=== PATIENT | male | born 1940 | race Caucasian/White ===

== ENCOUNTER 2019-10-29 06:34 | Day surgery (SDC) | payer MEDICARE, BC ==
[2019-10-29] VITALS (9 sets, daily range): BP systolic 113–126; BP diastolic 74–90
[~2019-10-29] VITALS: Ht 172.7 cm; Wt 103.1 kg
[2019-10-29] MEDS ORDERED: LORazepam 0.5 MG tablet PO PRN (07:00)
[2019-10-29] MEDS ORDERED: normal saline 1,000 ML IV SCH (07:00)
[2019-10-29] MEDS ORDERED: diphenhydrAMINE 25mg capsule PO PRN (07:00)
[2019-10-29 07:48] LABS: BASOPHILS % (AUTO) 0.4 % (0-1); EOSINOPHILS # (AUTO) 0.2 X10'3 (0-0.9); EOSINOPHILS % (AUTO) 2.4 % (0-6); HEMATOCRIT 42.3 % (42.0-52.0); LYMPHOCYTES # (AUTO) 1.3 X10'3 (1.1-4.8); LYMPHOCYTES % (AUTO) 18.3 % (21-51); MEAN CORPUSCULAR HEMOGLOBIN 29.5 PG (27.0-31.0); MEAN CORPUSCULAR HGB CONC 33.1 g/dL (33.0-36.5); MEAN CORPUSCULAR VOLUME 89.2 FL (78-98); MEAN PLATELET VOLUME 7.6 FL (7.4-10.4); MONOCYTES # (AUTO) 0.6 X10'3 (0-0.9); MONOCYTES % (AUTO) 7.7 % (2-12); NEUTROPHILS # (AUTO) 5.1 X10'3 (1.8-7.7); NEUTROPHILS % (AUTO) 71.2 % (42-75); PLATELET COUNT 298 X10'3 (140-440); RED BLOOD COUNT 4.74 X10'6 (4.70-6.10); RED CELL DISTRIBUTION WIDTH 14.3 % (11.5-14.5); WHITE BLOOD COUNT 7.2 X10'3 (4.5-11.0)
[2019-10-29] MEDS ORDERED: FURO-149 PO (07:55)
[2019-10-29] MEDS ORDERED: CHOL20002 PO (07:55)
[2019-10-29] MEDS ORDERED: SPIR25TA5 PO (07:55)
[2019-10-29] MEDS ORDERED: ASPI-1265 PO (07:55)
[2019-10-29] MEDS ORDERED: GLIM4TAB PO (07:55)
[2019-10-29] MEDS ORDERED: FAMO20TA8 PO (07:55)
[2019-10-29] MEDS ORDERED: DAPA10TA PO (07:55)
[2019-10-29] MEDS ORDERED: METF-438 PO (07:55)
[2019-10-29] MEDS ORDERED: ATOR40TA71 PO (07:55)
[2019-10-29] MEDS ORDERED: METO50TA7 PO (07:55)
[2019-10-29 07:58] LABS: ALBUMIN 3.8 G/DL (3.4-5.0); ANION GAP 8 (8-16); BLOOD UREA NITROGEN 19 MG/DL (7-18); BUN/CREATININE RATIO 13.7 (5.4-32.0); CALCIUM 9.2 MG/DL (8.5-10.1); CHLORIDE 102 MMOL/L (99-107); CREATININE 1.39 MG/DL (0.60-1.10); GLUCOSE 220 MG/DL (70-104); SODIUM 137 MMOL/L (135-145); TOTAL CARBON DIOXIDE 27.3 MMOL/L (24-32); eGFR 49 ML/MIN
[2019-10-29] MEDS ORDERED: midazolam 2 mg/2 ml injection ONE (09:19)
[2019-10-29] MEDS ORDERED: fentaNYL/PF 50MCG/1 ML 2ML syringe ONE (09:19)
[2019-10-29] MEDS ORDERED: LIDOcaine 1% (10mg/ml)w/preservative injection 20ml MDV ONE (09:20)
[2019-10-29] MEDS ORDERED: iohexol 350MG/ML 100ml bottle IV ONE (09:20)
[2019-10-29] MEDS ORDERED: iohexol 350 MG/ML 50ML vial IV ONE (10:07)
[2019-10-29] MEDS ORDERED: nitroGLYCERIN 0.4mg SUBLingual tab SL PRN (10:55)
[2019-10-29] MEDS ORDERED: ondansetron/PF 4mg/2ml inj IV PRN (10:55)
[2019-10-29] MEDS ORDERED: HYDROcodone/acetaminophen 10/325mg tab PO PRN (10:55)
[2019-10-29] MEDS ORDERED: HYDROcodone/acetaminophen 5mg/325mg tablet PO PRN (10:55)
[2019-10-29] MEDS ORDERED: OXAZEpam 15mg capsule PO PRN (10:55)
[2019-10-29] MEDS ORDERED: proCHLORperazine 10 MG/2 ml inj IV PRN (10:55)
[2019-10-29] MEDS ORDERED: normal saline 1000ml 1,000 ML IV SCH (10:55)
[2019-11-03] MEDS ORDERED: AMOX250C PO (02:26)
[2019-11-03] MEDS ORDERED: BUDE10.2 INH (02:26)
[2019-11-03] MEDS ORDERED: TRAM50TA2 PO (02:26)
[2019-11-03] MEDS ORDERED: GLIM4TAB7 PO (02:28)
== END 2019-10-29 14:15 | disposition home or self-care (01) ==
LOC: SSTAY O 06:34 → MED 3N 06:40 → SSTAY O 14:15
PROVIDERS: ATTEND Internal Medicine Interventional Cardiology
DX: R94.39 Abnormal result of other cardiovascular function study (principal); I25.10 Atherosclerotic heart disease of native coronary artery without angina pectoris; I25.84 Coronary atherosclerosis due to calcified coronary lesion; I08.0 Rheumatic disorders of both mitral and aortic valves; E78.5 Hyperlipidemia, unspecified; G47.33 Obstructive sleep apnea (adult) (pediatric); E11.9 Type 2 diabetes mellitus without complications; I10 Essential (primary) hypertension; Z79.899 Other long term (current) drug therapy; Z79.82 Long term (current) use of aspirin; Z87.891 Personal history of nicotine dependence
CPT/HCPCS: 36415; 80048; 82948; 85025; 85610; 87340; 93005; 93306; 93458; 93567; 99152; 99153; C1769; J1644; J2001; J2250; J3010; J7030; Q0163; Q9967; 86703; 86706; 86803; A4620; A6258; C1760; C1894

== ENCOUNTER 2020-07-22 07:01 | Inpatient (IN) | payer MEDICARE, BC ==
[~2020-07-22] VITALS: Ht 172.7 cm; Wt 104.5 kg
[~2020-07-22 07:01] MED LIST: APIX5TAB3 PO; ASPI-1265 PO; ATOR10TA87 PO; ATRIN IH; BUDE10.2 INH; CHOL200016 PO; DAPA10TA PO; DULO30CA52 PO; FURO-149 PO; GLIM4TAB7 PO; LISI2.5T89 PO; METF-438 PO; METO-384 PO; PANT-47 PO; POLY17PO10 PO; SPIR25TA5 PO; ZOLP5TAB8 PO
[2020-07-22] MEDS ORDERED: nitroGLYCERIN 0.4mg SUBLingual tab SL PRN (07:20)
[2020-07-22] MEDS ORDERED: famotidine/PF 10 mg/ml inj IV ONE (07:20)
--- NOTE | 2020-07-22 07:38 | NUR ---
No relief with nitro. Dr Phillips aware and will place orders. Pt is burping quite a bit.
[2020-07-22] MEDS ORDERED: mag hydrox/Alum hydrox/simeth 30ml oral suspension PO ONE (07:40)
[2020-07-22] MEDS ORDERED: ondansetron/PF 4mg/2ml inj IV ONE (07:40)
[2020-07-22 07:59] LABS: BASOPHILS % (AUTO) 0.2 % (0-1); EOSINOPHILS # (AUTO) 0.1 X10'3 (0-0.9); EOSINOPHILS % (AUTO) 0.9 % (0-6); HEMATOCRIT 29.8 % (42.0-52.0); HEMOGLOBIN 10.3 g/dl (14.0-17.9); LYMPHOCYTES % (AUTO) 10.1 % (21-51); MEAN CORPUSCULAR HEMOGLOBIN 31.2 PG (27.0-31.0); MEAN CORPUSCULAR HGB CONC 34.7 g/dL (33.0-36.5); MEAN CORPUSCULAR VOLUME 89.8 FL (78-98); MONOCYTES # (AUTO) 0.7 X10'3 (0-0.9); MONOCYTES % (AUTO) 7.5 % (2-12); NEUTROPHILS # (AUTO) 8.1 X10'3 (1.8-7.7); NEUTROPHILS % (AUTO) 81.3 % (42-75); PLATELET COUNT 237 X10'3 (140-440); RED BLOOD COUNT 3.32 X10'6 (4.70-6.10); RED CELL DISTRIBUTION WIDTH 13.9 % (11.5-14.5); WHITE BLOOD COUNT 9.9 X10'3 (4.5-11.0)
[2020-07-22 08:10] LABS: ALANINE AMINOTRANSFERASE 18 U/L (12-78); ALBUMIN 3.8 G/DL (3.4-5.0); ALBUMIN/GLOBULIN RATIO 0.9 (1.1-1.5); ALKALINE PHOSPHATASE 73 IU/L (46-116); ANION GAP 13 (8-16); ASPARTATE AMINO TRANSFERASE 15 U/L (10-37); BILIRUBIN,TOTAL 0.4 MG/DL (0.1-1.0); BLOOD UREA NITROGEN 78 MG/DL (7-18); BUN/CREATININE RATIO 28.9 (5.4-32.0); CALCIUM 9.8 MG/DL (8.5-10.1); CHLORIDE 100 MMOL/L (99-107); GLUCOSE 178 MG/DL (70-104); POTASSIUM 5.4 MMOL/L (3.5-5.1); SODIUM 135 MMOL/L (135-145); TOTAL CARBON DIOXIDE 22.5 MMOL/L (24-32); eGFR 23 ML/MIN
[2020-07-22] MEDS ORDERED: normal saline 1000ml 1,000 ML IV ONE (08:15)
[2020-07-22] MEDS ORDERED: potassium Cl 20 mEq SR tablet PO PRN ×2 (10:35)
[2020-07-22] MEDS ORDERED: potassium Cl 40MEQ/1/2NS 520ml 520 ML IV PRN ×2 (10:35)
[2020-07-22] MEDS ORDERED: magnesium 2GM in 50ml NS 50 ML IV PRN (10:35)
[2020-07-22] MEDS ORDERED: magnesium Cl slow-release 64mg tablet PO PRN (10:35)
[2020-07-22] MEDS ORDERED: acetaminophen 325mg tablet PO PRN (10:35)
[2020-07-22] MEDS ORDERED: magnesium 4gm in 100ml NS 100 ML IV PRN (10:35)
[2020-07-22] MEDS: morphine 2 MG/ML inj. syringe IV PRN ×3 (12:22→21:32)
--- NOTE | 2020-07-22 13:38 | NUR ---
Pt sleeping. Respirations unlabored. NAD
--- NOTE | 2020-07-22 14:19 | NUR ---
Pt has given permission for his ex-, Tameka Salmon, to have any information regarding his status or care. She can be reached at [phone]. She was given an update at this time.
--- NOTE | 2020-07-22 14:57 | NUR ---
Tried to call report to PCU. They are not able to find the RN or charge nurse at this time. They will have him call me back.
--- NOTE | 2020-07-22 15:04 | NUR ---
Patient in room ED 12. I have received report from DELMA Alcantar and had the opportunity to ask questions and assume patient care.
--- NOTE | 2020-07-22 17:45 | NUR ---
3026A, Dheeraj Salmon. Pt has mid abdomen pain that 8/10, sharp, worsens with touch or movement. Did you want to increase the morphine or add anything for breakthrough? Pain does not appear cardiac in its presentation. Primitivo, U
[2020-07-22 17:52] VITALS: BP 130/80
[2020-07-22] MEDS ORDERED: dextrose 50%-water 50ml dispensing syringe IV PRN ×2 (17:55)
[2020-07-22] MEDS ORDERED: dextrose ORAL solution 15 GM/59 ML bottle PO PRN ×2 (17:55)
[2020-07-22] MEDS ORDERED: glucagon, human recombinant 1mg kit SUBCUT PRN (17:55)
[2020-07-22] MEDS ORDERED: MESSAGE TO PHARMACY PO ONE (17:55)
[2020-07-22 18:00] VITALS: BP 114/71
[2020-07-22] MEDS ORDERED: morphine 2 MG/ML inj. syringe IV STA (18:11)
[2020-07-22] MEDS: pantoprazole 40 MG vial IV SCH ×2 (18:27→18:29)
--- NOTE | 2020-07-22 18:46 | NUR ---
Problems reprioritized. Patient report given, questions answered & plan of care reviewed with DELMA Aguirre.
[2020-07-22 19:25] LABS: HEMOGLOBIN A1C 7.1 % (4.5-6.2)
[2020-07-22] MEDS: K and/or MAG REPLACEMENT MC SCH (20:00)
[2020-07-22] MEDS ORDERED: pantoprazole 40 MG vial IV SCH (20:00)
[2020-07-22] MEDS: atorvastatin 10mg tablet PO SCH (20:27)
[2020-07-22] MEDS: ondansetron/PF 4mg/2ml inj IV PRN (20:27)
[2020-07-22] MEDS: apixaban 5mg tablet PO SCH (20:27)
[2020-07-22] MEDS: insulin glargine (Lantus) pen - multi-dose SQ SCH (23:39)
[2020-07-23] MEDS: insulin Lispro (HumaLOG) vial - multi-dose SQ SCH ×3 (00:40→14:21)
[2020-07-23] MEDS: morphine 2 MG/ML inj. syringe IV PRN ×3 (01:02→11:56)
[2020-07-23 06:00] VITALS: BP 110/63
--- NOTE | 2020-07-23 06:00 | NUR ---
REPORT RECEIVED BY YAMILE NGUYỄN. PT AWAKE COMPLAINING OF PAIN TO RIGHT UPPER QUADRANT. PT SITTING ON BED. WILL EVALUATE TO GIVE PAIN MEDS. ASSUME CARE.
[2020-07-23 06:51] VITALS: BP 118/75
[2020-07-23 07:01] LABS: BASOPHILS % (AUTO) 0.2 % (0-1); EOSINOPHILS % (AUTO) 0 % (0-6); HEMATOCRIT 31.9 % (42.0-52.0); HEMOGLOBIN 10.7 g/dl (14.0-17.9); LYMPHOCYTES # (AUTO) 0.5 X10'3 (1.1-4.8); MEAN CORPUSCULAR HEMOGLOBIN 29.9 PG (27.0-31.0); MEAN CORPUSCULAR HGB CONC 33.6 g/dL (33.0-36.5); MEAN CORPUSCULAR VOLUME 89.1 FL (78-98); MEAN PLATELET VOLUME 8.4 FL (7.4-10.4); MONOCYTES # (AUTO) 1.5 X10'3 (0-0.9); MONOCYTES % (AUTO) 9.7 % (2-12); NEUTROPHILS # (AUTO) 13.4 X10'3 (1.8-7.7); NEUTROPHILS % (AUTO) 87.1 % (42-75); PLATELET COUNT 236 X10'3 (140-440); RED BLOOD COUNT 3.58 X10'6 (4.70-6.10); RED CELL DISTRIBUTION WIDTH 14.3 % (11.5-14.5); WHITE BLOOD COUNT 15.4 X10'3 (4.5-11.0)
[2020-07-23 07:43] LABS: ALBUMIN 3.6 G/DL (3.4-5.0); ANION GAP 12 (8-16); BLOOD UREA NITROGEN 56 MG/DL (7-18); BUN/CREATININE RATIO 27.6 (5.4-32.0); CALCIUM 9.2 MG/DL (8.5-10.1); CHLORIDE 101 MMOL/L (99-107); CHOL/HDL RATIO 2.5 (0.00-4.99); CHOLESTEROL 106 MG/DL (0-200); CREATININE 2.03 MG/DL (0.60-1.10); GLUCOSE 198 MG/DL (70-104); HDL CHOLESTEROL 42 MG/DL (35-60); LDL CHOLESTEROL 55 MG/DL (50-100); MAGNESIUM 2.3 MG/DL (1.5-2.4); SODIUM 137 MMOL/L (135-145); TOTAL CARBON DIOXIDE 23.8 MMOL/L (24-32); TRIGLYCERIDES 55 MG/DL (20-135); eGFR 32 ML/MIN
[2020-07-23] MEDS: K and/or MAG REPLACEMENT MC SCH ×2 (08:00→20:00)
[2020-07-23] MEDS: duloxetine 30mg CAPSULE.DR PO SCH (09:34)
[2020-07-23] MEDS: metoprolol succinate 25mg (24-HOUR) SR. Tablet PO SCH (09:34)
[2020-07-23] MEDS: apixaban 5mg tablet PO SCH (09:34)
[2020-07-23] MEDS: pantoprazole 40 MG vial IV SCH ×2 (09:34→22:18)
[2020-07-23] MEDS: vitamin D (cholecalciferol) 1,000 unit tablet PO SCH (09:35)
[2020-07-23] MEDS: aspirin 81mg tab.chew PO SCH (09:35)
[2020-07-23 11:00] VITALS: BP 124/74
--- NOTE | 2020-07-23 12:06 | NUR ---
PAGER ID: [phone] MESSAGE: CICI GUZMAN, THIS IS DEANDRE FROM PCU PATIENT ABDOMEN ULTRASOUND FOR 26 A IS UP JONATHAN PAREKH. HES ALSO HAVING TO MUCH PAIN TO UPPER RIGHT QUADRANT. HES GETTING IV MORPHINE 2MG ONLY CAN WE GIVE ANYTHING ELSE THANKS
[2020-07-23 15:00] VITALS: BP 133/79
--- NOTE | 2020-07-23 15:13 | NUR ---
DM Consult: Pt A1C 7.1 appropriate given geriatric age. To f/u 07/27 for initial assessment. Addendum: 07/23/20 at [address] Amended: Links added.
[2020-07-23] MEDS ORDERED: morphine 4 MG/ML inj SYRINge IV PRN (16:25)
[2020-07-23 17:07] LABS: ALANINE AMINOTRANSFERASE 41 U/L (12-78); ALBUMIN/GLOBULIN RATIO 0.8 (1.1-1.5); ALKALINE PHOSPHATASE 74 IU/L (46-116); ASPARTATE AMINO TRANSFERASE 50 U/L (10-37); BILIRUBIN,DIRECT 0.2 MG/DL (0-0.3); BILIRUBIN,TOTAL 0.8 MG/DL (0.1-1.0); LIPASE 86 U/L (73-393)
[2020-07-23 18:00] VITALS: BP 113/74
[2020-07-23] MEDS ORDERED: heparin 10,000 units/1 ML INJ IV ONE (18:10)
[2020-07-23] MEDS ORDERED: heparin 25,000 UNIT/250ml bag 250 ML IV SCH (18:10)
[2020-07-23] MEDS ORDERED: heparin 10,000 units/1 ML INJ IV PRN (18:10)
--- NOTE | 2020-07-23 18:53 | NUR ---
REPORT GIVEN TO YAMILE NGUYỄN. PT LAYING ON BED WITH BED AT LOWEST POSTION. PT ABLE TO MOVE ALL EXTREMTIES. PT NEEDS REORIENTATION. PT UPDATE X2 TRHU DAY. PT IV INTACT TRANSFERED CARE
[2020-07-23 19:48] LABS: BASOPHILS % (AUTO) 0.2 % (0-1); EOSINOPHILS % (AUTO) 0 % (0-6); HEMATOCRIT 30.1 % (42.0-52.0); LYMPHOCYTES # (AUTO) 0.5 X10'3 (1.1-4.8); LYMPHOCYTES % (AUTO) 3.1 % (21-51); MEAN CORPUSCULAR HEMOGLOBIN 29.8 PG (27.0-31.0); MEAN CORPUSCULAR HGB CONC 33.3 g/dL (33.0-36.5); MEAN CORPUSCULAR VOLUME 89.4 FL (78-98); MEAN PLATELET VOLUME 7.9 FL (7.4-10.4); MONOCYTES # (AUTO) 1.5 X10'3 (0-0.9); MONOCYTES % (AUTO) 9.3 % (2-12); NEUTROPHILS # (AUTO) 14.1 X10'3 (1.8-7.7); NEUTROPHILS % (AUTO) 87.4 % (42-75); PLATELET COUNT 210 X10'3 (140-440); RED BLOOD COUNT 3.37 X10'6 (4.70-6.10); RED CELL DISTRIBUTION WIDTH 14.1 % (11.5-14.5); WHITE BLOOD COUNT 16.2 X10'3 (4.5-11.0)
[2020-07-23 19:59] LABS: PARTIAL THROMBOPLASTIN TIME 35 SECONDS (22-32)
[2020-07-23] MEDS: ondansetron/PF 4mg/2ml inj IV PRN (20:31)
[2020-07-23] MEDS: atorvastatin 10mg tablet PO SCH (20:32)
[2020-07-23] MEDS: furosemide 40mg/4ml inj IV SCH (20:32)
[2020-07-23] MEDS: insulin glargine (Lantus) pen - multi-dose SQ SCH (21:41)
[2020-07-23] MEDS ORDERED: levoFLOXACIN-Levaquin 500mg/D5 100 ML IV SCH (22:00)
[2020-07-24] MEDS ORDERED: LORazepam 2 mg/ml vial IV PRN (00:10)
--- NOTE | 2020-07-24 00:14 | NUR ---
Dr. Patel contacted on behalf of pt due to pt being anxious about possible surgery and increased agitation. Pt able to be redirected. Sedative requested so that pt can rest. Order for Ativan 1mg q4h as needed given.
[2020-07-24] MEDS: levoFLOXACIN-Levaquin 250mg/D5 50 ML IV SCH (03:11)
[2020-07-24 06:51] LABS: BASOPHILS % (AUTO) 0.1 % (0-1); EOSINOPHILS % (AUTO) 0 % (0-6); HEMATOCRIT 31.2 % (42.0-52.0); HEMOGLOBIN 10.7 g/dl (14.0-17.9); LYMPHOCYTES # (AUTO) 0.7 X10'3 (1.1-4.8); LYMPHOCYTES % (AUTO) 3.9 % (21-51); MEAN CORPUSCULAR HEMOGLOBIN 30.3 PG (27.0-31.0); MEAN CORPUSCULAR HGB CONC 34.2 g/dL (33.0-36.5); MEAN CORPUSCULAR VOLUME 88.6 FL (78-98); MEAN PLATELET VOLUME 8.8 FL (7.4-10.4); MONOCYTES # (AUTO) 1.4 X10'3 (0-0.9); MONOCYTES % (AUTO) 8.3 % (2-12); NEUTROPHILS # (AUTO) 15.3 X10'3 (1.8-7.7); NEUTROPHILS % (AUTO) 87.7 % (42-75); PLATELET COUNT 215 X10'3 (140-440); RED BLOOD COUNT 3.52 X10'6 (4.70-6.10); RED CELL DISTRIBUTION WIDTH 14.2 % (11.5-14.5); WHITE BLOOD COUNT 17.4 X10'3 (4.5-11.0)
[2020-07-24 07:00] VITALS: BP 104/68
[2020-07-24 07:15] LABS: ALANINE AMINOTRANSFERASE 55 U/L (12-78); ALBUMIN 3.4 G/DL (3.4-5.0); ALBUMIN/GLOBULIN RATIO 0.7 (1.1-1.5); ALKALINE PHOSPHATASE 91 IU/L (46-116); ASPARTATE AMINO TRANSFERASE 48 U/L (10-37); BILIRUBIN,DIRECT 0.2 MG/DL (0-0.3); BILIRUBIN,TOTAL 0.9 MG/DL (0.1-1.0); LIPASE < 50 U/L (73-393); MAGNESIUM 2.4 MG/DL (1.5-2.4); PHOSPHORUS 3.7 MG/DL (2.3-4.5)
[2020-07-24] MEDS: metoprolol succinate 25mg (24-HOUR) SR. Tablet PO SCH (07:59)
[2020-07-24] MEDS: duloxetine 30mg CAPSULE.DR PO SCH (07:59)
[2020-07-24] MEDS: aspirin 81mg tab.chew PO SCH (07:59)
[2020-07-24] MEDS: furosemide 40mg/4ml inj IV SCH ×2 (07:59→20:00)
[2020-07-24] MEDS: pantoprazole 40 MG vial IV SCH ×2 (07:59→20:00)
[2020-07-24] MEDS: vitamin D (cholecalciferol) 1,000 unit tablet PO SCH (07:59)
[2020-07-24] MEDS ORDERED: sincalide inj 2.1 MCG in normal saline 50ml IV soln 50 ML IV ONE (10:00)
[2020-07-24 11:00] VITALS: BP 103/72
[2020-07-24] MEDS: morphine 2 MG/ML inj. syringe IV PRN (13:34)
--- NOTE | 2020-07-24 14:37 | NUR ---
PAGER ID: [phone] MESSAGE: Radiologist Dr. Chaudhari reported positive scan for cholecystitis.
[2020-07-24 15:00] VITALS: BP 88/47
[2020-07-24 18:00] VITALS: BP 101/69
--- NOTE | 2020-07-24 18:24 | NUR ---
Sbar report given to Tasha NGUYỄN, EMAR reviewed, questions answered.
--- NOTE | 2020-07-24 18:49 | NUR ---
rounded with Dr. Herrera, sbar given, emar reviewed, Plan of care reviewed.
[2020-07-24] MEDS: lactobacillus rhamnosus 10,000 MMU CELLS/CAPSULE PO SCH (20:00)
[2020-07-24] MEDS: K and/or MAG REPLACEMENT MC SCH (20:00)
[2020-07-24] MEDS: atorvastatin 10mg tablet PO SCH (21:00)
[2020-07-24] MEDS: insulin glargine (Lantus) pen - multi-dose SQ SCH (21:00)
[2020-07-24 22:00] VITALS: BP 102/67
[2020-07-25] VITALS (24 sets, daily range): BP systolic 86–120; BP diastolic 50–79
[2020-07-25] MEDS: levoFLOXACIN-Levaquin 250mg/D5 50 ML IV SCH ×2 (02:00→03:15)
[2020-07-25 03:55] LABS: ALBUMIN 3.9 G/DL (3.4-5.0); ANION GAP 13 (8-16); BLOOD UREA NITROGEN 36 MG/DL (7-18); BUN/CREATININE RATIO 24.3 (5.4-32.0); CALCIUM 9.4 MG/DL (8.5-10.1); CHLORIDE 105 MMOL/L (99-107); CREATININE 1.48 MG/DL (0.60-1.10); GLUCOSE 177 MG/DL (70-104); MAGNESIUM 1.8 MG/DL (1.5-2.4); POTASSIUM 4.4 MMOL/L (3.5-5.1); SODIUM 141 MMOL/L (135-145); TOTAL CARBON DIOXIDE 22.6 MMOL/L (24-32); eGFR 46 ML/MIN
[2020-07-25 06:14] LABS: BASOPHILS % (AUTO) 0.1 % (0-1); EOSINOPHILS % (AUTO) 0.1 % (0-6); HEMATOCRIT 30.8 % (42.0-52.0); HEMOGLOBIN 10.3 g/dl (14.0-17.9); LYMPHOCYTES # (AUTO) 0.9 X10'3 (1.1-4.8); LYMPHOCYTES % (AUTO) 6.3 % (21-51); MEAN CORPUSCULAR HEMOGLOBIN 29.9 PG (27.0-31.0); MEAN CORPUSCULAR HGB CONC 33.6 g/dL (33.0-36.5); MEAN CORPUSCULAR VOLUME 88.9 FL (78-98); MEAN PLATELET VOLUME 8.6 FL (7.4-10.4); MONOCYTES # (AUTO) 1.1 X10'3 (0-0.9); MONOCYTES % (AUTO) 7.8 % (2-12); NEUTROPHILS # (AUTO) 12.1 X10'3 (1.8-7.7); NEUTROPHILS % (AUTO) 85.7 % (42-75); PLATELET COUNT 236 X10'3 (140-440); RED BLOOD COUNT 3.46 X10'6 (4.70-6.10); WHITE BLOOD COUNT 14.2 X10'3 (4.5-11.0)
--- NOTE | 2020-07-25 06:23 | NUR ---
Patient in room PCU 3026. I have received report from Meggan NGUYỄN and had the opportunity to ask questions and assume patient care.
--- NOTE | 2020-07-25 07:41 | NUR ---
PAGER ID: [phone] MESSAGE: Michael Salmon [id number] npo for sx. po meds still ok to give? want ekg? fluids? atb? WBC 14.2 and urine fowl. UA? I have another tachy pt. to discuss with you too. Cony [phone]
--- NOTE | 2020-07-25 07:48 | NUR ---
returned page by phone. States ok to give PO meds, but hold aspirin. Does not want UA at this time and added fluid orders.
[2020-07-25] MEDS: furosemide 40mg/4ml inj IV SCH ×2 (08:00→20:09)
[2020-07-25] MEDS: aspirin 81mg tab.chew PO SCH (08:00)
[2020-07-25] MEDS: K and/or MAG REPLACEMENT MC SCH ×2 (08:00→20:00)
[2020-07-25] MEDS: normal saline 1000ml 1,000 ML IV SCH ×2 (08:09→19:58)
[2020-07-25] MEDS: pantoprazole 40 MG vial IV SCH ×2 (08:17→20:09)
[2020-07-25] MEDS: lactobacillus rhamnosus 10,000 MMU CELLS/CAPSULE PO SCH ×2 (08:17→20:09)
[2020-07-25] MEDS: duloxetine 30mg CAPSULE.DR PO SCH (08:17)
[2020-07-25] MEDS: vitamin D (cholecalciferol) 1,000 unit tablet PO SCH (08:18)
--- NOTE | 2020-07-25 08:20 | NUR ---
Surgeon marquis in to round on pt. Discussed sx with pt. and pt. is in agreement of POC. SX planned around 4pm per Marquis. Discussed low BP with . states ok to give oral beta emperatriz this AM.
[2020-07-25] MEDS: metoprolol succinate 25mg (24-HOUR) SR. Tablet PO SCH (08:25)
[2020-07-25] MEDS: insulin Lispro (HumaLOG) vial - multi-dose SQ SCH ×2 (10:07→13:12)
[2020-07-25] MEDS ORDERED: famotidine/PF 10 mg/ml inj IV ONE (11:10)
--- NOTE | 2020-07-25 11:26 | NUR ---
COVID TEST ORDERED AND TAKEN DOWN TO LAB
--- NOTE | 2020-07-25 12:36 | NUR ---
Pt. A&0x1. MD Moscoso notified during rounds. POA son Simone Forman called. Did not seem to want to talk on the phone however he is aware his father is going to sx today. He stated that the hospital has been updating Tameka on contacts. Called Tameka, but no answer. Left voicemail with contact info.
--- NOTE | 2020-07-25 12:54 | NUR ---
Spoke with OR charge he is aware that MAGALYS and Tameka pt. have been notified of upcoming sx. Tameka # [phone]. Notified Juan of abnormal WBC, CO2, creat, GFR, ptt, and low SBP. They are aware pt. has also been confused for this primary RN.
[2020-07-25] MEDS ORDERED: INDOCYANINE GREEN 25 MG/10 ML VIAL IV ONE (14:05)
[2020-07-25] MEDS ORDERED: hydrALAZINE 20mg/ml inj. IV PRN (14:50)
[2020-07-25] MEDS ORDERED: morphine 2 MG/ML inj. syringe IV PRN (14:50)
[2020-07-25] MEDS ORDERED: enalaprilat dihydrate 2.5mg/2ml vial IV PRN (14:50)
[2020-07-25] MEDS ORDERED: morphine 4 MG/ML inj SYRINge IV PRN (14:50)
[2020-07-25] MEDS ORDERED: ringers solution, lacted 1,000 ML IV SCH (14:50)
[2020-07-25] MEDS ORDERED: ondansetron/PF 4mg/2ml inj IV PRN (14:50)
[2020-07-25] MEDS ORDERED: fentaNYL/PF 50MCG/1 ML 2ML syringe IV PRN ×2 (14:50)
--- NOTE | 2020-07-25 14:58 | NUR ---
Check BG 150. Called report to recovery.
[2020-07-25] MEDS ORDERED: LIDOcaine 1% 30ml preserv. free vial ONE (15:41)
[2020-07-25] MEDS ORDERED: BUPIVAcaine/PF 2.5 mg/ml (0.25%) 30ml vial ONE (15:41)
[2020-07-25] MEDS ORDERED: sevoflurane 250ml liquid IH ONE (15:43)
[2020-07-25] MEDS ORDERED: phenylephrine 10mg/ml inj. ONE (15:43)
[2020-07-25] MEDS ORDERED: fentaNYL/PF 50MCG/1 ML 2ML syringe ONE (15:47)
[2020-07-25] MEDS ORDERED: midazolam 2 mg/2 ml injection ONE (15:48)
[2020-07-25] MEDS ORDERED: rocuronium 10mg/ml inj IV ONE ×2 (15:48→16:42)
[2020-07-25] MEDS ORDERED: etomidate 2mg/ml inj. ONE (15:48)
[2020-07-25] MEDS ORDERED: neostigmine methylsulfate 1 MG/ML 10ml vial ONE (15:53)
[2020-07-25] MEDS ORDERED: glycopyrrolate 0.2mg/ml inj ONE (15:53)
[2020-07-25] MEDS ORDERED: piperacillin/tazo 3.375gm/50ml 50 ML IV SCH ×2 (16:00→19:45)
[2020-07-25] MEDS ORDERED: ondansetron/PF 4mg/2ml inj ONE (16:02)
[2020-07-25] MEDS ORDERED: albumin (Human) 5% 250ml 250 ML IV ONE ×2 (16:03)
[2020-07-25] MEDS ORDERED: sugammadex 200mg/2ml injection IV ONE (16:50)
[2020-07-25] MEDS ORDERED: HYDROcodone/acetaminophen 5mg/325mg tablet PO PRN (17:20)
[2020-07-25] MEDS ORDERED: HYDROcodone/acetaminophen 10/325mg tab PO PRN (17:20)
--- NOTE | 2020-07-25 17:22 | NUR ---
Received from OR via BED, accompanied by Anesthesiologist. DR JANG and report given by Anesthesiolgist. PATIENT SLEEPING, NO S/S OF PAIN, V/S WNL, SCDS ON, 20G PIV L WRIST, BANDAIDS TO ABDOMEN CDI. Addendum: 07/25/20 at 1751 by Diamond Frias RN Received from OR via BED, accompanied by Anesthesiologist. DR JANG and report given by Anesthesiolgist. PATIENT SLEEPING, NO S/S OF PAIN, V/S WNL, SCDS ON, PIV R WRIST 20G, 20G PIV L WRIST WITH IV LR RUNNING, 4 BANDAIDS TO ABDOMEN-CDI YOLI INTACT AND DRAINING TO RLQ OF ABD.
--- NOTE | 2020-07-25 18:48 | NUR ---
GAVE REPORT TO JUNIE NGUYỄN
--- NOTE | 2020-07-25 18:48 | NUR ---
Received report from DELMA Fields from recovery. Awaiting patient arrival to the OR
--- NOTE | 2020-07-25 19:02 | NUR ---
ALL CRITERIA FOR TRANSFER TO THE FLOOR HAS BEEN ACHIEVED. REPORT GIVEN AND ALL QUESTIONS ANSWERED, VSS. YOLI DRAINED BEFORE TRANSFER, BULB SXN INTACT TO DRAIN IN RLQ, SCD'S IN PLACE, IV LR RUNNING, TELE #22 ATTACHED, PT AWAKE AND AWARE OF TRANSFER, BED LOW-2 RAILS UP, CALL LIGHT PRESENT AND PATIENT HOOKED UP TO ALL LINES. PATIENTS RN PRESENT TO ACCEPT CARE.
[2020-07-25] MEDS: atorvastatin 10mg tablet PO SCH (20:21)
[2020-07-25] MEDS: insulin glargine (Lantus) pen - multi-dose SQ SCH (20:28)
[2020-07-26] VITALS (8 sets, daily range): BP systolic 92–107; BP diastolic 59–69
[2020-07-26] MEDS: piperacillin/tazo 3.375gm/50ml 50 ML IV SCH ×3 (00:19→16:19)
[2020-07-26] MEDS: morphine 2 MG/ML inj. syringe IV PRN (02:58)
[2020-07-26] MEDS: normal saline 1000ml 1,000 ML IV SCH ×3 (03:50→17:24)
[2020-07-26 05:58] LABS: BASOPHILS % (AUTO) 0.1 % (0-1); EOSINOPHILS % (AUTO) 0 % (0-6); HEMATOCRIT 28.6 % (42.0-52.0); HEMOGLOBIN 9.8 g/dl (14.0-17.9); LYMPHOCYTES # (AUTO) 0.4 X10'3 (1.1-4.8); MEAN CORPUSCULAR HEMOGLOBIN 30.5 PG (27.0-31.0); MEAN CORPUSCULAR HGB CONC 34.3 g/dL (33.0-36.5); MEAN CORPUSCULAR VOLUME 88.9 FL (78-98); MEAN PLATELET VOLUME 8.1 FL (7.4-10.4); MONOCYTES # (AUTO) 0.3 X10'3 (0-0.9); MONOCYTES % (AUTO) 4.7 % (2-12); NEUTROPHILS # (AUTO) 6.7 X10'3 (1.8-7.7); NEUTROPHILS % (AUTO) 90.2 % (42-75); PLATELET COUNT 209 X10'3 (140-440); RED BLOOD COUNT 3.21 X10'6 (4.70-6.10); RED CELL DISTRIBUTION WIDTH 14.1 % (11.5-14.5); WHITE BLOOD COUNT 7.4 X10'3 (4.5-11.0)
[2020-07-26 06:07] LABS: ANION GAP 12 (8-16); BLOOD UREA NITROGEN 56 MG/DL (7-18); CALCIUM 8.1 MG/DL (8.5-10.1); CHLORIDE 98 MMOL/L (99-107); GLUCOSE 229 MG/DL (70-104); MAGNESIUM 2.4 MG/DL (1.5-2.4); POTASSIUM 4.3 MMOL/L (3.5-5.1); SODIUM 133 MMOL/L (135-145); TOTAL CARBON DIOXIDE 23.1 MMOL/L (24-32); eGFR 32 ML/MIN
--- NOTE | 2020-07-26 07:41 | NUR ---
Patient in room PCU 3026. I have received report from Richa NGUYỄN and had the opportunity to ask questions and assume patient care.
[2020-07-26] MEDS: K and/or MAG REPLACEMENT MC SCH ×2 (08:00→20:00)
[2020-07-26] MEDS: pantoprazole 40 MG vial IV SCH ×2 (08:32→20:30)
[2020-07-26] MEDS: metoprolol succinate 25mg (24-HOUR) SR. Tablet PO SCH (08:32)
[2020-07-26] MEDS: aspirin 81mg tab.chew PO SCH (08:33)
[2020-07-26] MEDS: vitamin D (cholecalciferol) 1,000 unit tablet PO SCH (08:33)
[2020-07-26] MEDS: duloxetine 30mg CAPSULE.DR PO SCH (08:33)
[2020-07-26] MEDS: lactobacillus rhamnosus 10,000 MMU CELLS/CAPSULE PO SCH ×2 (08:33→20:28)
[2020-07-26] MEDS: furosemide 40mg/4ml inj IV SCH (08:37)
[2020-07-26] MEDS: insulin Lispro (HumaLOG) vial - multi-dose SQ SCH ×4 (09:49→21:03)
--- NOTE | 2020-07-26 12:09 | NUR ---
Initial: Pt presented with abdominal pain, Positive HIDA scan for cholecystitis 07/24. Pt undergone robotic laparoscopic cholecystectomy 07/25. Pt. average PO intake is <25%, possibly r/t to abdominal pain. Pt on clear liquid diet,post surgery, not meeting nutritional needs. Pt may benefit from advancement of diet as medically indicated-carbohydrate controlled diet and heart healthy diet. Discussed with bedside nurse about advancing diet, mentioned advancing diet at lunch time to full liquid as tolerated. Pt has normal BM 07/26. Will continue to follow up. Recommend: 1. Diet advancement as medically indicated to Carb-controlled diet/ heart healthy diet 2. Weight per rx Addendum: 07/26/20 at 1210 by Zachary Payne [address] Amended: Links added. Addendum: 07/26/20 at 1349 by Char Umaña RD RD agree with [employer] certified internetwork expert note
--- NOTE | 2020-07-26 18:45 | NUR ---
Problems reprioritized. Patient report given, questions answered & plan of care reviewed with Ruth NGUYỄN.
[2020-07-26] MEDS: atorvastatin 10mg tablet PO SCH (20:29)
[2020-07-26] MEDS: insulin glargine (Lantus) pen - multi-dose SQ SCH (21:01)
[2020-07-27] MEDS: piperacillin/tazo 3.375gm/50ml 50 ML IV SCH ×3 (00:13→16:17)
[2020-07-27 02:00] VITALS: BP 100/58
[2020-07-27] MEDS: normal saline 1000ml 1,000 ML IV SCH (04:18)
[2020-07-27 06:11] LABS: BASOPHILS % (AUTO) 0.1 % (0-1); EOSINOPHILS % (AUTO) 0.1 % (0-6); HEMATOCRIT 25.4 % (42.0-52.0); HEMOGLOBIN 8.4 g/dl (14.0-17.9); LYMPHOCYTES # (AUTO) 0.7 X10'3 (1.1-4.8); LYMPHOCYTES % (AUTO) 7.5 % (21-51); MEAN CORPUSCULAR HEMOGLOBIN 29.6 PG (27.0-31.0); MEAN CORPUSCULAR HGB CONC 33.2 g/dL (33.0-36.5); MEAN CORPUSCULAR VOLUME 89.2 FL (78-98); MEAN PLATELET VOLUME 8.2 FL (7.4-10.4); MONOCYTES # (AUTO) 0.5 X10'3 (0-0.9); MONOCYTES % (AUTO) 5.6 % (2-12); NEUTROPHILS # (AUTO) 7.5 X10'3 (1.8-7.7); NEUTROPHILS % (AUTO) 86.7 % (42-75); PLATELET COUNT 219 X10'3 (140-440); RED BLOOD COUNT 2.85 X10'6 (4.70-6.10); RED CELL DISTRIBUTION WIDTH 14.1 % (11.5-14.5); WHITE BLOOD COUNT 8.7 X10'3 (4.5-11.0)
[2020-07-27 06:29] LABS: ALANINE AMINOTRANSFERASE 144 U/L (12-78); ALBUMIN 2.7 G/DL (3.4-5.0); ALBUMIN/GLOBULIN RATIO 0.7 (1.1-1.5); ANION GAP 10 (8-16); ASPARTATE AMINO TRANSFERASE 135 U/L (10-37); BILIRUBIN,TOTAL 0.5 MG/DL (0.1-1.0); BLOOD UREA NITROGEN 55 MG/DL (7-18); BUN/CREATININE RATIO 27.6 (5.4-32.0); CHLORIDE 100 MMOL/L (99-107); CREATININE 1.99 MG/DL (0.60-1.10); GLUCOSE 225 MG/DL (70-104); MAGNESIUM 2.5 MG/DL (1.5-2.4); POTASSIUM 3.7 MMOL/L (3.5-5.1); SODIUM 134 MMOL/L (135-145); TOTAL CARBON DIOXIDE 24.1 MMOL/L (24-32); TOTAL PROTEIN 6.5 G/DL (6.4-8.2); eGFR 32 ML/MIN
[2020-07-27 06:43] LABS: ALKALINE PHOSPHATASE 120 IU/L (46-116); CALCIUM 7.2 MG/DL (8.5-10.1)
[2020-07-27] MEDS: pantoprazole 40 MG vial IV SCH ×2 (07:44→19:15)
[2020-07-27] MEDS: vitamin D (cholecalciferol) 1,000 unit tablet PO SCH (07:44)
[2020-07-27] MEDS: aspirin 81mg tab.chew PO SCH (07:44)
[2020-07-27] MEDS: K and/or MAG REPLACEMENT MC SCH ×2 (07:45→19:05)
[2020-07-27] MEDS: duloxetine 30mg CAPSULE.DR PO SCH (07:45)
[2020-07-27] MEDS: lactobacillus rhamnosus 10,000 MMU CELLS/CAPSULE PO SCH ×2 (07:45→19:15)
[2020-07-27] MEDS: metoprolol succinate 25mg (24-HOUR) SR. Tablet PO SCH (07:45)
[2020-07-27 08:00] VITALS: BP 101/56
[2020-07-27] MEDS: insulin Lispro (HumaLOG) vial - multi-dose SQ SCH ×2 (08:32→13:21)
[2020-07-27 12:00] VITALS: BP 104/58
--- NOTE | 2020-07-27 12:32 | NUR ---
Care of patient assumed by this nurse. Patient denies any pain or discomfort. Dressings to abdomen c/d/i. YOLI drain in place and properly functioning. Draining serosanguineous fluid. Patient OOB with PT. Walked in hallway with assistance. Tolerated well. Patient OOB to chair. Patient possible discharge for tomorrow. Will continue to monitor.
[2020-07-27 16:00] VITALS: BP 116/61
[2020-07-27 18:00] VITALS: BP 105/60
--- NOTE | 2020-07-27 18:26 | NUR ---
Patient in room PCU 3026. I have received report from DELMA Burnett and had the opportunity to ask questions and assume patient care.
[2020-07-27] MEDS: insulin glargine (Lantus) pen - multi-dose SQ SCH (21:36)
[2020-07-27] MEDS: atorvastatin 10mg tablet PO SCH (21:36)
[2020-07-27 22:00] VITALS: BP 86/51
--- NOTE | 2020-07-28 | NUR ---
Pt complained of weakness and requested sugar. BG was 159. Pt requested and was given jello, reported he felt much better after eating.
[2020-07-28 02:00] VITALS: BP 112/72
[2020-07-28] MEDS: normal saline 1000ml 1,000 ML IV SCH (04:43)
[2020-07-28] MEDS: piperacillin/tazo 3.375gm/50ml 50 ML IV SCH ×2 (04:48→08:00)
[2020-07-28 06:00] VITALS: BP 92/60
--- NOTE | 2020-07-28 06:16 | NUR ---
Patient in room PCU 3026. I have received report from josselin davis and had the opportunity to ask questions and assume patient care.
--- NOTE | 2020-07-28 06:17 | NUR ---
Problems reprioritized. Patient report given, questions answered & plan of care reviewed with DELMA Solis.
[2020-07-28 07:41] LABS: BASOPHILS % (AUTO) 0.2 % (0-1); EOSINOPHILS # (AUTO) 0.3 X10'3 (0-0.9); EOSINOPHILS % (AUTO) 3.6 % (0-6); HEMOGLOBIN 8.5 g/dl (14.0-17.9); LYMPHOCYTES # (AUTO) 1.6 X10'3 (1.1-4.8); MEAN CORPUSCULAR HEMOGLOBIN 30.6 PG (27.0-31.0); MEAN CORPUSCULAR HGB CONC 34.1 g/dL (33.0-36.5); MEAN CORPUSCULAR VOLUME 89.5 FL (78-98); MEAN PLATELET VOLUME 7.3 FL (7.4-10.4); MONOCYTES # (AUTO) 0.9 X10'3 (0-0.9); MONOCYTES % (AUTO) 10.2 % (2-12); NEUTROPHILS # (AUTO) 5.8 X10'3 (1.8-7.7); PLATELET COUNT 263 X10'3 (140-440); RED BLOOD COUNT 2.79 X10'6 (4.70-6.10); RED CELL DISTRIBUTION WIDTH 14.1 % (11.5-14.5); WHITE BLOOD COUNT 8.6 X10'3 (4.5-11.0)
[2020-07-28] MEDS: K and/or MAG REPLACEMENT MC SCH (08:00)
[2020-07-28 08:06] LABS: MAGNESIUM 2.3 MG/DL (1.5-2.4)
[2020-07-28] MEDS: pantoprazole 40 MG vial IV SCH (08:17)
[2020-07-28] MEDS: aspirin 81mg tab.chew PO SCH (08:19)
[2020-07-28] MEDS: metoprolol succinate 25mg (24-HOUR) SR. Tablet PO SCH (08:20)
[2020-07-28] MEDS: duloxetine 30mg CAPSULE.DR PO SCH (08:20)
[2020-07-28] MEDS: lactobacillus rhamnosus 10,000 MMU CELLS/CAPSULE PO SCH (08:20)
[2020-07-28] MEDS: vitamin D (cholecalciferol) 1,000 unit tablet PO SCH (08:20)
[2020-07-28] MEDS: insulin Lispro (HumaLOG) vial - multi-dose SQ SCH ×2 (09:38→13:44)
[2020-07-28 11:00] VITALS: BP 137/62
--- NOTE | 2020-07-28 11:44 | NUR ---
Reassessment: Diet now advanced to heart healthy from full liquids, good appetite and eating average of 75-100%. No nutrition problem at this time. Will continue to follow. Recommend: 1. Continue heart healthy diet 2. Weight per rx Addendum: 07/28/20 at [address] Amended: Links added.
[2020-07-28 13:37] LABS: ALANINE AMINOTRANSFERASE 184 U/L (12-78); ALBUMIN 2.7 G/DL (3.4-5.0); ALBUMIN/GLOBULIN RATIO 0.7 (1.1-1.5); ALKALINE PHOSPHATASE 145 IU/L (46-116); ANION GAP 11 (8-16); ASPARTATE AMINO TRANSFERASE 114 U/L (10-37); BILIRUBIN,TOTAL 0.4 MG/DL (0.1-1.0); BLOOD UREA NITROGEN 41 MG/DL (7-18); BUN/CREATININE RATIO 23.7 (5.4-32.0); CALCIUM 7.7 MG/DL (8.5-10.1); CHLORIDE 102 MMOL/L (99-107); CREATININE 1.73 MG/DL (0.60-1.10); GLUCOSE 157 MG/DL (70-104); POTASSIUM 3.6 MMOL/L (3.5-5.1); SODIUM 135 MMOL/L (135-145); TOTAL CARBON DIOXIDE 22.3 MMOL/L (24-32); TOTAL PROTEIN 6.4 G/DL (6.4-8.2); eGFR 38 ML/MIN
[2020-07-28 15:00] VITALS: BP 111/63
[2020-07-28] MEDS ORDERED: CIPR-230 PO (15:32)
--- NOTE | 2020-07-28 18:18 | NUR ---
reviewed all discharge instructions including F/U appt with within 1 week,post op precautions reviewed,written info given,prescription confirmed with dwayne rojas in [place] YOLI drain removed from right abd,gauze dressing and tegaderm in place ,supplies provided to change if soiled prior to appt with Danis Valentino,SL dc'd from [facility],site clear.Reviewed above with son via phone,dc'd via w/c with all belongings
--- NOTE | 2020-07-31 13:02 | NUR ---
CASE MANAGEMENT DISCHARGE FOLLOW UP: Spoke with pt and his son via telephone. Pt reports that he is "doing well" and that he is still sore, but that it is improving. Denies s/sx of infection, SOB, CP. Verbalizes understanding of s/sx requiring further evaluation/emergent assistance. Pt verbalizes understanding of new prescriptions, advised that pt needs to complete 5-day tx of abx, pt and his son verbalize understanding. Pt's son states that there are a few medications, including memantine, that did not show up on his continued medications at discharge, this nurse does not see this medication in pt's reconciliation at time of admission. Pt's son states that he gave list to community health specialist but did not get a copy of it back. Advised that this nurse will be unable to get that list back and that in the future to give a copy or to have community health specialist make a copy of any medication list so that pt can retain original. Advised that pt/son contact PCP in regards to complete list of medications pt should be taking. Pt's son states that pharmacist states that it was safe for pt to continue taking antibiotic in spite of home medications that pt has been taking that discharging physician was not aware of. Advised pt to follow up with PCP as they have questions regarding pt medications not documented during this hospitalization. Pt and his son verbalize compliance with MD discharge instructions. They verbalize understanding of the importance in making/keeping follow-up appointments. State unable to make appt with Dr Moscoso as his office is not in today, they will call again tomorrow. Per Dr Ortez's note, pt to follow up with stencil typist, advised pt of this, requesting help in setting up appointment, will assist patient. Pt states no further questions/concerns at this time. [address] Jules's office, set up appointment for pt on 08/10@1000, will notify patient. [address] Garcia's office to set up follow up appt for patient, office closed until 1330. will try again. [address] Garcia's office, f/u 08/02@1415, will notify patient. 1334 Notified pt's son, Simone, of aforementioned f/u appts, he states no further questions/needs at this time. States that he will call Dr. Moscoso's office tomorrow to set up appointment for suture removal.
== END 2020-07-28 18:18 | disposition home health service (06) | DRG 417 ==
LOC: ER 07:01 → ED HOLD 10:33 → EDBEDREQ 14:42 → PCU 3S 16:05
PROVIDERS: ADMIT Internal Medicine; ATTEND Internal Medicine
PROC: CF141ZZ Planar Nuclear Medicine Imaging of Gallbladder using Technetium 99m (Tc-99m) (ICD-10-PCS; 2020-07-24)
PROC: 0WQF4ZZ Repair Abdominal Wall, Percutaneous Endoscopic Approach (ICD-10-PCS; 2020-07-25)
PROC: 8E0W4CZ Robotic Assisted Procedure of Trunk Region, Percutaneous Endoscopic Approach (ICD-10-PCS; 2020-07-25)
PROC: 0FT44ZZ Resection of Gallbladder, Percutaneous Endoscopic Approach (ICD-10-PCS; principal; 2020-07-25 15:43)
DX: K80.00 Calculus of gallbladder with acute cholecystitis without obstruction (principal); I50.23 Acute on chronic systolic (congestive) heart failure; I21.A1 Myocardial infarction type 2; I13.0 Hypertensive heart and chronic kidney disease with heart failure and stage 1 through stage 4 chronic kidney disease, or unspecified chronic kidney disease; E87.1 Hypo-osmolality and hyponatremia; N17.9 Acute kidney failure, unspecified; I25.119 Atherosclerotic heart disease of native coronary artery with unspecified angina pectoris; K21.9 Gastro-esophageal reflux disease without esophagitis; D64.9 Anemia, unspecified; E11.22 Type 2 diabetes mellitus with diabetic chronic kidney disease; E11.51 Type 2 diabetes mellitus with diabetic peripheral angiopathy without gangrene; E66.9 Obesity, unspecified; Z20.822 Contact with and (suspected) exposure to COVID-19; F32.9 Major depressive disorder, single episode, unspecified; E78.5 Hyperlipidemia, unspecified; D72.829 Elevated white blood cell count, unspecified; F03.90 Unspecified dementia, unspecified severity, without behavioral disturbance, psychotic disturbance, mood disturbance, and anxiety; K42.9 Umbilical hernia without obstruction or gangrene; K82.A1 Gangrene of gallbladder in cholecystitis; N18.9 Chronic kidney disease, unspecified; Z79.01 Long term (current) use of anticoagulants; Z68.35 Body mass index [BMI] 35.0-35.9, adult; Z79.84 Long term (current) use of oral hypoglycemic drugs; Z95.1 Presence of aortocoronary bypass graft; Z91.030 Bee allergy status; Z79.899 Other long term (current) drug therapy; Z79.82 Long term (current) use of aspirin; Z95.2 Presence of prosthetic heart valve
CPT/HCPCS: 36415; 71045; 74176; 76700; 78227; 80048; 80053; 80061; 80076; 82948; 83036; 83690; 83735; 83880; 84100; 84484; 85025; 85610; 85730; 87081; 87635; 93005; 93306; 93308; 96374; 97116; 97161; 97530; 99285; A4215; A4618; A7000; A9537; C9113; C9399; G0378; J1644; J1815; J1940; J1956; J2001; J2060; J2250; J2270; J2370; J2405; J2543; J2710; J3010; J3490; J7030; J7120; P9045

== ENCOUNTER 2021-05-10 13:37 | Inpatient (IN) | payer MEDICARE, BC ==
[~2021-05-10] VITALS: Ht 172.7 cm; Wt 107.1 kg
[~2021-05-10 13:37] MED LIST changes: -ATRIN IH; -BUDE10.2 INH; -METF-438 PO; -POLY17PO10 PO
[2021-05-10 14:20] LABS: BASOPHILS % (AUTO) 0.2 % (0-1); EOSINOPHILS % (AUTO) 0.2 % (0-6); HEMATOCRIT 29.2 % (42.0-52.0); HEMOGLOBIN 9.7 g/dl (14.0-17.9); LYMPHOCYTES # (AUTO) 0.4 X10'3 (1.1-4.8); LYMPHOCYTES % (AUTO) 3.5 % (21-51); MEAN CORPUSCULAR HEMOGLOBIN 29.8 PG (27.0-31.0); MEAN CORPUSCULAR HGB CONC 33.2 g/dL (33.0-36.5); MEAN PLATELET VOLUME 7.4 FL (7.4-10.4); MONOCYTES # (AUTO) 0.1 X10'3 (0-0.9); MONOCYTES % (AUTO) 1.2 % (2-12); NEUTROPHILS # (AUTO) 9.8 X10'3 (1.8-7.7); NEUTROPHILS % (AUTO) 94.9 % (42-75); PLATELET COUNT 255 X10'3 (140-440); RED BLOOD COUNT 3.24 X10'6 (4.70-6.10); RED CELL DISTRIBUTION WIDTH 14.5 % (11.5-14.5); WHITE BLOOD COUNT 10.3 X10'3 (4.5-11.0)
[2021-05-10 14:37] LABS: ALANINE AMINOTRANSFERASE 54 U/L (12-78); ALBUMIN 3.3 G/DL (3.4-5.0); ALBUMIN/GLOBULIN RATIO 0.7 (1.1-1.5); ALKALINE PHOSPHATASE 127 IU/L (46-116); ANION GAP 16 (8-16); ASPARTATE AMINO TRANSFERASE 51 U/L (10-37); BILIRUBIN,TOTAL 0.7 MG/DL (0.1-1.0); BLOOD UREA NITROGEN 63 MG/DL (7-18); BUN/CREATININE RATIO 23.2 (5.4-32.0); CALCIUM 8.4 MG/DL (8.5-10.1); CHLORIDE 97 MMOL/L (99-107); CREATININE 2.72 MG/DL (0.60-1.10); GLUCOSE 185 MG/DL (70-104); POTASSIUM 4.9 MMOL/L (3.5-5.1); SODIUM 132 MMOL/L (135-145); TOTAL CARBON DIOXIDE 19.2 MMOL/L (24-32); TOTAL PROTEIN 8.1 G/DL (6.4-8.2); eGFR 23 ML/MIN
[2021-05-10] MEDS ORDERED: normal saline 1000ML IV soln IVB ONE ×4 (14:50→21:25)
[2021-05-10] MEDS ORDERED: ondansetron/PF 4mg/2ml inj IV ONE (14:50)
[2021-05-10 15:14] LABS: PLATELET ESTIMATE NORMAL; TOTAL CELLS COUNTED 100; TOXIC VACUOLATION FEW
[2021-05-10] MEDS ORDERED: CefTRIAXone 2gm/D5W 50ml BAG 50 ML IV ONE ×2 (15:25→16:10)
--- NOTE | 2021-05-10 16:05 | NUR ---
Pt's son Esteban called. Info for pt's ICD: [employer], Model #CD [id number]
[2021-05-10 16:26] LABS: UA COLLECTION TYPE STRAIGHT CATH
[2021-05-10 16:27] LABS: CLARITY,URINE CLEAR (Clear); COLOR,URINE YELLOW (Yellow); GLUCOSE, URINE NEGATIVE (Neg); KETONES,URINE NEGATIVE (Neg); LEUKOCYTE ESTERASE ,URINE NEGATIVE (Neg); NITRITES, URINE NEGATIVE (Neg); OCCULT BLOOD,URINE NEGATIVE (Neg); PROTEIN,URINE TRACE mg/dl (Neg); UROBILINOGEN,URINE 0.2 E.U/dL (0.2-1.0)
[2021-05-10] MEDS ORDERED: DOBUTamine-DoBUTrex 500mg/D5W 250 ML IV SCH ×2 (17:15→17:35)
[2021-05-10 17:23] LABS: BACTERIA,URINE NONE SEEN /HPF (Neg); HYALINE CASTS 0-3 /LPF (NEGATIVE); RBC,URINE NONE SEEN /HPF (0-2); SQUAMOUS EPITHELIAL CELL,UR NONE SEEN /LPF (FEW); WBC,URINE 0-4 /HPF (0-4)
[2021-05-10] MEDS ORDERED: mag hydrox/Alum hydrox/simeth 30ml oral suspension PO PRN (17:35)
[2021-05-10] MEDS ORDERED: magnesium hydroxide 30ml (MOM) UD suspension PO PRN (17:35)
[2021-05-10] MEDS ORDERED: acetaminophen 325mg tablet PO PRN (17:35)
[2021-05-10] MEDS ORDERED: ondansetron/PF 4mg/2ml inj IV PRN (17:35)
--- NOTE | 2021-05-10 18:11 | NUR ---
relieving RN for break, pt is resting quietly on [place] heating technician at bedside
--- NOTE | 2021-05-10 18:51 | NUR ---
[place] ONEILL GAVE VERBAL ORDER TO INCREASE DOBUATMINE GTT TO 7.5MCG/KG/MIN, HE IS AWARE OF LOW BP, 77/48, MAP 55
[2021-05-10] MEDS ORDERED: RIVA15TA PO (19:10)
[2021-05-10] MEDS ORDERED: ASPI81TA47 PO (19:10)
[2021-05-10] MEDS ORDERED: NORepinephrine 8mg/ 250ml NS 250 ML IV PRN (19:50)
[2021-05-10] MEDS ORDERED: furosemide 10 MG/1 ML 10ml inj IV SCH (20:00)
[2021-05-10] MEDS: docusate sod 100mg capsule PO SCH (20:00)
--- NOTE | 2021-05-10 20:29 | NUR ---
Assumed care of pt
--- NOTE | 2021-05-10 20:57 | NUR ---
Art line setup
--- NOTE | 2021-05-10 21:00 | NUR ---
Art line inserted
[2021-05-10] MEDS: apixaban 2.5mg tablet PO SCH (21:43)
[2021-05-10] MEDS ORDERED: albumin (Human) 5% 250ml 250 ML IV ONE (21:45)
[2021-05-10] MEDS ORDERED: ringers solution, lacted 1,000 ML IV ONE (21:45)
--- NOTE | 2021-05-10 22:59 | NUR ---
High Speed Operator on teleneuro monitor
[2021-05-10] MEDS: midodrine 5mg tablet PO SCH (23:00)
[2021-05-10 23:31] LABS: ABG BASE EXCESS -8.7 mmol/L (-2.0-2.0); ABG HCO3 14.1 mmol/L (22.0-26.0); ABG OXYGEN SATURATION 95.4 % (94-97); ABG PCO2 (T) 21.6 mmHg (35.0-48.0); FCOHb 0.4 % (0.0-3.9); FMetHb 0.3 % (0.0-1.5); FO2Hb 94.7 % (94-97); TOTAL HEMOGLOBIN 9.6 G/dl (14.0-18.0)
[2021-05-10] MEDS ORDERED: acetaminophen 325mg tablet PO ONE (23:45)
[2021-05-11 02:44] LABS: BASOPHILS % (AUTO) 0.1 % (0-1); EOSINOPHILS % (AUTO) 0 % (0-6); HEMATOCRIT 32.1 % (42.0-52.0); HEMOGLOBIN 10.3 g/dl (14.0-17.9); LYMPHOCYTES # (AUTO) 0.5 X10'3 (1.1-4.8); LYMPHOCYTES % (AUTO) 2.1 % (21-51); MEAN CORPUSCULAR HEMOGLOBIN 29.7 PG (27.0-31.0); MEAN CORPUSCULAR VOLUME 92.6 FL (78-98); MEAN PLATELET VOLUME 7.7 FL (7.4-10.4); MONOCYTES # (AUTO) 1.5 X10'3 (0-0.9); MONOCYTES % (AUTO) 6.6 % (2-12); NEUTROPHILS # (AUTO) 20.1 X10'3 (1.8-7.7); NEUTROPHILS % (AUTO) 91.2 % (42-75); PLATELET COUNT 252 X10'3 (140-440); RED BLOOD COUNT 3.46 X10'6 (4.70-6.10); RED CELL DISTRIBUTION WIDTH 14.9 % (11.5-14.5)
[2021-05-11 03:00] LABS: ANION GAP 17 (8-16); BLOOD UREA NITROGEN 69 MG/DL (7-18); BUN/CREATININE RATIO 20.3 (5.4-32.0); CALCIUM 7.7 MG/DL (8.5-10.1); CHLORIDE 99 MMOL/L (99-107); GLUCOSE 262 MG/DL (70-104); SODIUM 132 MMOL/L (135-145); TOTAL CARBON DIOXIDE 16.2 MMOL/L (24-32); eGFR 17 ML/MIN
[2021-05-11 03:08] LABS: POTASSIUM 6.1 MMOL/L (3.5-5.1)
--- NOTE | 2021-05-11 03:15 | NUR ---
Called Dr. Caballero ([phone]) to notify him that the patient's K level is elevated to 6.1. MD's recommendation is to given 1g of Calicum 1 amp of D50, 10 units of insulin. In addition, patient has been maintaining a MAP of 76, MD recommendation is to titrate the levophed down 0.5 mcg.
[2021-05-11] MEDS ORDERED: calcium chloride inj. 1,000 MG in normal saline 100ml IV soln 100 ML IV ONE (03:25)
[2021-05-11] MEDS ORDERED: insulin regular, human 10 units/0.1 ml syringe IV ONE (03:25)
[2021-05-11] MEDS ORDERED: sodium bicarbonate (8.4%) inj. 100 MEQ in dextrose 5%-water 1,000 ML IV SCH (03:25)
[2021-05-11] MEDS ORDERED: calcium chloride 100 MG/1 ML inj IV ONE (03:30)
[2021-05-11] MEDS ORDERED: sodium bicarbonate (8.4%) inj. 1 MEQ/ML ML IV ONE (03:30)
[2021-05-11] MEDS ORDERED: dextrose 50%-water 50ml dispensing syringe IV ONE (03:35)
[2021-05-11] MEDS ORDERED: dexmedetomidin/NS 400mcg/100ml 100 ML IV SCH (04:35)
[2021-05-11] MEDS ORDERED: albuterol 2.5 MG/3 ML nebule CONTNEB STA (05:38)
[2021-05-11] MEDS ORDERED: furosemide 10 MG/1 ML 10ml inj IV ONE (05:40)
[2021-05-11] MEDS ORDERED: albumin (human) 25% 100ml IV 100 ML IV ONE (05:40)
--- NOTE | 2021-05-11 06:48 | NUR ---
Soo scott per Dr. Burton (nephrology)
[2021-05-11] MEDS: normal saline 1000ml 1,000 ML IV SCH ×2 (07:44→16:00)
--- NOTE | 2021-05-11 07:44 | NUR ---
RT paged, RT at bedside, TX not admin at this time
[2021-05-11] MEDS ORDERED: CefTRIAXone/D5W-Rocephin 1gm 50 ML IV SCH (08:00)
[2021-05-11 09:02] LABS: URINE AMPHETAMINE SCREEN NEGATIVE (Neg); URINE BARBITUATE SCREEN NEGATIVE (Neg); URINE BENZODIAZEPINES SCREEN NEGATIVE (Neg); URINE CANNABINOID SCREEN NEGATIVE (Neg); URINE COCAINE SCREEN NEGATIVE (Neg); URINE METHADONE SCREEN NEGATIVE (Neg); URINE OPIATE SCREEN NEGATIVE (Neg); URINE PHENCYCLIDINE SCREEN NEGATIVE (Neg)
[2021-05-11] MEDS: apixaban 2.5mg tablet PO SCH ×2 (09:13→20:11)
[2021-05-11] MEDS: docusate sod 100mg capsule PO SCH ×2 (09:13→20:11)
[2021-05-11] MEDS: midodrine 5mg tablet PO SCH ×3 (09:14→16:00)
[2021-05-11] MEDS: CEFEPIME 2gm in D5W 50mL 50 ML IV SCH (09:14)
[2021-05-11 09:18] LABS: ALBUMIN 3.2 G/DL (3.4-5.0); ANION GAP 14 (8-16); BLOOD UREA NITROGEN 70 MG/DL (7-18); BUN/CREATININE RATIO 20.9 (5.4-32.0); CALCIUM 8.2 MG/DL (8.5-10.1); CHLORIDE 99 MMOL/L (99-107); CREATININE 3.35 MG/DL (0.60-1.10); GLUCOSE 210 MG/DL (70-104); POTASSIUM 5.5 MMOL/L (3.5-5.1); SODIUM 133 MMOL/L (135-145); TOTAL CARBON DIOXIDE 20.3 MMOL/L (24-32); eGFR 18 ML/MIN
[2021-05-11] MEDS ORDERED: albumin (Human) 5% 250ml 250 ML IV ONE ×2 (11:45→11:50)
[2021-05-11] MEDS ORDERED: VANCOmycin 1250MG/NS 250ml Bag 250 ML IV ONE (11:50)
[2021-05-11] MEDS: albumin (Human) 5% 250ml 250 ML IV SCH ×2 (12:15→12:18)
[2021-05-11 13:06] LABS: AMYLASE 33 U/L (25-115); LIPASE 106 U/L (73-393)
--- NOTE | 2021-05-11 13:40 | NUR ---
Pt trialed off Levophed gtt, pt bp dopped see VS flowsheet
[2021-05-11] MEDS ORDERED: vancomycin/NS 500MG ADD-VANT 100 ML IV SCH (14:00)
[2021-05-11 14:03] LABS: HEMOGLOBIN A1C 7.5 % (4.5-6.2)
--- NOTE | 2021-05-11 15:59 | NUR ---
CVP from central line obtained 11mmHg
--- NOTE | 2021-05-11 18:10 | NUR ---
Central line dressing changed
[2021-05-11] MEDS: Melatonin 3mg tablet PO SCH (20:11)
[2021-05-12] MEDS: normal saline 1000ml 1,000 ML IV SCH ×2 (02:27→13:22)
[2021-05-12] MEDS: apixaban 2.5mg tablet PO SCH (08:47)
[2021-05-12] MEDS: docusate sod 100mg capsule PO SCH ×2 (08:47→20:00)
[2021-05-12] MEDS: midodrine 5mg tablet PO SCH ×3 (08:48→16:26)
[2021-05-12] MEDS: CEFEPIME 2gm in D5W 50mL 50 ML IV SCH (08:53)
[2021-05-12] MEDS ORDERED: FLU VACC QS2021-22(6MOS UP)/PF 60 MCG/0.5 ML SYRINGE IM ONE (10:00)
[2021-05-12 12:37] LABS: BASOPHILS % (AUTO) 0.3 % (0-1); EOSINOPHILS # (AUTO) 0.1 X10'3 (0-0.9); HEMATOCRIT 24.7 % (42.0-52.0); HEMOGLOBIN 8.3 g/dl (14.0-17.9); LYMPHOCYTES # (AUTO) 0.6 X10'3 (1.1-4.8); LYMPHOCYTES % (AUTO) 7.5 % (21-51); MEAN CORPUSCULAR HEMOGLOBIN 29.6 PG (27.0-31.0); MEAN CORPUSCULAR HGB CONC 33.5 g/dL (33.0-36.5); MEAN CORPUSCULAR VOLUME 88.5 FL (78-98); MEAN PLATELET VOLUME 7.5 FL (7.4-10.4); MONOCYTES # (AUTO) 0.7 X10'3 (0-0.9); NEUTROPHILS # (AUTO) 7.1 X10'3 (1.8-7.7); NEUTROPHILS % (AUTO) 83.2 % (42-75); PLATELET COUNT 194 X10'3 (140-440); RED CELL DISTRIBUTION WIDTH 14.6 % (11.5-14.5); WHITE BLOOD COUNT 8.5 X10'3 (4.5-11.0)
[2021-05-12 13:00] LABS: ALBUMIN 2.8 G/DL (3.4-5.0); ALBUMIN/GLOBULIN RATIO 0.8 (1.1-1.5); ALKALINE PHOSPHATASE 241 IU/L (46-116); ANION GAP 10 (8-16); BILIRUBIN,TOTAL 0.6 MG/DL (0.1-1.0); BLOOD UREA NITROGEN 59 MG/DL (7-18); BUN/CREATININE RATIO 25.4 (5.4-32.0); CALCIUM 7.7 MG/DL (8.5-10.1); CHLORIDE 103 MMOL/L (99-107); CREATININE 2.32 MG/DL (0.60-1.10); GLUCOSE 135 MG/DL (70-104); MAGNESIUM 1.8 MG/DL (1.5-2.4); PHOSPHORUS 2.9 MG/DL (2.3-4.5); POTASSIUM 4.6 MMOL/L (3.5-5.1); SODIUM 133 MMOL/L (135-145); TOTAL CARBON DIOXIDE 19.7 MMOL/L (24-32); TOTAL PROTEIN 6.3 G/DL (6.4-8.2); eGFR 27 ML/MIN
[2021-05-12 13:02] LABS: ALANINE AMINOTRANSFERASE 1895 U/L (12-78); ASPARTATE AMINO TRANSFERASE 1863 U/L (10-37)
[2021-05-12] MEDS: heparin, porcine 5000 units/ml vial SQ SCH (16:26)
[2021-05-12] MEDS: vancomycin inj. 750 MG in normal saline 250ml IV soln 250 ML IV SCH (16:27)
[2021-05-12] MEDS: Melatonin 3mg tablet PO SCH (21:00)
[2021-05-13] MEDS: heparin, porcine 5000 units/ml vial SQ SCH ×3 (07:32→16:59)
[2021-05-13] MEDS: docusate sod 100mg capsule PO SCH ×2 (07:32→22:14)
[2021-05-13 07:37] LABS: BASOPHILS % (AUTO) 0.4 % (0-1); EOSINOPHILS # (AUTO) 0.1 X10'3 (0-0.9); EOSINOPHILS % (AUTO) 1.4 % (0-6); HEMATOCRIT 24.9 % (42.0-52.0); HEMOGLOBIN 8.4 g/dl (14.0-17.9); LYMPHOCYTES # (AUTO) 0.9 X10'3 (1.1-4.8); LYMPHOCYTES % (AUTO) 9.6 % (21-51); MEAN CORPUSCULAR HEMOGLOBIN 29.8 PG (27.0-31.0); MEAN CORPUSCULAR HGB CONC 33.8 g/dL (33.0-36.5); MEAN CORPUSCULAR VOLUME 87.9 FL (78-98); MEAN PLATELET VOLUME 7.7 FL (7.4-10.4); MONOCYTES % (AUTO) 10.3 % (2-12); NEUTROPHILS # (AUTO) 7.4 X10'3 (1.8-7.7); NEUTROPHILS % (AUTO) 78.3 % (42-75); PLATELET COUNT 193 X10'3 (140-440); RED BLOOD COUNT 2.83 X10'6 (4.70-6.10); RED CELL DISTRIBUTION WIDTH 14.5 % (11.5-14.5); WHITE BLOOD COUNT 9.4 X10'3 (4.5-11.0)
[2021-05-13 07:41] LABS: ALBUMIN 2.8 G/DL (3.4-5.0); ANION GAP 9 (8-16); BLOOD UREA NITROGEN 48 MG/DL (7-18); BUN/CREATININE RATIO 24.2 (5.4-32.0); CALCIUM 8.1 MG/DL (8.5-10.1); CHLORIDE 105 MMOL/L (99-107); CREATININE 1.98 MG/DL (0.60-1.10); GLUCOSE 98 MG/DL (70-104); MAGNESIUM 2.1 MG/DL (1.5-2.4); PHOSPHORUS 3.1 MG/DL (2.3-4.5); POTASSIUM 4.3 MMOL/L (3.5-5.1); SODIUM 135 MMOL/L (135-145); TOTAL CARBON DIOXIDE 20.9 MMOL/L (24-32); eGFR 33 ML/MIN
[2021-05-13] MEDS: CEFEPIME 2gm in D5W 50mL 50 ML IV SCH (08:00)
[2021-05-13] MEDS: midodrine 5mg tablet PO SCH ×3 (08:00→16:00)
[2021-05-13 09:38] LABS: ALBUMIN/GLOBULIN RATIO 0.8 (1.1-1.5); ALKALINE PHOSPHATASE 245 IU/L (46-116); BILIRUBIN,DIRECT 0.3 MG/DL (0-0.3); BILIRUBIN,TOTAL 0.6 MG/DL (0.1-1.0); TOTAL PROTEIN 6.4 G/DL (6.4-8.2)
[2021-05-13 09:42] LABS: ALANINE AMINOTRANSFERASE 1959 U/L (12-78); ASPARTATE AMINO TRANSFERASE 1277 U/L (10-37)
[2021-05-13] MEDS: vancomycin inj. 750 MG in normal saline 250ml IV soln 250 ML IV SCH (15:52)
[2021-05-13] MEDS: Melatonin 3mg tablet PO SCH (22:14)
[2021-05-14] MEDS: heparin, porcine 5000 units/ml vial SQ SCH ×2 (00:36→10:12)
[2021-05-14 07:18] LABS: BASOPHILS % (AUTO) 0.6 % (0-1); EOSINOPHILS # (AUTO) 0.2 X10'3 (0-0.9); EOSINOPHILS % (AUTO) 2.3 % (0-6); HEMATOCRIT 25.3 % (42.0-52.0); HEMOGLOBIN 8.8 g/dl (14.0-17.9); LYMPHOCYTES # (AUTO) 1.1 X10'3 (1.1-4.8); LYMPHOCYTES % (AUTO) 12.9 % (21-51); MEAN CORPUSCULAR HGB CONC 34.6 g/dL (33.0-36.5); MEAN CORPUSCULAR VOLUME 86.7 FL (78-98); MEAN PLATELET VOLUME 7.5 FL (7.4-10.4); MONOCYTES % (AUTO) 11.9 % (2-12); NEUTROPHILS # (AUTO) 5.9 X10'3 (1.8-7.7); NEUTROPHILS % (AUTO) 72.3 % (42-75); PLATELET COUNT 221 X10'3 (140-440); RED BLOOD COUNT 2.92 X10'6 (4.70-6.10); WHITE BLOOD COUNT 8.2 X10'3 (4.5-11.0)
[2021-05-14 07:50] LABS: ALBUMIN 2.7 G/DL (3.4-5.0); ANION GAP 12 (8-16); BLOOD UREA NITROGEN 35 MG/DL (7-18); BUN/CREATININE RATIO 22.3 (5.4-32.0); CALCIUM 8.4 MG/DL (8.5-10.1); CHLORIDE 107 MMOL/L (99-107); CREATININE 1.57 MG/DL (0.60-1.10); GLUCOSE 112 MG/DL (70-104); MAGNESIUM 2.2 MG/DL (1.5-2.4); POTASSIUM 4.3 MMOL/L (3.5-5.1); SODIUM 138 MMOL/L (135-145); eGFR 43 ML/MIN
[2021-05-14 08:59] LABS: ALBUMIN/GLOBULIN RATIO 0.7 (1.1-1.5); ALKALINE PHOSPHATASE 232 IU/L (46-116); ASPARTATE AMINO TRANSFERASE 549 U/L (10-37); BILIRUBIN,TOTAL 0.8 MG/DL (0.1-1.0); TOTAL PROTEIN 6.7 G/DL (6.4-8.2)
[2021-05-14 09:18] LABS: ALANINE AMINOTRANSFERASE 1522 U/L (12-78)
[2021-05-14] MEDS: midodrine 5mg tablet PO SCH ×3 (10:03→16:00)
[2021-05-14] MEDS: docusate sod 100mg capsule PO SCH ×2 (10:11→19:55)
--- NOTE | 2021-05-14 10:30 | NUR ---
assumed care of pt from Margarita NGUYỄN, pt is resting quietly on bed, resp even and unlabored, no beds available upstairs
--- NOTE | 2021-05-14 12:36 | NUR ---
Dr Mike called and would like pt evaluated by PT and possibly dc home, gave verbal order to dc art line, central line and toth, ekg monitor tech at bedside to hold pressure for 15 to 20 minutes after pulling art line and central line, cannulas were intact, no complications, toth removed. PT at bedside, they will return between 2 and 3 to evaluate pt
--- NOTE | 2021-05-14 12:55 | NUR ---
talked with pt's son about possibly being dc'd home after PT evaluation, pt does live with his son, son is going to arrange for in home care
[2021-05-14] MEDS ORDERED: VANCOMYCIN LEVEL IV ONE (13:30)
--- NOTE | 2021-05-14 14:16 | NUR ---
NO BLEEDING FROM RT GROIN, PT ATE ALL HIS LUNCH, BLAIRE WELL, NO N/V, PT DOES NOT RECALL WHEN HE LAST HAD A BOWEL MOVEMENT,
--- NOTE | 2021-05-14 15:08 | NUR ---
PT has evaluated pt and feels he would benefit from rehab, pt is sleeping quietly, resp even and unlabored, dressing to rt groin is dry and intact
--- NOTE | 2021-05-14 16:20 | NUR ---
son is aware of plan to transfer pt to room 360 and go to rehab, report given to Kerrie NGUYỄN
[2021-05-14 16:40] VITALS: BP 137/81
--- NOTE | 2021-05-14 17:15 | NUR ---
Patient in room DEWAYNE 358. I have received report from DELMA Wylie ER and had the opportunity to ask questions and assume patient care.
--- NOTE | 2021-05-14 17:45 | NUR ---
Patient on the unit, oriented to his room. Call light within reach. Urinal given to patient. OK to straight cath patient if unable to void and bladder scan is greater than 500, see order placed. Patient states that he has been voiding but reported by ER that he has not since his FC was removed approx 1300. Patient has blackened great toe on right foot.
--- NOTE | 2021-05-14 18:20 | NUR ---
Student documentation: I have reviewed all interventions, assessments performed and documented by Kerrie BASILIO. Student Medication Administration: For all medication-pass', all medication were reviewed, dispensed, administered and documented per hospital policy by Kerrie BASILIO. .
[2021-05-14] MEDS ORDERED: dextrose 50%-water 50ml dispensing syringe IV PRN ×2 (18:25)
[2021-05-14] MEDS ORDERED: glucagon, human recombinant 1mg kit SUBCUT PRN (18:25)
[2021-05-14] MEDS ORDERED: MESSAGE TO PHARMACY PO ONE (18:25)
[2021-05-14] MEDS ORDERED: dextrose ORAL solution 15 GM/59 ML bottle PO PRN ×2 (18:25)
--- NOTE | 2021-05-14 19:08 | NUR ---
Patient in room DEWAYNE 358. I have received report from Lashawn NGUYỄN and Kerrie BASILIO and had the opportunity to ask questions and assume patient care.
[2021-05-14 19:25] VITALS: BP 122/83
[2021-05-14] MEDS: rivaroxaban 15mg tablet PO SCH (19:54)
[2021-05-14] MEDS: Melatonin 3mg tablet PO SCH (20:01)
[2021-05-14] MEDS: lisinopril 2.5mg tablet PO SCH (20:01)
[2021-05-14] MEDS: atorvastatin 10mg tablet PO SCH (20:02)
[2021-05-14] MEDS: insulin glargine (Lantus) pen - multi-dose SQ SCH (21:00)
[2021-05-15 00:02] VITALS: BP 101/72
[2021-05-15 06:02] LABS: BASOPHILS # (AUTO) 0.1 X10'3 (0-0.2); BASOPHILS % (AUTO) 1.1 % (0-1); EOSINOPHILS # (AUTO) 0.2 X10'3 (0-0.9); EOSINOPHILS % (AUTO) 1.6 % (0-6); HEMATOCRIT 24.1 % (42.0-52.0); HEMOGLOBIN 8.3 g/dl (14.0-17.9); LYMPHOCYTES # (AUTO) 0.8 X10'3 (1.1-4.8); LYMPHOCYTES % (AUTO) 6.3 % (21-51); MEAN CORPUSCULAR HEMOGLOBIN 30.5 PG (27.0-31.0); MEAN CORPUSCULAR HGB CONC 34.5 g/dL (33.0-36.5); MEAN CORPUSCULAR VOLUME 88.4 FL (78-98); MEAN PLATELET VOLUME 7.5 FL (7.4-10.4); MONOCYTES # (AUTO) 0.6 X10'3 (0-0.9); MONOCYTES % (AUTO) 4.7 % (2-12); NEUTROPHILS # (AUTO) 10.4 X10'3 (1.8-7.7); NEUTROPHILS % (AUTO) 86.3 % (42-75); PLATELET COUNT 219 X10'3 (140-440); RED BLOOD COUNT 2.72 X10'6 (4.70-6.10); RED CELL DISTRIBUTION WIDTH 14.8 % (11.5-14.5); WHITE BLOOD COUNT 12.1 X10'3 (4.5-11.0)
[2021-05-15 06:14] LABS: ALBUMIN 2.7 G/DL (3.4-5.0); ANION GAP 10 (8-16); BLOOD UREA NITROGEN 31 MG/DL (7-18); BUN/CREATININE RATIO 18.2 (5.4-32.0); CALCIUM 7.9 MG/DL (8.5-10.1); CHLORIDE 103 MMOL/L (99-107); GLUCOSE 166 MG/DL (70-104); MAGNESIUM 2.1 MG/DL (1.5-2.4); PHOSPHORUS 2.8 MG/DL (2.3-4.5); POTASSIUM 4.2 MMOL/L (3.5-5.1); SODIUM 135 MMOL/L (135-145); TOTAL CARBON DIOXIDE 21.7 MMOL/L (24-32); eGFR 39 ML/MIN
--- NOTE | 2021-05-15 06:50 | NUR ---
Problems reprioritized. Patient report given, questions answered & plan of care reviewed with Rosa M NGUYỄN.
[2021-05-15 07:53] LABS: ALBUMIN/GLOBULIN RATIO 0.7 (1.1-1.5); ALKALINE PHOSPHATASE 227 IU/L (46-116); ASPARTATE AMINO TRANSFERASE 215 U/L (10-37); BILIRUBIN,TOTAL 0.8 MG/DL (0.1-1.0); TOTAL PROTEIN 6.6 G/DL (6.4-8.2)
[2021-05-15 07:55] LABS: ALANINE AMINOTRANSFERASE 1028 U/L (12-78)
[2021-05-15 08:00] VITALS: BP 112/77
[2021-05-15] MEDS ORDERED: furosemide 40mg tablet PO SCH (08:00)
[2021-05-15] MEDS: furosemide 20 MG/2 ML vial IV SCH ×2 (09:17→19:30)
[2021-05-15] MEDS: docusate sod 100mg capsule PO SCH ×2 (09:17→19:23)
[2021-05-15] MEDS: duloxetine 30mg CAPSULE.DR PO SCH (09:17)
[2021-05-15] MEDS: pantoprazole 40mg Tablet.DR PO SCH (09:18)
[2021-05-15] MEDS: cholecalciferol (vitamin D3) 1,000 unit (25mcg) tablet PO SCH (09:18)
[2021-05-15] MEDS: aspirin 81mg, enteric-coated 1 TAB TABLET.DR PO SCH (09:18)
[2021-05-15 11:35] VITALS: BP 105/72
--- NOTE | 2021-05-15 13:32 | NUR ---
PAGER ID: [phone] MESSAGE: Rosa M-Surg [id number] Re: [id number] Storm. Patient son is here would like to speak with you
[2021-05-15] MEDS: insulin Lispro (HumaLOG) vial - multi-dose SQ SCH ×2 (13:41→19:30)
[2021-05-15 14:37] LABS: HBSAG SCREEN Negative (Negative); HEP A AB, IGM Negative (Negative); HEPATITIS C ANTIBODY <0.1 s/co ratio (0.0-0.9)
--- NOTE | 2021-05-15 15:12 | NUR ---
Initial: Pt admitted w/ some nausea and vomiting per EMR w/ CHF exacerbation and acute on chronic renal failure. Pt currently on CCHO/2gNA diet eating mostly 100% of meals meeting needs. No BM documented, receiving routine colace. Pt noted w/ some necrotic toes d/t diabetic ulcers, current A1C 7.5 which is appropriate for age. No nutrition intervention implemented at this time, will continue to monitor. Recs: 1. Continue CCHO/2gNa diet as tolerated 2. Monitor need for additional protein 3. Bowel care per rx 4. Weekly wt Addendum: 05/15/21 at [address] Amended: Links added.
--- NOTE | 2021-05-15 18:00 | NUR ---
Problems reprioritized. Patient report given, questions answered & plan of care reviewed with Cally NGUYỄN.
--- NOTE | 2021-05-15 18:57 | NUR ---
Patient in room DEWAYNE 358. I have received report from Rosa M NGUYỄN and had the opportunity to ask questions and assume patient care.
[2021-05-15] MEDS: rivaroxaban 15mg tablet PO SCH (19:23)
[2021-05-15 20:00] VITALS: BP 106/72
[2021-05-15] MEDS: Melatonin 3mg tablet PO SCH (21:40)
[2021-05-15] MEDS: atorvastatin 10mg tablet PO SCH (21:40)
[2021-05-15] MEDS: lisinopril 2.5mg tablet PO SCH (21:41)
[2021-05-15] MEDS: insulin glargine (Lantus) pen - multi-dose SQ SCH (21:44)
--- NOTE | 2021-05-15 22:13 | NUR ---
Student Medication Administration: For this medication-pass time frame, all medication were reviewed, dispensed, administered and documented per hospital policy by A [facility] [employer]. Double check on the Lantus done.
[2021-05-16] VITALS: BP 133/81
[2021-05-16 05:41] LABS: PHOSPHORUS 3.4 MG/DL (2.3-4.5)
--- NOTE | 2021-05-16 06:34 | NUR ---
Problems reprioritized. Patient report given, questions answered & plan of care reviewed with Elle NGUYỄN.
[2021-05-16] MEDS ORDERED: carVEDilol 3.125mg tablet PO SCH (08:00)
[2021-05-16] MEDS ORDERED: spironolactone 25 MG tablet PO SCH (08:30)
[2021-05-16] MEDS: aspirin 81mg, enteric-coated 1 TAB TABLET.DR PO SCH (08:43)
[2021-05-16 08:44] VITALS: BP_SYST 102
[2021-05-16] MEDS: pantoprazole 40mg Tablet.DR PO SCH (08:44)
[2021-05-16] MEDS: cholecalciferol (vitamin D3) 1,000 unit (25mcg) tablet PO SCH (08:44)
[2021-05-16] MEDS: duloxetine 30mg CAPSULE.DR PO SCH (08:44)
[2021-05-16] MEDS: docusate sod 100mg capsule PO SCH (08:44)
[2021-05-16] MEDS: furosemide 20 MG/2 ML vial IV SCH (08:45)
--- NOTE | 2021-05-16 15:13 | NUR ---
Wound care consult received for Bilateral feet. Upon arrival to room, patient is in the process of being discharged to [facility]. Wound RN noted no wounds on L foot, stable eschar noted to tip of R great toe below toenail.
== END 2021-05-16 12:21 | DRG 871 ==
LOC: ER 13:38 → ED HOLD 17:38 → UNDOADMIN 17:38 → SUR 3N 05-14 16:40
PROVIDERS: ADMIT Family Medicine; ATTEND Family Medicine
PROC: 06HY33Z Insertion of Infusion Device into Lower Vein, Percutaneous Approach (ICD-10-PCS; principal; 2021-05-10)
PROC: B54BZZA Ultrasonography of Right Lower Extremity Veins, Guidance (ICD-10-PCS; 2021-05-10)
PROC: 04HY32Z Insertion of Monitoring Device into Lower Artery, Percutaneous Approach (ICD-10-PCS; 2021-05-10)
PROC: B44FZZZ Ultrasonography of Right Lower Extremity Arteries (ICD-10-PCS; 2021-05-10)
DX: A41.9 Sepsis, unspecified organism (principal); I50.23 Acute on chronic systolic (congestive) heart failure; N17.1 Acute kidney failure with acute cortical necrosis; G93.41 Metabolic encephalopathy; I13.0 Hypertensive heart and chronic kidney disease with heart failure and stage 1 through stage 4 chronic kidney disease, or unspecified chronic kidney disease; E11.52 Type 2 diabetes mellitus with diabetic peripheral angiopathy with gangrene; E11.22 Type 2 diabetes mellitus with diabetic chronic kidney disease; F03.90 Unspecified dementia, unspecified severity, without behavioral disturbance, psychotic disturbance, mood disturbance, and anxiety; E78.5 Hyperlipidemia, unspecified; I48.0 Paroxysmal atrial fibrillation; K21.9 Gastro-esophageal reflux disease without esophagitis; R55 Syncope and collapse; Z20.822 Contact with and (suspected) exposure to COVID-19; I95.2 Hypotension due to drugs; D64.9 Anemia, unspecified; T44.5X5A Adverse effect of predominantly beta-adrenoreceptor agonists, initial encounter; R74.8 Abnormal levels of other serum enzymes; N18.30 Chronic kidney disease, stage 3 unspecified; Y92.230 Patient room in hospital as the place of occurrence of the external cause; R65.20 Severe sepsis without septic shock; Z79.01 Long term (current) use of anticoagulants; Z79.899 Other long term (current) drug therapy; Z95.1 Presence of aortocoronary bypass graft; Z95.3 Presence of xenogenic heart valve; Z95.810 Presence of automatic (implantable) cardiac defibrillator; Z28.21 Immunization not carried out because of patient refusal; Z91.030 Bee allergy status; Z87.01 Personal history of pneumonia (recurrent); Z79.82 Long term (current) use of aspirin; E87.5 Hyperkalemia
CPT/HCPCS: 36415; 36600; 71045; 74176; 76700; 76770; 80048; 80053; 80076; 80202; 80305; 81001; 82140; 82150; 82803; 82948; 83036; 83605; 83690; 83735; 83880; 84100; 84145; 84484; 85007; 85018; 85025; 85610; 86705; 86706; 86709; 86803; 86885; 86900; 86901; 87040; 87081; 87340; 87502; 87503; 87635; 93005; 93306; 93922; 93975; 96360; 96361; 97110; 97116; 97162; 97530; 99285; C9803; G0378; J0692; J0696; J1250; J1644; J1815; J1940; J2405; J3370; J7030; J7050; J7120; P9045; P9047

== ENCOUNTER 2021-07-22 17:27 | Inpatient (IN) | payer MEDICARE, BC ==
[~2021-07-22] VITALS: Ht 172.7 cm; Wt 127.0 kg
[~2021-07-22 17:27] MED LIST changes: -APIX5TAB3 PO; -ASPI-1265 PO; +ASPI81TA47 PO; -DAPA10TA PO; +RIVA15TA PO; -SPIR25TA5 PO; -ZOLP5TAB8 PO
[2021-07-22 18:17] LABS: BASOPHILS % (AUTO) 0.2 % (0-1); EOSINOPHILS % (AUTO) 0.2 % (0-6); HEMATOCRIT 35.7 % (42.0-52.0); HEMOGLOBIN 11.4 g/dl (14.0-17.9); LYMPHOCYTES # (AUTO) 0.3 X10'3 (1.1-4.8); LYMPHOCYTES % (AUTO) 2.7 % (21-51); MEAN CORPUSCULAR HEMOGLOBIN 27.6 PG (27.0-31.0); MEAN CORPUSCULAR HGB CONC 31.9 g/dL (33.0-36.5); MEAN CORPUSCULAR VOLUME 86.5 FL (78-98); MEAN PLATELET VOLUME 8.4 FL (7.4-10.4); MONOCYTES # (AUTO) 0.7 X10'3 (0-0.9); MONOCYTES % (AUTO) 5.6 % (2-12); NEUTROPHILS # (AUTO) 10.9 X10'3 (1.8-7.7); NEUTROPHILS % (AUTO) 91.3 % (42-75); PLATELET COUNT 264 X10'3 (140-440); RED BLOOD COUNT 4.13 X10'6 (4.70-6.10); RED CELL DISTRIBUTION WIDTH 18.8 % (11.5-14.5)
[2021-07-22 18:42] LABS: ALANINE AMINOTRANSFERASE 39 U/L (12-78); ALBUMIN 3.3 G/DL (3.4-5.0); ALBUMIN/GLOBULIN RATIO 0.7 (1.1-1.5); ALKALINE PHOSPHATASE 159 IU/L (46-116); ANION GAP 12 (8-16); ASPARTATE AMINO TRANSFERASE 46 U/L (10-37); BILIRUBIN,TOTAL 1.2 MG/DL (0.1-1.0); BLOOD UREA NITROGEN 46 MG/DL (7-18); BUN/CREATININE RATIO 19.7 (5.4-32.0); CALCIUM 8.5 MG/DL (8.5-10.1); CHLORIDE 96 MMOL/L (99-107); CREATININE 2.34 MG/DL (0.60-1.10); GLUCOSE 202 MG/DL (70-104); POTASSIUM 5.7 MMOL/L (3.5-5.1); SODIUM 132 MMOL/L (135-145); TOTAL CARBON DIOXIDE 23.9 MMOL/L (24-32); TOTAL PROTEIN 7.9 G/DL (6.4-8.2); eGFR 27 ML/MIN
[2021-07-22] MEDS ORDERED: furosemide 10 MG/1 ML 10ml inj IV ONE (19:10)
[2021-07-22 19:32] LABS: ANISOCYTOSIS 2+; PLATELET ESTIMATE NORMAL
[2021-07-22 19:33] LABS: BURR CELLS FEW; ELLIPTOCYTES FEW; POLYCHROMASIA FEW
[2021-07-22] MEDS ORDERED: SPIR25TA5 PO (19:46)
[2021-07-22] MEDS ORDERED: CARV3.122 PO (19:46)
[2021-07-22 20:29] LABS: CLARITY,URINE CLEAR (Clear); COLOR,URINE YELLOW (Yellow); GLUCOSE, URINE NEGATIVE (Neg); KETONES,URINE NEGATIVE (Neg); LEUKOCYTE ESTERASE ,URINE NEGATIVE (Neg); NITRITES, URINE NEGATIVE (Neg); OCCULT BLOOD,URINE NEGATIVE (Neg); PROTEIN,URINE NEGATIVE (Neg); UROBILINOGEN,URINE 0.2 E.U/dL (0.2-1.0)
[2021-07-22] MEDS ORDERED: DOBUTamine-DoBUTrex 500mg/D5W 250 ML IV SCH (20:35)
[2021-07-22 20:56] LABS: UA COLLECTION TYPE CLN CATCH MIDSTREAM
[2021-07-22] MEDS ORDERED: dextrose 50%-water 50ml dispensing syringe IV PRN ×2 (22:35)
[2021-07-22] MEDS ORDERED: dextrose ORAL solution 15 GM/59 ML bottle PO PRN (22:35)
[2021-07-22] MEDS ORDERED: MESSAGE TO PHARMACY PO ONE (22:35)
[2021-07-22] MEDS ORDERED: glucagon, human recombinant 1mg kit SUBCUT PRN (22:35)
--- NOTE | 2021-07-22 22:36 | NUR ---
Dr. Johnson notified of patient SBP of 75. New orders for Dobutamine to be titrated per protocol with an SBP goal of >90. If after Dobutamine administration, SBP goal is not reached, then add Dopamine IV to be titrated per protol until SBP >90. MD order to hold lasix.
[2021-07-22 23:11] LABS: HEMOGLOBIN A1C 7.3 % (4.5-6.2)
[2021-07-22] MEDS ORDERED: DOPamine 400mg/D5W 250ml 250 ML IV SCH (23:15)
[2021-07-22] MEDS ORDERED: morphine 2 MG/ML inj. syringe IV PRN ×2 (23:50)
[2021-07-22] MEDS ORDERED: acetaminophen 325mg tablet PO PRN ×2 (23:50)
[2021-07-22] MEDS ORDERED: mag hydrox/Alum hydrox/simeth 30ml oral suspension PO PRN (23:50)
[2021-07-22] MEDS ORDERED: magnesium hydroxide 30ml (MOM) UD suspension PO PRN (23:50)
[2021-07-22] MEDS ORDERED: ondansetron 4mg rapidly disintigrating tab PO PRN (23:50)
[2021-07-22] MEDS ORDERED: bisacodyl 10mg suppository rectal RC PRN (23:50)
[2021-07-22] MEDS ORDERED: ondansetron/PF 4mg/2ml inj IV PRN (23:50)
[2021-07-23] VITALS (17 sets, daily range): BP systolic 79–118; BP diastolic 56–78
[2021-07-23] MEDS ORDERED: ALBUTEROL INHALER 1 PUFF/90 MCG INHALER IH PRN
[2021-07-23] MEDS ORDERED: dextrose 50%-water 50ml dispensing syringe IV ONE
[2021-07-23] MEDS ORDERED: sodium polystyrene sulfonate 15gm/60ml oral suspension PO ONE
[2021-07-23] MEDS ORDERED: insulin regular, human 10 units/0.1 ml syringe IV ONE
[2021-07-23] MEDS ORDERED: calcium chloride 100 MG/1 ML inj IV ONE
[2021-07-23] MEDS ORDERED: sodium bicarbonate (8.4%) inj. 1 MEQ/ML ML IV ONE (00:10)
[2021-07-23 00:12] LABS: PHOSPHORUS 3.7 MG/DL (2.3-4.5)
[2021-07-23 02:08] LABS: BASOPHILS % (AUTO) 0.1 % (0-1); EOSINOPHILS % (AUTO) 0 % (0-6); HEMATOCRIT 27.5 % (42.0-52.0); HEMOGLOBIN 9.1 g/dl (14.0-17.9); LYMPHOCYTES # (AUTO) 0.7 X10'3 (1.1-4.8); LYMPHOCYTES % (AUTO) 6.2 % (21-51); MEAN CORPUSCULAR HEMOGLOBIN 28.3 PG (27.0-31.0); MEAN CORPUSCULAR HGB CONC 33.2 g/dL (33.0-36.5); MEAN CORPUSCULAR VOLUME 85.2 FL (78-98); MEAN PLATELET VOLUME 7.7 FL (7.4-10.4); MONOCYTES # (AUTO) 0.9 X10'3 (0-0.9); MONOCYTES % (AUTO) 8.2 % (2-12); NEUTROPHILS # (AUTO) 9.8 X10'3 (1.8-7.7); NEUTROPHILS % (AUTO) 85.5 % (42-75); PLATELET COUNT 176 X10'3 (140-440); RED BLOOD COUNT 3.23 X10'6 (4.70-6.10); RED CELL DISTRIBUTION WIDTH 17.8 % (11.5-14.5); WHITE BLOOD COUNT 11.5 X10'3 (4.5-11.0)
[2021-07-23 02:24] LABS: APTT 43 SECONDS (22-32)
[2021-07-23 02:36] LABS: ALANINE AMINOTRANSFERASE 30 U/L (12-78); ALBUMIN 2.7 G/DL (3.4-5.0); ALBUMIN/GLOBULIN RATIO 0.8 (1.1-1.5); ALKALINE PHOSPHATASE 131 IU/L (46-116); ASPARTATE AMINO TRANSFERASE 31 U/L (10-37); BILIRUBIN,TOTAL 0.8 MG/DL (0.1-1.0); BLOOD UREA NITROGEN 55 MG/DL (7-18); BUN/CREATININE RATIO 21.7 (5.4-32.0); CALCIUM 8.1 MG/DL (8.5-10.1); CREATININE 2.53 MG/DL (0.60-1.10); GLUCOSE 85 MG/DL (70-104); TOTAL PROTEIN 6.2 G/DL (6.4-8.2); eGFR 25 ML/MIN
[2021-07-23 03:36] LABS: ANION GAP 10 (8-16); CHLORIDE 99 MMOL/L (99-107); POTASSIUM 4.6 MMOL/L (3.5-5.1); SODIUM 133 MMOL/L (135-145); TOTAL CARBON DIOXIDE 24.1 MMOL/L (24-32)
[2021-07-23] MEDS ORDERED: DOBUTamine-DoBUTrex 500mg/D5W 250 ML IV PRN (05:00)
[2021-07-23] MEDS ORDERED: acetaminophen 325mg tablet PO PRN (05:00)
[2021-07-23] MEDS ORDERED: PERFLUTREN PROTEIN-A MICROSPHR (Optison) 0.22 MG/ML 3ML VIAL IV PRN (05:00)
[2021-07-23] MEDS ORDERED: magnesium hydroxide 30ml (MOM) UD suspension PO PRN (05:00)
[2021-07-23] MEDS ORDERED: NORepinephrine 8mg/ 250ml NS 250 ML IV PRN (05:15)
--- NOTE | 2021-07-23 06:17 | NUR ---
Received Pt in room, 2046. Levo was started due to hypotension. Monitor applied. Levo was increased. Dobutamine is at the highest dose. Pt is alert to self and knows he is in hospital. Will continue to monitor and intervene as appropriate.
[2021-07-23] MEDS: normal saline 1000ml 1,000 ML IV SCH (07:15)
[2021-07-23] MEDS: K and/or MAG REPLACEMENT MC SCH (08:00)
[2021-07-23] MEDS ORDERED: dexamethasone 4mg/ml inj IV SCH (08:00)
[2021-07-23 08:30] LABS: BASOPHILS % (AUTO) 0.3 % (0-1); EOSINOPHILS % (AUTO) 0.1 % (0-6); HEMATOCRIT 32.3 % (42.0-52.0); HEMOGLOBIN 10.6 g/dl (14.0-17.9); LYMPHOCYTES # (AUTO) 0.8 X10'3 (1.1-4.8); MEAN CORPUSCULAR HEMOGLOBIN 28.1 PG (27.0-31.0); MEAN CORPUSCULAR HGB CONC 32.9 g/dL (33.0-36.5); MEAN CORPUSCULAR VOLUME 85.4 FL (78-98); MONOCYTES % (AUTO) 9.3 % (2-12); NEUTROPHILS # (AUTO) 9.2 X10'3 (1.8-7.7); NEUTROPHILS % (AUTO) 83.3 % (42-75); PLATELET COUNT 200 X10'3 (140-440); RED BLOOD COUNT 3.79 X10'6 (4.70-6.10); RED CELL DISTRIBUTION WIDTH 18.4 % (11.5-14.5); WHITE BLOOD COUNT 11.1 X10'3 (4.5-11.0)
[2021-07-23 08:37] LABS: APTT 41 SECONDS (22-32)
[2021-07-23 08:58] LABS: ALANINE AMINOTRANSFERASE 28 U/L (12-78); ALBUMIN 2.9 G/DL (3.4-5.0); ALBUMIN/GLOBULIN RATIO 0.7 (1.1-1.5); ALKALINE PHOSPHATASE 143 IU/L (46-116); ANION GAP 11 (8-16); ASPARTATE AMINO TRANSFERASE 38 U/L (10-37); BILIRUBIN,TOTAL 1.1 MG/DL (0.1-1.0); BLOOD UREA NITROGEN 56 MG/DL (7-18); BUN/CREATININE RATIO 21.6 (5.4-32.0); CALCIUM 8.5 MG/DL (8.5-10.1); CHLORIDE 96 MMOL/L (99-107); CREATININE 2.59 MG/DL (0.60-1.10); GLUCOSE 140 MG/DL (70-104); LDL CHOLESTEROL 35 MG/DL (50-100); SODIUM 131 MMOL/L (135-145); TOTAL CARBON DIOXIDE 24.2 MMOL/L (24-32); TOTAL PROTEIN 7.2 G/DL (6.4-8.2); eGFR 24 ML/MIN
[2021-07-23] MEDS: enoxaparin 40mg/0.4ml syringe SUBCUT SCH (11:13)
[2021-07-23] MEDS: docusate sod 100mg capsule PO SCH ×2 (11:13→20:00)
--- NOTE | 2021-07-23 12:04 | NUR ---
Initial: Pt admitted w/ systolic CHF in exacerbation bilateral COVID pneumonia, sepsis and acute renal failure per EMR. Pt currently on Heart Healthy diet w/ ~65% intake of first meal. Consider liberalizing to Regular diet in view of geriatric age, though will monitor further BG values for possibility of CCHO diet. Noted A1C 7.3 though pt not appropriate for education at this time given admitting dx. Pending BM and physical assessment at this time. Will continue to monition PO trends and make recommendations as appropriate. Recs: 1. Consider liberalize to Regular diet; monitor BG for possible CCHO diet 2. Monitor need for additional protein 3. Bowel care per rx 4. Scaled wts Addendum: 07/23/21 at [address] Amended: Links added.
[2021-07-23] MEDS: normal saline 1000ml 1,000 ML IVB ONE (12:45)
[2021-07-23] MEDS: azithromycin/NS 500mg/250ml 250 ML IV SCH (12:45)
[2021-07-23] MEDS: CefTRIAXone/D5W-Rocephin 1gm 50 ML IV SCH (12:45)
[2021-07-23] MEDS: insulin Lispro (HumaLOG) vial - multi-dose SQ SCH ×2 (15:15→21:47)
[2021-07-23 16:15] LABS: OXYGEN SATURATION (MIXED VEN) 29.6 % (60-80); PO2 MIXED VENOUS (TEMP COR) 18.9 mmHg (35-46)
[2021-07-23] MEDS ORDERED: NORepinephrine inj. 32 MG in normal saline 250ml IV soln 218 ML IV SCH (16:55)
[2021-07-23] MEDS: dexamethasone inj 8 MG in dextrose 5%-water 100 ML IV SCH (20:00)
[2021-07-23] MEDS: lactobacillus rhamnosus 10,000 MMU CELLS/CAPSULE PO SCH (21:09)
[2021-07-23] MEDS: insulin glargine (Lantus) pen - multi-dose SQ SCH (21:10)
[2021-07-24] VITALS (23 sets, daily range): BP systolic 91–128; BP diastolic 61–94
[2021-07-24] MEDS: insulin Lispro (HumaLOG) vial - multi-dose SQ SCH ×4 (02:09→21:09)
[2021-07-24 02:41] LABS: BASOPHILS % (AUTO) 0.1 % (0-1); EOSINOPHILS % (AUTO) 0 % (0-6); HEMATOCRIT 31.8 % (42.0-52.0); HEMOGLOBIN 10.6 g/dl (14.0-17.9); LYMPHOCYTES # (AUTO) 0.3 X10'3 (1.1-4.8); MEAN CORPUSCULAR HEMOGLOBIN 28.4 PG (27.0-31.0); MEAN CORPUSCULAR HGB CONC 33.2 g/dL (33.0-36.5); MEAN CORPUSCULAR VOLUME 85.4 FL (78-98); MEAN PLATELET VOLUME 7.9 FL (7.4-10.4); MONOCYTES # (AUTO) 0.2 X10'3 (0-0.9); MONOCYTES % (AUTO) 1.4 % (2-12); NEUTROPHILS # (AUTO) 10.4 X10'3 (1.8-7.7); NEUTROPHILS % (AUTO) 95.5 % (42-75); PLATELET COUNT 259 X10'3 (140-440); RED BLOOD COUNT 3.73 X10'6 (4.70-6.10); RED CELL DISTRIBUTION WIDTH 18.5 % (11.5-14.5); WHITE BLOOD COUNT 10.9 X10'3 (4.5-11.0)
[2021-07-24 02:51] LABS: ALBUMIN 2.8 G/DL (3.4-5.0); ANION GAP 9 (8-16); BLOOD UREA NITROGEN 54 MG/DL (7-18); BUN/CREATININE RATIO 23.4 (5.4-32.0); CALCIUM 8.1 MG/DL (8.5-10.1); CHLORIDE 97 MMOL/L (99-107); CREATININE 2.31 MG/DL (0.60-1.10); GLUCOSE 232 MG/DL (70-104); MAGNESIUM 2.1 MG/DL (1.5-2.4); SODIUM 130 MMOL/L (135-145); TOTAL CARBON DIOXIDE 24.2 MMOL/L (24-32); eGFR 27 ML/MIN
[2021-07-24] MEDS: enoxaparin 40mg/0.4ml syringe SUBCUT SCH (07:22)
[2021-07-24] MEDS: docusate sod 100mg capsule PO SCH ×2 (07:23→19:23)
[2021-07-24] MEDS: CefTRIAXone/D5W-Rocephin 1gm 50 ML IV SCH (07:23)
[2021-07-24] MEDS: dexamethasone inj 8 MG in dextrose 5%-water 100 ML IV SCH ×2 (07:23→19:23)
[2021-07-24] MEDS: lactobacillus rhamnosus 10,000 MMU CELLS/CAPSULE PO SCH ×2 (07:23→19:23)
[2021-07-24] MEDS: azithromycin/NS 500mg/250ml 250 ML IV SCH (07:23)
[2021-07-24] MEDS: K and/or MAG REPLACEMENT MC SCH (07:39)
[2021-07-24 12:20] LABS: TOTAL PROTEIN,URINE RANDOM 47.8 MG/DL
[2021-07-24 12:23] LABS: D-DIMER 1.52 MG/L FEU (0-0.50)
[2021-07-24 12:24] LABS: CLARITY,URINE SLIGHTLY CLOUDY (Clear); COLOR,URINE YELLOW (Yellow); GLUCOSE, URINE NEGATIVE (Neg); KETONES,URINE NEGATIVE (Neg); LEUKOCYTE ESTERASE ,URINE NEGATIVE (Neg); NITRITES, URINE NEGATIVE (Neg); OCCULT BLOOD,URINE LARGE (Neg); PROTEIN,URINE TRACE mg/dl (Neg); UROBILINOGEN,URINE 0.2 E.U/dL (0.2-1.0)
[2021-07-24 12:35] LABS: UA COLLECTION TYPE FOLEY CATH
[2021-07-24 12:38] LABS: WBC,URINE 0-4 /HPF (0-4)
[2021-07-24 12:39] LABS: BACTERIA,URINE FEW /HPF (Neg); MUCUS STRANDS FEW /LPF (Neg); SQUAMOUS EPITHELIAL CELL,UR NONE SEEN /LPF (FEW); URIC ACID CRYSTALS 1+ /HPF (NEGATIVE)
[2021-07-24 13:35] LABS: UA EOSINOPHILS NO EOS /HPF
[2021-07-24] MEDS ORDERED: NORepinephrine 8mg/ 250ml NS 250 ML IV SCH (14:05)
[2021-07-24] MEDS: rivaroxaban 15mg tablet PO SCH (18:00)
[2021-07-24] MEDS: atorvastatin 10mg tablet PO SCH (19:24)
[2021-07-24] MEDS: insulin glargine (Lantus) pen - multi-dose SQ SCH (21:00)
[2021-07-24] MEDS: HYDROcodone/acetaminophen 5mg/325mg tablet PO PRN (21:39)
[2021-07-24] MEDS: diphenhydrAMINE 50 mg/ml inj IV PRN (21:39)
[2021-07-24] MEDS: DOBUTamine-DoBUTrex 500mg/D5W 250 ML IV PRN (21:39)
[2021-07-24] MEDS: NORepinephrine 8mg/ 250ml NS 250 ML IV SCH (22:00)
[2021-07-24] MEDS: normal saline 1000ml 1,000 ML IV SCH (23:50)
[2021-07-25] VITALS (27 sets, daily range): BP systolic 78–153; BP diastolic 53–89
[2021-07-25 03:05] LABS: BASOPHILS % (AUTO) 0.1 % (0-1); EOSINOPHILS % (AUTO) 0 % (0-6); HEMATOCRIT 30.5 % (42.0-52.0); HEMOGLOBIN 10.1 g/dl (14.0-17.9); LYMPHOCYTES # (AUTO) 0.3 X10'3 (1.1-4.8); LYMPHOCYTES % (AUTO) 3.3 % (21-51); MEAN CORPUSCULAR HEMOGLOBIN 28.5 PG (27.0-31.0); MEAN CORPUSCULAR HGB CONC 33.3 g/dL (33.0-36.5); MEAN CORPUSCULAR VOLUME 85.8 FL (78-98); MEAN PLATELET VOLUME 7.5 FL (7.4-10.4); MONOCYTES # (AUTO) 0.4 X10'3 (0-0.9); MONOCYTES % (AUTO) 3.8 % (2-12); NEUTROPHILS # (AUTO) 9.2 X10'3 (1.8-7.7); NEUTROPHILS % (AUTO) 92.8 % (42-75); PLATELET COUNT 234 X10'3 (140-440); RED BLOOD COUNT 3.56 X10'6 (4.70-6.10)
[2021-07-25 03:08] LABS: D-DIMER 1.42 MG/L FEU (0-0.50)
[2021-07-25 03:27] LABS: ALBUMIN 2.7 G/DL (3.4-5.0); ANION GAP 11 (8-16); BLOOD UREA NITROGEN 48 MG/DL (7-18); BUN/CREATININE RATIO 27.3 (5.4-32.0); C-REACTIVE PROTEIN 4.53 MG/DL (0.0-0.5); CALCIUM 8.1 MG/DL (8.5-10.1); CHLORIDE 100 MMOL/L (99-107); CREATININE 1.76 MG/DL (0.60-1.10); GLUCOSE 182 MG/DL (70-104); MAGNESIUM 2.2 MG/DL (1.5-2.4); POTASSIUM 4.4 MMOL/L (3.5-5.1); SODIUM 133 MMOL/L (135-145); TOTAL CARBON DIOXIDE 21.9 MMOL/L (24-32); eGFR 37 ML/MIN
[2021-07-25] MEDS: K and/or MAG REPLACEMENT MC SCH (08:00)
[2021-07-25] MEDS: duloxetine 30mg CAPSULE.DR PO SCH (08:51)
[2021-07-25] MEDS: docusate sod 100mg capsule PO SCH ×2 (08:51→20:35)
[2021-07-25] MEDS: lactobacillus rhamnosus 10,000 MMU CELLS/CAPSULE PO SCH ×2 (08:51→20:35)
[2021-07-25] MEDS: aspirin 81mg, enteric-coated 1 TAB TABLET.DR PO SCH (08:52)
[2021-07-25] MEDS: pantoprazole 40mg Tablet.DR PO SCH (08:52)
[2021-07-25] MEDS: enoxaparin 40mg/0.4ml syringe SUBCUT SCH (08:52)
[2021-07-25] MEDS: cholecalciferol (vitamin D3) 1,000 unit (25mcg) tablet PO SCH (08:52)
[2021-07-25] MEDS: dexamethasone inj 8 MG in dextrose 5%-water 100 ML IV SCH ×2 (09:06→20:35)
[2021-07-25] MEDS: azithromycin/NS 500mg/250ml 250 ML IV SCH (09:06)
[2021-07-25] MEDS: CefTRIAXone/D5W-Rocephin 1gm 50 ML IV SCH (09:06)
[2021-07-25] MEDS: insulin Lispro (HumaLOG) vial - multi-dose SQ SCH ×3 (10:01→18:09)
--- NOTE | 2021-07-25 10:51 | NUR ---
Reassessment: Pt PO ~73% avg carb controlled meals partially meeting needs. Textile Conversion Manager is agreeable to Glucerna TIDWM to assist meeting protein/kcal needs. Noted necrotic R great toe per EMR which was planned to be removed this month per CM at rounds; pending WOC assessment. LBM 07/23 receiving routine colace. Will continue to monitor for PO trends and further nutrition intervention needs. Recs: 1. continue carb controlled diet 2. Glucerna TIDWM; encourage PO 3. routine bowel care 4. weekly wts Addendum: 07/25/21 at [address] Amended: Links added.
[2021-07-25] MEDS: DOBUTamine-DoBUTrex 500mg/D5W 250 ML IV PRN (11:33)
[2021-07-25] MEDS ORDERED: NUT.TX.GLUC.INTOLER,LAC-FR,SOY (GLUCERNA) 237 ML PO SCH (13:00)
[2021-07-25] MEDS: rivaroxaban 15mg tablet PO SCH (18:00)
[2021-07-25] MEDS: NORepinephrine 8mg/ 250ml NS 250 ML IV SCH (18:58)
[2021-07-25] MEDS: atorvastatin 10mg tablet PO SCH (20:35)
[2021-07-25] MEDS: diphenhydrAMINE 25mg capsule PO PRN (20:35)
[2021-07-25] MEDS: temazepam 15mg capsule PO PRN (20:36)
[2021-07-25] MEDS: HYDROcodone/acetaminophen 5mg/325mg tablet PO PRN (20:36)
[2021-07-25] MEDS: insulin glargine (Lantus) pen - multi-dose SQ SCH (21:38)
[2021-07-26] VITALS (24 sets, daily range): BP systolic 89–116; BP diastolic 62–81
[2021-07-26 03:27] LABS: BASOPHILS % (AUTO) 0 % (0-1); EOSINOPHILS % (AUTO) 0 % (0-6); HEMATOCRIT 28.1 % (42.0-52.0); HEMOGLOBIN 9.2 g/dl (14.0-17.9); LYMPHOCYTES # (AUTO) 0.3 X10'3 (1.1-4.8); LYMPHOCYTES % (AUTO) 3.6 % (21-51); MEAN CORPUSCULAR HEMOGLOBIN 28.4 PG (27.0-31.0); MEAN CORPUSCULAR HGB CONC 32.7 g/dL (33.0-36.5); MEAN CORPUSCULAR VOLUME 86.9 FL (78-98); MEAN PLATELET VOLUME 7.5 FL (7.4-10.4); MONOCYTES # (AUTO) 0.4 X10'3 (0-0.9); MONOCYTES % (AUTO) 4.3 % (2-12); NEUTROPHILS # (AUTO) 7.7 X10'3 (1.8-7.7); NEUTROPHILS % (AUTO) 92.1 % (42-75); PLATELET COUNT 197 X10'3 (140-440); RED BLOOD COUNT 3.23 X10'6 (4.70-6.10); RED CELL DISTRIBUTION WIDTH 18.3 % (11.5-14.5); WHITE BLOOD COUNT 8.3 X10'3 (4.5-11.0)
[2021-07-26 03:37] LABS: ALBUMIN 2.6 G/DL (3.4-5.0); ANION GAP 10 (8-16); BLOOD UREA NITROGEN 50 MG/DL (7-18); BUN/CREATININE RATIO 29.9 (5.4-32.0); C-REACTIVE PROTEIN 2.52 MG/DL (0.0-0.5); CALCIUM 8.1 MG/DL (8.5-10.1); CHLORIDE 101 MMOL/L (99-107); CREATININE 1.67 MG/DL (0.60-1.10); GLUCOSE 81 MG/DL (70-104); MAGNESIUM 2.2 MG/DL (1.5-2.4); POTASSIUM 4.5 MMOL/L (3.5-5.1); SODIUM 134 MMOL/L (135-145); TOTAL CARBON DIOXIDE 23.3 MMOL/L (24-32); eGFR 40 ML/MIN
[2021-07-26] MEDS: CefTRIAXone/D5W-Rocephin 1gm 50 ML IV SCH (08:12)
[2021-07-26] MEDS: lactobacillus rhamnosus 10,000 MMU CELLS/CAPSULE PO SCH ×2 (08:12→20:32)
[2021-07-26] MEDS: azithromycin/NS 500mg/250ml 250 ML IV SCH (08:12)
[2021-07-26] MEDS: aspirin 81mg, enteric-coated 1 TAB TABLET.DR PO SCH (08:13)
[2021-07-26] MEDS: docusate sod 100mg capsule PO SCH ×2 (08:14→20:32)
[2021-07-26] MEDS: pantoprazole 40mg Tablet.DR PO SCH (08:14)
[2021-07-26] MEDS: cholecalciferol (vitamin D3) 1,000 unit (25mcg) tablet PO SCH (08:14)
[2021-07-26] MEDS: duloxetine 30mg CAPSULE.DR PO SCH (08:14)
[2021-07-26] MEDS: dexamethasone inj 8 MG in dextrose 5%-water 100 ML IV SCH ×2 (08:18→20:33)
[2021-07-26] MEDS: insulin Lispro (HumaLOG) vial - multi-dose SQ SCH ×3 (09:05→18:41)
[2021-07-26] MEDS: carVEDilol 3.125mg tablet PO SCH ×2 (12:34→20:32)
[2021-07-26] MEDS ORDERED: NUT.TX.GLUC.INTOLER,LAC-FR,SOY (GLUCERNA) 237 ML PO SCH (13:00)
[2021-07-26] MEDS: NUT.TX.GLUC.INTOLER,LAC-FR,SOY (GLUCERNA) 237 ML PO SCH (17:46)
[2021-07-26] MEDS: rivaroxaban 15mg tablet PO SCH (17:48)
[2021-07-26 17:51] LABS: D-DIMER 1.26 MG/L FEU (0-0.50)
[2021-07-26] MEDS: atorvastatin 10mg tablet PO SCH (20:32)
[2021-07-26] MEDS: insulin glargine (Lantus) pen - multi-dose SQ SCH (21:13)
[2021-07-26] MEDS: temazepam 15mg capsule PO PRN (22:31)
[2021-07-26] MEDS: normal saline 1000ml 1,000 ML IV SCH (23:55)
[2021-07-27] VITALS (21 sets, daily range): BP systolic 94–137; BP diastolic 66–91
[2021-07-27] MEDS: diphenhydrAMINE 50 mg/ml inj IV PRN (00:47)
[2021-07-27 03:02] LABS: BASOPHILS # (AUTO) 0.1 X10'3 (0-0.2); BASOPHILS % (AUTO) 0.7 % (0-1); EOSINOPHILS % (AUTO) 0 % (0-6); HEMATOCRIT 32.4 % (42.0-52.0); HEMOGLOBIN 10.8 g/dl (14.0-17.9); LYMPHOCYTES # (AUTO) 0.5 X10'3 (1.1-4.8); LYMPHOCYTES % (AUTO) 3.9 % (21-51); MEAN CORPUSCULAR HEMOGLOBIN 28.3 PG (27.0-31.0); MEAN CORPUSCULAR HGB CONC 33.2 g/dL (33.0-36.5); MEAN CORPUSCULAR VOLUME 85.2 FL (78-98); MEAN PLATELET VOLUME 7.5 FL (7.4-10.4); MONOCYTES # (AUTO) 0.4 X10'3 (0-0.9); MONOCYTES % (AUTO) 3.5 % (2-12); NEUTROPHILS # (AUTO) 10.9 X10'3 (1.8-7.7); NEUTROPHILS % (AUTO) 91.9 % (42-75); PLATELET COUNT 263 X10'3 (140-440); RED CELL DISTRIBUTION WIDTH 17.8 % (11.5-14.5); WHITE BLOOD COUNT 11.8 X10'3 (4.5-11.0)
[2021-07-27 03:14] LABS: D-DIMER 1.59 MG/L FEU (0-0.50)
[2021-07-27 03:19] LABS: ALBUMIN 2.8 G/DL (3.4-5.0); ANION GAP 10 (8-16); BLOOD UREA NITROGEN 59 MG/DL (7-18); BUN/CREATININE RATIO 29.4 (5.4-32.0); CHLORIDE 100 MMOL/L (99-107); CREATININE 2.01 MG/DL (0.60-1.10); GLUCOSE 108 MG/DL (70-104); MAGNESIUM 2.2 MG/DL (1.5-2.4); POTASSIUM 4.9 MMOL/L (3.5-5.1); SODIUM 133 MMOL/L (135-145); TOTAL CARBON DIOXIDE 23.3 MMOL/L (24-32); eGFR 32 ML/MIN
[2021-07-27] MEDS: NUT.TX.GLUC.INTOLER,LAC-FR,SOY (GLUCERNA) 237 ML PO SCH ×2 (07:30→17:47)
[2021-07-27] MEDS: carVEDilol 3.125mg tablet PO SCH ×2 (08:00→19:34)
[2021-07-27] MEDS: dexamethasone inj 8 MG in dextrose 5%-water 100 ML IV SCH ×2 (08:00→19:53)
[2021-07-27] MEDS: lactobacillus rhamnosus 10,000 MMU CELLS/CAPSULE PO SCH ×2 (08:00→19:34)
[2021-07-27] MEDS: aspirin 81mg, enteric-coated 1 TAB TABLET.DR PO SCH (08:00)
[2021-07-27] MEDS: cholecalciferol (vitamin D3) 1,000 unit (25mcg) tablet PO SCH (08:00)
[2021-07-27] MEDS: duloxetine 30mg CAPSULE.DR PO SCH (08:00)
[2021-07-27] MEDS: docusate sod 100mg capsule PO SCH ×2 (08:00→19:35)
[2021-07-27] MEDS: pantoprazole 40mg Tablet.DR PO SCH (08:00)
[2021-07-27] MEDS: insulin Lispro (HumaLOG) vial - multi-dose SQ SCH (13:24)
--- NOTE | 2021-07-27 17:15 | NUR ---
transferred pt to bed. oriented to room. Discussed plan of care. VSS. Lindsey draining with clear yellow urine. IVL. 2 RN skin check performed. Physical assessment completed. Pt is A/O x3. No s/s of pain or distress. Call light within reach. Bed in low position. Hourly rounding performed. Will continue to monitor.
--- NOTE | 2021-07-27 17:27 | NUR ---
Report given to CHARLIE NGUYỄN on third floor. Patient is appropriate for transfer. CVA pulled, new PIV established prior to transfer.
[2021-07-27] MEDS: dextrose ORAL solution 15 GM/59 ML bottle PO PRN ×2 (17:43→18:01)
[2021-07-27] MEDS: HYDROcodone/acetaminophen 5mg/325mg tablet PO PRN (19:35)
[2021-07-27] MEDS: atorvastatin 10mg tablet PO SCH (19:35)
[2021-07-27] MEDS: rivaroxaban 15mg tablet PO SCH (19:53)
[2021-07-27] MEDS: insulin glargine (Lantus) pen - multi-dose SQ SCH (21:00)
[2021-07-28 02:00] VITALS: BP 124/89
[2021-07-28 06:00] VITALS: BP 131/97
--- NOTE | 2021-07-28 07:00 | NUR ---
Patient in room ACCE 313. I have received report from SHARRI NGUYỄN and had the opportunity to ask questions and assume patient care. PT SLEEPING. CALL LIGHT IN REACH. Addendum: 07/28/21 at 0804 by Crystal Harper RN Amended: Links added.
[2021-07-28 07:18] LABS: D-DIMER 3.44 MG/L FEU (0-0.50)
[2021-07-28] MEDS: NUT.TX.GLUC.INTOLER,LAC-FR,SOY (GLUCERNA) 237 ML PO SCH ×2 (07:30→17:30)
--- NOTE | 2021-07-28 07:35 | NUR ---
PT AND ALL BELONGINGS MOVED TO [facility] 3023. PT ORIENTATED TO SELF ONLY. DENIES NEEDS. STATES HE IS VERY COMFORTABLE IN NEW ROOM. TELE MONITOR IN PLACE. CALL LIGHT IN REACH. Addendum: 07/28/21 at 0806 by Crystal Harper RN Amended: Links added.
[2021-07-28 07:36] LABS: C-REACTIVE PROTEIN 1.29 MG/DL (0.0-0.5); MAGNESIUM 2.7 MG/DL (1.5-2.4); POTASSIUM 5.4 MMOL/L (3.5-5.1)
[2021-07-28] MEDS: docusate sod 100mg capsule PO SCH ×2 (08:26→22:34)
[2021-07-28] MEDS: cholecalciferol (vitamin D3) 1,000 unit (25mcg) tablet PO SCH (08:26)
[2021-07-28] MEDS: duloxetine 30mg CAPSULE.DR PO SCH (08:27)
[2021-07-28] MEDS: aspirin 81mg, enteric-coated 1 TAB TABLET.DR PO SCH (08:27)
[2021-07-28] MEDS: lactobacillus rhamnosus 10,000 MMU CELLS/CAPSULE PO SCH ×2 (08:27→22:34)
[2021-07-28] MEDS: carVEDilol 3.125mg tablet PO SCH ×2 (08:28→22:34)
[2021-07-28] MEDS: dexamethasone inj 8 MG in dextrose 5%-water 100 ML IV SCH ×2 (08:33→22:34)
[2021-07-28] MEDS: pantoprazole 40mg Tablet.DR PO SCH (08:33)
[2021-07-28 11:00] VITALS: BP 108/80
[2021-07-28] MEDS: insulin Lispro (HumaLOG) vial - multi-dose SQ SCH ×2 (13:27→19:33)
[2021-07-28 15:00] VITALS: BP 119/81
[2021-07-28] MEDS ORDERED: sodium polystyrene sulfonate 15gm/60ml oral suspension PO ONE (15:20)
[2021-07-28 18:00] VITALS: BP 121/82
[2021-07-28] MEDS: rivaroxaban 15mg tablet PO SCH (18:00)
--- NOTE | 2021-07-28 19:15 | NUR ---
Problems reprioritized. Patient report given, questions answered & plan of care reviewed with frantz schwab. Addendum: 07/28/21 at 1916 by Crystal Harper RN Amended: Links added.
[2021-07-28] MEDS: HYDROcodone/acetaminophen 5mg/325mg tablet PO PRN (20:05)
[2021-07-28 22:00] VITALS: BP 122/90
[2021-07-28] MEDS: atorvastatin 10mg tablet PO SCH (22:34)
[2021-07-28] MEDS: insulin glargine (Lantus) pen - multi-dose SQ SCH (23:05)
[2021-07-29 02:00] VITALS: BP 118/87
[2021-07-29] MEDS: diphenhydrAMINE 25mg capsule PO PRN ×2 (03:01→21:32)
[2021-07-29] MEDS: HYDROcodone/acetaminophen 5mg/325mg tablet PO PRN (03:03)
--- NOTE | 2021-07-29 06:45 | NUR ---
Patient in room PCU 3021. I have received report from DELMA ZAMUDIO and had the opportunity to ask questions and assume patient care.
[2021-07-29 07:00] VITALS: BP 128/84
--- NOTE | 2021-07-29 07:11 | NUR ---
Problems reprioritized. Patient report given, questions answered & plan of care reviewed with Doris NGUYỄN.
[2021-07-29] MEDS: NUT.TX.GLUC.INTOLER,LAC-FR,SOY (GLUCERNA) 237 ML PO SCH ×2 (07:30→17:30)
[2021-07-29] MEDS: docusate sod 100mg capsule PO SCH ×2 (08:00→21:04)
--- NOTE | 2021-07-29 10:24 | NUR ---
Reassessment: Pt PO ~56% avg carb controlled meals in addition to avg 75% x 5 ONS BID which meets approximately 70% of est energy needs and 64% of est protein needs. Noted ONS ordered BID though current RD recommendation is for TID. Recommend increasing frequency to TID to help meet pt's nutrient needs. Noted to be A&O x 2 and confused though able to feed self per documentation. LBM 07/28 receiving routine colace. Will continue to monitor. Recs: 1. continue carb controlled diet 2. Glucerna TIDWM, currently BID. Increase frequency 3. routine bowel care 4. weekly wts Addendum: 07/29/21 at [address] Amended: Links added.
[2021-07-29] MEDS: cholecalciferol (vitamin D3) 1,000 unit (25mcg) tablet PO SCH (12:57)
[2021-07-29] MEDS: duloxetine 30mg CAPSULE.DR PO SCH (12:57)
[2021-07-29] MEDS: dexamethasone inj 8 MG in dextrose 5%-water 100 ML IV SCH ×2 (12:57→21:04)
[2021-07-29] MEDS: lactobacillus rhamnosus 10,000 MMU CELLS/CAPSULE PO SCH ×2 (12:58→21:04)
[2021-07-29] MEDS: aspirin 81mg, enteric-coated 1 TAB TABLET.DR PO SCH (12:58)
[2021-07-29] MEDS: pantoprazole 40mg Tablet.DR PO SCH (12:58)
[2021-07-29] MEDS: carVEDilol 3.125mg tablet PO SCH ×2 (12:58→21:04)
[2021-07-29 13:09] VITALS: BP 138/100
[2021-07-29 15:00] VITALS: BP 143/103
[2021-07-29] MEDS ORDERED: SIMETHICONE 125 MG CAPSULE PO PRN (15:40)
--- NOTE | 2021-07-29 17:27 | NUR ---
PATIENT YELLING FOR A DR AND HELP WENT INTO ROOM, PATIENT C/O OF SHORTNESS AND CHEST PAIN, NO CHANGES ON TELE MONITOR, O2 SAT 100 ON ROOM AIR NO WORK OF BREATHING EXCEPT A LITTLE OUT OF BREATH AFTER YELLING. DR PAGED AWAITING CALL BACK. Message: IGLESIA RM 3021: PATIENT STATING HE IS HAVING TROUBLE BREATHING AND HAS PAIN IN MIDDLE OF CHEST, O2 SAT 100, NO CHANGES ON TELE MONITOR. DO YOU WANT AN ECG THANK YOU KARLEE [id number]
[2021-07-29 18:00] VITALS: BP 153/85
--- NOTE | 2021-07-29 18:45 | NUR ---
Problems reprioritized. Patient report given, questions answered & plan of care reviewed with DELMA STOLL.
[2021-07-29] MEDS: insulin Lispro (HumaLOG) vial - multi-dose SQ SCH ×2 (18:59→21:22)
[2021-07-29] MEDS: rivaroxaban 15mg tablet PO SCH (19:00)
[2021-07-29] MEDS: atorvastatin 10mg tablet PO SCH (21:04)
[2021-07-29] MEDS: insulin glargine (Lantus) pen - multi-dose SQ SCH (21:25)
[2021-07-29] MEDS: temazepam 15mg capsule PO PRN (21:32)
[2021-07-29 22:00] VITALS: BP 138/98
[2021-07-30 02:00] VITALS: BP 139/98
[2021-07-30 06:00] VITALS: BP 142/87
[2021-07-30 07:04] LABS: BASOPHILS % (AUTO) 0.1 % (0-1); EOSINOPHILS % (AUTO) 0 % (0-6); HEMOGLOBIN 10.8 g/dl (14.0-17.9); LYMPHOCYTES # (AUTO) 0.3 X10'3 (1.1-4.8); LYMPHOCYTES % (AUTO) 4.3 % (21-51); MEAN CORPUSCULAR HEMOGLOBIN 28.3 PG (27.0-31.0); MEAN CORPUSCULAR HGB CONC 32.9 g/dL (33.0-36.5); MEAN PLATELET VOLUME 8.6 FL (7.4-10.4); MONOCYTES # (AUTO) 0.4 X10'3 (0-0.9); NEUTROPHILS # (AUTO) 5.7 X10'3 (1.8-7.7); NEUTROPHILS % (AUTO) 88.6 % (42-75); PLATELET COUNT 218 X10'3 (140-440); RED BLOOD COUNT 3.83 X10'6 (4.70-6.10); RED CELL DISTRIBUTION WIDTH 18.2 % (11.5-14.5); WHITE BLOOD COUNT 6.4 X10'3 (4.5-11.0)
[2021-07-30 07:12] LABS: D-DIMER 2.52 MG/L FEU (0-0.50)
[2021-07-30] MEDS: lactobacillus rhamnosus 10,000 MMU CELLS/CAPSULE PO SCH ×2 (07:26→21:15)
[2021-07-30] MEDS: pantoprazole 40mg Tablet.DR PO SCH (07:26)
[2021-07-30] MEDS: duloxetine 30mg CAPSULE.DR PO SCH (07:26)
[2021-07-30] MEDS: carVEDilol 3.125mg tablet PO SCH ×2 (07:26→21:15)
[2021-07-30] MEDS: docusate sod 100mg capsule PO SCH ×2 (07:26→21:15)
[2021-07-30] MEDS: cholecalciferol (vitamin D3) 1,000 unit (25mcg) tablet PO SCH (07:26)
[2021-07-30] MEDS: aspirin 81mg, enteric-coated 1 TAB TABLET.DR PO SCH (07:26)
[2021-07-30] MEDS: dexamethasone inj 8 MG in dextrose 5%-water 100 ML IV SCH ×2 (07:27→21:15)
[2021-07-30] MEDS: NUT.TX.GLUC.INTOLER,LAC-FR,SOY (GLUCERNA) 237 ML PO SCH ×2 (07:30→17:30)
[2021-07-30 07:37] LABS: ALANINE AMINOTRANSFERASE 157 U/L (12-78); ALBUMIN 2.9 G/DL (3.4-5.0); ALBUMIN/GLOBULIN RATIO 0.8 (1.1-1.5); ALKALINE PHOSPHATASE 108 IU/L (46-116); ANION GAP 12 (8-16); ASPARTATE AMINO TRANSFERASE 78 U/L (10-37); BILIRUBIN,TOTAL 0.6 MG/DL (0.1-1.0); BLOOD UREA NITROGEN 91 MG/DL (7-18); CALCIUM 7.9 MG/DL (8.5-10.1); CHLORIDE 100 MMOL/L (99-107); CREATININE 2.07 MG/DL (0.60-1.10); GLUCOSE 241 MG/DL (70-104); MAGNESIUM 2.7 MG/DL (1.5-2.4); POTASSIUM 4.6 MMOL/L (3.5-5.1); SODIUM 133 MMOL/L (135-145); TOTAL CARBON DIOXIDE 20.6 MMOL/L (24-32); TOTAL PROTEIN 6.6 G/DL (6.4-8.2); eGFR 31 ML/MIN
[2021-07-30] MEDS: insulin Lispro (HumaLOG) vial - multi-dose SQ SCH ×4 (10:06→21:30)
[2021-07-30 11:00] VITALS: BP 138/86
[2021-07-30 15:00] VITALS: BP 141/91
[2021-07-30 18:00] VITALS: BP 128/82
[2021-07-30] MEDS: rivaroxaban 15mg tablet PO SCH (18:52)
[2021-07-30] MEDS: atorvastatin 10mg tablet PO SCH (21:15)
[2021-07-30] MEDS: insulin glargine (Lantus) pen - multi-dose SQ SCH (21:32)
[2021-07-30 22:00] VITALS: BP 133/65
[2021-07-31 02:00] VITALS: BP 115/88
[2021-07-31] MEDS: HYDROcodone/acetaminophen 5mg/325mg tablet PO PRN ×2 (05:11→21:13)
[2021-07-31 06:00] VITALS: BP 128/77
[2021-07-31 06:37] LABS: BASOPHILS % (AUTO) 0 % (0-1); EOSINOPHILS % (AUTO) 0.1 % (0-6); HEMATOCRIT 31.2 % (42.0-52.0); HEMOGLOBIN 10.4 g/dl (14.0-17.9); LYMPHOCYTES # (AUTO) 0.2 X10'3 (1.1-4.8); LYMPHOCYTES % (AUTO) 3.8 % (21-51); MEAN CORPUSCULAR HEMOGLOBIN 28.5 PG (27.0-31.0); MEAN CORPUSCULAR HGB CONC 33.3 g/dL (33.0-36.5); MEAN CORPUSCULAR VOLUME 85.6 FL (78-98); MEAN PLATELET VOLUME 8.2 FL (7.4-10.4); MONOCYTES # (AUTO) 0.4 X10'3 (0-0.9); MONOCYTES % (AUTO) 6.6 % (2-12); NEUTROPHILS # (AUTO) 5.9 X10'3 (1.8-7.7); NEUTROPHILS % (AUTO) 89.5 % (42-75); PLATELET COUNT 208 X10'3 (140-440); RED BLOOD COUNT 3.65 X10'6 (4.70-6.10); WHITE BLOOD COUNT 6.6 X10'3 (4.5-11.0)
[2021-07-31 06:47] LABS: D-DIMER 2.25 MG/L FEU (0-0.50)
[2021-07-31 06:50] LABS: ALANINE AMINOTRANSFERASE 138 U/L (12-78); ALBUMIN 2.7 G/DL (3.4-5.0); ALBUMIN/GLOBULIN RATIO 0.8 (1.1-1.5); ALKALINE PHOSPHATASE 106 IU/L (46-116); ANION GAP 11 (8-16); ASPARTATE AMINO TRANSFERASE 65 U/L (10-37); BILIRUBIN,TOTAL 0.7 MG/DL (0.1-1.0); BLOOD UREA NITROGEN 79 MG/DL (7-18); BUN/CREATININE RATIO 41.6 (5.4-32.0); CALCIUM 8.2 MG/DL (8.5-10.1); CHLORIDE 101 MMOL/L (99-107); GLUCOSE 221 MG/DL (70-104); MAGNESIUM 2.7 MG/DL (1.5-2.4); PHOSPHORUS 4.2 MG/DL (2.3-4.5); POTASSIUM 4.4 MMOL/L (3.5-5.1); SODIUM 133 MMOL/L (135-145); TOTAL CARBON DIOXIDE 20.7 MMOL/L (24-32); eGFR 34 ML/MIN
--- NOTE | 2021-07-31 07:26 | NUR ---
Patient in room PCU 3021. I have received report from DELMA Brandt and had the opportunity to ask questions and assume patient care. Patient asleep in bed and in no acute distress.
[2021-07-31] MEDS: NUT.TX.GLUC.INTOLER,LAC-FR,SOY (GLUCERNA) 237 ML PO SCH ×2 (08:27→17:30)
[2021-07-31] MEDS: docusate sod 100mg capsule PO SCH ×2 (08:28→21:04)
[2021-07-31] MEDS: aspirin 81mg, enteric-coated 1 TAB TABLET.DR PO SCH (08:28)
[2021-07-31] MEDS: lactobacillus rhamnosus 10,000 MMU CELLS/CAPSULE PO SCH ×2 (08:28→21:04)
[2021-07-31] MEDS: cholecalciferol (vitamin D3) 1,000 unit (25mcg) tablet PO SCH (08:28)
[2021-07-31] MEDS: duloxetine 30mg CAPSULE.DR PO SCH (08:29)
[2021-07-31] MEDS: carVEDilol 3.125mg tablet PO SCH ×2 (08:29→21:03)
[2021-07-31] MEDS: pantoprazole 40mg Tablet.DR PO SCH (08:29)
[2021-07-31] MEDS: dexamethasone inj 8 MG in dextrose 5%-water 100 ML IV SCH ×2 (08:30→21:14)
[2021-07-31] MEDS: insulin Lispro (HumaLOG) vial - multi-dose SQ SCH ×4 (08:34→21:55)
[2021-07-31 11:00] VITALS: BP 141/80
[2021-07-31 15:00] VITALS: BP 132/92
[2021-07-31 18:00] VITALS: BP 125/87
--- NOTE | 2021-07-31 18:02 | NUR ---
Problems reprioritized. Patient report given, questions answered & plan of care reviewed with DELMA Brandt. Patient stable at transfer of care.
[2021-07-31] MEDS: rivaroxaban 15mg tablet PO SCH (18:32)
[2021-07-31] MEDS: atorvastatin 10mg tablet PO SCH (21:04)
[2021-07-31] MEDS: insulin glargine (Lantus) pen - multi-dose SQ SCH (21:09)
[2021-07-31] MEDS: temazepam 15mg capsule PO PRN (21:13)
[2021-07-31 22:00] VITALS: BP 146/92
[2021-08-01 02:00] VITALS: BP 133/82
[2021-08-01 06:00] VITALS: BP 134/82
[2021-08-01 06:58] LABS: ALBUMIN 2.8 G/DL (3.4-5.0); ANION GAP 12 (8-16); BILIRUBIN,TOTAL 0.7 MG/DL (0.1-1.0); BLOOD UREA NITROGEN 73 MG/DL (7-18); BUN/CREATININE RATIO 42.9 (5.4-32.0); CALCIUM 7.9 MG/DL (8.5-10.1); CHLORIDE 102 MMOL/L (99-107); GLUCOSE 237 MG/DL (70-104); MAGNESIUM 2.6 MG/DL (1.5-2.4); POTASSIUM 4.9 MMOL/L (3.5-5.1); SODIUM 133 MMOL/L (135-145); TOTAL CARBON DIOXIDE 18.9 MMOL/L (24-32); TOTAL PROTEIN 6.3 G/DL (6.4-8.2); eGFR 39 ML/MIN
[2021-08-01 06:59] LABS: ALANINE AMINOTRANSFERASE 128 U/L (12-78); ALBUMIN/GLOBULIN RATIO 0.8 (1.1-1.5); ALKALINE PHOSPHATASE 103 IU/L (46-116); ASPARTATE AMINO TRANSFERASE 52 U/L (10-37)
[2021-08-01 07:06] LABS: BASOPHILS % (AUTO) 0.1 % (0-1); EOSINOPHILS % (AUTO) 0 % (0-6); HEMATOCRIT 32.9 % (42.0-52.0); HEMOGLOBIN 10.7 g/dl (14.0-17.9); LYMPHOCYTES # (AUTO) 0.3 X10'3 (1.1-4.8); LYMPHOCYTES % (AUTO) 2.4 % (21-51); MEAN CORPUSCULAR HEMOGLOBIN 27.9 PG (27.0-31.0); MEAN CORPUSCULAR HGB CONC 32.4 g/dL (33.0-36.5); MEAN CORPUSCULAR VOLUME 85.9 FL (78-98); MEAN PLATELET VOLUME 8.7 FL (7.4-10.4); MONOCYTES # (AUTO) 0.4 X10'3 (0-0.9); MONOCYTES % (AUTO) 4.1 % (2-12); NEUTROPHILS # (AUTO) 10.3 X10'3 (1.8-7.7); NEUTROPHILS % (AUTO) 93.4 % (42-75); PLATELET COUNT 222 X10'3 (140-440); RED BLOOD COUNT 3.83 X10'6 (4.70-6.10); RED CELL DISTRIBUTION WIDTH 18.5 % (11.5-14.5)
[2021-08-01] MEDS: duloxetine 30mg CAPSULE.DR PO SCH (07:23)
[2021-08-01] MEDS: cholecalciferol (vitamin D3) 1,000 unit (25mcg) tablet PO SCH (07:23)
[2021-08-01] MEDS: pantoprazole 40mg Tablet.DR PO SCH (07:23)
[2021-08-01] MEDS: docusate sod 100mg capsule PO SCH ×2 (07:24→20:00)
[2021-08-01] MEDS: lactobacillus rhamnosus 10,000 MMU CELLS/CAPSULE PO SCH ×2 (07:24→20:49)
[2021-08-01] MEDS: aspirin 81mg, enteric-coated 1 TAB TABLET.DR PO SCH (07:24)
[2021-08-01] MEDS: carVEDilol 3.125mg tablet PO SCH ×2 (07:24→20:49)
[2021-08-01] MEDS: dexamethasone inj 8 MG in dextrose 5%-water 100 ML IV SCH ×2 (07:25→20:00)
[2021-08-01] MEDS: NUT.TX.GLUC.INTOLER,LAC-FR,SOY (GLUCERNA) 237 ML PO SCH ×2 (07:30→17:40)
--- NOTE | 2021-08-01 09:00 | NUR ---
Reassessment: Pt continues on Carb controlled diet w/ some improvement in intake, avg 75% of meals in addition to avg 70% x 6 ONS BID which meets approximately 87% of est energy needs and 80% of est protein needs. Noted ONS ordered BID though current RD recommendation is for TID. Recommend increasing frequency to TID to help meet pt's nutrient needs. Noted to be A&O x 2 and confused though able to feed self per documentation. LBM 07/29 receiving routine colace. Will continue to monitor. Recs: 1. continue carb controlled diet 2. Glucerna TIDWM, currently BID. Recommend increase frequency 3. routine bowel care 4. weekly wts Addendum: 08/01/21 at [address] Amended: Links added.
[2021-08-01] MEDS: insulin Lispro (HumaLOG) vial - multi-dose SQ SCH ×2 (09:11→21:00)
[2021-08-01] MEDS: HYDROcodone/acetaminophen 5mg/325mg tablet PO PRN (09:15)
[2021-08-01 11:00] VITALS: BP 130/87
--- NOTE | 2021-08-01 11:50 | NUR ---
Lindsey removal Lindsey removed per Dr. Herrera's orders
[2021-08-01 15:00] VITALS: BP 143/87
[2021-08-01 16:19] VITALS: BP 108/70
--- NOTE | 2021-08-01 16:23 | NUR ---
PAGER ID: [phone] MESSAGE: Dr. Herrera pt [id number] Mg Pretty back in NSR in 's latest BP 108/70. thank you, Roxy HIGUERA Addendum: 08/01/21 at 1656 by Roxy Madrigal RN written on wrong patient Roxy HIGUERA
[2021-08-01] MEDS: rivaroxaban 15mg tablet PO SCH (17:14)
[2021-08-01 18:00] VITALS: BP 124/89
--- NOTE | 2021-08-01 18:24 | NUR ---
Problems reprioritized. Patient report given Michaela NGUYỄN, questions answered & plan of care reviewed with Michaela NGUYỄN.
[2021-08-01] MEDS: atorvastatin 10mg tablet PO SCH (20:49)
[2021-08-01] MEDS: insulin glargine (Lantus) pen - multi-dose SQ SCH (21:04)
--- NOTE | 2021-08-01 23:31 | NUR ---
Patient alert and oriented X4. Grumpy and unapproachable during assessment and medication pass tonight. Patient upset that he is still in the hospital. States, " he has been here to long and that he wants to just ;lay there." Attempted to encourage patient but he was very negative, says he wants to be left alone. Requested a sandwich, when given patient didn't want to hold sandwich.This nurse encouraged feeding himself. No complaints of pain and vitals stable. Son called for updates. Will continue to monitor.
[2021-08-02] MEDS: HYDROcodone/acetaminophen 5mg/325mg tablet PO PRN ×4 (03:10→17:38)
--- NOTE | 2021-08-02 03:34 | NUR ---
Patient yelling and screaming throughout night. Refusing to use call [place]. Yelling that he couldn't breath and that his back hurts. Oxygen at 98% on 3L. Blanchard tab given for pain. Respiratory in to assess. Will continue to monitor.
[2021-08-02 06:00] VITALS: BP 143/95
[2021-08-02 06:12] LABS: BASOPHILS % (AUTO) 0.1 % (0-1); EOSINOPHILS % (AUTO) 0 % (0-6); HEMATOCRIT 33.6 % (42.0-52.0); HEMOGLOBIN 10.9 g/dl (14.0-17.9); LYMPHOCYTES # (AUTO) 0.3 X10'3 (1.1-4.8); LYMPHOCYTES % (AUTO) 2.1 % (21-51); MEAN CORPUSCULAR HEMOGLOBIN 28.1 PG (27.0-31.0); MEAN CORPUSCULAR HGB CONC 32.5 g/dL (33.0-36.5); MEAN CORPUSCULAR VOLUME 86.6 FL (78-98); MEAN PLATELET VOLUME 8.3 FL (7.4-10.4); NEUTROPHILS # (AUTO) 12.5 X10'3 (1.8-7.7); NEUTROPHILS % (AUTO) 90.8 % (42-75); PLATELET COUNT 233 X10'3 (140-440); RED BLOOD COUNT 3.89 X10'6 (4.70-6.10); RED CELL DISTRIBUTION WIDTH 18.3 % (11.5-14.5); WHITE BLOOD COUNT 13.7 X10'3 (4.5-11.0)
[2021-08-02 06:31] LABS: ALANINE AMINOTRANSFERASE 119 U/L (12-78); ALBUMIN 2.9 G/DL (3.4-5.0); ALBUMIN/GLOBULIN RATIO 0.9 (1.1-1.5); ALKALINE PHOSPHATASE 109 IU/L (46-116); ANION GAP 7 (8-16); ASPARTATE AMINO TRANSFERASE 58 U/L (10-37); BILIRUBIN,TOTAL 0.8 MG/DL (0.1-1.0); BLOOD UREA NITROGEN 73 MG/DL (7-18); BUN/CREATININE RATIO 43.7 (5.4-32.0); CALCIUM 8.1 MG/DL (8.5-10.1); CHLORIDE 102 MMOL/L (99-107); CREATININE 1.67 MG/DL (0.60-1.10); GLUCOSE 175 MG/DL (70-104); MAGNESIUM 2.7 MG/DL (1.5-2.4); PHOSPHORUS 3.9 MG/DL (2.3-4.5); POTASSIUM 4.9 MMOL/L (3.5-5.1); SODIUM 133 MMOL/L (135-145); TOTAL PROTEIN 6.3 G/DL (6.4-8.2); eGFR 40 ML/MIN
[2021-08-02] MEDS: pantoprazole 40mg Tablet.DR PO SCH (06:56)
[2021-08-02] MEDS: cholecalciferol (vitamin D3) 1,000 unit (25mcg) tablet PO SCH (06:56)
[2021-08-02] MEDS: dexamethasone inj 8 MG in dextrose 5%-water 100 ML IV SCH (06:56)
[2021-08-02] MEDS: aspirin 81mg, enteric-coated 1 TAB TABLET.DR PO SCH (06:57)
[2021-08-02] MEDS: carVEDilol 3.125mg tablet PO SCH ×2 (06:57→19:49)
[2021-08-02] MEDS: duloxetine 30mg CAPSULE.DR PO SCH (06:57)
[2021-08-02] MEDS: lactobacillus rhamnosus 10,000 MMU CELLS/CAPSULE PO SCH ×2 (06:58→19:49)
[2021-08-02] MEDS: docusate sod 100mg capsule PO SCH ×2 (06:59→19:49)
[2021-08-02] MEDS: NUT.TX.GLUC.INTOLER,LAC-FR,SOY (GLUCERNA) 237 ML PO SCH ×2 (07:30→17:30)
[2021-08-02] MEDS: insulin Lispro (HumaLOG) vial - multi-dose SQ SCH ×2 (09:50→19:29)
[2021-08-02 11:00] VITALS: BP 140/102
--- NOTE | 2021-08-02 14:00 | NUR ---
Pt. refused insulin stating his blood sugar is too low for him. Will continue to monitor. Roxy HIGUERA
[2021-08-02 15:00] VITALS: BP 150/92
[2021-08-02] MEDS: rivaroxaban 15mg tablet PO SCH (17:38)
[2021-08-02 18:00] VITALS: BP 133/81
--- NOTE | 2021-08-02 18:35 | NUR ---
Problems reprioritized. Patient report given to Viola RN, questions answered & plan of care reviewed with Viola RN.
--- NOTE | 2021-08-02 18:40 | NUR ---
Patient in room PCU 3021. I have received report from FRANCISCO NGUYỄN and had the opportunity to ask questions and assume patient care.
[2021-08-02] MEDS: dexamethasone 4mg tablet PO SCH (19:49)
[2021-08-02] MEDS: atorvastatin 10mg tablet PO SCH (19:50)
[2021-08-02] MEDS: insulin glargine (Lantus) pen - multi-dose SQ SCH (21:00)
[2021-08-02 22:00] VITALS: BP 138/57
[2021-08-03 02:00] VITALS: BP 131/84
--- NOTE | 2021-08-03 06:25 | NUR ---
Problems reprioritized. Patient report given, questions answered & plan of care reviewed with JEANINE NGUYỄN.
--- NOTE | 2021-08-03 06:41 | NUR ---
Patient in room PCU 3021. I have received report from Claudette Wilkins and had the opportunity to ask questions and assume patient care.
[2021-08-03] MEDS: lactobacillus rhamnosus 10,000 MMU CELLS/CAPSULE PO SCH ×2 (07:44→19:52)
[2021-08-03] MEDS: cholecalciferol (vitamin D3) 1,000 unit (25mcg) tablet PO SCH (07:44)
[2021-08-03] MEDS: docusate sod 100mg capsule PO SCH ×2 (07:44→19:52)
[2021-08-03] MEDS: dexamethasone 4mg tablet PO SCH ×2 (07:44→19:52)
[2021-08-03] MEDS: aspirin 81mg, enteric-coated 1 TAB TABLET.DR PO SCH (07:44)
[2021-08-03] MEDS: duloxetine 30mg CAPSULE.DR PO SCH (07:44)
[2021-08-03] MEDS: pantoprazole 40mg Tablet.DR PO SCH (07:44)
[2021-08-03] MEDS: carVEDilol 3.125mg tablet PO SCH ×2 (07:44→19:52)
[2021-08-03] MEDS: NUT.TX.GLUC.INTOLER,LAC-FR,SOY (GLUCERNA) 237 ML PO SCH ×2 (07:53→18:11)
[2021-08-03 08:00] VITALS: BP 132/97
[2021-08-03] MEDS: insulin Lispro (HumaLOG) vial - multi-dose SQ SCH ×2 (09:26→13:36)
[2021-08-03 11:00] VITALS: BP 122/74
[2021-08-03 13:28] LABS: BASOPHILS % (AUTO) 0.1 % (0-1); EOSINOPHILS % (AUTO) 0 % (0-6); HEMATOCRIT 34.9 % (42.0-52.0); HEMOGLOBIN 11.3 g/dl (14.0-17.9); LYMPHOCYTES # (AUTO) 0.4 X10'3 (1.1-4.8); LYMPHOCYTES % (AUTO) 3.9 % (21-51); MEAN CORPUSCULAR HEMOGLOBIN 28.1 PG (27.0-31.0); MEAN CORPUSCULAR HGB CONC 32.5 g/dL (33.0-36.5); MEAN CORPUSCULAR VOLUME 86.3 FL (78-98); MEAN PLATELET VOLUME 8.4 FL (7.4-10.4); MONOCYTES # (AUTO) 0.5 X10'3 (0-0.9); MONOCYTES % (AUTO) 4.5 % (2-12); NEUTROPHILS # (AUTO) 9.3 X10'3 (1.8-7.7); NEUTROPHILS % (AUTO) 91.5 % (42-75); PLATELET COUNT 181 X10'3 (140-440); RED BLOOD COUNT 4.04 X10'6 (4.70-6.10); RED CELL DISTRIBUTION WIDTH 18.9 % (11.5-14.5); WHITE BLOOD COUNT 10.2 X10'3 (4.5-11.0)
[2021-08-03 13:59] LABS: ALANINE AMINOTRANSFERASE 104 U/L (12-78); ALBUMIN 2.7 G/DL (3.4-5.0); ALBUMIN/GLOBULIN RATIO 0.8 (1.1-1.5); ALKALINE PHOSPHATASE 114 IU/L (46-116); ANION GAP 10 (8-16); ASPARTATE AMINO TRANSFERASE 53 U/L (10-37); BILIRUBIN,TOTAL 1.1 MG/DL (0.1-1.0); BLOOD UREA NITROGEN 68 MG/DL (7-18); BUN/CREATININE RATIO 47.2 (5.4-32.0); CALCIUM 8.1 MG/DL (8.5-10.1); CHLORIDE 103 MMOL/L (99-107); CREATININE 1.44 MG/DL (0.60-1.10); GLUCOSE 161 MG/DL (70-104); POTASSIUM 4.8 MMOL/L (3.5-5.1); SODIUM 135 MMOL/L (135-145); TOTAL CARBON DIOXIDE 22.4 MMOL/L (24-32); eGFR 47 ML/MIN
[2021-08-03 15:00] VITALS: BP 130/85
[2021-08-03 16:07] LABS: ACANTHOCYTES 1+; ANISOCYTOSIS 2+; BURR CELLS 2+; PLATELET ESTIMATE NORMAL; ROULEAUX 1+
[2021-08-03 16:08] LABS: SCHISTOCYTES FEW
[2021-08-03] MEDS: rivaroxaban 15mg tablet PO SCH (17:55)
[2021-08-03 18:00] VITALS: BP 146/83
--- NOTE | 2021-08-03 18:06 | NUR ---
Problems reprioritized. Patient report given, questions answered & plan of care reviewed with Pratibha.
[2021-08-03] MEDS: atorvastatin 10mg tablet PO SCH (21:29)
[2021-08-03] MEDS: insulin glargine (Lantus) pen - multi-dose SQ SCH (21:35)
[2021-08-03 22:00] VITALS: BP 129/80
[2021-08-04 02:00] VITALS: BP 126/89
[2021-08-04 06:00] VITALS: BP 135/87
--- NOTE | 2021-08-04 06:15 | NUR ---
Problems reprioritized. Patient report given, questions answered & plan of care reviewed with Akosua NGUYỄN.
[2021-08-04 06:56] LABS: BASOPHILS % (AUTO) 0.1 % (0-1); EOSINOPHILS % (AUTO) 0 % (0-6); HEMATOCRIT 33.4 % (42.0-52.0); LYMPHOCYTES # (AUTO) 0.3 X10'3 (1.1-4.8); LYMPHOCYTES % (AUTO) 3.8 % (21-51); MEAN CORPUSCULAR HEMOGLOBIN 28.6 PG (27.0-31.0); MEAN CORPUSCULAR HGB CONC 32.8 g/dL (33.0-36.5); MEAN CORPUSCULAR VOLUME 87.3 FL (78-98); MEAN PLATELET VOLUME 8.3 FL (7.4-10.4); MONOCYTES # (AUTO) 0.3 X10'3 (0-0.9); NEUTROPHILS # (AUTO) 7.2 X10'3 (1.8-7.7); NEUTROPHILS % (AUTO) 92.1 % (42-75); PLATELET COUNT 173 X10'3 (140-440); RED BLOOD COUNT 3.83 X10'6 (4.70-6.10); RED CELL DISTRIBUTION WIDTH 18.8 % (11.5-14.5); WHITE BLOOD COUNT 7.8 X10'3 (4.5-11.0)
[2021-08-04 07:21] LABS: ALANINE AMINOTRANSFERASE 90 U/L (12-78); ALBUMIN 2.6 G/DL (3.4-5.0); ALBUMIN/GLOBULIN RATIO 0.7 (1.1-1.5); ALKALINE PHOSPHATASE 107 IU/L (46-116); ANION GAP 8 (8-16); ASPARTATE AMINO TRANSFERASE 41 U/L (10-37); BILIRUBIN,TOTAL 0.8 MG/DL (0.1-1.0); BLOOD UREA NITROGEN 68 MG/DL (7-18); BUN/CREATININE RATIO 46.9 (5.4-32.0); CHLORIDE 105 MMOL/L (99-107); CREATININE 1.45 MG/DL (0.60-1.10); GLUCOSE 246 MG/DL (70-104); POTASSIUM 5.1 MMOL/L (3.5-5.1); SODIUM 135 MMOL/L (135-145); TOTAL CARBON DIOXIDE 22.2 MMOL/L (24-32); TOTAL PROTEIN 6.1 G/DL (6.4-8.2); eGFR 47 ML/MIN
[2021-08-04] MEDS: NUT.TX.GLUC.INTOLER,LAC-FR,SOY (GLUCERNA) 237 ML PO SCH ×2 (07:30→17:34)
[2021-08-04] MEDS: cholecalciferol (vitamin D3) 1,000 unit (25mcg) tablet PO SCH (07:54)
[2021-08-04] MEDS: docusate sod 100mg capsule PO SCH ×2 (07:54→19:17)
[2021-08-04] MEDS: pantoprazole 40mg Tablet.DR PO SCH (07:54)
[2021-08-04] MEDS: dexamethasone 4mg tablet PO SCH ×2 (07:54→19:16)
[2021-08-04] MEDS: lactobacillus rhamnosus 10,000 MMU CELLS/CAPSULE PO SCH ×2 (07:54→19:15)
[2021-08-04] MEDS: duloxetine 30mg CAPSULE.DR PO SCH (07:54)
[2021-08-04] MEDS: carVEDilol 3.125mg tablet PO SCH ×2 (07:55→19:15)
[2021-08-04] MEDS: aspirin 81mg, enteric-coated 1 TAB TABLET.DR PO SCH (07:55)
[2021-08-04] MEDS: insulin Lispro (HumaLOG) vial - multi-dose SQ SCH ×3 (09:00→19:11)
[2021-08-04 09:22] LABS: ACANTHOCYTES FEW; ANISOCYTOSIS 2+; ELLIPTOCYTES FEW; PLATELET ESTIMATE NORMAL; SCHISTOCYTES FEW
[2021-08-04 11:00] VITALS: BP 131/85
[2021-08-04 15:00] VITALS: BP 142/89
[2021-08-04] MEDS: rivaroxaban 15mg tablet PO SCH (17:39)
[2021-08-04 18:00] VITALS: BP 113/86
--- NOTE | 2021-08-04 18:38 | NUR ---
Problems reprioritized. Patient report given, questions answered & plan of care reviewed with Pratibha NGUYỄN.
[2021-08-04 22:00] VITALS: BP 127/86
[2021-08-04] MEDS: insulin glargine (Lantus) pen - multi-dose SQ SCH (22:14)
[2021-08-04] MEDS: acetaminophen 325mg tablet PO PRN (22:16)
[2021-08-04] MEDS: atorvastatin 10mg tablet PO SCH (22:16)
[2021-08-04] MEDS: temazepam 15mg capsule PO PRN (22:16)
[2021-08-05] VITALS (7 sets, daily range): BP systolic 111–144; BP diastolic 72–91
[2021-08-05 06:18] LABS: BASOPHILS % (AUTO) 0.2 % (0-1); EOSINOPHILS % (AUTO) 0.1 % (0-6); HEMATOCRIT 33.9 % (42.0-52.0); HEMOGLOBIN 11.1 g/dl (14.0-17.9); LYMPHOCYTES # (AUTO) 0.3 X10'3 (1.1-4.8); LYMPHOCYTES % (AUTO) 3.2 % (21-51); MEAN CORPUSCULAR HEMOGLOBIN 28.7 PG (27.0-31.0); MEAN CORPUSCULAR HGB CONC 32.7 g/dL (33.0-36.5); MEAN CORPUSCULAR VOLUME 87.7 FL (78-98); MEAN PLATELET VOLUME 8.7 FL (7.4-10.4); MONOCYTES # (AUTO) 0.6 X10'3 (0-0.9); MONOCYTES % (AUTO) 5.2 % (2-12); NEUTROPHILS # (AUTO) 9.7 X10'3 (1.8-7.7); NEUTROPHILS % (AUTO) 91.3 % (42-75); PLATELET COUNT 163 X10'3 (140-440); RED BLOOD COUNT 3.86 X10'6 (4.70-6.10); RED CELL DISTRIBUTION WIDTH 19.5 % (11.5-14.5); WHITE BLOOD COUNT 10.6 X10'3 (4.5-11.0)
[2021-08-05 06:23] LABS: ALBUMIN 2.7 G/DL (3.4-5.0); ALBUMIN/GLOBULIN RATIO 0.8 (1.1-1.5); ANION GAP 5 (8-16); ASPARTATE AMINO TRANSFERASE 39 U/L (10-37); BILIRUBIN,TOTAL 0.9 MG/DL (0.1-1.0); BLOOD UREA NITROGEN 65 MG/DL (7-18); BUN/CREATININE RATIO 43.3 (5.4-32.0); CHLORIDE 106 MMOL/L (99-107); GLUCOSE 118 MG/DL (70-104); POTASSIUM 4.9 MMOL/L (3.5-5.1); SODIUM 136 MMOL/L (135-145); TOTAL CARBON DIOXIDE 25.3 MMOL/L (24-32); TOTAL PROTEIN 6.3 G/DL (6.4-8.2); eGFR 45 ML/MIN
[2021-08-05 06:24] LABS: ALANINE AMINOTRANSFERASE 84 U/L (12-78); ALKALINE PHOSPHATASE 108 IU/L (46-116)
--- NOTE | 2021-08-05 06:38 | NUR ---
Problems reprioritized. Patient report given, questions answered & plan of care reviewed with Doris NGUYỄN.
--- NOTE | 2021-08-05 07:01 | NUR ---
Patient in room PCU 3021. I have received report from DELMA BILL and had the opportunity to ask questions and assume patient care.
[2021-08-05] MEDS: NUT.TX.GLUC.INTOLER,LAC-FR,SOY (GLUCERNA) 237 ML PO SCH ×2 (07:30→17:30)
--- NOTE | 2021-08-05 10:15 | NUR ---
Reassessment: Pt continues on Carb controlled diet w/ some improvement in intake, avg 82% of meals in addition to avg 87% x 8 ONS BID which meets approximately 97% of est energy needs and 90% of est protein needs. If PO continues to improve and consistently greater than 85% of meals may consider d/c ONS and offer double protein w/ meals instead. Noted to be A&O x 2 though able to feed self per documentation. [facility] 08/05 receiving routine colace. Will continue to monitor. Recs: 1. continue carb controlled diet 2. Glucerna BID; if PO consistently greater than 85% of meals, consider d/c ONS 3. routine bowel care 4. weekly wts Addendum: 08/05/21 at [address] Amended: Links added.
[2021-08-05] MEDS: aspirin 81mg, enteric-coated 1 TAB TABLET.DR PO SCH (10:49)
[2021-08-05] MEDS: pantoprazole 40mg Tablet.DR PO SCH (10:49)
[2021-08-05] MEDS: dexamethasone 4mg tablet PO SCH ×2 (10:49→20:33)
[2021-08-05] MEDS: docusate sod 100mg capsule PO SCH ×2 (10:50→20:00)
[2021-08-05] MEDS: lactobacillus rhamnosus 10,000 MMU CELLS/CAPSULE PO SCH (10:50)
[2021-08-05] MEDS: cholecalciferol (vitamin D3) 1,000 unit (25mcg) tablet PO SCH (10:50)
[2021-08-05] MEDS: duloxetine 30mg CAPSULE.DR PO SCH (10:50)
[2021-08-05] MEDS: carVEDilol 3.125mg tablet PO SCH ×2 (10:53→20:33)
[2021-08-05 11:44] LABS: ACANTHOCYTES 1+; ANISOCYTOSIS 2+; PLATELET ESTIMATE NORMAL; SCHISTOCYTES FEW
[2021-08-05] MEDS: insulin Lispro (HumaLOG) vial - multi-dose SQ SCH ×2 (14:16→20:43)
--- NOTE | 2021-08-05 18:27 | NUR ---
Received report from DELMA George and had the opportunity to ask questions and assume patient care.
--- NOTE | 2021-08-05 18:45 | NUR ---
Problems reprioritized. Patient report given, questions answered & plan of care reviewed with DELMA ZAMAN.
[2021-08-05] MEDS: buPROPion 75mg tablet PO SCH (20:33)
[2021-08-05] MEDS: atorvastatin 10mg tablet PO SCH (20:33)
[2021-08-05] MEDS: rivaroxaban 15mg tablet PO SCH (20:39)
[2021-08-05] MEDS: insulin glargine (Lantus) pen - multi-dose SQ SCH (20:44)
[2021-08-06 06:00] VITALS: BP 100/59
[2021-08-06 06:20] LABS: BASOPHILS % (AUTO) 0.2 % (0-1); EOSINOPHILS % (AUTO) 0.1 % (0-6); HEMATOCRIT 32.2 % (42.0-52.0); HEMOGLOBIN 10.7 g/dl (14.0-17.9); LYMPHOCYTES # (AUTO) 0.2 X10'3 (1.1-4.8); LYMPHOCYTES % (AUTO) 2.3 % (21-51); MEAN CORPUSCULAR HEMOGLOBIN 28.7 PG (27.0-31.0); MEAN CORPUSCULAR HGB CONC 33.3 g/dL (33.0-36.5); MEAN CORPUSCULAR VOLUME 86.1 FL (78-98); MEAN PLATELET VOLUME 8.6 FL (7.4-10.4); MONOCYTES # (AUTO) 0.4 X10'3 (0-0.9); NEUTROPHILS # (AUTO) 8.3 X10'3 (1.8-7.7); NEUTROPHILS % (AUTO) 93.4 % (42-75); PLATELET COUNT 161 X10'3 (140-440); RED BLOOD COUNT 3.74 X10'6 (4.70-6.10); RED CELL DISTRIBUTION WIDTH 19.2 % (11.5-14.5); WHITE BLOOD COUNT 8.9 X10'3 (4.5-11.0)
--- NOTE | 2021-08-06 06:38 | NUR ---
Problems reprioritized. Patient report given, questions answered & plan of care reviewed with DELMA Mayer.
[2021-08-06 06:42] LABS: ALANINE AMINOTRANSFERASE 84 U/L (12-78); ALBUMIN 2.7 G/DL (3.4-5.0); ALBUMIN/GLOBULIN RATIO 0.8 (1.1-1.5); ALKALINE PHOSPHATASE 115 IU/L (46-116); ANION GAP 5 (8-16); ASPARTATE AMINO TRANSFERASE 42 U/L (10-37); BILIRUBIN,TOTAL 1.1 MG/DL (0.1-1.0); BLOOD UREA NITROGEN 59 MG/DL (7-18); BUN/CREATININE RATIO 46.5 (5.4-32.0); CALCIUM 7.9 MG/DL (8.5-10.1); CHLORIDE 106 MMOL/L (99-107); CREATININE 1.27 MG/DL (0.60-1.10); POTASSIUM 5.4 MMOL/L (3.5-5.1); SODIUM 134 MMOL/L (135-145); TOTAL CARBON DIOXIDE 22.8 MMOL/L (24-32); TOTAL PROTEIN 6.2 G/DL (6.4-8.2); eGFR 54 ML/MIN
[2021-08-06 06:59] LABS: GLUCOSE 148 MG/DL (70-104)
[2021-08-06] MEDS: NUT.TX.GLUC.INTOLER,LAC-FR,SOY (GLUCERNA) 237 ML PO SCH ×2 (07:30→17:30)
[2021-08-06] MEDS: buPROPion 75mg tablet PO SCH ×3 (08:36→19:32)
[2021-08-06] MEDS: aspirin 81mg, enteric-coated 1 TAB TABLET.DR PO SCH (08:36)
[2021-08-06] MEDS: dexamethasone 4mg tablet PO SCH (08:36)
[2021-08-06] MEDS: carVEDilol 3.125mg tablet PO SCH ×2 (08:36→19:32)
[2021-08-06] MEDS: cholecalciferol (vitamin D3) 1,000 unit (25mcg) tablet PO SCH (08:36)
[2021-08-06] MEDS: duloxetine 30mg CAPSULE.DR PO SCH (08:36)
[2021-08-06] MEDS: docusate sod 100mg capsule PO SCH ×2 (08:36→19:32)
[2021-08-06] MEDS: pantoprazole 40mg Tablet.DR PO SCH (08:36)
[2021-08-06 09:17] LABS: ACANTHOCYTES FEW; ANISOCYTOSIS 2+; BURR CELLS 1+; ELLIPTOCYTES 1+; PLATELET ESTIMATE NORMAL; SCHISTOCYTES FEW
[2021-08-06] MEDS ORDERED: sodium polystyrene sulfonate 15gm/60ml oral suspension PO ONE (09:25)
[2021-08-06] MEDS: insulin Lispro (HumaLOG) vial - multi-dose SQ SCH ×3 (09:41→19:36)
[2021-08-06 11:00] VITALS: BP 129/76
[2021-08-06 16:00] VITALS: BP 136/85
[2021-08-06] MEDS: rivaroxaban 15mg tablet PO SCH (19:32)
[2021-08-06] MEDS: atorvastatin 10mg tablet PO SCH (19:32)
[2021-08-06] MEDS: dexamethasone 1mg tablet PO SCH (19:33)
[2021-08-06] MEDS: insulin glargine (Lantus) pen - multi-dose SQ SCH (21:58)
[2021-08-07 02:44] VITALS: BP 140/95
[2021-08-07 06:54] LABS: BASOPHILS % (AUTO) 0.1 % (0-1); EOSINOPHILS % (AUTO) 0.1 % (0-6); HEMATOCRIT 35.4 % (42.0-52.0); HEMOGLOBIN 11.5 g/dl (14.0-17.9); LYMPHOCYTES # (AUTO) 0.5 X10'3 (1.1-4.8); LYMPHOCYTES % (AUTO) 4.8 % (21-51); MEAN CORPUSCULAR HEMOGLOBIN 28.1 PG (27.0-31.0); MEAN CORPUSCULAR HGB CONC 32.4 g/dL (33.0-36.5); MEAN CORPUSCULAR VOLUME 86.7 FL (78-98); MEAN PLATELET VOLUME 8.9 FL (7.4-10.4); MONOCYTES % (AUTO) 8.5 % (2-12); NEUTROPHILS # (AUTO) 9.8 X10'3 (1.8-7.7); NEUTROPHILS % (AUTO) 86.5 % (42-75); PLATELET COUNT 189 X10'3 (140-440); RED BLOOD COUNT 4.08 X10'6 (4.70-6.10); RED CELL DISTRIBUTION WIDTH 19.2 % (11.5-14.5); WHITE BLOOD COUNT 11.3 X10'3 (4.5-11.0)
[2021-08-07 07:00] VITALS: BP 150/99
[2021-08-07 07:37] LABS: ALANINE AMINOTRANSFERASE 109 U/L (12-78); ALBUMIN 2.9 G/DL (3.4-5.0); ALBUMIN/GLOBULIN RATIO 0.8 (1.1-1.5); ALKALINE PHOSPHATASE 163 IU/L (46-116); ANION GAP 8 (8-16); ASPARTATE AMINO TRANSFERASE 72 U/L (10-37); BILIRUBIN,TOTAL 1.3 MG/DL (0.1-1.0); BLOOD UREA NITROGEN 55 MG/DL (7-18); CHLORIDE 105 MMOL/L (99-107); CREATININE 1.28 MG/DL (0.60-1.10); POTASSIUM 4.7 MMOL/L (3.5-5.1); SODIUM 137 MMOL/L (135-145); TOTAL CARBON DIOXIDE 24.5 MMOL/L (24-32); TOTAL PROTEIN 6.6 G/DL (6.4-8.2); eGFR 54 ML/MIN
[2021-08-07 07:39] LABS: GLUCOSE 49 MG/DL (70-104)
[2021-08-07] MEDS ORDERED: dextrose 50%-water 50ml dispensing syringe IV ONE (07:42)
--- NOTE | 2021-08-07 07:44 | NUR ---
critical lab value taken from lab, reported to primary rn.
[2021-08-07] MEDS: NUT.TX.GLUC.INTOLER,LAC-FR,SOY (GLUCERNA) 237 ML PO SCH ×2 (07:59→17:44)
--- NOTE | 2021-08-07 08:00 | NUR ---
bedside blood sugar 45, lab called with critical blood sugar of 49, d5 given recheck blood sugar 128, patient is awake alert and eating at this time.
[2021-08-07] MEDS: docusate sod 100mg capsule PO SCH ×2 (08:17→20:00)
[2021-08-07] MEDS: dexamethasone 1mg tablet PO SCH ×2 (08:18→21:16)
[2021-08-07] MEDS: duloxetine 30mg CAPSULE.DR PO SCH (08:18)
[2021-08-07] MEDS: carVEDilol 3.125mg tablet PO SCH ×2 (08:18→21:17)
[2021-08-07] MEDS: pantoprazole 40mg Tablet.DR PO SCH (08:18)
[2021-08-07] MEDS: aspirin 81mg, enteric-coated 1 TAB TABLET.DR PO SCH (08:18)
[2021-08-07] MEDS: cholecalciferol (vitamin D3) 1,000 unit (25mcg) tablet PO SCH (08:19)
[2021-08-07] MEDS: buPROPion 75mg tablet PO SCH ×3 (08:19→21:17)
--- NOTE | 2021-08-07 11:00 | NUR ---
Patient crying states he misses his son and he doesnt know where he is, says he wants to give up on life and all he is, is an experimental guinea pig and hes never going to go home. asked patient if he would like to speak with son if that would cheer him up said if possible yes, let him know i would try to get a hold of him so he can speak with him.
[2021-08-07 11:30] VITALS: BP 122/67
--- NOTE | 2021-08-07 11:36 | NUR ---
Notified Dr. Stevenson patient 3 hour troponin 72, and patient keeps having begeminal non conductive pacs which causes HR to drop into the 40's she is also in sinus arrythmia. per dr stevenson will consult cardiolohu Addendum: 08/07/21 at 1137 by Danielle Madrigal RN will consult cardiology. Addendum: 08/07/21 at 1143 by Danielle Madrigal RN wrong patient
--- NOTE | 2021-08-07 14:36 | NUR ---
received call from patients son patient status update given, transfered over to patient.
--- NOTE | 2021-08-07 15:10 | NUR ---
WOUND INFECTION EDUCATION PROVIDED BY WOUND CARE 1. Patient instructed to call their primary doctor, or go the ED immediately if any of the following symptoms occur: * Increased pain in wound * Increase in drainage from the wound * Redness in the skin surrounding the wound * Warmth in the skin surrounding the wound * Bleeding from the wound * Temperature of 101 or greater 2. If any of these occur while in the hospital tell a nurse immediately. PRESSURE ULCER EDUCATION: DEFINITION: A pressure ulcer is an area of skin that breaks down when you stay in one position too long. The constant pressure against the skin reduces the blood flow to that area and the affected tissue dies. CAUSES: "Being bedridden or in a wheelchair "Fragile skin "Having a chronic condition, such as diabetes or vascular disease "Inability to move certain parts of your body without assistance "Older age "Incontinence of urine or stool SYMPTOMS: "A reddened area that DOES NOT turn white when pressed on - this can be the beginning of a pressure ulcer "A blister, deep sore or a crater - these can be advanced pressure ulcers FIRST AID: "Relieve the pressure on this area "Keep the area clean and dry "Call your primary doctor if you see any of the above symptoms "DO NOT massage the area "DO NOT use a donut shaped or ring shaped pillow- these actually interfere with the blood flow and cause complications PREVENTION: "Check for pressure ulcers everyday "Change position at least every two hours to relieve pressure "Use items that help relieve pressure- pillows, sheepskin, foam padding, and powders. "Keep skin clean and dry "Eat healthy well balanced meals "Exercise daily IF YOU SEE ANY OF THESE SYMPTOMS WHILE IN THE HOSPITAL - TELL YOUR NURSE IMMEDIATELY. IF YOU SEE ANY OF THESE SYMPTOMS WHILE AT HOME OR HAVE ANY QUESTIONS OR CONCERNS ABOUT PRESSURE ULCERS - CALL YOUR PRIMARY DOCTOR IMMEDIATELY. Addendum: 08/07/21 at 1511 by Addie Palacio RN Amended: Links added.
[2021-08-07 15:27] VITALS: BP 126/88
[2021-08-07] MEDS: rivaroxaban 15mg tablet PO SCH (17:18)
[2021-08-07 18:00] VITALS: BP 127/87
[2021-08-07] MEDS: insulin glargine (Lantus) pen - multi-dose SQ SCH (21:00)
[2021-08-07] MEDS: temazepam 15mg capsule PO PRN (21:16)
[2021-08-07] MEDS: atorvastatin 10mg tablet PO SCH (21:16)
[2021-08-07 22:00] VITALS: BP 124/88
[2021-08-08 02:00] VITALS: BP 121/81
[2021-08-08 06:00] VITALS: BP 115/77
[2021-08-08 06:45] LABS: BASOPHILS % (AUTO) 0.2 % (0-1); EOSINOPHILS % (AUTO) 0.1 % (0-6); HEMATOCRIT 33.5 % (42.0-52.0); HEMOGLOBIN 10.9 g/dl (14.0-17.9); LYMPHOCYTES # (AUTO) 0.3 X10'3 (1.1-4.8); LYMPHOCYTES % (AUTO) 3.1 % (21-51); MEAN CORPUSCULAR HEMOGLOBIN 28.2 PG (27.0-31.0); MEAN CORPUSCULAR HGB CONC 32.5 g/dL (33.0-36.5); MEAN CORPUSCULAR VOLUME 86.8 FL (78-98); MEAN PLATELET VOLUME 8.8 FL (7.4-10.4); MONOCYTES # (AUTO) 0.6 X10'3 (0-0.9); MONOCYTES % (AUTO) 6.3 % (2-12); NEUTROPHILS # (AUTO) 8.4 X10'3 (1.8-7.7); NEUTROPHILS % (AUTO) 90.3 % (42-75); PLATELET COUNT 147 X10'3 (140-440); RED BLOOD COUNT 3.86 X10'6 (4.70-6.10); RED CELL DISTRIBUTION WIDTH 19.3 % (11.5-14.5); WHITE BLOOD COUNT 9.3 X10'3 (4.5-11.0)
[2021-08-08 06:50] LABS: ALANINE AMINOTRANSFERASE 100 U/L (12-78); ALBUMIN 2.8 G/DL (3.4-5.0); ALBUMIN/GLOBULIN RATIO 0.9 (1.1-1.5); ALKALINE PHOSPHATASE 159 IU/L (46-116); ANION GAP 10 (8-16); ASPARTATE AMINO TRANSFERASE 52 U/L (10-37); BILIRUBIN,TOTAL 1.2 MG/DL (0.1-1.0); BLOOD UREA NITROGEN 56 MG/DL (7-18); BUN/CREATININE RATIO 43.1 (5.4-32.0); CALCIUM 8.3 MG/DL (8.5-10.1); CHLORIDE 102 MMOL/L (99-107); GLUCOSE 215 MG/DL (70-104); POTASSIUM 5.1 MMOL/L (3.5-5.1); SODIUM 135 MMOL/L (135-145); TOTAL CARBON DIOXIDE 23.3 MMOL/L (24-32); TOTAL PROTEIN 5.8 G/DL (6.4-8.2); eGFR 53 ML/MIN
[2021-08-08] MEDS: pantoprazole 40mg Tablet.DR PO SCH (08:06)
[2021-08-08] MEDS: cholecalciferol (vitamin D3) 1,000 unit (25mcg) tablet PO SCH (08:06)
[2021-08-08] MEDS: duloxetine 30mg CAPSULE.DR PO SCH (08:06)
[2021-08-08] MEDS: aspirin 81mg, enteric-coated 1 TAB TABLET.DR PO SCH (08:07)
[2021-08-08] MEDS: NUT.TX.GLUC.INTOLER,LAC-FR,SOY (GLUCERNA) 237 ML PO SCH ×2 (08:07→17:45)
[2021-08-08] MEDS: dexamethasone 1mg tablet PO SCH ×2 (08:07→20:30)
[2021-08-08] MEDS: docusate sod 100mg capsule PO SCH ×2 (08:07→20:30)
[2021-08-08] MEDS: buPROPion 75mg tablet PO SCH ×3 (08:07→20:30)
[2021-08-08] MEDS: carVEDilol 3.125mg tablet PO SCH ×2 (08:07→20:30)
[2021-08-08] MEDS: insulin Lispro (HumaLOG) vial - multi-dose SQ SCH ×3 (09:13→20:25)
[2021-08-08 11:00] VITALS: BP 96/60
[2021-08-08 15:00] VITALS: BP 127/76
[2021-08-08 18:00] VITALS: BP_SYST 104; BP_SYST 118; BP_DIAS 56; BP_DIAS 77
[2021-08-08] MEDS: rivaroxaban 15mg tablet PO SCH (18:07)
[2021-08-08] MEDS: atorvastatin 10mg tablet PO SCH (20:30)
[2021-08-08] MEDS: temazepam 15mg capsule PO PRN (20:30)
[2021-08-08] MEDS: insulin glargine (Lantus) pen - multi-dose SQ SCH (21:00)
[2021-08-08 22:00] VITALS: BP_SYST 112; BP_SYST 123; BP_DIAS 71; BP_DIAS 84
[2021-08-09 02:00] VITALS: BP 127/80
[2021-08-09 06:00] VITALS: BP 132/77
[2021-08-09 07:15] VITALS: BP 119/81
[2021-08-09] MEDS: aspirin 81mg, enteric-coated 1 TAB TABLET.DR PO SCH (07:26)
[2021-08-09] MEDS: cholecalciferol (vitamin D3) 1,000 unit (25mcg) tablet PO SCH (07:26)
[2021-08-09] MEDS: dexamethasone 1mg tablet PO SCH ×2 (07:26→19:59)
[2021-08-09] MEDS: buPROPion 75mg tablet PO SCH ×3 (07:26→20:37)
[2021-08-09] MEDS: duloxetine 30mg CAPSULE.DR PO SCH (07:26)
[2021-08-09] MEDS: docusate sod 100mg capsule PO SCH ×2 (07:26→20:04)
[2021-08-09] MEDS: carVEDilol 3.125mg tablet PO SCH ×2 (07:26→20:00)
[2021-08-09] MEDS: pantoprazole 40mg Tablet.DR PO SCH (07:26)
[2021-08-09] MEDS: NUT.TX.GLUC.INTOLER,LAC-FR,SOY (GLUCERNA) 237 ML PO SCH ×3 (07:45→20:04)
--- NOTE | 2021-08-09 09:01 | NUR ---
Reassessment: Pt continues on Carb controlled diet w/ some decrease in intake, avg 68% of meals in addition to avg 93% x 8 ONS BID which meets approximately 85% of est energy needs and 78% of est protein needs. If PO continues to improve and consistently greater than 85% of meals may consider d/c ONS and offer double protein w/ meals instead. Noted to be A&O x 2 though able to feed self per documentation. [facility] 08/06 receiving routine colace. Will continue to monitor. Recs: 1. continue carb controlled diet 2. Glucerna BID; if PO consistently greater than 85% of meals, consider d/c ONS 3. routine bowel care 4. weekly wts Addendum: 08/09/21 at [address] Amended: Links added.
[2021-08-09 11:00] VITALS: BP 111/69
[2021-08-09] MEDS: insulin Lispro (HumaLOG) vial - multi-dose SQ SCH (14:57)
[2021-08-09 15:00] VITALS: BP 137/82
[2021-08-09] MEDS: rivaroxaban 15mg tablet PO SCH (17:56)
--- NOTE | 2021-08-09 18:57 | NUR ---
Problems reprioritized. Patient report given, questions answered & plan of care reviewed with DELMA Pelayo.
[2021-08-09] MEDS: atorvastatin 10mg tablet PO SCH (20:37)
[2021-08-09] MEDS: insulin glargine (Lantus) pen - multi-dose SQ SCH (20:55)
[2021-08-09 21:18] VITALS: BP 126/89
[2021-08-09] MEDS: HYDROcodone/acetaminophen 5mg/325mg tablet PO PRN (23:11)
[2021-08-09] MEDS: temazepam 15mg capsule PO PRN (23:11)
--- NOTE | 2021-08-10 00:30 | NUR ---
Patient in room PCU 3021. I have received report from DELMA Pelayo and had the opportunity to ask questions and assume patient care.
[2021-08-10 02:00] VITALS: BP 129/80
--- NOTE | 2021-08-10 06:32 | NUR ---
Problems reprioritized. Patient report given, questions answered & plan of care reviewed with DELMA Long.
[2021-08-10] MEDS: dexamethasone 1mg tablet PO SCH ×2 (08:50→20:45)
[2021-08-10] MEDS: duloxetine 30mg CAPSULE.DR PO SCH (08:50)
[2021-08-10] MEDS: pantoprazole 40mg Tablet.DR PO SCH (08:50)
[2021-08-10] MEDS: cholecalciferol (vitamin D3) 1,000 unit (25mcg) tablet PO SCH (08:50)
[2021-08-10] MEDS: carVEDilol 3.125mg tablet PO SCH ×2 (08:51→20:45)
[2021-08-10] MEDS: aspirin 81mg, enteric-coated 1 TAB TABLET.DR PO SCH (08:51)
[2021-08-10] MEDS: buPROPion 75mg tablet PO SCH ×3 (08:51→20:45)
[2021-08-10] MEDS: insulin Lispro (HumaLOG) vial - multi-dose SQ SCH ×2 (09:07→15:32)
[2021-08-10] MEDS: docusate sod 100mg capsule PO SCH ×2 (09:09→20:00)
[2021-08-10 11:00] VITALS: BP 112/74
[2021-08-10 15:00] VITALS: BP 109/72
--- NOTE | 2021-08-10 17:49 | NUR ---
Pt has had family visit today which made him very happy. He is in good spirits and has been able to make his needs be known. D/C plan is to get him home on Friday with son, Simone.
[2021-08-10] MEDS: rivaroxaban 15mg tablet PO SCH (17:56)
[2021-08-10] MEDS: NUT.TX.GLUC.INTOLER,LAC-FR,SOY (GLUCERNA) 237 ML PO SCH ×3 (17:58→20:59)
[2021-08-10 18:00] VITALS: BP 133/77
--- NOTE | 2021-08-10 18:30 | NUR ---
Problems reprioritized. Patient report given, questions answered & plan of care reviewed with DELMA Jennings.
--- NOTE | 2021-08-10 18:30 | NUR ---
LIFEVEST BATTERY NOT WORKING Called [employer] tech support and spoke with ricardo. Multiple testing for battery that does not work/power up. She advised to leave good/ battery in the vp analytics for now. In 1 hour ([id number]) place that batter back in the [employer] device and power on. Put the non-working battery on the vp analytics and call tech support back. Advised all this to the oncoming primary RN.
--- NOTE | 2021-08-10 19:55 | NUR ---
Life vest support called at 1930, after putting the battery that was suppose to be charging back in the device. After the battery was in device "life vest" it did not turn on. Called support told this nurse to try again with the current battery that's charging and that she will send someone to hospital to trouble shoot life vest. Patient information given, hospital address given. Tele box on patient. Charge nurse aware of situation. Will continue to monitor.
[2021-08-10] MEDS: atorvastatin 10mg tablet PO SCH (20:45)
[2021-08-10] MEDS: insulin glargine (Lantus) pen - multi-dose SQ SCH (20:52)
[2021-08-10] MEDS: HYDROcodone/acetaminophen 5mg/325mg tablet PO PRN (22:09)
--- NOTE | 2021-08-10 22:32 | NUR ---
contacted [employer] support for updates. Informed them that the battery was now charging. Adjuster Leader Talya informed me that there is not one to be sent out at this time. But if patient discharges before someone comes to give them a call so that they can follow patient. He is resting comfortable at this time. Vitals stable. Will continue to monitor.
[2021-08-11] MEDS: docusate sod 100mg capsule PO SCH ×2 (08:40→20:31)
[2021-08-11] MEDS: aspirin 81mg, enteric-coated 1 TAB TABLET.DR PO SCH (08:41)
[2021-08-11] MEDS: buPROPion 75mg tablet PO SCH ×3 (08:41→20:32)
[2021-08-11] MEDS: pantoprazole 40mg Tablet.DR PO SCH (08:41)
[2021-08-11] MEDS: duloxetine 30mg CAPSULE.DR PO SCH (08:41)
[2021-08-11] MEDS: cholecalciferol (vitamin D3) 1,000 unit (25mcg) tablet PO SCH (08:41)
[2021-08-11] MEDS: carVEDilol 3.125mg tablet PO SCH ×2 (08:41→20:32)
[2021-08-11] MEDS: dexamethasone 1mg tablet PO SCH ×2 (08:41→20:32)
--- NOTE | 2021-08-11 12:30 | NUR ---
[employer] credit representative Lucy Arnett came and assessed the life vest. Life vest battery malfunctioning. She replaced 1 battery and 1 geographic information system analyst.Charge nurse and aware.
[2021-08-11] MEDS: insulin Lispro (HumaLOG) vial - multi-dose SQ SCH ×3 (12:53→21:54)
[2021-08-11 18:00] VITALS: BP 118/78
--- NOTE | 2021-08-11 18:10 | NUR ---
Patient in room PCU 3021. I have received report from DELMA Forrester and had the opportunity to ask questions and assume patient care.
[2021-08-11] MEDS: atorvastatin 10mg tablet PO SCH (20:31)
[2021-08-11] MEDS: rivaroxaban 15mg tablet PO SCH (20:32)
[2021-08-11] MEDS: insulin glargine (Lantus) pen - multi-dose SQ SCH (21:57)
[2021-08-11 22:00] VITALS: BP 118/80
[2021-08-12 02:00] VITALS: BP 120/67
--- NOTE | 2021-08-12 06:25 | NUR ---
Problems reprioritized. Patient report given, questions answered & plan of care reviewed with DELMA Forrester.
[2021-08-12 06:41] LABS: BASOPHILS % (AUTO) 0.1 % (0-1); EOSINOPHILS % (AUTO) 0 % (0-6); HEMATOCRIT 31.6 % (42.0-52.0); HEMOGLOBIN 10.5 g/dl (14.0-17.9); LYMPHOCYTES # (AUTO) 0.1 X10'3 (1.1-4.8); LYMPHOCYTES % (AUTO) 1.5 % (21-51); MEAN CORPUSCULAR HEMOGLOBIN 28.3 PG (27.0-31.0); MEAN CORPUSCULAR HGB CONC 33.1 g/dL (33.0-36.5); MEAN CORPUSCULAR VOLUME 85.5 FL (78-98); MEAN PLATELET VOLUME 8.8 FL (7.4-10.4); MONOCYTES # (AUTO) 0.2 X10'3 (0-0.9); MONOCYTES % (AUTO) 2.8 % (2-12); NEUTROPHILS # (AUTO) 8.4 X10'3 (1.8-7.7); NEUTROPHILS % (AUTO) 95.6 % (42-75); PLATELET COUNT 85 X10'3 (140-440); RED BLOOD COUNT 3.69 X10'6 (4.70-6.10); RED CELL DISTRIBUTION WIDTH 19.4 % (11.5-14.5); WHITE BLOOD COUNT 8.8 X10'3 (4.5-11.0)
[2021-08-12 07:00] VITALS: BP 110/65
[2021-08-12] MEDS: NUT.TX.GLUC.INTOLER,LAC-FR,SOY (GLUCERNA) 237 ML PO SCH ×2 (07:00→18:30)
[2021-08-12 07:17] LABS: SODIUM 137 MMOL/L (135-145)
[2021-08-12 07:47] LABS: PLATELET ESTIMATE DECREASED
[2021-08-12 07:49] LABS: ANISOCYTOSIS 2+; BURR CELLS 1+; POLYCHROMASIA FEW; SCHISTOCYTES 1+
[2021-08-12 07:50] LABS: ELLIPTOCYTES 1+; HYPOCHROMASIA 1+
[2021-08-12 08:01] LABS: ALANINE AMINOTRANSFERASE 68 U/L (12-78); ALBUMIN 2.4 G/DL (3.4-5.0); ALBUMIN/GLOBULIN RATIO 0.8 (1.1-1.5); ALKALINE PHOSPHATASE 155 IU/L (46-116); ANION GAP 10 (8-16); ASPARTATE AMINO TRANSFERASE 36 U/L (10-37); BILIRUBIN,TOTAL 0.8 MG/DL (0.1-1.0); BLOOD UREA NITROGEN 54 MG/DL (7-18); BUN/CREATININE RATIO 44.3 (5.4-32.0); CALCIUM 7.4 MG/DL (8.5-10.1); CHLORIDE 105 MMOL/L (99-107); CREATININE 1.22 MG/DL (0.60-1.10); GLUCOSE 122 MG/DL (70-104); TOTAL PROTEIN 5.4 G/DL (6.4-8.2); eGFR 57 ML/MIN
[2021-08-12] MEDS: duloxetine 30mg CAPSULE.DR PO SCH (08:55)
[2021-08-12] MEDS: cholecalciferol (vitamin D3) 1,000 unit (25mcg) tablet PO SCH (08:56)
[2021-08-12] MEDS: docusate sod 100mg capsule PO SCH ×2 (08:56→21:06)
[2021-08-12] MEDS: pantoprazole 40mg Tablet.DR PO SCH (08:56)
[2021-08-12] MEDS: buPROPion 75mg tablet PO SCH ×3 (08:56→21:06)
[2021-08-12] MEDS: dexamethasone 1mg tablet PO SCH ×2 (08:56→21:06)
[2021-08-12] MEDS: carVEDilol 3.125mg tablet PO SCH ×2 (08:56→21:06)
[2021-08-12] MEDS: aspirin 81mg, enteric-coated 1 TAB TABLET.DR PO SCH (08:56)
[2021-08-12] MEDS: insulin Lispro (HumaLOG) vial - multi-dose SQ SCH ×2 (10:10→21:05)
[2021-08-12 11:00] VITALS: BP 118/81
[2021-08-12 15:00] VITALS: BP 125/83
[2021-08-12 18:00] VITALS: BP 114/76
--- NOTE | 2021-08-12 18:30 | NUR ---
Problems reprioritized. Patient report given, questions answered & plan of care reviewed with Mali.
--- NOTE | 2021-08-12 18:33 | NUR ---
Patient in room PCU 3021. I have received report from DELMA Forrester and had the opportunity to ask questions and assume patient care.
[2021-08-12] MEDS: furosemide 20 MG/2 ML vial IV SCH (20:00)
[2021-08-12] MEDS: atorvastatin 10mg tablet PO SCH (21:06)
[2021-08-12] MEDS: rivaroxaban 15mg tablet PO SCH (21:06)
[2021-08-12] MEDS: insulin glargine (Lantus) pen - multi-dose SQ SCH (21:49)
[2021-08-12 22:00] VITALS: BP 122/71
[2021-08-13 02:00] VITALS: BP 123/68
[2021-08-13] MEDS: acetaminophen 325mg tablet PO PRN (05:38)
[2021-08-13 06:00] VITALS: BP 112/78
--- NOTE | 2021-08-13 06:24 | NUR ---
Problems reprioritized. Patient report given, questions answered & plan of care reviewed with DELMA Forrester.
[2021-08-13 06:45] LABS: BASOPHILS % (AUTO) 0.1 % (0-1); EOSINOPHILS % (AUTO) 0.1 % (0-6); HEMATOCRIT 32.2 % (42.0-52.0); HEMOGLOBIN 10.5 g/dl (14.0-17.9); LYMPHOCYTES # (AUTO) 0.3 X10'3 (1.1-4.8); MEAN CORPUSCULAR HEMOGLOBIN 28.3 PG (27.0-31.0); MEAN CORPUSCULAR HGB CONC 32.5 g/dL (33.0-36.5); MEAN CORPUSCULAR VOLUME 87.2 FL (78-98); MONOCYTES # (AUTO) 0.4 X10'3 (0-0.9); MONOCYTES % (AUTO) 4.6 % (2-12); NEUTROPHILS # (AUTO) 7.9 X10'3 (1.8-7.7); NEUTROPHILS % (AUTO) 92.2 % (42-75); PLATELET COUNT 82 X10'3 (140-440); RED CELL DISTRIBUTION WIDTH 20.2 % (11.5-14.5); WHITE BLOOD COUNT 8.6 X10'3 (4.5-11.0)
[2021-08-13] MEDS: NUT.TX.GLUC.INTOLER,LAC-FR,SOY (GLUCERNA) 237 ML PO SCH ×2 (07:30→17:30)
[2021-08-13 07:57] LABS: ALANINE AMINOTRANSFERASE 69 U/L (12-78); ALBUMIN 2.3 G/DL (3.4-5.0); ALBUMIN/GLOBULIN RATIO 0.7 (1.1-1.5); ALKALINE PHOSPHATASE 179 IU/L (46-116); ANION GAP 7 (8-16); ASPARTATE AMINO TRANSFERASE 43 U/L (10-37); BILIRUBIN,TOTAL 0.9 MG/DL (0.1-1.0); BLOOD UREA NITROGEN 55 MG/DL (7-18); CALCIUM 7.4 MG/DL (8.5-10.1); CHLORIDE 105 MMOL/L (99-107); CREATININE 1.31 MG/DL (0.60-1.10); GLUCOSE 111 MG/DL (70-104); POTASSIUM 4.6 MMOL/L (3.5-5.1); SODIUM 138 MMOL/L (135-145); TOTAL CARBON DIOXIDE 26.3 MMOL/L (24-32); TOTAL PROTEIN 5.4 G/DL (6.4-8.2); eGFR 53 ML/MIN
[2021-08-13] MEDS: cholecalciferol (vitamin D3) 1,000 unit (25mcg) tablet PO SCH (09:51)
[2021-08-13] MEDS: pantoprazole 40mg Tablet.DR PO SCH (09:51)
[2021-08-13] MEDS: dexamethasone 1mg tablet PO SCH ×2 (09:51→21:37)
[2021-08-13] MEDS: duloxetine 30mg CAPSULE.DR PO SCH (09:52)
[2021-08-13] MEDS: buPROPion 75mg tablet PO SCH ×3 (09:52→21:37)
[2021-08-13] MEDS: carVEDilol 3.125mg tablet PO SCH ×2 (09:52→21:37)
[2021-08-13] MEDS: furosemide 20 MG/2 ML vial IV SCH ×2 (09:53→21:37)
[2021-08-13] MEDS: docusate sod 100mg capsule PO SCH ×2 (10:23→21:38)
[2021-08-13] MEDS: insulin Lispro (HumaLOG) vial - multi-dose SQ SCH ×3 (10:41→20:08)
[2021-08-13 11:00] VITALS: BP 115/79
[2021-08-13 15:00] VITALS: BP 109/70
[2021-08-13 18:00] VITALS: BP 100/76
--- NOTE | 2021-08-13 18:28 | NUR ---
Problems reprioritized. Patient report given, questions answered & plan of care reviewed with Mali.
--- NOTE | 2021-08-13 18:30 | NUR ---
Patient in room PCU 3021. I have received report from DELMA Forrester and had the opportunity to ask questions and assume patient care.
[2021-08-13] MEDS: rivaroxaban 15mg tablet PO SCH (21:37)
[2021-08-13] MEDS: atorvastatin 10mg tablet PO SCH (21:37)
[2021-08-13 22:00] VITALS: BP 115/76
[2021-08-14] MEDS: insulin glargine (Lantus) pen - multi-dose SQ SCH ×2 (00:03→22:00)
[2021-08-14] MEDS: HYDROcodone/acetaminophen 5mg/325mg tablet PO PRN ×2 (00:39→07:28)
[2021-08-14 02:00] VITALS: BP 110/71
[2021-08-14 06:01] LABS: BASOPHILS % (AUTO) 0.4 % (0-1); EOSINOPHILS % (AUTO) 0 % (0-6); HEMATOCRIT 33.4 % (42.0-52.0); LYMPHOCYTES # (AUTO) 0.2 X10'3 (1.1-4.8); LYMPHOCYTES % (AUTO) 2.8 % (21-51); MEAN CORPUSCULAR HGB CONC 32.8 g/dL (33.0-36.5); MEAN CORPUSCULAR VOLUME 85.3 FL (78-98); MEAN PLATELET VOLUME 8.9 FL (7.4-10.4); MONOCYTES # (AUTO) 0.3 X10'3 (0-0.9); MONOCYTES % (AUTO) 4.4 % (2-12); NEUTROPHILS # (AUTO) 6.7 X10'3 (1.8-7.7); NEUTROPHILS % (AUTO) 92.4 % (42-75); PLATELET COUNT 78 X10'3 (140-440); RED BLOOD COUNT 3.91 X10'6 (4.70-6.10); RED CELL DISTRIBUTION WIDTH 19.8 % (11.5-14.5); WHITE BLOOD COUNT 7.3 X10'3 (4.5-11.0)
[2021-08-14 06:07] LABS: ALANINE AMINOTRANSFERASE 73 U/L (12-78); ALBUMIN 2.5 G/DL (3.4-5.0); ALBUMIN/GLOBULIN RATIO 0.8 (1.1-1.5); ALKALINE PHOSPHATASE 190 IU/L (46-116); ANION GAP 6 (8-16); ASPARTATE AMINO TRANSFERASE 46 U/L (10-37); BILIRUBIN,TOTAL 1.1 MG/DL (0.1-1.0); BLOOD UREA NITROGEN 57 MG/DL (7-18); BUN/CREATININE RATIO 41.6 (5.4-32.0); CALCIUM 7.5 MG/DL (8.5-10.1); CHLORIDE 105 MMOL/L (99-107); CREATININE 1.37 MG/DL (0.60-1.10); GLUCOSE 58 MG/DL (70-104); POTASSIUM 4.3 MMOL/L (3.5-5.1); SODIUM 138 MMOL/L (135-145); TOTAL CARBON DIOXIDE 27.5 MMOL/L (24-32); TOTAL PROTEIN 5.7 G/DL (6.4-8.2); eGFR 50 ML/MIN
--- NOTE | 2021-08-14 06:25 | NUR ---
Problems reprioritized. Patient report given, questions answered & plan of care reviewed with DELMA Michelle.
[2021-08-14 07:00] VITALS: BP 123/82
[2021-08-14] MEDS: dexamethasone 1mg tablet PO SCH ×2 (07:10→20:54)
[2021-08-14] MEDS: cholecalciferol (vitamin D3) 1,000 unit (25mcg) tablet PO SCH (07:11)
[2021-08-14] MEDS: pantoprazole 40mg Tablet.DR PO SCH (07:11)
[2021-08-14] MEDS: carVEDilol 3.125mg tablet PO SCH ×2 (07:11→20:53)
[2021-08-14] MEDS: duloxetine 30mg CAPSULE.DR PO SCH (07:11)
[2021-08-14] MEDS: docusate sod 100mg capsule PO SCH ×2 (07:11→20:53)
[2021-08-14] MEDS: furosemide 20 MG/2 ML vial IV SCH ×2 (07:11→20:53)
[2021-08-14] MEDS: buPROPion 75mg tablet PO SCH ×3 (07:11→20:53)
[2021-08-14] MEDS: NUT.TX.GLUC.INTOLER,LAC-FR,SOY (GLUCERNA) 237 ML PO SCH ×2 (07:15→17:39)
[2021-08-14] MEDS ORDERED: simethicone 125mg capsule PO PRN (10:54)
[2021-08-14 11:00] VITALS: BP 120/73
[2021-08-14] MEDS: insulin Lispro (HumaLOG) vial - multi-dose SQ SCH ×3 (13:38→21:59)
[2021-08-14 15:00] VITALS: BP 117/73
--- NOTE | 2021-08-14 18:15 | NUR ---
Problems reprioritized. Patient report given, questions answered & plan of care reviewed with Mali NGUYỄN . Patient resting in bed in no acute distress.
--- NOTE | 2021-08-14 18:16 | NUR ---
Patient in room PCU 3021. I have received report from DELMA Michelle and had the opportunity to ask questions and assume patient care.
[2021-08-14 19:00] VITALS: BP 121/79
[2021-08-14] MEDS: atorvastatin 10mg tablet PO SCH (20:53)
[2021-08-14] MEDS: rivaroxaban 15mg tablet PO SCH (20:53)
[2021-08-14 23:00] VITALS: BP 125/81
[2021-08-15 03:00] VITALS: BP 115/73
--- NOTE | 2021-08-15 06:11 | NUR ---
Problems reprioritized. Patient report given, questions answered & plan of care reviewed with DELMA Dalal.
--- NOTE | 2021-08-15 06:32 | NUR ---
Patient in room PCU 3021. I have received report from Mali and had the opportunity to ask questions and assume patient care.
[2021-08-15 07:00] VITALS: BP 122/69
[2021-08-15] MEDS: furosemide 20 MG/2 ML vial IV SCH (07:45)
[2021-08-15 07:46] LABS: BASOPHILS % (AUTO) 0.4 % (0-1); EOSINOPHILS % (AUTO) 0.1 % (0-6); HEMATOCRIT 30.9 % (42.0-52.0); HEMOGLOBIN 10.2 g/dl (14.0-17.9); LYMPHOCYTES # (AUTO) 0.2 X10'3 (1.1-4.8); LYMPHOCYTES % (AUTO) 4.2 % (21-51); MEAN CORPUSCULAR HEMOGLOBIN 28.2 PG (27.0-31.0); MEAN CORPUSCULAR VOLUME 85.5 FL (78-98); MEAN PLATELET VOLUME 8.9 FL (7.4-10.4); MONOCYTES # (AUTO) 0.3 X10'3 (0-0.9); MONOCYTES % (AUTO) 5.5 % (2-12); NEUTROPHILS # (AUTO) 4.9 X10'3 (1.8-7.7); NEUTROPHILS % (AUTO) 89.8 % (42-75); PLATELET COUNT 73 X10'3 (140-440); RED BLOOD COUNT 3.62 X10'6 (4.70-6.10); WHITE BLOOD COUNT 5.4 X10'3 (4.5-11.0)
[2021-08-15] MEDS: dexamethasone 1mg tablet PO SCH ×2 (07:52→19:30)
[2021-08-15] MEDS: pantoprazole 40mg Tablet.DR PO SCH (07:52)
[2021-08-15] MEDS: docusate sod 100mg capsule PO SCH ×2 (07:52→19:31)
[2021-08-15] MEDS: cholecalciferol (vitamin D3) 1,000 unit (25mcg) tablet PO SCH (07:53)
[2021-08-15] MEDS: buPROPion 75mg tablet PO SCH ×3 (07:53→19:31)
[2021-08-15] MEDS: carVEDilol 3.125mg tablet PO SCH ×2 (07:53→19:31)
[2021-08-15] MEDS: duloxetine 30mg CAPSULE.DR PO SCH (07:53)
[2021-08-15] MEDS: NUT.TX.GLUC.INTOLER,LAC-FR,SOY (GLUCERNA) 237 ML PO SCH ×2 (07:54→17:43)
[2021-08-15 08:42] LABS: ALANINE AMINOTRANSFERASE 87 U/L (12-78); ALBUMIN 2.3 G/DL (3.4-5.0); ALBUMIN/GLOBULIN RATIO 0.8 (1.1-1.5); ALKALINE PHOSPHATASE 208 IU/L (46-116); ANION GAP 8 (8-16); ASPARTATE AMINO TRANSFERASE 53 U/L (10-37); BILIRUBIN,TOTAL 0.9 MG/DL (0.1-1.0); BLOOD UREA NITROGEN 52 MG/DL (7-18); BUN/CREATININE RATIO 37.1 (5.4-32.0); CALCIUM 7.5 MG/DL (8.5-10.1); CHLORIDE 103 MMOL/L (99-107); GLUCOSE 156 MG/DL (70-104); POTASSIUM 4.4 MMOL/L (3.5-5.1); SODIUM 139 MMOL/L (135-145); TOTAL CARBON DIOXIDE 27.6 MMOL/L (24-32); TOTAL PROTEIN 5.2 G/DL (6.4-8.2); eGFR 49 ML/MIN
[2021-08-15] MEDS: insulin Lispro (HumaLOG) vial - multi-dose SQ SCH ×5 (08:52→21:42)
[2021-08-15] MEDS ORDERED: furosemide 40mg/4ml inj IV ONE (09:35)
[2021-08-15 11:00] VITALS: BP 115/70
--- NOTE | 2021-08-15 14:02 | NUR ---
Reassessment: Pt continues on Carb controlled diet w/ mostly 100% intake of meals in addition to avg 62% x 8 ONS BID which meets 100% of est protein and energy needs. D/w RN recommendation to d/c ONS as pt will mostly be meeting nutrient needs through meals alone. Can also provide additional protein w/ meals if needed. Noted to be A&O x 2 though able to feed self per documentation. [facility] 08/13 receiving routine colace. Will continue to monitor. Recs: 1. continue carb controlled diet 2. Glucerna BID; d/c if MD agreeable 3. Consider double protein or smoothies if ONS d/c 4. routine bowel care 5. weekly wts Addendum: 08/15/21 at [address] Amended: Links added.
[2021-08-15 15:00] VITALS: BP 115/71
[2021-08-15 18:00] VITALS: BP 118/79
--- NOTE | 2021-08-15 18:23 | NUR ---
Problems reprioritized. Patient report given, questions answered & plan of care reviewed with Mali.
--- NOTE | 2021-08-15 18:25 | NUR ---
Patient in room PCU 3021. I have received report from DELMA Dalal and had the opportunity to ask questions and assume patient care.
[2021-08-15] MEDS: furosemide 10 MG/1 ML 10ml inj IV SCH (19:30)
[2021-08-15] MEDS: atorvastatin 10mg tablet PO SCH (19:31)
--- NOTE | 2021-08-15 19:43 | NUR ---
Bladder scan done at 1100 shows 445[address] urinary retention. Dr. Mike made aware and states to do another bladder scan later. Bladder scan done at 1700 shows-247ml urinary retention. Patient noted voided X 2 large amount. Receiving nurse made aware to continue monitoring.
[2021-08-15] MEDS: rivaroxaban 15mg tablet PO SCH (19:46)
[2021-08-15] MEDS: insulin glargine (Lantus) pen - multi-dose SQ SCH (21:46)
[2021-08-16] MEDS: temazepam 15mg capsule PO PRN (01:42)
[2021-08-16 06:05] LABS: BASOPHILS % (AUTO) 0.1 % (0-1); EOSINOPHILS % (AUTO) 0.1 % (0-6); HEMATOCRIT 30.3 % (42.0-52.0); HEMOGLOBIN 10.1 g/dl (14.0-17.9); LYMPHOCYTES # (AUTO) 0.3 X10'3 (1.1-4.8); LYMPHOCYTES % (AUTO) 6.3 % (21-51); MEAN CORPUSCULAR HEMOGLOBIN 28.2 PG (27.0-31.0); MEAN CORPUSCULAR HGB CONC 33.2 g/dL (33.0-36.5); MEAN CORPUSCULAR VOLUME 85.1 FL (78-98); MEAN PLATELET VOLUME 7.9 FL (7.4-10.4); MONOCYTES # (AUTO) 0.3 X10'3 (0-0.9); MONOCYTES % (AUTO) 6.6 % (2-12); NEUTROPHILS # (AUTO) 4.4 X10'3 (1.8-7.7); NEUTROPHILS % (AUTO) 86.9 % (42-75); PLATELET COUNT 69 X10'3 (140-440); RED BLOOD COUNT 3.56 X10'6 (4.70-6.10); RED CELL DISTRIBUTION WIDTH 19.9 % (11.5-14.5); WHITE BLOOD COUNT 5.1 X10'3 (4.5-11.0)
--- NOTE | 2021-08-16 06:33 | NUR ---
Problems reprioritized. Patient report given, questions answered & plan of care reviewed with DELMA Dalal.
[2021-08-16 06:53] LABS: ALANINE AMINOTRANSFERASE 83 U/L (12-78); ALBUMIN 2.3 G/DL (3.4-5.0); ALBUMIN/GLOBULIN RATIO 0.8 (1.1-1.5); ALKALINE PHOSPHATASE 205 IU/L (46-116); ANION GAP 9 (8-16); ASPARTATE AMINO TRANSFERASE 50 U/L (10-37); BILIRUBIN,TOTAL 0.8 MG/DL (0.1-1.0); BLOOD UREA NITROGEN 56 MG/DL (7-18); BUN/CREATININE RATIO 41.8 (5.4-32.0); CALCIUM 7.3 MG/DL (8.5-10.1); CHLORIDE 104 MMOL/L (99-107); CREATININE 1.34 MG/DL (0.60-1.10); GLUCOSE 139 MG/DL (70-104); POTASSIUM 3.9 MMOL/L (3.5-5.1); SODIUM 140 MMOL/L (135-145); TOTAL CARBON DIOXIDE 27.1 MMOL/L (24-32); TOTAL PROTEIN 5.2 G/DL (6.4-8.2); eGFR 51 ML/MIN
[2021-08-16 07:00] VITALS: BP 119/68
[2021-08-16] MEDS: NUT.TX.GLUC.INTOLER,LAC-FR,SOY (GLUCERNA) 237 ML PO SCH ×2 (07:30→17:37)
[2021-08-16] MEDS: furosemide 10 MG/1 ML 10ml inj IV SCH ×2 (07:37→19:31)
[2021-08-16] MEDS: dexamethasone 1mg tablet PO SCH ×2 (07:40→19:30)
[2021-08-16] MEDS: buPROPion 75mg tablet PO SCH ×3 (07:40→20:27)
[2021-08-16] MEDS: docusate sod 100mg capsule PO SCH ×2 (07:40→19:30)
[2021-08-16] MEDS: cholecalciferol (vitamin D3) 1,000 unit (25mcg) tablet PO SCH (07:40)
[2021-08-16] MEDS: pantoprazole 40mg Tablet.DR PO SCH (07:40)
[2021-08-16] MEDS: duloxetine 30mg CAPSULE.DR PO SCH (07:41)
[2021-08-16] MEDS: insulin Lispro (HumaLOG) vial - multi-dose SQ SCH ×3 (09:07→22:00)
[2021-08-16] MEDS: carVEDilol 3.125mg tablet PO SCH ×2 (09:09→19:30)
[2021-08-16 11:00] VITALS: BP 120/79
[2021-08-16 15:00] VITALS: BP 106/72
[2021-08-16 18:00] VITALS: BP 113/75
[2021-08-16] MEDS: rivaroxaban 15mg tablet PO SCH (18:06)
--- NOTE | 2021-08-16 18:44 | NUR ---
Problems reprioritized. Patient report given, questions answered & plan of care reviewed with Talya.
[2021-08-16] MEDS: atorvastatin 10mg tablet PO SCH (20:27)
[2021-08-16] MEDS: insulin glargine (Lantus) pen - multi-dose SQ SCH (21:58)
[2021-08-16 22:00] VITALS: BP 121/78
[2021-08-17 02:00] VITALS: BP 115/79
--- NOTE | 2021-08-17 06:15 | NUR ---
PT RESTING QUIETLY IN BED, NO ACUTE DISTRESS NOTED, SWELLING IS STILL NOTED TO SCROTUM. NO C/O PAIN OR DISCOMFORT AT THIS TIME.
[2021-08-17 07:00] VITALS: BP 117/82
[2021-08-17] MEDS: NUT.TX.GLUC.INTOLER,LAC-FR,SOY (GLUCERNA) 237 ML PO SCH (07:30)
--- NOTE | 2021-08-17 07:31 | NUR ---
Patient in room PCU 3021. I have received report from Talya and had the opportunity to ask questions and assume patient care.
[2021-08-17] MEDS: docusate sod 100mg capsule PO SCH (08:00)
[2021-08-17] MEDS: furosemide 10 MG/1 ML 10ml inj IV SCH ×2 (08:00→08:58)
[2021-08-17] MEDS: cholecalciferol (vitamin D3) 1,000 unit (25mcg) tablet PO SCH (08:57)
[2021-08-17] MEDS: dexamethasone 1mg tablet PO SCH (08:57)
[2021-08-17] MEDS: duloxetine 30mg CAPSULE.DR PO SCH (08:57)
[2021-08-17] MEDS: buPROPion 75mg tablet PO SCH (08:57)
[2021-08-17] MEDS: carVEDilol 3.125mg tablet PO SCH (08:58)
[2021-08-17] MEDS: pantoprazole 40mg Tablet.DR PO SCH (08:58)
[2021-08-17] MEDS: insulin Lispro (HumaLOG) vial - multi-dose SQ SCH (09:04)
[2021-08-17] MEDS ORDERED: furosemide 20MG tablet PO ONE (10:30)
[2021-08-17] MEDS ORDERED: FURO-149 PO (11:00)
[2021-08-17] MEDS ORDERED: DEC1T PO (11:00)
--- NOTE | 2021-08-17 15:51 | NUR ---
Patient d/c to go home with d/c instructions/directions printed and verbally given to patient. He verbalized understanding and denied having any question for tag writer. No new prescription given. Patient is aware to schedule his f/u appointment in one week. IV line and production leader removed. All personal belongings, Life Vest box, cutter machine tender, Hotspot cell phone transported with patient at the time of d/c. He was transported out of the facility via stretcher with no s/s of distress.
== END 2021-08-17 13:03 | disposition home health service (06) | DRG 291 ==
LOC: ER 17:27 → ED HOLD 23:57 → ICU 2S 07-23 06:00 → MED 3N 07-27 17:14 → PCU 3S 07-28 07:38
PROVIDERS: ADMIT Family Medicine; ATTEND Family Medicine
DX: I13.0 Hypertensive heart and chronic kidney disease with heart failure and stage 1 through stage 4 chronic kidney disease, or unspecified chronic kidney disease (principal); U07.1 COVID-19; I50.23 Acute on chronic systolic (congestive) heart failure; G93.41 Metabolic encephalopathy; E11.52 Type 2 diabetes mellitus with diabetic peripheral angiopathy with gangrene; Z68.41 Body mass index [BMI] 40.0-44.9, adult; N17.9 Acute kidney failure, unspecified; E87.1 Hypo-osmolality and hyponatremia; I96 Gangrene, not elsewhere classified; D64.9 Anemia, unspecified; E11.65 Type 2 diabetes mellitus with hyperglycemia; D69.6 Thrombocytopenia, unspecified; E11.22 Type 2 diabetes mellitus with diabetic chronic kidney disease; E78.5 Hyperlipidemia, unspecified; F03.90 Unspecified dementia, unspecified severity, without behavioral disturbance, psychotic disturbance, mood disturbance, and anxiety; I95.9 Hypotension, unspecified; F32.A Depression, unspecified; G47.33 Obstructive sleep apnea (adult) (pediatric); I25.10 Atherosclerotic heart disease of native coronary artery without angina pectoris; I48.0 Paroxysmal atrial fibrillation; N18.30 Chronic kidney disease, stage 3 unspecified; E66.01 Morbid (severe) obesity due to excess calories; E87.5 Hyperkalemia; I25.5 Ischemic cardiomyopathy; Z95.1 Presence of aortocoronary bypass graft; Z95.810 Presence of automatic (implantable) cardiac defibrillator; Z95.2 Presence of prosthetic heart valve; Z91.030 Bee allergy status; Z79.899 Other long term (current) drug therapy
CPT/HCPCS: 36415; 71045; 80048; 80053; 81001; 81003; 82570; 82810; 82948; 83036; 83605; 83721; 83735; 83880; 84100; 84132; 84145; 84156; 84300; 84443; 84484; 85008; 85025; 85379; 85610; 85730; 86140; 87040; 87207; 87635; 93005; 93308; 93922; 93925; 96365; 96368; 97110; 97112; 97116; 97530; 99285; C9803; G0378; J0456; J0696; J1100; J1200; J1250; J1265; J1650; J1815; J1940; J2270; J3490; J7030; J7050; J7060; J8540; Q0163

== ENCOUNTER 2021-08-18 17:51 | Inpatient (IN) | payer MEDICARE, BC, OTHER ==
[~2021-08-18] VITALS: Ht 172.7 cm; Wt 95.5 kg
[~2021-08-18 17:51] MED LIST changes: +CARV3.122 PO; -CHOL200016 PO; +CHOL200042 PO; +DEC1T PO; -METO-384 PO; +SPIR25TA5 PO
[2021-08-18 18:53] LABS: BASOPHILS % (AUTO) 0.4 % (0-1); HEMATOCRIT 35.6 % (42.0-52.0); HEMOGLOBIN 11.6 g/dl (14.0-17.9); LYMPHOCYTES # (AUTO) 0.6 X10'3 (1.1-4.8); LYMPHOCYTES % (AUTO) 13.1 % (21-51); MEAN CORPUSCULAR HEMOGLOBIN 27.9 PG (27.0-31.0); MEAN CORPUSCULAR HGB CONC 32.7 g/dL (33.0-36.5); MEAN CORPUSCULAR VOLUME 85.4 FL (78-98); MEAN PLATELET VOLUME 8.5 FL (7.4-10.4); MONOCYTES # (AUTO) 0.4 X10'3 (0-0.9); MONOCYTES % (AUTO) 9.5 % (2-12); NEUTROPHILS # (AUTO) 3.6 X10'3 (1.8-7.7); PLATELET COUNT 95 X10'3 (140-440); RED BLOOD COUNT 4.16 X10'6 (4.70-6.10); RED CELL DISTRIBUTION WIDTH 19.9 % (11.5-14.5); WHITE BLOOD COUNT 4.7 X10'3 (4.5-11.0)
[2021-08-18 18:57] LABS: ALANINE AMINOTRANSFERASE 303 U/L (12-78); ALBUMIN 2.5 G/DL (3.4-5.0); ALBUMIN/GLOBULIN RATIO 0.7 (1.1-1.5); ALKALINE PHOSPHATASE 497 IU/L (46-116); ANION GAP 9 (8-16); ASPARTATE AMINO TRANSFERASE 310 U/L (10-37); BILIRUBIN,TOTAL 2.1 MG/DL (0.1-1.0); BLOOD UREA NITROGEN 47 MG/DL (7-18); BUN/CREATININE RATIO 36.7 (5.4-32.0); CALCIUM 8.1 MG/DL (8.5-10.1); CHLORIDE 100 MMOL/L (99-107); CREATININE 1.28 MG/DL (0.60-1.10); GLUCOSE 240 MG/DL (70-104); POTASSIUM 4.2 MMOL/L (3.5-5.1); SODIUM 140 MMOL/L (135-145); TOTAL CARBON DIOXIDE 31.1 MMOL/L (24-32); TOTAL PROTEIN 6.1 G/DL (6.4-8.2); eGFR 54 ML/MIN
[2021-08-19] MEDS ORDERED: ondansetron 4mg rapidly disintigrating tab PO PRN (00:05)
[2021-08-19] MEDS ORDERED: morphine 2 MG/ML inj. syringe IV PRN ×2 (00:05)
[2021-08-19] MEDS ORDERED: bisacodyl 10mg suppository rectal RC PRN (00:05)
[2021-08-19] MEDS ORDERED: acetaminophen 325mg tablet PO PRN (00:05)
[2021-08-19] MEDS ORDERED: acetaminophen 650mg rectal suppository RC PRN (00:05)
[2021-08-19] MEDS ORDERED: ondansetron/PF 4mg/2ml inj IV PRN (00:05)
[2021-08-19] MEDS ORDERED: diphenhydrAMINE 50 mg/ml inj IV PRN (00:05)
[2021-08-19] MEDS ORDERED: mag hydrox/Alum hydrox/simeth 30ml oral suspension PO PRN (00:05)
[2021-08-19] MEDS ORDERED: glucagon, human recombinant 1mg kit SUBCUT PRN (00:10)
[2021-08-19] MEDS ORDERED: dextrose ORAL solution 15 GM/59 ML bottle PO PRN ×2 (00:10)
[2021-08-19] MEDS ORDERED: dextrose 50%-water 50ml dispensing syringe IV PRN (00:10)
[2021-08-19] MEDS ORDERED: MESSAGE TO PHARMACY PO ONE (00:10)
[2021-08-19 04:07] VITALS: BP 102/66
[2021-08-19 07:12] LABS: APTT 33 SECONDS (22-32)
[2021-08-19 07:21] LABS: LIPASE 233 U/L (73-393); PHOSPHORUS 3.2 MG/DL (2.3-4.5)
[2021-08-19 07:32] VITALS: BP 111/72
[2021-08-19] MEDS: furosemide 40mg/4ml inj IV SCH ×2 (08:44→21:00)
[2021-08-19] MEDS: insulin Lispro (HumaLOG) vial - multi-dose SQ SCH ×2 (08:44→13:57)
[2021-08-19] MEDS: docusate sod 100mg capsule PO SCH ×2 (08:47→20:00)
--- NOTE | 2021-08-19 11:16 | NUR ---
Nutrition consult: Pt admitted w/ CHF, hypoxia, and gen weakness w/ falls per EMR. It appears pt was d/c from this hospital 2 days ago and was doing well nutritionally at that time. Pt now on Sodium restricted diet w/ 100% intake of first meal. Consider changing to Carb controlled diet given hx of T2DM and A1c 7.8, though this is appropriate for age per ADA gridlines, DM ed not warranted at this time. Per [facility] assessment on 08/16 pt w/ necrotic great R toe and DTI to buttocks, unable to ambulate. Noted w/ bilat feet 2+ edema. No nutritional concerns at this time, will continue to monitor. Addendum: 08/19/21 at [address] Amended: Links added.
[2021-08-19 12:00] VITALS: BP 117/72
--- NOTE | 2021-08-19 12:00 | NUR ---
X- and son called to check on patient for update. They said that when patient came home from this last hospital stay his needs were too great to take care of. Son is disabled and receives his own services through [facility] and is not equipt to be a care transition manager himself. X- lives in [place] and cannot assist in care for patient. Patient does not appear to have help at home and he is very weak and not able to walk at home and family says he wasn't even able to turn himself or move self from chair and they had to call the fire dept for help moving patient.
--- NOTE | 2021-08-19 18:31 | NUR ---
Report given back to Kraig NGUYỄN. Patient is resting comfortably in bed.
[2021-08-19] MEDS: carVEDilol 3.125mg tablet PO SCH (20:00)
[2021-08-19] MEDS: furosemide 40mg tablet PO SCH (21:00)
[2021-08-19] MEDS: dexamethasone 1mg tablet PO SCH (21:00)
[2021-08-19] MEDS: atorvastatin 10mg tablet PO SCH (21:00)
[2021-08-19] MEDS: lisinopril 2.5mg tablet PO SCH (21:00)
[2021-08-19] MEDS: insulin glargine (Lantus) pen - multi-dose SQ SCH (21:00)
--- NOTE | 2021-08-20 02:05 | NUR ---
Lead Business Systems Analyst was unable to administer lantus on time, blood sugar was monitored and treatment will be resumed in the AM
[2021-08-20 04:33] VITALS: BP 121/81
[2021-08-20 06:55] LABS: BASOPHILS % (AUTO) 0.1 % (0-1); EOSINOPHILS # (AUTO) 0.1 X10'3 (0-0.9); EOSINOPHILS % (AUTO) 1.5 % (0-6); HEMATOCRIT 32.6 % (42.0-52.0); HEMOGLOBIN 10.8 g/dl (14.0-17.9); LYMPHOCYTES # (AUTO) 0.4 X10'3 (1.1-4.8); LYMPHOCYTES % (AUTO) 9.8 % (21-51); MEAN CORPUSCULAR HEMOGLOBIN 27.9 PG (27.0-31.0); MEAN CORPUSCULAR HGB CONC 33.1 g/dL (33.0-36.5); MEAN CORPUSCULAR VOLUME 84.3 FL (78-98); MEAN PLATELET VOLUME 8.4 FL (7.4-10.4); MONOCYTES # (AUTO) 0.3 X10'3 (0-0.9); MONOCYTES % (AUTO) 7.8 % (2-12); NEUTROPHILS # (AUTO) 3.5 X10'3 (1.8-7.7); NEUTROPHILS % (AUTO) 80.8 % (42-75); PLATELET COUNT 129 X10'3 (140-440); RED BLOOD COUNT 3.87 X10'6 (4.70-6.10); WHITE BLOOD COUNT 4.3 X10'3 (4.5-11.0)
[2021-08-20 07:26] LABS: ALANINE AMINOTRANSFERASE 182 U/L (12-78); ALBUMIN 2.3 G/DL (3.4-5.0); ALBUMIN/GLOBULIN RATIO 0.7 (1.1-1.5); ALKALINE PHOSPHATASE 361 IU/L (46-116); ANION GAP 8 (8-16); ASPARTATE AMINO TRANSFERASE 77 U/L (10-37); BILIRUBIN,TOTAL 1.2 MG/DL (0.1-1.0); BLOOD UREA NITROGEN 40 MG/DL (7-18); BUN/CREATININE RATIO 35.1 (5.4-32.0); CALCIUM 7.7 MG/DL (8.5-10.1); CHLORIDE 101 MMOL/L (99-107); CREATININE 1.14 MG/DL (0.60-1.10); GLUCOSE 145 MG/DL (70-104); POTASSIUM 3.9 MMOL/L (3.5-5.1); SODIUM 141 MMOL/L (135-145); TOTAL CARBON DIOXIDE 32.1 MMOL/L (24-32); TOTAL PROTEIN 5.8 G/DL (6.4-8.2); eGFR 62 ML/MIN
[2021-08-20 07:30] VITALS: BP 123/73
[2021-08-20] MEDS: aspirin 81mg, enteric-coated 1 TAB TABLET.DR PO SCH (09:00)
[2021-08-20] MEDS: dexamethasone 1mg tablet PO SCH ×2 (09:00→20:00)
[2021-08-20] MEDS: spironolactone 25 MG tablet PO SCH (09:00)
[2021-08-20] MEDS: cholecalciferol (vitamin D3) 1,000 unit (25mcg) tablet PO SCH (09:01)
[2021-08-20] MEDS: furosemide 40mg tablet PO SCH ×2 (09:01→20:00)
[2021-08-20] MEDS: carVEDilol 3.125mg tablet PO SCH ×2 (09:01→20:32)
[2021-08-20] MEDS: docusate sod 100mg capsule PO SCH ×2 (09:01→20:00)
[2021-08-20] MEDS: duloxetine 30mg CAPSULE.DR PO SCH (09:01)
[2021-08-20] MEDS: pantoprazole 40mg Tablet.DR PO SCH (09:01)
[2021-08-20] MEDS: HYDROcodone/acetaminophen 5mg/325mg tablet PO PRN (09:01)
[2021-08-20] MEDS: insulin Lispro (HumaLOG) vial - multi-dose SQ SCH ×3 (10:13→19:46)
--- NOTE | 2021-08-20 18:05 | NUR ---
Patient in room [facility] 351. I have received report from DELMA Mayer and had the opportunity to ask questions and assume patient care.
[2021-08-20] MEDS: rivaroxaban 15mg tablet PO SCH (18:09)
[2021-08-20 19:00] VITALS: BP 106/65
[2021-08-20] MEDS: furosemide 40mg/4ml inj IV SCH (20:32)
[2021-08-20] MEDS: atorvastatin 10mg tablet PO SCH (20:38)
[2021-08-20] MEDS: lisinopril 2.5mg tablet PO SCH (20:38)
[2021-08-20] MEDS: insulin glargine (Lantus) pen - multi-dose SQ SCH (21:00)
[2021-08-20 21:30] VITALS: BP 117/62
[2021-08-21] VITALS: BP_SYST 107; BP_SYST 110; BP_DIAS 63; BP_DIAS 73
[2021-08-21 05:59] LABS: BASOPHILS % (AUTO) 0.1 % (0-1); EOSINOPHILS # (AUTO) 0.1 X10'3 (0-0.9); EOSINOPHILS % (AUTO) 1.3 % (0-6); HEMATOCRIT 30.9 % (42.0-52.0); HEMOGLOBIN 10.1 g/dl (14.0-17.9); LYMPHOCYTES # (AUTO) 0.7 X10'3 (1.1-4.8); LYMPHOCYTES % (AUTO) 15.1 % (21-51); MEAN CORPUSCULAR HEMOGLOBIN 27.4 PG (27.0-31.0); MEAN CORPUSCULAR HGB CONC 32.7 g/dL (33.0-36.5); MEAN PLATELET VOLUME 7.9 FL (7.4-10.4); MONOCYTES # (AUTO) 0.4 X10'3 (0-0.9); MONOCYTES % (AUTO) 9.6 % (2-12); NEUTROPHILS # (AUTO) 3.2 X10'3 (1.8-7.7); NEUTROPHILS % (AUTO) 73.9 % (42-75); PLATELET COUNT 151 X10'3 (140-440); RED BLOOD COUNT 3.68 X10'6 (4.70-6.10); RED CELL DISTRIBUTION WIDTH 19.5 % (11.5-14.5); WHITE BLOOD COUNT 4.4 X10'3 (4.5-11.0)
--- NOTE | 2021-08-21 06:29 | NUR ---
Problems reprioritized. Patient report given, questions answered & plan of care reviewed with DELMA Mayer.
[2021-08-21 06:47] LABS: ALANINE AMINOTRANSFERASE 128 U/L (12-78); ALBUMIN 2.2 G/DL (3.4-5.0); ALBUMIN/GLOBULIN RATIO 0.7 (1.1-1.5); ALKALINE PHOSPHATASE 310 IU/L (46-116); ANION GAP 4 (8-16); ASPARTATE AMINO TRANSFERASE 56 U/L (10-37); BLOOD UREA NITROGEN 43 MG/DL (7-18); BUN/CREATININE RATIO 36.1 (5.4-32.0); CALCIUM 7.6 MG/DL (8.5-10.1); CHLORIDE 99 MMOL/L (99-107); CREATININE 1.19 MG/DL (0.60-1.10); GLUCOSE 95 MG/DL (70-104); POTASSIUM 4.2 MMOL/L (3.5-5.1); SODIUM 137 MMOL/L (135-145); TOTAL CARBON DIOXIDE 33.8 MMOL/L (24-32); TOTAL PROTEIN 5.4 G/DL (6.4-8.2); eGFR 59 ML/MIN
[2021-08-21 07:00] VITALS: BP 105/76
[2021-08-21] MEDS: furosemide 40mg/4ml inj IV SCH ×2 (09:03→21:33)
[2021-08-21] MEDS: aspirin 81mg, enteric-coated 1 TAB TABLET.DR PO SCH (09:03)
[2021-08-21] MEDS: dexamethasone 1mg tablet PO SCH ×2 (09:03→21:15)
[2021-08-21] MEDS: docusate sod 100mg capsule PO SCH ×2 (09:03→21:15)
[2021-08-21] MEDS: cholecalciferol (vitamin D3) 1,000 unit (25mcg) tablet PO SCH (09:03)
[2021-08-21] MEDS: carVEDilol 3.125mg tablet PO SCH ×2 (09:03→20:00)
[2021-08-21] MEDS: pantoprazole 40mg Tablet.DR PO SCH (09:04)
[2021-08-21] MEDS: duloxetine 30mg CAPSULE.DR PO SCH (09:04)
[2021-08-21] MEDS: furosemide 40mg tablet PO SCH ×2 (09:04→21:29)
[2021-08-21] MEDS: spironolactone 25 MG tablet PO SCH (09:04)
--- NOTE | 2021-08-21 10:19 | NUR ---
PRESSURE ULCER EDUCATION: DEFINITION: A pressure ulcer is an area of skin that breaks down when you stay in one position too long. The constant pressure against the skin reduces the blood flow to that area and the affected tissue dies. CAUSES: "Being bedridden or in a wheelchair "Fragile skin "Having a chronic condition, such as diabetes or vascular disease "Inability to move certain parts of your body without assistance "Older age "Incontinence of urine or stool SYMPTOMS: "A reddened area that DOES NOT turn white when pressed on - this can be the beginning of a pressure ulcer "A blister, deep sore or a crater - these can be advanced pressure ulcers FIRST AID: "Relieve the pressure on this area "Keep the area clean and dry "Call your primary doctor if you see any of the above symptoms "DO NOT massage the area "DO NOT use a donut shaped or ring shaped pillow- these actually interfere with the blood flow and cause complications PREVENTION: "Check for pressure ulcers everyday "Change position at least every two hours to relieve pressure "Use items that help relieve pressure- pillows, sheepskin, foam padding, and powders. "Keep skin clean and dry "Eat healthy well balanced meals "Exercise daily IF YOU SEE ANY OF THESE SYMPTOMS WHILE IN THE HOSPITAL - TELL YOUR NURSE IMMEDIATELY. IF YOU SEE ANY OF THESE SYMPTOMS WHILE AT HOME OR HAVE ANY QUESTIONS OR CONCERNS ABOUT PRESSURE ULCERS - CALL YOUR PRIMARY DOCTOR IMMEDIATELY. Addendum: 08/21/21 at 1019 by Addie Palacio RN Amended: Links added.
[2021-08-21 12:00] VITALS: BP 99/66
--- NOTE | 2021-08-21 13:38 | NUR ---
Winston with [facility] called regarding patient was discharged last visit with a life vest. Per Winston life vest was ordered due to patient having an EF of 20-25%. Winston recommends patient to be wearing his life vest here or to be placed on a Telemetry unit. [facility] phone number is . Advised we will call Dr Dickey
[2021-08-21] MEDS: insulin Lispro (HumaLOG) vial - multi-dose SQ SCH ×2 (14:18→19:09)
[2021-08-21] MEDS: rivaroxaban 15mg tablet PO SCH (18:11)
--- NOTE | 2021-08-21 18:30 | NUR ---
Patient in room [facility] 351. I have received report from Moreno NGUYỄN and had the opportunity to ask questions and assume patient care.
[2021-08-21 20:00] VITALS: BP 101/64
[2021-08-21] MEDS: insulin glargine (Lantus) pen - multi-dose SQ SCH (21:00)
[2021-08-21] MEDS: atorvastatin 10mg tablet PO SCH (21:15)
[2021-08-21] MEDS: temazepam 15mg capsule PO PRN (21:19)
[2021-08-21] MEDS: lisinopril 2.5mg tablet PO SCH (21:20)
--- NOTE | 2021-08-21 21:34 | NUR ---
Patient did not get IV lasix tonight as a duplicate order. Pt. was given the PO lasix (same does) instead. Addendum: 08/22/21 at 0156 by Apple Dodd RN same dose
[2021-08-22] VITALS: BP 110/63
--- NOTE | 2021-08-22 02:00 | NUR ---
Patient awoke stating he felt very hungry. BS = 157. Gave pt. a sandwich and jello.
[2021-08-22] MEDS: HYDROcodone/acetaminophen 5mg/325mg tablet PO PRN (02:26)
--- NOTE | 2021-08-22 06:30 | NUR ---
Problems reprioritized. Patient report given, questions answered & plan of care reviewed with Johanna NGUYỄN.
[2021-08-22 06:46] LABS: BASOPHILS % (AUTO) 0.1 % (0-1); EOSINOPHILS % (AUTO) 0.5 % (0-6); HEMATOCRIT 34.7 % (42.0-52.0); HEMOGLOBIN 11.2 g/dl (14.0-17.9); LYMPHOCYTES # (AUTO) 0.5 X10'3 (1.1-4.8); LYMPHOCYTES % (AUTO) 10.5 % (21-51); MEAN CORPUSCULAR HEMOGLOBIN 27.2 PG (27.0-31.0); MEAN CORPUSCULAR HGB CONC 32.3 g/dL (33.0-36.5); MEAN CORPUSCULAR VOLUME 84.1 FL (78-98); MONOCYTES # (AUTO) 0.5 X10'3 (0-0.9); MONOCYTES % (AUTO) 10.2 % (2-12); NEUTROPHILS # (AUTO) 3.7 X10'3 (1.8-7.7); NEUTROPHILS % (AUTO) 78.7 % (42-75); PLATELET COUNT 205 X10'3 (140-440); RED BLOOD COUNT 4.12 X10'6 (4.70-6.10); RED CELL DISTRIBUTION WIDTH 19.3 % (11.5-14.5); WHITE BLOOD COUNT 4.7 X10'3 (4.5-11.0)
[2021-08-22 07:00] VITALS: BP 108/71
[2021-08-22 07:10] LABS: ALANINE AMINOTRANSFERASE 138 U/L (12-78); ALBUMIN 2.5 G/DL (3.4-5.0); ALBUMIN/GLOBULIN RATIO 0.7 (1.1-1.5); ALKALINE PHOSPHATASE 374 IU/L (46-116); ANION GAP 7 (8-16); ASPARTATE AMINO TRANSFERASE 65 U/L (10-37); BILIRUBIN,TOTAL 1.2 MG/DL (0.1-1.0); BLOOD UREA NITROGEN 48 MG/DL (7-18); BUN/CREATININE RATIO 37.2 (5.4-32.0); CHLORIDE 96 MMOL/L (99-107); CREATININE 1.29 MG/DL (0.60-1.10); GLUCOSE 196 MG/DL (70-104); POTASSIUM 4.7 MMOL/L (3.5-5.1); SODIUM 136 MMOL/L (135-145); TOTAL CARBON DIOXIDE 33.1 MMOL/L (24-32); TOTAL PROTEIN 6.2 G/DL (6.4-8.2); eGFR 53 ML/MIN
[2021-08-22] MEDS: dexamethasone 1mg tablet PO SCH ×2 (09:06→20:22)
[2021-08-22] MEDS: cholecalciferol (vitamin D3) 1,000 unit (25mcg) tablet PO SCH (09:06)
[2021-08-22] MEDS: furosemide 40mg tablet PO SCH ×2 (09:07→20:27)
[2021-08-22] MEDS: aspirin 81mg, enteric-coated 1 TAB TABLET.DR PO SCH (09:07)
[2021-08-22] MEDS: duloxetine 30mg CAPSULE.DR PO SCH (09:07)
[2021-08-22] MEDS: carVEDilol 3.125mg tablet PO SCH ×2 (09:07→20:22)
[2021-08-22] MEDS: pantoprazole 40mg Tablet.DR PO SCH (09:07)
[2021-08-22] MEDS: spironolactone 25 MG tablet PO SCH (09:07)
[2021-08-22] MEDS: docusate sod 100mg capsule PO SCH ×2 (09:08→20:22)
[2021-08-22] MEDS: insulin Lispro (HumaLOG) vial - multi-dose SQ SCH ×3 (10:00→19:39)
[2021-08-22 11:00] VITALS: BP 105/56
--- NOTE | 2021-08-22 19:02 | NUR ---
Problems reprioritized. Patient report given, questions answered & plan of care reviewed with HILLARY Gann.
[2021-08-22 20:00] VITALS: BP 109/56
[2021-08-22] MEDS: rivaroxaban 15mg tablet PO SCH (20:21)
[2021-08-22] MEDS: lisinopril 2.5mg tablet PO SCH (20:25)
[2021-08-22] MEDS: atorvastatin 10mg tablet PO SCH (20:27)
[2021-08-22] MEDS: insulin glargine (Lantus) pen - multi-dose SQ SCH (21:48)
[2021-08-23] VITALS: BP 126/75
[2021-08-23 06:21] LABS: BASOPHILS % (AUTO) 0.1 % (0-1); EOSINOPHILS % (AUTO) 0.5 % (0-6); HEMATOCRIT 30.7 % (42.0-52.0); HEMOGLOBIN 10.2 g/dl (14.0-17.9); LYMPHOCYTES # (AUTO) 0.5 X10'3 (1.1-4.8); LYMPHOCYTES % (AUTO) 10.8 % (21-51); MEAN CORPUSCULAR HEMOGLOBIN 27.6 PG (27.0-31.0); MEAN CORPUSCULAR HGB CONC 33.1 g/dL (33.0-36.5); MEAN CORPUSCULAR VOLUME 83.3 FL (78-98); MEAN PLATELET VOLUME 7.8 FL (7.4-10.4); MONOCYTES # (AUTO) 0.4 X10'3 (0-0.9); MONOCYTES % (AUTO) 9.2 % (2-12); NEUTROPHILS # (AUTO) 3.5 X10'3 (1.8-7.7); NEUTROPHILS % (AUTO) 79.4 % (42-75); PLATELET COUNT 199 X10'3 (140-440); RED BLOOD COUNT 3.69 X10'6 (4.70-6.10); WHITE BLOOD COUNT 4.5 X10'3 (4.5-11.0)
--- NOTE | 2021-08-23 06:35 | NUR ---
Problems reprioritized. Patient report given, questions answered & plan of care reviewed with
[2021-08-23 06:40] LABS: ALANINE AMINOTRANSFERASE 110 U/L (12-78); ALBUMIN 2.2 G/DL (3.4-5.0); ALBUMIN/GLOBULIN RATIO 0.6 (1.1-1.5); ALKALINE PHOSPHATASE 304 IU/L (46-116); ANION GAP 4 (8-16); ASPARTATE AMINO TRANSFERASE 53 U/L (10-37); BILIRUBIN,TOTAL 0.9 MG/DL (0.1-1.0); BLOOD UREA NITROGEN 52 MG/DL (7-18); BUN/CREATININE RATIO 40.3 (5.4-32.0); CALCIUM 7.7 MG/DL (8.5-10.1); CHLORIDE 98 MMOL/L (99-107); CREATININE 1.29 MG/DL (0.60-1.10); GLUCOSE 108 MG/DL (70-104); POTASSIUM 4.5 MMOL/L (3.5-5.1); SODIUM 136 MMOL/L (135-145); TOTAL CARBON DIOXIDE 33.7 MMOL/L (24-32); TOTAL PROTEIN 5.9 G/DL (6.4-8.2); eGFR 53 ML/MIN
[2021-08-23 07:00] VITALS: BP 102/73
[2021-08-23] MEDS: cholecalciferol (vitamin D3) 1,000 unit (25mcg) tablet PO SCH (08:38)
[2021-08-23] MEDS: spironolactone 25 MG tablet PO SCH (08:38)
[2021-08-23] MEDS: pantoprazole 40mg Tablet.DR PO SCH (08:38)
[2021-08-23] MEDS: furosemide 40mg tablet PO SCH ×2 (08:38→19:43)
[2021-08-23] MEDS: carVEDilol 3.125mg tablet PO SCH ×2 (08:38→19:42)
[2021-08-23] MEDS: docusate sod 100mg capsule PO SCH ×2 (08:38→19:42)
[2021-08-23] MEDS: duloxetine 30mg CAPSULE.DR PO SCH (08:38)
[2021-08-23] MEDS: dexamethasone 1mg tablet PO SCH ×2 (08:38→19:43)
[2021-08-23] MEDS: aspirin 81mg, enteric-coated 1 TAB TABLET.DR PO SCH (08:38)
--- NOTE | 2021-08-23 08:55 | NUR ---
Initial: Pt admitted w/ CHF, hypoxia, and gen weakness w/ falls per EMR. Pt currently on Sodium Restricted diet w/ mostly 100% intake of meals meeting needs. May consider adding Carb Controlled diet given elevated BG. Pt noted to be A&O x 2 and confused though able to feed self. [facility] 2/6 receiving routine colace. No nutrition intervention implemented at this time, will continue to monitor. Recs: 1. Consider adding Carb Controlled diet in view of elevated BG 2. Bowel care per rx 3. Scaled wts Addendum: 08/23/21 at [address] Amended: Links added.
[2021-08-23 13:05] VITALS: BP 117/81
[2021-08-23] MEDS: insulin Lispro (HumaLOG) vial - multi-dose SQ SCH ×3 (13:37→21:28)
[2021-08-23 18:00] VITALS: BP 107/64
--- NOTE | 2021-08-23 18:52 | NUR ---
Patient in room [facility] 351. I have received report from JUSTIN NGUYỄN and had the opportunity to ask questions and assume patient care.
[2021-08-23] MEDS: rivaroxaban 15mg tablet PO SCH (19:43)
[2021-08-23] MEDS: diphenhydrAMINE 25mg capsule PO PRN (19:47)
[2021-08-23] MEDS: HYDROcodone/acetaminophen 5mg/325mg tablet PO PRN (19:47)
[2021-08-23] MEDS: temazepam 15mg capsule PO PRN (21:17)
[2021-08-23] MEDS: lisinopril 2.5mg tablet PO SCH (21:18)
[2021-08-23] MEDS: atorvastatin 10mg tablet PO SCH (21:18)
[2021-08-23] MEDS: insulin glargine (Lantus) pen - multi-dose SQ SCH (21:25)
[2021-08-24] VITALS: BP 112/70
[2021-08-24 05:58] LABS: BASOPHILS % (AUTO) 0.2 % (0-1); EOSINOPHILS % (AUTO) 0.6 % (0-6); HEMATOCRIT 32.1 % (42.0-52.0); HEMOGLOBIN 10.6 g/dl (14.0-17.9); LYMPHOCYTES # (AUTO) 0.6 X10'3 (1.1-4.8); LYMPHOCYTES % (AUTO) 10.6 % (21-51); MEAN CORPUSCULAR HEMOGLOBIN 27.3 PG (27.0-31.0); MEAN CORPUSCULAR VOLUME 82.6 FL (78-98); MEAN PLATELET VOLUME 7.6 FL (7.4-10.4); MONOCYTES # (AUTO) 0.6 X10'3 (0-0.9); MONOCYTES % (AUTO) 10.7 % (2-12); NEUTROPHILS # (AUTO) 4.6 X10'3 (1.8-7.7); NEUTROPHILS % (AUTO) 77.9 % (42-75); PLATELET COUNT 214 X10'3 (140-440); RED BLOOD COUNT 3.88 X10'6 (4.70-6.10); RED CELL DISTRIBUTION WIDTH 19.1 % (11.5-14.5); WHITE BLOOD COUNT 5.9 X10'3 (4.5-11.0)
[2021-08-24 06:32] LABS: ANISOCYTOSIS 2+; PLATELET ESTIMATE NORMAL
[2021-08-24 06:34] LABS: ELLIPTOCYTES 1+
--- NOTE | 2021-08-24 06:34 | NUR ---
Problems reprioritized. Patient report given, questions answered & plan of care reviewed with RACHEL NGUYỄN.
[2021-08-24 06:35] LABS: BURR CELLS FEW
[2021-08-24 06:59] LABS: ALANINE AMINOTRANSFERASE 119 U/L (12-78); ALBUMIN 2.4 G/DL (3.4-5.0); ALBUMIN/GLOBULIN RATIO 0.7 (1.1-1.5); ALKALINE PHOSPHATASE 330 IU/L (46-116); ANION GAP 5 (8-16); ASPARTATE AMINO TRANSFERASE 59 U/L (10-37); BLOOD UREA NITROGEN 51 MG/DL (7-18); BUN/CREATININE RATIO 38.9 (5.4-32.0); CALCIUM 8.1 MG/DL (8.5-10.1); CHLORIDE 96 MMOL/L (99-107); CREATININE 1.31 MG/DL (0.60-1.10); GLUCOSE 77 MG/DL (70-104); POTASSIUM 4.4 MMOL/L (3.5-5.1); SODIUM 135 MMOL/L (135-145); TOTAL CARBON DIOXIDE 33.9 MMOL/L (24-32); eGFR 53 ML/MIN
[2021-08-24 07:00] VITALS: BP 106/76
[2021-08-24] MEDS: cholecalciferol (vitamin D3) 1,000 unit (25mcg) tablet PO SCH (09:24)
[2021-08-24] MEDS: duloxetine 30mg CAPSULE.DR PO SCH (09:24)
[2021-08-24] MEDS: docusate sod 100mg capsule PO SCH ×2 (09:24→20:42)
[2021-08-24] MEDS: dexamethasone 1mg tablet PO SCH ×2 (09:25→20:42)
[2021-08-24] MEDS: furosemide 40mg tablet PO SCH ×2 (09:25→20:43)
[2021-08-24] MEDS: carVEDilol 3.125mg tablet PO SCH ×2 (09:25→20:43)
[2021-08-24] MEDS: aspirin 81mg, enteric-coated 1 TAB TABLET.DR PO SCH (09:25)
[2021-08-24] MEDS: pantoprazole 40mg Tablet.DR PO SCH (09:56)
[2021-08-24] MEDS: spironolactone 25 MG tablet PO SCH (09:56)
[2021-08-24 11:00] VITALS: BP 102/63
--- NOTE | 2021-08-24 13:23 | NUR ---
I got a phone call from Chantelle from [facility]. She introduced herself as the Adjunct Instructor Of Women'S Studies but actually patient's son Esteban is her client. She said to me"I know you cant tell me more about him! She is not on the contact list so I did not give her any information about the patient but instead I let her talked and just listened to her. She states "Oh I spoke to Esteban and he gave me permission to talk to you!" Chantelle expressed concern about this patient being on "very unsafe discharge" because his son Esteban has intellectual disability, cannot take care safely this patient, no training on caregiving, has anger issues. I asked her if she actually reported this to the APS if she's very concern about this patient, she states "Oh yeah I did it!" Chantelle also told me that there's no home health to take care of this patient and that she is very concern that we are trying to place this patient back home. I told her that I will bring this up to the Adjunct Instructor Of Women'S Studies here at the hospital. I page Social Service, Chelly to discuss about this. Chelly called me, I told her about this phone call from Chantelle and her concerns. Chelly said to me "I spoke to her already on the phone. I found out she is not a Adjunct Instructor Of Women'S Studies, she is actually a Education Administrative Assistant at [facility]. Chelly also told me that it is not true that no home health will take this patient and patient already have home health. Chelly said patient has no insurance to cover for the longterm placement. Chelly also told me that Chantelle has not even seen this person in the home for 2 years.
--- NOTE | 2021-08-24 17:05 | NUR ---
Patient in room [facility] 351. I have received report from RACHEL NGUYỄN and had the opportunity to ask questions and assume patient care.
[2021-08-24 18:00] VITALS: BP 121/71
[2021-08-24] MEDS: rivaroxaban 15mg tablet PO SCH (18:08)
[2021-08-24] MEDS: insulin Lispro (HumaLOG) vial - multi-dose SQ SCH ×2 (18:11→19:00)
[2021-08-24] MEDS: lisinopril 2.5mg tablet PO SCH (20:42)
[2021-08-24] MEDS: atorvastatin 10mg tablet PO SCH (20:43)
[2021-08-24] MEDS: temazepam 15mg capsule PO PRN (20:43)
[2021-08-24] MEDS: insulin glargine (Lantus) pen - multi-dose SQ SCH (21:35)
[2021-08-25] VITALS: BP 102/59
--- NOTE | 2021-08-25 06:24 | NUR ---
Problems reprioritized. Patient report given, questions answered & plan of care reviewed with LAN NGUYỄN.
--- NOTE | 2021-08-25 06:37 | NUR ---
Patient in room [facility] 351. I have received report from Sharon NGUYỄN and had the opportunity to ask questions and assume patient care.
[2021-08-25 08:00] VITALS: BP 101/62
[2021-08-25] MEDS: spironolactone 25 MG tablet PO SCH (09:00)
[2021-08-25] MEDS: dexamethasone 1mg tablet PO SCH ×2 (09:01→19:20)
[2021-08-25] MEDS: duloxetine 30mg CAPSULE.DR PO SCH (09:01)
[2021-08-25] MEDS: docusate sod 100mg capsule PO SCH ×2 (09:01→19:20)
[2021-08-25] MEDS: carVEDilol 3.125mg tablet PO SCH ×2 (09:01→19:20)
[2021-08-25] MEDS: furosemide 40mg tablet PO SCH ×2 (09:01→19:20)
[2021-08-25] MEDS: pantoprazole 40mg Tablet.DR PO SCH (09:01)
[2021-08-25] MEDS: cholecalciferol (vitamin D3) 1,000 unit (25mcg) tablet PO SCH (09:01)
[2021-08-25] MEDS: aspirin 81mg, enteric-coated 1 TAB TABLET.DR PO SCH (09:01)
[2021-08-25] MEDS: insulin Lispro (HumaLOG) vial - multi-dose SQ SCH ×3 (10:38→19:17)
[2021-08-25 11:00] VITALS: BP 94/64
[2021-08-25 18:00] VITALS: BP 113/72
--- NOTE | 2021-08-25 18:17 | NUR ---
Problems reprioritized. Patient report given, questions answered & plan of care reviewed with Prudence RN.
--- NOTE | 2021-08-25 18:43 | NUR ---
Patient in room [facility] 351. I have received report from JEANINE AND VANESA NGUYỄN and had the opportunity to ask questions and assume patient care.
[2021-08-25] MEDS: rivaroxaban 15mg tablet PO SCH (19:20)
[2021-08-25] MEDS: insulin glargine (Lantus) pen - multi-dose SQ SCH (21:00)
[2021-08-25] MEDS: lisinopril 2.5mg tablet PO SCH (21:28)
[2021-08-25] MEDS: atorvastatin 10mg tablet PO SCH (21:28)
--- NOTE | 2021-08-25 23:00 | NUR ---
Problems reprioritized. Patient report given, questions answered & plan of care reviewed with TIANNA NGUYỄN. Addendum: 08/25/21 at 2302 by Sharon Mata RN Problems reprioritized. Patient report given, questions answered & plan of care reviewed with ABDIEL NGUYỄN.
[2021-08-25] MEDS: HYDROcodone/acetaminophen 5mg/325mg tablet PO PRN (23:28)
[2021-08-26] VITALS: BP 109/69
[2021-08-26 06:35] LABS: BASOPHILS % (AUTO) 0.1 % (0-1); EOSINOPHILS % (AUTO) 0.3 % (0-6); HEMATOCRIT 30.3 % (42.0-52.0); HEMOGLOBIN 10.1 g/dl (14.0-17.9); LYMPHOCYTES # (AUTO) 0.6 X10'3 (1.1-4.8); LYMPHOCYTES % (AUTO) 12.3 % (21-51); MEAN CORPUSCULAR HEMOGLOBIN 27.6 PG (27.0-31.0); MEAN CORPUSCULAR HGB CONC 33.5 g/dL (33.0-36.5); MEAN CORPUSCULAR VOLUME 82.5 FL (78-98); MEAN PLATELET VOLUME 7.7 FL (7.4-10.4); MONOCYTES # (AUTO) 0.5 X10'3 (0-0.9); MONOCYTES % (AUTO) 8.7 % (2-12); NEUTROPHILS # (AUTO) 4.1 X10'3 (1.8-7.7); NEUTROPHILS % (AUTO) 78.6 % (42-75); PLATELET COUNT 191 X10'3 (140-440); RED BLOOD COUNT 3.67 X10'6 (4.70-6.10); RED CELL DISTRIBUTION WIDTH 18.6 % (11.5-14.5); WHITE BLOOD COUNT 5.2 X10'3 (4.5-11.0)
[2021-08-26 06:51] LABS: ALANINE AMINOTRANSFERASE 97 U/L (12-78); ALBUMIN 2.3 G/DL (3.4-5.0); ALBUMIN/GLOBULIN RATIO 0.7 (1.1-1.5); ALKALINE PHOSPHATASE 290 IU/L (46-116); ANION GAP 7 (8-16); ASPARTATE AMINO TRANSFERASE 52 U/L (10-37); BILIRUBIN,TOTAL 0.7 MG/DL (0.1-1.0); BLOOD UREA NITROGEN 63 MG/DL (7-18); CHLORIDE 94 MMOL/L (99-107); GLUCOSE 194 MG/DL (70-104); MAGNESIUM 1.8 MG/DL (1.5-2.4); PHOSPHORUS 3.6 MG/DL (2.3-4.5); POTASSIUM 4.7 MMOL/L (3.5-5.1); SODIUM 132 MMOL/L (135-145); TOTAL CARBON DIOXIDE 31.1 MMOL/L (24-32); TOTAL PROTEIN 5.6 G/DL (6.4-8.2); eGFR 45 ML/MIN
[2021-08-26 07:27] VITALS: BP 113/74
[2021-08-26 07:33] LABS: ANISOCYTOSIS 2+; ELLIPTOCYTES 1+; HYPOCHROMASIA 1+; PLATELET ESTIMATE NORMAL; POLYCHROMASIA FEW; TEAR DROP CELLS FEW
[2021-08-26 07:34] LABS: ACANTHOCYTES FEW
[2021-08-26] MEDS: aspirin 81mg, enteric-coated 1 TAB TABLET.DR PO SCH (08:36)
[2021-08-26] MEDS: docusate sod 100mg capsule PO SCH ×2 (08:37→19:21)
[2021-08-26] MEDS: pantoprazole 40mg Tablet.DR PO SCH (08:37)
[2021-08-26] MEDS: carVEDilol 3.125mg tablet PO SCH ×2 (08:37→19:18)
[2021-08-26] MEDS: dexamethasone 1mg tablet PO SCH ×2 (08:37→19:21)
[2021-08-26] MEDS: spironolactone 25 MG tablet PO SCH (08:38)
[2021-08-26] MEDS: cholecalciferol (vitamin D3) 1,000 unit (25mcg) tablet PO SCH (08:38)
[2021-08-26] MEDS: duloxetine 30mg CAPSULE.DR PO SCH (08:38)
[2021-08-26] MEDS: furosemide 40mg tablet PO SCH ×2 (08:39→19:19)
[2021-08-26] MEDS: insulin Lispro (HumaLOG) vial - multi-dose SQ SCH ×3 (08:45→18:52)
[2021-08-26 11:45] VITALS: BP 94/58
[2021-08-26] MEDS: rivaroxaban 15mg tablet PO SCH (17:11)
[2021-08-26 18:00] VITALS: BP 92/52
--- NOTE | 2021-08-26 18:43 | NUR ---
Report given back to Kraig NGUYỄN. Patient eating dinner.
[2021-08-26 20:50] VITALS: BP 92/52
[2021-08-26] MEDS: lisinopril 2.5mg tablet PO SCH (20:59)
[2021-08-26] MEDS: HYDROcodone/acetaminophen 5mg/325mg tablet PO PRN (21:10)
[2021-08-26] MEDS: atorvastatin 10mg tablet PO SCH (21:11)
[2021-08-26] MEDS: insulin glargine (Lantus) pen - multi-dose SQ SCH (21:43)
[2021-08-27 00:01] VITALS: BP 110/78
--- NOTE | 2021-08-27 06:47 | NUR ---
Patient in room [facility] 351. I have received report from ABDIEL NGUYỄN and had the opportunity to ask questions and assume patient care.
[2021-08-27 06:55] LABS: BASOPHILS % (AUTO) 0.1 % (0-1); EOSINOPHILS % (AUTO) 0.6 % (0-6); HEMATOCRIT 32.9 % (42.0-52.0); HEMOGLOBIN 10.9 g/dl (14.0-17.9); LYMPHOCYTES # (AUTO) 0.8 X10'3 (1.1-4.8); LYMPHOCYTES % (AUTO) 13.6 % (21-51); MEAN CORPUSCULAR HEMOGLOBIN 27.4 PG (27.0-31.0); MEAN CORPUSCULAR HGB CONC 33.2 g/dL (33.0-36.5); MEAN CORPUSCULAR VOLUME 82.5 FL (78-98); MEAN PLATELET VOLUME 7.6 FL (7.4-10.4); MONOCYTES # (AUTO) 0.6 X10'3 (0-0.9); MONOCYTES % (AUTO) 10.2 % (2-12); NEUTROPHILS # (AUTO) 4.5 X10'3 (1.8-7.7); NEUTROPHILS % (AUTO) 75.5 % (42-75); PLATELET COUNT 219 X10'3 (140-440); RED BLOOD COUNT 3.99 X10'6 (4.70-6.10); RED CELL DISTRIBUTION WIDTH 18.8 % (11.5-14.5)
[2021-08-27 07:23] VITALS: BP 107/73
[2021-08-27 07:31] LABS: ALANINE AMINOTRANSFERASE 94 U/L (12-78); ALBUMIN 2.5 G/DL (3.4-5.0); ALBUMIN/GLOBULIN RATIO 0.7 (1.1-1.5); ALKALINE PHOSPHATASE 314 IU/L (46-116); ANION GAP 6 (8-16); ASPARTATE AMINO TRANSFERASE 54 U/L (10-37); BILIRUBIN,TOTAL 0.9 MG/DL (0.1-1.0); BLOOD UREA NITROGEN 57 MG/DL (7-18); BUN/CREATININE RATIO 42.2 (5.4-32.0); CALCIUM 8.1 MG/DL (8.5-10.1); CHLORIDE 94 MMOL/L (99-107); CREATININE 1.35 MG/DL (0.60-1.10); GLUCOSE 127 MG/DL (70-104); MAGNESIUM 1.9 MG/DL (1.5-2.4); PHOSPHORUS 3.7 MG/DL (2.3-4.5); POTASSIUM 4.8 MMOL/L (3.5-5.1); SODIUM 131 MMOL/L (135-145); TOTAL CARBON DIOXIDE 30.9 MMOL/L (24-32); TOTAL PROTEIN 6.1 G/DL (6.4-8.2); eGFR 51 ML/MIN
[2021-08-27] MEDS: pantoprazole 40mg Tablet.DR PO SCH (08:11)
[2021-08-27] MEDS: docusate sod 100mg capsule PO SCH ×2 (08:12→19:37)
[2021-08-27] MEDS: spironolactone 25 MG tablet PO SCH (08:12)
[2021-08-27] MEDS: carVEDilol 3.125mg tablet PO SCH ×2 (08:12→19:37)
[2021-08-27] MEDS: duloxetine 30mg CAPSULE.DR PO SCH (08:12)
[2021-08-27] MEDS: aspirin 81mg, enteric-coated 1 TAB TABLET.DR PO SCH (08:12)
[2021-08-27] MEDS: furosemide 40mg tablet PO SCH ×2 (08:12→19:37)
[2021-08-27] MEDS: cholecalciferol (vitamin D3) 1,000 unit (25mcg) tablet PO SCH (08:13)
[2021-08-27] MEDS: dexamethasone 1mg tablet PO SCH ×2 (08:13→19:37)
[2021-08-27 11:49] VITALS: BP 104/72
[2021-08-27] MEDS: insulin Lispro (HumaLOG) vial - multi-dose SQ SCH ×2 (13:44→19:08)
[2021-08-27] MEDS: rivaroxaban 15mg tablet PO SCH (17:51)
--- NOTE | 2021-08-27 18:20 | NUR ---
Patient in room [facility] 351. I have received report from Bev NGUYỄN and had the opportunity to ask questions and assume patient care.
--- NOTE | 2021-08-27 18:22 | NUR ---
Problems reprioritized. Patient report given, questions answered & plan of care reviewed with OBEY NGUYỄN.
[2021-08-27 19:00] VITALS: BP 105/72
[2021-08-27 19:46] VITALS: BP 109/71
[2021-08-27] MEDS: insulin glargine (Lantus) pen - multi-dose SQ SCH (21:25)
[2021-08-27] MEDS: atorvastatin 10mg tablet PO SCH (21:26)
[2021-08-27] MEDS: lisinopril 2.5mg tablet PO SCH (21:27)
[2021-08-28 00:19] VITALS: BP 109/65
[2021-08-28] MEDS: dextrose 50%-water 50ml dispensing syringe IV PRN (03:57)
[2021-08-28 05:53] LABS: BASOPHILS % (AUTO) 0.3 % (0-1); EOSINOPHILS % (AUTO) 0.3 % (0-6); HEMATOCRIT 34.1 % (42.0-52.0); HEMOGLOBIN 11.3 g/dl (14.0-17.9); LYMPHOCYTES # (AUTO) 0.6 X10'3 (1.1-4.8); LYMPHOCYTES % (AUTO) 7.8 % (21-51); MEAN CORPUSCULAR HEMOGLOBIN 27.5 PG (27.0-31.0); MEAN CORPUSCULAR VOLUME 83.4 FL (78-98); MEAN PLATELET VOLUME 7.2 FL (7.4-10.4); MONOCYTES # (AUTO) 0.7 X10'3 (0-0.9); MONOCYTES % (AUTO) 8.8 % (2-12); NEUTROPHILS # (AUTO) 6.5 X10'3 (1.8-7.7); NEUTROPHILS % (AUTO) 82.8 % (42-75); PLATELET COUNT 184 X10'3 (140-440); RED BLOOD COUNT 4.09 X10'6 (4.70-6.10); RED CELL DISTRIBUTION WIDTH 18.7 % (11.5-14.5); WHITE BLOOD COUNT 7.8 X10'3 (4.5-11.0)
--- NOTE | 2021-08-28 06:00 | NUR ---
Patient in room [facility] 351. I have received report from Cally NGUYỄN and had the opportunity to ask questions and assume patient care.
[2021-08-28 06:32] LABS: ALANINE AMINOTRANSFERASE 108 U/L (12-78); ALBUMIN 2.6 G/DL (3.4-5.0); ALBUMIN/GLOBULIN RATIO 0.7 (1.1-1.5); ANION GAP 8 (8-16); ASPARTATE AMINO TRANSFERASE 67 U/L (10-37); BILIRUBIN,TOTAL 0.9 MG/DL (0.1-1.0); BLOOD UREA NITROGEN 58 MG/DL (7-18); BUN/CREATININE RATIO 33.7 (5.4-32.0); CALCIUM 8.2 MG/DL (8.5-10.1); CHLORIDE 93 MMOL/L (99-107); CREATININE 1.72 MG/DL (0.60-1.10); GLUCOSE 111 MG/DL (70-104); MAGNESIUM 1.9 MG/DL (1.5-2.4); PHOSPHORUS 4.3 MG/DL (2.3-4.5); POTASSIUM 4.3 MMOL/L (3.5-5.1); SODIUM 130 MMOL/L (135-145); TOTAL CARBON DIOXIDE 28.7 MMOL/L (24-32); TOTAL PROTEIN 6.4 G/DL (6.4-8.2); eGFR 38 ML/MIN
--- NOTE | 2021-08-28 06:32 | NUR ---
Problems reprioritized. Patient report given, questions answered & plan of care reviewed with Laura NGUYỄN.
[2021-08-28 07:04] VITALS: BP 117/77
[2021-08-28] MEDS: dexamethasone 1mg tablet PO SCH ×2 (07:46→20:00)
[2021-08-28] MEDS: docusate sod 100mg capsule PO SCH ×2 (07:46→19:24)
[2021-08-28] MEDS: pantoprazole 40mg Tablet.DR PO SCH (07:46)
[2021-08-28] MEDS: duloxetine 30mg CAPSULE.DR PO SCH (07:46)
[2021-08-28] MEDS: cholecalciferol (vitamin D3) 1,000 unit (25mcg) tablet PO SCH (07:46)
[2021-08-28] MEDS: aspirin 81mg, enteric-coated 1 TAB TABLET.DR PO SCH (07:46)
[2021-08-28] MEDS: carVEDilol 3.125mg tablet PO SCH ×2 (07:48→19:24)
[2021-08-28] MEDS: furosemide 40mg tablet PO SCH ×2 (07:48→19:24)
[2021-08-28] MEDS: spironolactone 25 MG tablet PO SCH (07:49)
[2021-08-28] MEDS: insulin Lispro (HumaLOG) vial - multi-dose SQ SCH ×3 (09:02→19:14)
[2021-08-28 11:15] VITALS: BP_SYST 93; BP_SYST 95; BP_DIAS 57
[2021-08-28] MEDS ORDERED: normal saline 500ml IV soln 500 ML IV ONE (11:40)
[2021-08-28 13:38] LABS: ANISOCYTOSIS 2+; PLATELET ESTIMATE NORMAL; TOTAL CELLS COUNTED 100
[2021-08-28 13:39] LABS: ACANTHOCYTES FEW; ELLIPTOCYTES 1+
[2021-08-28 13:40] LABS: SMUDGE CELLS FEW
--- NOTE | 2021-08-28 14:56 | NUR ---
WOUND INFECTION EDUCATION PROVIDED BY WOUND CARE 1. Patient instructed to call their primary doctor, or go the ED immediately if any of the following symptoms occur: * Increased pain in wound * Increase in drainage from the wound * Redness in the skin surrounding the wound * Warmth in the skin surrounding the wound * Bleeding from the wound * Temperature of 101 or greater 2. If any of these occur while in the hospital tell a nurse immediately. PRESSURE ULCER EDUCATION: DEFINITION: A pressure ulcer is an area of skin that breaks down when you stay in one position too long. The constant pressure against the skin reduces the blood flow to that area and the affected tissue dies. CAUSES: "Being bedridden or in a wheelchair "Fragile skin "Having a chronic condition, such as diabetes or vascular disease "Inability to move certain parts of your body without assistance "Older age "Incontinence of urine or stool SYMPTOMS: "A reddened area that DOES NOT turn white when pressed on - this can be the beginning of a pressure ulcer "A blister, deep sore or a crater - these can be advanced pressure ulcers FIRST AID: "Relieve the pressure on this area "Keep the area clean and dry "Call your primary doctor if you see any of the above symptoms "DO NOT massage the area "DO NOT use a donut shaped or ring shaped pillow- these actually interfere with the blood flow and cause complications PREVENTION: "Check for pressure ulcers everyday "Change position at least every two hours to relieve pressure "Use items that help relieve pressure- pillows, sheepskin, foam padding, and powders. "Keep skin clean and dry "Eat healthy well balanced meals "Exercise daily IF YOU SEE ANY OF THESE SYMPTOMS WHILE IN THE HOSPITAL - TELL YOUR NURSE IMMEDIATELY. IF YOU SEE ANY OF THESE SYMPTOMS WHILE AT HOME OR HAVE ANY QUESTIONS OR CONCERNS ABOUT PRESSURE ULCERS - CALL YOUR PRIMARY DOCTOR IMMEDIATELY. Addendum: 08/28/21 at 1457 by Addie Palacio RN Amended: Links added.
--- NOTE | 2021-08-28 17:21 | NUR ---
Problems reprioritized. Patient report given to Stacy questions answered & plan of care reviewed with .
--- NOTE | 2021-08-28 17:21 | NUR ---
pt moved to room on ACCE report given
[2021-08-28] MEDS: NUT.TX.GLUC.INTOLER,LAC-FR,SOY (GLUCERNA) 237 ML PO SCH (17:30)
[2021-08-28 18:00] VITALS: BP 96/60
[2021-08-28] MEDS: rivaroxaban 15mg tablet PO SCH (18:00)
[2021-08-28] MEDS: lisinopril 2.5mg tablet PO SCH (21:00)
[2021-08-28] MEDS: temazepam 15mg capsule PO PRN (21:59)
[2021-08-28] MEDS: atorvastatin 10mg tablet PO SCH (21:59)
[2021-08-28] MEDS: insulin glargine (Lantus) pen - multi-dose SQ SCH (22:05)
[2021-08-29 02:00] VITALS: BP 91/58
[2021-08-29 06:00] VITALS: BP 93/62
[2021-08-29 06:37] LABS: BASOPHILS % (AUTO) 0.1 % (0-1); EOSINOPHILS % (AUTO) 0.5 % (0-6); HEMATOCRIT 33.8 % (42.0-52.0); HEMOGLOBIN 11.4 g/dl (14.0-17.9); LYMPHOCYTES % (AUTO) 13.2 % (21-51); MEAN CORPUSCULAR HEMOGLOBIN 27.6 PG (27.0-31.0); MEAN CORPUSCULAR HGB CONC 33.7 g/dL (33.0-36.5); MEAN CORPUSCULAR VOLUME 82.1 FL (78-98); MONOCYTES # (AUTO) 0.7 X10'3 (0-0.9); MONOCYTES % (AUTO) 9.5 % (2-12); NEUTROPHILS # (AUTO) 5.6 X10'3 (1.8-7.7); NEUTROPHILS % (AUTO) 76.7 % (42-75); PLATELET COUNT 196 X10'3 (140-440); RED BLOOD COUNT 4.12 X10'6 (4.70-6.10); RED CELL DISTRIBUTION WIDTH 18.5 % (11.5-14.5); WHITE BLOOD COUNT 7.3 X10'3 (4.5-11.0)
[2021-08-29] MEDS: NUT.TX.GLUC.INTOLER,LAC-FR,SOY (GLUCERNA) 237 ML PO SCH ×2 (07:30→17:30)
[2021-08-29 07:33] LABS: ALANINE AMINOTRANSFERASE 110 U/L (12-78); ALBUMIN 2.6 G/DL (3.4-5.0); ALBUMIN/GLOBULIN RATIO 0.7 (1.1-1.5); ANION GAP 8 (8-16); ASPARTATE AMINO TRANSFERASE 63 U/L (10-37); BILIRUBIN,TOTAL 0.9 MG/DL (0.1-1.0); BLOOD UREA NITROGEN 57 MG/DL (7-18); CALCIUM 8.1 MG/DL (8.5-10.1); CHLORIDE 94 MMOL/L (99-107); CREATININE 1.46 MG/DL (0.60-1.10); GLUCOSE 107 MG/DL (70-104); MAGNESIUM 1.8 MG/DL (1.5-2.4); PHOSPHORUS 3.8 MG/DL (2.3-4.5); POTASSIUM 4.3 MMOL/L (3.5-5.1); SODIUM 131 MMOL/L (135-145); TOTAL CARBON DIOXIDE 29.4 MMOL/L (24-32); TOTAL PROTEIN 6.5 G/DL (6.4-8.2); eGFR 46 ML/MIN
[2021-08-29 10:00] VITALS: BP 90/48
[2021-08-29] MEDS: pantoprazole 40mg Tablet.DR PO SCH (10:06)
[2021-08-29] MEDS: duloxetine 30mg CAPSULE.DR PO SCH (10:06)
[2021-08-29] MEDS: aspirin 81mg, enteric-coated 1 TAB TABLET.DR PO SCH (10:06)
[2021-08-29] MEDS: cholecalciferol (vitamin D3) 1,000 unit (25mcg) tablet PO SCH (10:07)
[2021-08-29] MEDS: furosemide 40mg tablet PO SCH ×2 (10:07→19:36)
[2021-08-29] MEDS: docusate sod 100mg capsule PO SCH ×2 (10:11→19:31)
[2021-08-29] MEDS: spironolactone 25 MG tablet PO SCH (10:11)
[2021-08-29] MEDS: carVEDilol 3.125mg tablet PO SCH ×2 (10:11→19:35)
[2021-08-29] MEDS: dexamethasone 1mg tablet PO SCH ×2 (10:12→19:31)
--- NOTE | 2021-08-29 12:02 | NUR ---
Reassessment: pt has been changed to carb controlled diet 08/26, and pt continues w/ mostly 100% intake of meals meeting needs at this time. Noted Glucerna BID was ordered 08/28 though it is not indicated at this time as pt is meeting nutrient needs w/ meals alone. Recommend d/c ONS. LBM 08/27 receiving routine colace. Will continue to monitor Recs: 1. Continue Carb controlled diet as tolerated 2. Discontinue ONS; not indicated at this time 3. Bowel care per rx 4. Scaled wts Addendum: 08/29/21 at [address] Amended: Links added.
[2021-08-29 14:35] LABS: ANISOCYTOSIS 2+; PLATELET ESTIMATE NORMAL; TOTAL CELLS COUNTED 100
[2021-08-29 14:36] LABS: ELLIPTOCYTES FEW
[2021-08-29 14:37] LABS: TEAR DROP CELLS FEW
[2021-08-29 15:00] VITALS: BP 87/48
[2021-08-29] MEDS ORDERED: normal saline 500ml IV soln 500 ML IV ONE (16:45)
[2021-08-29 18:00] VITALS: BP 90/52
[2021-08-29] MEDS: normal saline 1000ml 1,000 ML IV SCH (19:34)
[2021-08-29] MEDS: rivaroxaban 15mg tablet PO SCH (19:35)
[2021-08-29] MEDS: insulin Lispro (HumaLOG) vial - multi-dose SQ SCH (19:44)
[2021-08-29] MEDS: lisinopril 2.5mg tablet PO SCH (21:00)
[2021-08-29] MEDS: atorvastatin 10mg tablet PO SCH (21:49)
[2021-08-29] MEDS: insulin glargine (Lantus) pen - multi-dose SQ SCH (21:50)
[2021-08-29 22:00] VITALS: BP 94/59
[2021-08-30 02:00] VITALS: BP 98/66
[2021-08-30 06:00] VITALS: BP 90/58
[2021-08-30 07:27] LABS: BASOPHILS % (AUTO) 0.1 % (0-1); EOSINOPHILS % (AUTO) 0.1 % (0-6); HEMATOCRIT 30.1 % (42.0-52.0); LYMPHOCYTES # (AUTO) 0.8 X10'3 (1.1-4.8); LYMPHOCYTES % (AUTO) 8.6 % (21-51); MEAN CORPUSCULAR HEMOGLOBIN 27.3 PG (27.0-31.0); MEAN CORPUSCULAR HGB CONC 33.4 g/dL (33.0-36.5); MEAN CORPUSCULAR VOLUME 81.9 FL (78-98); MEAN PLATELET VOLUME 7.2 FL (7.4-10.4); MONOCYTES # (AUTO) 0.7 X10'3 (0-0.9); MONOCYTES % (AUTO) 8.1 % (2-12); NEUTROPHILS # (AUTO) 7.5 X10'3 (1.8-7.7); NEUTROPHILS % (AUTO) 83.1 % (42-75); PLATELET COUNT 168 X10'3 (140-440); RED BLOOD COUNT 3.68 X10'6 (4.70-6.10); RED CELL DISTRIBUTION WIDTH 18.4 % (11.5-14.5)
[2021-08-30] MEDS: NUT.TX.GLUC.INTOLER,LAC-FR,SOY (GLUCERNA) 237 ML PO SCH ×2 (07:30→18:30)
[2021-08-30 07:45] LABS: ALANINE AMINOTRANSFERASE 107 U/L (12-78); ALBUMIN 2.3 G/DL (3.4-5.0); ALBUMIN/GLOBULIN RATIO 0.6 (1.1-1.5); ANION GAP 6 (8-16); ASPARTATE AMINO TRANSFERASE 64 U/L (10-37); BILIRUBIN,TOTAL 1.1 MG/DL (0.1-1.0); BLOOD UREA NITROGEN 54 MG/DL (7-18); BUN/CREATININE RATIO 41.9 (5.4-32.0); CALCIUM 7.4 MG/DL (8.5-10.1); CHLORIDE 97 MMOL/L (99-107); CREATININE 1.29 MG/DL (0.60-1.10); GLUCOSE 122 MG/DL (70-104); MAGNESIUM 1.8 MG/DL (1.5-2.4); PHOSPHORUS 3.6 MG/DL (2.3-4.5); POTASSIUM 4.2 MMOL/L (3.5-5.1); SODIUM 129 MMOL/L (135-145); TOTAL CARBON DIOXIDE 26.3 MMOL/L (24-32); eGFR 53 ML/MIN
[2021-08-30] MEDS: duloxetine 30mg CAPSULE.DR PO SCH (08:00)
[2021-08-30] MEDS: docusate sod 100mg capsule PO SCH ×2 (08:00→20:11)
[2021-08-30 08:11] LABS: ALKALINE PHOSPHATASE 317 IU/L (46-116)
[2021-08-30] MEDS: dexamethasone 1mg tablet PO SCH ×2 (09:57→20:12)
[2021-08-30] MEDS: aspirin 81mg, enteric-coated 1 TAB TABLET.DR PO SCH (09:58)
[2021-08-30] MEDS: acetaminophen 325mg tablet PO PRN (09:59)
[2021-08-30] MEDS: pantoprazole 40mg Tablet.DR PO SCH (09:59)
[2021-08-30] MEDS: cholecalciferol (vitamin D3) 1,000 unit (25mcg) tablet PO SCH (09:59)
[2021-08-30 10:00] VITALS: BP 94/60
[2021-08-30] MEDS: furosemide 40mg tablet PO SCH ×2 (10:00→20:12)
[2021-08-30] MEDS: carVEDilol 3.125mg tablet PO SCH ×2 (10:00→20:11)
[2021-08-30] MEDS: spironolactone 25 MG tablet PO SCH (10:02)
[2021-08-30] MEDS: normal saline 1000ml 1,000 ML IV SCH (13:55)
[2021-08-30 14:00] VITALS: BP 103/66
[2021-08-30] MEDS: insulin Lispro (HumaLOG) vial - multi-dose SQ SCH ×2 (14:06→20:21)
[2021-08-30 18:00] VITALS: BP 102/68
--- NOTE | 2021-08-30 18:29 | NUR ---
Patient in room MED 316. I have received report from DELMA Kaufman and had the opportunity to ask questions and assume patient care.
[2021-08-30] MEDS: rivaroxaban 15mg tablet PO SCH (20:11)
[2021-08-30] MEDS: atorvastatin 10mg tablet PO SCH (20:12)
[2021-08-30] MEDS: lisinopril 2.5mg tablet PO SCH (20:16)
[2021-08-30] MEDS: insulin glargine (Lantus) pen - multi-dose SQ SCH (21:43)
[2021-08-30 22:00] VITALS: BP 102/68
[2021-08-31 02:00] VITALS: BP 102/68
[2021-08-31 06:00] VITALS: BP 98/64
[2021-08-31] MEDS: normal saline 1000ml 1,000 ML IV SCH (06:08)
--- NOTE | 2021-08-31 06:29 | NUR ---
Problems reprioritized. Patient report given, questions answered & plan of care reviewed with DELMA Long.
[2021-08-31] MEDS: NUT.TX.GLUC.INTOLER,LAC-FR,SOY (GLUCERNA) 237 ML PO SCH ×2 (07:30→17:30)
[2021-08-31] MEDS: duloxetine 30mg CAPSULE.DR PO SCH (07:50)
[2021-08-31] MEDS: pantoprazole 40mg Tablet.DR PO SCH (07:51)
[2021-08-31] MEDS: docusate sod 100mg capsule PO SCH ×2 (07:51→19:20)
[2021-08-31] MEDS: dexamethasone 1mg tablet PO SCH ×2 (07:51→19:20)
[2021-08-31] MEDS: cholecalciferol (vitamin D3) 1,000 unit (25mcg) tablet PO SCH (07:51)
[2021-08-31] MEDS: aspirin 81mg, enteric-coated 1 TAB TABLET.DR PO SCH (07:52)
[2021-08-31] MEDS: magnesium hydroxide 30ml (MOM) UD suspension PO PRN (07:52)
[2021-08-31] MEDS: spironolactone 25 MG tablet PO SCH (08:00)
[2021-08-31] MEDS: carVEDilol 3.125mg tablet PO SCH ×2 (08:00→19:20)
[2021-08-31] MEDS: furosemide 40mg tablet PO SCH ×2 (08:00→19:20)
[2021-08-31] MEDS: insulin Lispro (HumaLOG) vial - multi-dose SQ SCH ×2 (09:59→14:24)
[2021-08-31 10:00] VITALS: BP 104/67
[2021-08-31 14:00] VITALS: BP 102/64
[2021-08-31] MEDS ORDERED: DEXTROSE 15 GM of carb/4 tabs (each vial/BOTTLE has 4 tablets) PO PRN ×2 (14:50)
[2021-08-31] MEDS: rivaroxaban 15mg tablet PO SCH (18:00)
[2021-08-31 20:00] VITALS: BP 109/72
[2021-08-31] MEDS: atorvastatin 10mg tablet PO SCH (21:00)
[2021-08-31] MEDS: lisinopril 2.5mg tablet PO SCH (21:00)
[2021-08-31] MEDS: insulin glargine (Lantus) pen - multi-dose SQ SCH (21:00)
[2021-08-31 22:00] VITALS: BP 110/73
[2021-09-01 02:00] VITALS: BP 90/63
[2021-09-01 06:00] VITALS: BP 93/60
[2021-09-01] MEDS: normal saline 1000ml 1,000 ML IV SCH (06:19)
--- NOTE | 2021-09-01 06:44 | NUR ---
report given to oncoming nurse, DELMA Long. Plan of care, questions and concerns answered.
[2021-09-01] MEDS: NUT.TX.GLUC.INTOLER,LAC-FR,SOY (GLUCERNA) 237 ML PO SCH ×2 (07:30→18:06)
[2021-09-01] MEDS: furosemide 40mg tablet PO SCH ×2 (08:00→20:00)
[2021-09-01] MEDS: carVEDilol 3.125mg tablet PO SCH ×2 (08:00→20:39)
[2021-09-01] MEDS: spironolactone 25 MG tablet PO SCH (08:00)
[2021-09-01] MEDS: dexamethasone 1mg tablet PO SCH ×2 (09:21→20:34)
[2021-09-01] MEDS: aspirin 81mg, enteric-coated 1 TAB TABLET.DR PO SCH (09:21)
[2021-09-01] MEDS: cholecalciferol (vitamin D3) 1,000 unit (25mcg) tablet PO SCH (09:21)
[2021-09-01] MEDS: pantoprazole 40mg Tablet.DR PO SCH (09:21)
[2021-09-01] MEDS: docusate sod 100mg capsule PO SCH ×2 (09:24→20:34)
[2021-09-01] MEDS: duloxetine 30mg CAPSULE.DR PO SCH (09:24)
[2021-09-01] MEDS: insulin Lispro (HumaLOG) vial - multi-dose SQ SCH ×2 (09:32→15:40)
[2021-09-01 10:00] VITALS: BP 93/56
[2021-09-01 15:00] VITALS: BP 96/62
[2021-09-01] MEDS: HYDROcodone/acetaminophen 5mg/325mg tablet PO PRN (15:36)
[2021-09-01] MEDS: rivaroxaban 15mg tablet PO SCH (18:15)
[2021-09-01] MEDS: lisinopril 2.5mg tablet PO SCH (20:38)
[2021-09-01] MEDS: atorvastatin 10mg tablet PO SCH (20:39)
[2021-09-02] MEDS: insulin glargine (Lantus) pen - multi-dose SQ SCH ×2 (00:03→22:03)
--- NOTE | 2021-09-02 06:30 | NUR ---
Report given to Lucy, updates about the patients condition.
[2021-09-02 07:00] VITALS: BP 99/66
[2021-09-02] MEDS: NUT.TX.GLUC.INTOLER,LAC-FR,SOY (GLUCERNA) 237 ML PO SCH ×2 (07:30→17:45)
[2021-09-02] MEDS: normal saline 1000ml 1,000 ML IV SCH (08:00)
[2021-09-02] MEDS: carVEDilol 3.125mg tablet PO SCH ×2 (08:00→21:09)
[2021-09-02] MEDS: aspirin 81mg, enteric-coated 1 TAB TABLET.DR PO SCH (08:50)
[2021-09-02] MEDS: docusate sod 100mg capsule PO SCH ×2 (08:50→21:03)
[2021-09-02] MEDS: pantoprazole 40mg Tablet.DR PO SCH (08:50)
[2021-09-02] MEDS: dexamethasone 1mg tablet PO SCH ×2 (08:50→21:08)
[2021-09-02] MEDS: furosemide 40mg tablet PO SCH ×2 (08:50→21:08)
[2021-09-02] MEDS: cholecalciferol (vitamin D3) 1,000 unit (25mcg) tablet PO SCH (08:50)
[2021-09-02 11:00] VITALS: BP 107/69
[2021-09-02] MEDS: duloxetine 30mg CAPSULE.DR PO SCH (15:21)
[2021-09-02] MEDS: spironolactone 25 MG tablet PO SCH (15:22)
[2021-09-02] MEDS: insulin Lispro (HumaLOG) vial - multi-dose SQ SCH (15:27)
--- NOTE | 2021-09-02 17:00 | NUR ---
Report given to DELMA Donnelly on Med/Surg Unit. All questions answered. Pt transferred via bed. Chart and insulin medications accompanied pt.
[2021-09-02] MEDS: rivaroxaban 15mg tablet PO SCH (17:24)
--- NOTE | 2021-09-02 18:22 | NUR ---
Gave report to Lela NGUYỄN.
--- NOTE | 2021-09-02 18:34 | NUR ---
Patient in room [facility] 344B. I have received report from Cony NGUYỄN and had the opportunity to ask questions and assume patient care.
[2021-09-02 20:00] VITALS: BP 103/69
[2021-09-02] MEDS: temazepam 15mg capsule PO PRN (21:03)
[2021-09-02] MEDS: atorvastatin 10mg tablet PO SCH (21:08)
[2021-09-02] MEDS: lisinopril 2.5mg tablet PO SCH (21:08)
[2021-09-02] MEDS: HYDROcodone/acetaminophen 5mg/325mg tablet PO PRN (21:09)
[2021-09-03] VITALS (11 sets, daily range): BP systolic 68–129; BP diastolic 30–94
[2021-09-03 03:43] LABS: BASOPHILS % (AUTO) 0.1 % (0-1); EOSINOPHILS % (AUTO) 0 % (0-6); HEMATOCRIT 31.9 % (42.0-52.0); HEMOGLOBIN 10.6 g/dl (14.0-17.9); LYMPHOCYTES # (AUTO) 0.5 X10'3 (1.1-4.8); MEAN CORPUSCULAR HEMOGLOBIN 27.5 PG (27.0-31.0); MEAN CORPUSCULAR HGB CONC 33.3 g/dL (33.0-36.5); MEAN CORPUSCULAR VOLUME 82.6 FL (78-98); MEAN PLATELET VOLUME 7.7 FL (7.4-10.4); MONOCYTES # (AUTO) 0.8 X10'3 (0-0.9); MONOCYTES % (AUTO) 4.5 % (2-12); NEUTROPHILS # (AUTO) 15.9 X10'3 (1.8-7.7); NEUTROPHILS % (AUTO) 92.4 % (42-75); PLATELET COUNT 114 X10'3 (140-440); RED BLOOD COUNT 3.86 X10'6 (4.70-6.10); RED CELL DISTRIBUTION WIDTH 18.5 % (11.5-14.5); WHITE BLOOD COUNT 17.2 X10'3 (4.5-11.0)
[2021-09-03 04:11] LABS: ALANINE AMINOTRANSFERASE 109 U/L (12-78); ALBUMIN 2.4 G/DL (3.4-5.0); ALBUMIN/GLOBULIN RATIO 0.6 (1.1-1.5); ALKALINE PHOSPHATASE 392 IU/L (46-116); ANION GAP 13 (8-16); ASPARTATE AMINO TRANSFERASE 58 U/L (10-37); BILIRUBIN,TOTAL 0.9 MG/DL (0.1-1.0); BLOOD UREA NITROGEN 48 MG/DL (7-18); BUN/CREATININE RATIO 34.5 (5.4-32.0); CALCIUM 7.8 MG/DL (8.5-10.1); CHLORIDE 94 MMOL/L (99-107); CREATININE 1.39 MG/DL (0.60-1.10); GLUCOSE 138 MG/DL (70-104); SODIUM 129 MMOL/L (135-145); TOTAL CARBON DIOXIDE 21.8 MMOL/L (24-32); TOTAL PROTEIN 6.2 G/DL (6.4-8.2); eGFR 49 ML/MIN
[2021-09-03] MEDS ORDERED: CefTRIAXone/D5W-Rocephin 1gm 50 ML IV ONE (04:45)
[2021-09-03] MEDS ORDERED: normal saline 500ml IV soln 500 ML IV ONE (04:45)
--- NOTE | 2021-09-03 04:46 | NUR ---
DR MOSELEY HERE TO EVALUATE PT: BP 72/43 AUTOMATIC CUFF, 68/30 MANUAL. HR 83, TEMP 96.3 AXILLARY, OXYGEN [id number]% RA. RR 20. PT WITH INCREASED LETHARGY, COOL AND DIAPHORETIC. PT ABLE TO VERBALIZE NAME, UNABLE TO STATE LOCATION. SEE CHART FOR ORDERS.
[2021-09-03] MEDS ORDERED: CefTRIAXone inj 1,000 MG in dextrose 5%-water 100 ML IV ONE (04:55)
--- NOTE | 2021-09-03 06:47 | NUR ---
Patient in room [facility] 344. I have received report from DELMA Vogel and had the opportunity to ask questions and assume patient care.
--- NOTE | 2021-09-03 06:54 | NUR ---
Problems reprioritized. Patient report given, questions answered & plan of care reviewed with Berny NGUYỄN.
--- NOTE | 2021-09-03 07:23 | NUR ---
Message: [id number]- Michael Salmon- BP had low BP, Had bolus of 250ml NS now 96.5 ax, 80, 16, 98 RA and 79/49. Pt. a&o no complaints. Orders for UA ok to straight cath for sample? - Berny [id number]
[2021-09-03] MEDS: furosemide 40mg tablet PO SCH (07:24)
[2021-09-03] MEDS: spironolactone 25 MG tablet PO SCH (07:24)
[2021-09-03] MEDS: carVEDilol 3.125mg tablet PO SCH (07:24)
[2021-09-03] MEDS: NUT.TX.GLUC.INTOLER,LAC-FR,SOY (GLUCERNA) 237 ML PO SCH ×2 (07:30→17:30)
[2021-09-03] MEDS: cholecalciferol (vitamin D3) 1,000 unit (25mcg) tablet PO SCH (07:35)
[2021-09-03] MEDS: aspirin 81mg, enteric-coated 1 TAB TABLET.DR PO SCH (07:35)
[2021-09-03] MEDS: dexamethasone 1mg tablet PO SCH ×2 (07:35→20:06)
[2021-09-03] MEDS: pantoprazole 40mg Tablet.DR PO SCH (07:35)
[2021-09-03] MEDS: docusate sod 100mg capsule PO SCH ×2 (07:35→20:06)
[2021-09-03] MEDS: duloxetine 30mg CAPSULE.DR PO SCH (07:35)
--- NOTE | 2021-09-03 09:05 | NUR ---
Message: [id number]- Dheeraj Salmon- pt BP now 68/43 HR 76. He had one time bolus of NS 250ml this morning.- Berny [id number] Transaction number: [id number]
[2021-09-03] MEDS ORDERED: normal saline 1000ml 1,000 ML IVB ONE (09:10)
[2021-09-03] MEDS: insulin Lispro (HumaLOG) vial - multi-dose SQ SCH ×3 (09:17→18:36)
[2021-09-03] MEDS: normal saline 1000ml 1,000 ML IV SCH ×2 (10:03→22:30)
[2021-09-03 10:09] LABS: ANISOCYTOSIS 2+; PLATELET ESTIMATE DECREASED; TOTAL CELLS COUNTED 100
[2021-09-03 14:50] LABS: CLARITY,URINE CLEAR (Clear); COLOR,URINE YELLOW (Yellow); GLUCOSE, URINE NEGATIVE (Neg); KETONES,URINE NEGATIVE (Neg); LEUKOCYTE ESTERASE ,URINE NEGATIVE (Neg); NITRITES, URINE NEGATIVE (Neg); OCCULT BLOOD,URINE TRACE-INTACT (Neg); PROTEIN,URINE NEGATIVE (Neg); UROBILINOGEN,URINE 0.2 E.U/dL (0.2-1.0)
--- NOTE | 2021-09-03 14:59 | NUR ---
Message: [id number]- Luis Antonio, G- pt has not voided since 1250ml bolus and no urge. Bladder scan showed 300ml. Inserted toth catheter as straight cath was not available for a UA. Do you want me to keep toth catheter or remove?- Berny [id number]
[2021-09-03 15:44] LABS: UA COLLECTION TYPE FOLEY CATH
[2021-09-03 15:45] LABS: BACTERIA,URINE NONE SEEN /HPF (Neg); MUCUS STRANDS FEW /LPF (Neg); RBC,URINE 0-2 /HPF (0-2); SQUAMOUS EPITHELIAL CELL,UR NONE SEEN /LPF (FEW); WBC,URINE 0-4 /HPF (0-4)
[2021-09-03 15:46] LABS: RENAL CELLS, URINE FEW /HPF; TRANSITIONAL EPI CELLS,URINE FEW /HPF
[2021-09-03] MEDS: rivaroxaban 15mg tablet PO SCH (17:49)
--- NOTE | 2021-09-03 18:05 | NUR ---
Problems reprioritized. Patient report given, questions answered & plan of care reviewed with DELMA Vogel.
--- NOTE | 2021-09-03 18:18 | NUR ---
Patient in room [facility] 344 A. I have received report from CARLEY NGUYỄN and had the opportunity to ask questions and assume patient care.
--- NOTE | 2021-09-03 18:40 | NUR ---
Message: [phone] A Michael Salmon Pts blood cultures positive for Cocci in pairs & short chains seen in anaerobic bottle From Lela NGUYỄN [phone]
[2021-09-03] MEDS: atorvastatin 10mg tablet PO SCH (20:06)
[2021-09-03] MEDS: insulin glargine (Lantus) pen - multi-dose SQ SCH (21:00)
[2021-09-03] MEDS ORDERED: normal saline 1000ml 1,000 ML IV ONE (22:00)
[2021-09-03] MEDS: piperacillin/tazo 3.375gm/50ml 50 ML IV SCH (23:34)
[2021-09-04 00:12] VITALS: BP 100/60
[2021-09-04 03:51] VITALS: BP 101/61
[2021-09-04 04:13] VITALS: BP 102/64
[2021-09-04 06:12] LABS: BASOPHILS % (AUTO) 0.1 % (0-1); EOSINOPHILS % (AUTO) 0 % (0-6); HEMATOCRIT 27.1 % (42.0-52.0); HEMOGLOBIN 9.1 g/dl (14.0-17.9); LYMPHOCYTES # (AUTO) 0.6 X10'3 (1.1-4.8); LYMPHOCYTES % (AUTO) 5.3 % (21-51); MEAN CORPUSCULAR HEMOGLOBIN 27.8 PG (27.0-31.0); MEAN CORPUSCULAR HGB CONC 33.5 g/dL (33.0-36.5); MEAN PLATELET VOLUME 7.7 FL (7.4-10.4); MONOCYTES # (AUTO) 0.6 X10'3 (0-0.9); MONOCYTES % (AUTO) 5.5 % (2-12); NEUTROPHILS # (AUTO) 9.4 X10'3 (1.8-7.7); NEUTROPHILS % (AUTO) 89.1 % (42-75); PLATELET COUNT 94 X10'3 (140-440); RED BLOOD COUNT 3.26 X10'6 (4.70-6.10); RED CELL DISTRIBUTION WIDTH 18.7 % (11.5-14.5); WHITE BLOOD COUNT 10.5 X10'3 (4.5-11.0)
--- NOTE | 2021-09-04 06:12 | NUR ---
Patient in room [facility] 344. I have received report from DELMA Vogel and had the opportunity to ask questions and assume patient care.
--- NOTE | 2021-09-04 06:20 | NUR ---
Problems reprioritized. Patient report given, questions answered & plan of care reviewed with Berny NGUYỄN.
[2021-09-04 06:33] LABS: ALANINE AMINOTRANSFERASE 86 U/L (12-78); ALBUMIN/GLOBULIN RATIO 0.6 (1.1-1.5); ALKALINE PHOSPHATASE 298 IU/L (46-116); ANION GAP 12 (8-16); ASPARTATE AMINO TRANSFERASE 40 U/L (10-37); BILIRUBIN,TOTAL 0.7 MG/DL (0.1-1.0); BLOOD UREA NITROGEN 42 MG/DL (7-18); BUN/CREATININE RATIO 33.3 (5.4-32.0); CALCIUM 7.2 MG/DL (8.5-10.1); CHLORIDE 100 MMOL/L (99-107); CREATININE 1.26 MG/DL (0.60-1.10); GLUCOSE 99 MG/DL (70-104); MAGNESIUM 1.8 MG/DL (1.5-2.4); PHOSPHORUS 3.1 MG/DL (2.3-4.5); POTASSIUM 4.3 MMOL/L (3.5-5.1); SODIUM 134 MMOL/L (135-145); TOTAL CARBON DIOXIDE 22.5 MMOL/L (24-32); TOTAL PROTEIN 5.5 G/DL (6.4-8.2); eGFR 55 ML/MIN
[2021-09-04] MEDS: cholecalciferol (vitamin D3) 1,000 unit (25mcg) tablet PO SCH (07:15)
[2021-09-04] MEDS: dexamethasone 1mg tablet PO SCH ×2 (07:15→20:14)
[2021-09-04] MEDS: aspirin 81mg, enteric-coated 1 TAB TABLET.DR PO SCH (07:15)
[2021-09-04] MEDS: duloxetine 30mg CAPSULE.DR PO SCH (07:15)
[2021-09-04] MEDS: piperacillin/tazo 3.375gm/50ml 50 ML IV SCH ×3 (07:15→23:44)
[2021-09-04] MEDS: pantoprazole 40mg Tablet.DR PO SCH (07:16)
[2021-09-04] MEDS: docusate sod 100mg capsule PO SCH ×2 (07:16→20:14)
[2021-09-04 07:39] VITALS: BP 98/67
[2021-09-04] MEDS: NUT.TX.GLUC.INTOLER,LAC-FR,SOY (GLUCERNA) 237 ML PO SCH ×2 (07:50→09:03)
[2021-09-04] MEDS ORDERED: CefTRIAXone/D5W-Rocephin 1gm 50 ML IV SCH (08:00)
[2021-09-04] MEDS ORDERED: CefTRIAXone inj 1,000 MG in dextrose 5%-water 100 ML IV SCH (08:00)
[2021-09-04] MEDS: insulin Lispro (HumaLOG) vial - multi-dose SQ SCH ×3 (09:30→18:50)
--- NOTE | 2021-09-04 10:39 | NUR ---
Reassessment: Pt continues on CHO controlled diet and eating well, documented with mostly 75-100% PO intake meeting estimated nutrient needs. Per EMR pt to be receiving Glucerna BID though pt not receiving. D/w dietary to send ONS per rx, though ONS may not be warranted in view of good PO intake of meals. LBM 09/04. No nutrition intervention implemented at this time. Will continue to follow. Recommendations: 1. Continue CHO controlled diet; consider liberalizing to regular diet in view of geriatric age and BG range 95-97 mg/dL today 2. Discontinue Glucerna BID; not indicated at this time; can send additional protein with meals for satiety 3. Bowel care per rx 4. Weekly scaled weights Addendum: 09/04/21 at [address] Amended: Links added.
[2021-09-04] MEDS: normal saline 1000ml 1,000 ML IV SCH (11:50)
[2021-09-04 11:54] VITALS: BP 102/69
--- NOTE | 2021-09-04 13:30 | NUR ---
Message: [id number]- Vivek Salmon HS RN patient told her "he was tired and wished his family would just let him go." Patient son is at bedside. Do you want to speak to him about code status?- Berny [id number]
--- NOTE | 2021-09-04 14:12 | NUR ---
Dr. Purcell in to see patient. Son, YUE Packer and DELMA Spencer at bedside as well.
--- NOTE | 2021-09-04 14:20 | NUR ---
At bedside with Pt, Pt's son, YUE Packer, and Dr Purcell to discuss pts' code status and POC. pt had expressed to nursing that "I just want to go to [facility]" Options for DNR, Comfort care and Hospice were presented. Pt's son became defensive when asked about pt's resources for potential hospice care at home that pt desired. He stated "I won't argue with you but the house is going in my name." he had been asked by YUE if that was currently the case. The son became agitated and was attempting to call his mother, Pt's ex-. She was placed on speaker phone and filled in on the conversation. After discussion she agreed DNR status would be appropriate but needed time to discuss with the family on any further action. They were encouraged to do so with no particular time limit. She later called back and spoke with Aris NGUYỄN, pt's RN indicating that she wanted antibiotics to continue. Reassured that they would. She also stated that her and her son felt bullied and backed into a corner despite all effort being made by staff to respect pt's and family wishes. They continue to deny ability to take pt home despite pt's resources.
[2021-09-04] MEDS: rivaroxaban 15mg tablet PO SCH (17:51)
--- NOTE | 2021-09-04 18:17 | NUR ---
Problems reprioritized. Patient report given, questions answered & plan of care reviewed with Kaushal Vogel.
[2021-09-04 20:00] VITALS: BP 95/56
[2021-09-04] MEDS: atorvastatin 10mg tablet PO SCH (20:13)
[2021-09-04] MEDS: insulin glargine (Lantus) pen - multi-dose SQ SCH (21:35)
[2021-09-04] MEDS: temazepam 15mg capsule PO PRN (22:07)
[2021-09-05] VITALS: BP 104/71
[2021-09-05] MEDS: normal saline 1000ml 1,000 ML IV SCH ×2 (01:27→14:35)
[2021-09-05 06:03] LABS: BASOPHILS % (AUTO) 0.1 % (0-1); EOSINOPHILS % (AUTO) 0.2 % (0-6); HEMATOCRIT 27.9 % (42.0-52.0); HEMOGLOBIN 9.3 g/dl (14.0-17.9); LYMPHOCYTES # (AUTO) 0.7 X10'3 (1.1-4.8); LYMPHOCYTES % (AUTO) 8.9 % (21-51); MEAN CORPUSCULAR HEMOGLOBIN 27.5 PG (27.0-31.0); MEAN CORPUSCULAR HGB CONC 33.5 g/dL (33.0-36.5); MEAN PLATELET VOLUME 8.1 FL (7.4-10.4); MONOCYTES # (AUTO) 0.5 X10'3 (0-0.9); MONOCYTES % (AUTO) 6.2 % (2-12); NEUTROPHILS # (AUTO) 6.8 X10'3 (1.8-7.7); NEUTROPHILS % (AUTO) 84.6 % (42-75); PLATELET COUNT 98 X10'3 (140-440)
--- NOTE | 2021-09-05 06:14 | NUR ---
Problems reprioritized. Patient report given, questions answered & plan of care reviewed with Berny NGUYỄN.
--- NOTE | 2021-09-05 06:26 | NUR ---
Patient in room [facility] 344B. I have received report from Berny NGUYỄN & Lela RN and had the opportunity to ask questions and assume patient care.
--- NOTE | 2021-09-05 06:29 | NUR ---
Patient in room [facility] 344. I have received report from Kaushal Vogel and had the opportunity to ask questions and assume patient care.
[2021-09-05 06:31] LABS: ALANINE AMINOTRANSFERASE 101 U/L (12-78); ALBUMIN/GLOBULIN RATIO 0.5 (1.1-1.5); ANION GAP 12 (8-16); ASPARTATE AMINO TRANSFERASE 60 U/L (10-37); BILIRUBIN,TOTAL 0.5 MG/DL (0.1-1.0); BLOOD UREA NITROGEN 43 MG/DL (7-18); BUN/CREATININE RATIO 39.4 (5.4-32.0); CALCIUM 7.5 MG/DL (8.5-10.1); CHLORIDE 101 MMOL/L (99-107); CREATININE 1.09 MG/DL (0.60-1.10); GLUCOSE 98 MG/DL (70-104); MAGNESIUM 1.7 MG/DL (1.5-2.4); PHOSPHORUS 2.8 MG/DL (2.3-4.5); POTASSIUM 4.6 MMOL/L (3.5-5.1); SODIUM 135 MMOL/L (135-145); TOTAL CARBON DIOXIDE 21.7 MMOL/L (24-32); TOTAL PROTEIN 5.8 G/DL (6.4-8.2); eGFR 65 ML/MIN
[2021-09-05] MEDS: NUT.TX.GLUC.INTOLER,LAC-FR,SOY (GLUCERNA) 237 ML PO SCH ×2 (07:30→17:44)
[2021-09-05 08:04] VITALS: BP 137/88
[2021-09-05 08:22] LABS: ANISOCYTOSIS 2+; PLATELET ESTIMATE DECREASED
[2021-09-05 08:23] LABS: BURR CELLS 2+; ELLIPTOCYTES 1+; SCHISTOCYTES FEW
[2021-09-05] MEDS: duloxetine 30mg CAPSULE.DR PO SCH (08:42)
[2021-09-05] MEDS: cholecalciferol (vitamin D3) 1,000 unit (25mcg) tablet PO SCH (08:43)
[2021-09-05] MEDS: aspirin 81mg, enteric-coated 1 TAB TABLET.DR PO SCH (08:44)
[2021-09-05] MEDS: pantoprazole 40mg Tablet.DR PO SCH (08:45)
[2021-09-05] MEDS: dexamethasone 1mg tablet PO SCH ×2 (08:46→19:32)
[2021-09-05] MEDS: docusate sod 100mg capsule PO SCH ×2 (08:47→19:34)
[2021-09-05] MEDS: piperacillin/tazo 3.375gm/50ml 50 ML IV SCH ×3 (08:49→23:43)
--- NOTE | 2021-09-05 08:49 | NUR ---
Problems reprioritized. Patient report given, questions answered & plan of care reviewed with DELMA Riley.
--- NOTE | 2021-09-05 08:51 | NUR ---
Patient in room [facility] 344. I have received report from Berny NGUYỄN and had the opportunity to ask questions and assume patient care.
--- NOTE | 2021-09-05 08:53 | NUR ---
Problems reprioritized. Patient report given, questions answered & plan of care reviewed with DELMA Riley.
[2021-09-05 11:00] VITALS: BP_SYST 104; BP_SYST 115; BP_DIAS 64; BP_DIAS 68
--- NOTE | 2021-09-05 12:10 | NUR ---
Problems reprioritized. Patient report given to student nurse, questions answered & plan of care reviewed with .
[2021-09-05] MEDS: HYDROcodone/acetaminophen 5mg/325mg tablet PO PRN (16:51)
[2021-09-05] MEDS: rivaroxaban 15mg tablet PO SCH (18:05)
--- NOTE | 2021-09-05 18:25 | NUR ---
Patient in room [facility] 344 A. I have received report from Osvaldo NGUYỄN and had the opportunity to ask questions and assume patient care.
[2021-09-05 20:00] VITALS: BP 98/62
[2021-09-05] MEDS: insulin glargine (Lantus) pen - multi-dose SQ SCH (21:00)
[2021-09-05] MEDS: atorvastatin 10mg tablet PO SCH (21:01)
[2021-09-06] VITALS: BP 98/73
[2021-09-06] MEDS: normal saline 1000ml 1,000 ML IV SCH ×2 (04:42→17:07)
--- NOTE | 2021-09-06 06:14 | NUR ---
Patient in room [facility] 344. I have received report from Lela NGUYỄN and had the opportunity to ask questions and assume patient care.
[2021-09-06 06:26] LABS: BASOPHILS % (AUTO) 0.1 % (0-1); EOSINOPHILS % (AUTO) 0.1 % (0-6); HEMATOCRIT 27.8 % (42.0-52.0); HEMOGLOBIN 9.2 g/dl (14.0-17.9); LYMPHOCYTES # (AUTO) 0.7 X10'3 (1.1-4.8); LYMPHOCYTES % (AUTO) 6.5 % (21-51); MEAN CORPUSCULAR HEMOGLOBIN 27.9 PG (27.0-31.0); MEAN CORPUSCULAR HGB CONC 33.3 g/dL (33.0-36.5); MEAN CORPUSCULAR VOLUME 83.9 FL (78-98); MEAN PLATELET VOLUME 7.8 FL (7.4-10.4); MONOCYTES # (AUTO) 0.4 X10'3 (0-0.9); MONOCYTES % (AUTO) 3.8 % (2-12); NEUTROPHILS # (AUTO) 9.7 X10'3 (1.8-7.7); NEUTROPHILS % (AUTO) 89.5 % (42-75); PLATELET COUNT 97 X10'3 (140-440); RED BLOOD COUNT 3.31 X10'6 (4.70-6.10); RED CELL DISTRIBUTION WIDTH 18.9 % (11.5-14.5); WHITE BLOOD COUNT 10.8 X10'3 (4.5-11.0)
--- NOTE | 2021-09-06 06:31 | NUR ---
Problems reprioritized. Patient report given, questions answered & plan of care reviewed with Osvaldo NGUYỄN.
[2021-09-06 06:46] LABS: ALANINE AMINOTRANSFERASE 107 U/L (12-78); ALBUMIN/GLOBULIN RATIO 0.5 (1.1-1.5); ALKALINE PHOSPHATASE 403 IU/L (46-116); ANION GAP 13 (8-16); ASPARTATE AMINO TRANSFERASE 57 U/L (10-37); BILIRUBIN,TOTAL 0.7 MG/DL (0.1-1.0); BLOOD UREA NITROGEN 40 MG/DL (7-18); CALCIUM 7.7 MG/DL (8.5-10.1); CHLORIDE 101 MMOL/L (99-107); CREATININE 1.25 MG/DL (0.60-1.10); GLUCOSE 222 MG/DL (70-104); MAGNESIUM 1.7 MG/DL (1.5-2.4); PHOSPHORUS 3.5 MG/DL (2.3-4.5); POTASSIUM 4.8 MMOL/L (3.5-5.1); SODIUM 135 MMOL/L (135-145); TOTAL CARBON DIOXIDE 21.3 MMOL/L (24-32); TOTAL PROTEIN 5.7 G/DL (6.4-8.2); eGFR 55 ML/MIN
[2021-09-06] MEDS: NUT.TX.GLUC.INTOLER,LAC-FR,SOY (GLUCERNA) 237 ML PO SCH ×2 (07:54→17:39)
[2021-09-06 07:58] VITALS: BP 94/71
[2021-09-06 08:00] VITALS: BP 136/79
[2021-09-06] MEDS: docusate sod 100mg capsule PO SCH ×2 (08:00→19:13)
[2021-09-06] MEDS: duloxetine 30mg CAPSULE.DR PO SCH (08:07)
[2021-09-06] MEDS: aspirin 81mg, enteric-coated 1 TAB TABLET.DR PO SCH (08:07)
[2021-09-06] MEDS: dexamethasone 1mg tablet PO SCH ×2 (08:07→19:13)
[2021-09-06] MEDS: cholecalciferol (vitamin D3) 1,000 unit (25mcg) tablet PO SCH (08:07)
[2021-09-06] MEDS: pantoprazole 40mg Tablet.DR PO SCH (08:07)
[2021-09-06] MEDS: HYDROcodone/acetaminophen 5mg/325mg tablet PO PRN (08:08)
[2021-09-06] MEDS: piperacillin/tazo 3.375gm/50ml 50 ML IV SCH ×3 (08:29→23:58)
[2021-09-06] MEDS: insulin Lispro (HumaLOG) vial - multi-dose SQ SCH ×3 (09:34→18:32)
[2021-09-06 11:00] VITALS: BP 107/75
--- NOTE | 2021-09-06 11:48 | NUR ---
This Charge Nurse was notified by DELMA Riley, that patient had 3 visitors or family at the bedside "having the patient sign all sorts of paperwork". ERWIN Spaulding was notified, and arrived in room within 5 mins of page. Son, Simone, is at the bedside along with "Erasmo" with [employer], and another woman with Erasmo. Chelly and Osvaldo remained at the bedside discussing pt's willingness to sign the packets of paperwork being presented to pt.
--- NOTE | 2021-09-06 15:15 | NUR ---
charting by Dawn JASMINE reviewed by Antonio Tomlinson RN
[2021-09-06] MEDS: rivaroxaban 15mg tablet PO SCH (16:24)
--- NOTE | 2021-09-06 18:10 | NUR ---
Patient in room [facility] 344 A. I have received report from Osvaldo NGUYỄN and had the opportunity to ask questions and assume patient care.
[2021-09-06 20:00] VITALS: BP 105/65
[2021-09-06] MEDS: atorvastatin 10mg tablet PO SCH (20:26)
[2021-09-06] MEDS: insulin glargine (Lantus) pen - multi-dose SQ SCH (21:00)
[2021-09-07] VITALS: BP 119/75
[2021-09-07] MEDS: temazepam 15mg capsule PO PRN ×2 (01:24→22:14)
[2021-09-07 07:00] VITALS: BP 119/82
[2021-09-07] MEDS: NUT.TX.GLUC.INTOLER,LAC-FR,SOY (GLUCERNA) 237 ML PO SCH ×2 (07:30→15:30)
[2021-09-07 07:52] VITALS: BP 119/82
[2021-09-07] MEDS: piperacillin/tazo 3.375gm/50ml 50 ML IV SCH ×2 (08:00→16:41)
[2021-09-07 08:29] LABS: BASOPHILS % (AUTO) 0.2 % (0-1); EOSINOPHILS % (AUTO) 0.4 % (0-6); HEMATOCRIT 28.9 % (42.0-52.0); HEMOGLOBIN 9.6 g/dl (14.0-17.9); LYMPHOCYTES % (AUTO) 10.2 % (21-51); MEAN CORPUSCULAR HEMOGLOBIN 27.8 PG (27.0-31.0); MEAN CORPUSCULAR HGB CONC 33.1 g/dL (33.0-36.5); MEAN CORPUSCULAR VOLUME 84.2 FL (78-98); MEAN PLATELET VOLUME 7.8 FL (7.4-10.4); MONOCYTES # (AUTO) 0.6 X10'3 (0-0.9); MONOCYTES % (AUTO) 5.7 % (2-12); NEUTROPHILS # (AUTO) 8.2 X10'3 (1.8-7.7); NEUTROPHILS % (AUTO) 83.5 % (42-75); PLATELET COUNT 126 X10'3 (140-440); RED BLOOD COUNT 3.43 X10'6 (4.70-6.10); RED CELL DISTRIBUTION WIDTH 19.4 % (11.5-14.5); WHITE BLOOD COUNT 9.8 X10'3 (4.5-11.0)
[2021-09-07] MEDS: aspirin 81mg, enteric-coated 1 TAB TABLET.DR PO SCH (08:47)
[2021-09-07] MEDS: pantoprazole 40mg Tablet.DR PO SCH (08:47)
[2021-09-07] MEDS: dexamethasone 1mg tablet PO SCH ×2 (08:47→19:49)
[2021-09-07 08:48] LABS: ALANINE AMINOTRANSFERASE 84 U/L (12-78); ALBUMIN 2.1 G/DL (3.4-5.0); ALBUMIN/GLOBULIN RATIO 0.6 (1.1-1.5); ALKALINE PHOSPHATASE 336 IU/L (46-116); ANION GAP 12 (8-16); ASPARTATE AMINO TRANSFERASE 35 U/L (10-37); BILIRUBIN,TOTAL 0.6 MG/DL (0.1-1.0); BLOOD UREA NITROGEN 36 MG/DL (7-18); BUN/CREATININE RATIO 31.3 (5.4-32.0); CALCIUM 7.8 MG/DL (8.5-10.1); CHLORIDE 105 MMOL/L (99-107); CREATININE 1.15 MG/DL (0.60-1.10); GLUCOSE 144 MG/DL (70-104); MAGNESIUM 1.8 MG/DL (1.5-2.4); PHOSPHORUS 3.5 MG/DL (2.3-4.5); POTASSIUM 4.7 MMOL/L (3.5-5.1); SODIUM 137 MMOL/L (135-145); TOTAL PROTEIN 5.9 G/DL (6.4-8.2); eGFR 61 ML/MIN
[2021-09-07] MEDS: carVEDilol 3.125mg tablet PO SCH ×2 (08:48→19:51)
[2021-09-07] MEDS: cholecalciferol (vitamin D3) 1,000 unit (25mcg) tablet PO SCH (08:48)
[2021-09-07] MEDS: furosemide 40mg tablet PO SCH ×2 (08:48→19:51)
[2021-09-07] MEDS: duloxetine 30mg CAPSULE.DR PO SCH (08:49)
[2021-09-07] MEDS: docusate sod 100mg capsule PO SCH ×2 (08:51→19:49)
[2021-09-07 09:19] LABS: ANISOCYTOSIS 2+; PLATELET ESTIMATE DECREASED; POLYCHROMASIA 1+
[2021-09-07 09:20] LABS: BURR CELLS 1+; ELLIPTOCYTES FEW; ROULEAUX 1+; SCHISTOCYTES FEW
[2021-09-07 11:00] VITALS: BP 118/82
[2021-09-07] MEDS: insulin Lispro (HumaLOG) vial - multi-dose SQ SCH ×3 (14:37→22:08)
[2021-09-07] MEDS: HYDROcodone/acetaminophen 5mg/325mg tablet PO PRN (14:38)
[2021-09-07 18:00] VITALS: BP 116/83
[2021-09-07] MEDS: normal saline 1000ml 1,000 ML IV SCH ×2 (18:47→19:46)
[2021-09-07] MEDS: rivaroxaban 15mg tablet PO SCH (18:47)
--- NOTE | 2021-09-07 19:18 | NUR ---
Patient in room [facility] 344. I have received report from LM NGUYỄN and had the opportunity to ask questions and assume patient care.
[2021-09-07] MEDS: atorvastatin 10mg tablet PO SCH (22:17)
[2021-09-07] MEDS: lisinopril 2.5mg tablet PO SCH (22:17)
[2021-09-07] MEDS: insulin glargine (Lantus) pen - multi-dose SQ SCH (22:20)
[2021-09-08] VITALS: BP 118/73
[2021-09-08] MEDS: piperacillin/tazo 3.375gm/50ml 50 ML IV SCH ×3 (00:35→15:43)
--- NOTE | 2021-09-08 06:25 | NUR ---
Problems reprioritized. Patient report given, questions answered & plan of care reviewed with SILVIA NGUYỄN.
[2021-09-08] MEDS: normal saline 1000ml 1,000 ML IV SCH ×2 (07:00→19:38)
[2021-09-08] MEDS: NUT.TX.GLUC.INTOLER,LAC-FR,SOY (GLUCERNA) 237 ML PO SCH ×2 (07:30→18:11)
[2021-09-08 07:38] VITALS: BP 104/64
[2021-09-08] MEDS: cholecalciferol (vitamin D3) 1,000 unit (25mcg) tablet PO SCH (07:39)
[2021-09-08] MEDS: furosemide 40mg tablet PO SCH ×2 (07:40→20:58)
[2021-09-08] MEDS: pantoprazole 40mg Tablet.DR PO SCH (07:40)
[2021-09-08] MEDS: dexamethasone 1mg tablet PO SCH ×2 (07:41→20:58)
[2021-09-08] MEDS: duloxetine 30mg CAPSULE.DR PO SCH (07:41)
[2021-09-08] MEDS: carVEDilol 3.125mg tablet PO SCH ×2 (07:41→20:57)
[2021-09-08] MEDS: aspirin 81mg, enteric-coated 1 TAB TABLET.DR PO SCH (07:42)
[2021-09-08] MEDS: docusate sod 100mg capsule PO SCH ×2 (07:43→20:57)
[2021-09-08 09:42] LABS: BASOPHILS % (AUTO) 0.2 % (0-1); EOSINOPHILS % (AUTO) 0.4 % (0-6); HEMATOCRIT 29.6 % (42.0-52.0); HEMOGLOBIN 9.8 g/dl (14.0-17.9); LYMPHOCYTES # (AUTO) 0.8 X10'3 (1.1-4.8); MEAN CORPUSCULAR HEMOGLOBIN 27.9 PG (27.0-31.0); MEAN CORPUSCULAR HGB CONC 33.1 g/dL (33.0-36.5); MEAN CORPUSCULAR VOLUME 84.3 FL (78-98); MEAN PLATELET VOLUME 7.8 FL (7.4-10.4); MONOCYTES # (AUTO) 0.4 X10'3 (0-0.9); MONOCYTES % (AUTO) 4.7 % (2-12); NEUTROPHILS # (AUTO) 7.7 X10'3 (1.8-7.7); NEUTROPHILS % (AUTO) 85.7 % (42-75); PLATELET COUNT 128 X10'3 (140-440); RED BLOOD COUNT 3.51 X10'6 (4.70-6.10); RED CELL DISTRIBUTION WIDTH 19.3 % (11.5-14.5)
[2021-09-08] MEDS: insulin Lispro (HumaLOG) vial - multi-dose SQ SCH ×3 (09:43→18:50)
[2021-09-08 11:00] VITALS: BP 94/57
[2021-09-08 11:24] LABS: BILIRUBIN,TOTAL 0.6 MG/DL (0.1-1.0); BLOOD UREA NITROGEN 37 MG/DL (7-18); BUN/CREATININE RATIO 29.4 (5.4-32.0); CALCIUM 7.7 MG/DL (8.5-10.1); CREATININE 1.26 MG/DL (0.60-1.10); GLUCOSE 132 MG/DL (70-104); MAGNESIUM 1.5 MG/DL (1.5-2.4); PHOSPHORUS 3.8 MG/DL (2.3-4.5); POTASSIUM 4.3 MMOL/L (3.5-5.1); SODIUM 136 MMOL/L (135-145); TOTAL CARBON DIOXIDE 23.7 MMOL/L (24-32); eGFR 55 ML/MIN
[2021-09-08 11:25] LABS: ALANINE AMINOTRANSFERASE 60 U/L (12-78); ALBUMIN 2.1 G/DL (3.4-5.0); ALBUMIN/GLOBULIN RATIO 0.6 (1.1-1.5); ALKALINE PHOSPHATASE 284 IU/L (46-116); ASPARTATE AMINO TRANSFERASE 21 U/L (10-37); TOTAL PROTEIN 5.7 G/DL (6.4-8.2)
[2021-09-08 11:41] LABS: CHLORIDE 102 MMOL/L (99-107)
[2021-09-08 11:43] LABS: ANION GAP 10 (8-16)
[2021-09-08] MEDS: rivaroxaban 15mg tablet PO SCH (17:49)
--- NOTE | 2021-09-08 18:15 | NUR ---
Patient in room [facility] 344. I have received report from Carol NGUYỄN and had the opportunity to ask questions and assume patient care.
[2021-09-08] MEDS: HYDROcodone/acetaminophen 5mg/325mg tablet PO PRN (18:44)
[2021-09-08 19:00] VITALS: BP_SYST 117; BP_SYST 90; BP_DIAS 59; BP_DIAS 68
[2021-09-08] MEDS: lisinopril 2.5mg tablet PO SCH (20:58)
[2021-09-08] MEDS: atorvastatin 10mg tablet PO SCH (20:58)
[2021-09-08] MEDS: insulin glargine (Lantus) pen - multi-dose SQ SCH (21:00)
[2021-09-09] VITALS: BP_SYST 102; BP_SYST 99; BP_DIAS 62; BP_DIAS 70
[2021-09-09] MEDS: piperacillin/tazo 3.375gm/50ml 50 ML IV SCH ×3 (00:33→17:16)
--- NOTE | 2021-09-09 06:23 | NUR ---
Problems reprioritized. Patient report given, questions answered & plan of care reviewed with Shin NGUYỄN.
[2021-09-09 07:00] VITALS: BP 108/73
[2021-09-09] MEDS: furosemide 40mg tablet PO SCH ×2 (08:00→20:21)
[2021-09-09] MEDS: aspirin 81mg, enteric-coated 1 TAB TABLET.DR PO SCH (08:00)
[2021-09-09] MEDS: dexamethasone 1mg tablet PO SCH ×2 (08:00→20:21)
[2021-09-09] MEDS: docusate sod 100mg capsule PO SCH ×2 (08:00→20:21)
[2021-09-09] MEDS: carVEDilol 3.125mg tablet PO SCH ×2 (08:00→20:21)
[2021-09-09] MEDS: cholecalciferol (vitamin D3) 1,000 unit (25mcg) tablet PO SCH (08:01)
[2021-09-09] MEDS: pantoprazole 40mg Tablet.DR PO SCH (08:01)
[2021-09-09] MEDS: duloxetine 30mg CAPSULE.DR PO SCH (08:01)
[2021-09-09] MEDS: normal saline 1000ml 1,000 ML IV SCH ×2 (08:02→20:29)
[2021-09-09] MEDS: NUT.TX.GLUC.INTOLER,LAC-FR,SOY (GLUCERNA) 237 ML PO SCH ×2 (08:03→17:30)
[2021-09-09] MEDS: insulin Lispro (HumaLOG) vial - multi-dose SQ SCH ×3 (09:36→19:20)
[2021-09-09 11:00] VITALS: BP 104/65
[2021-09-09] MEDS: rivaroxaban 15mg tablet PO SCH (17:17)
[2021-09-09] MEDS: HYDROcodone/acetaminophen 5mg/325mg tablet PO PRN (17:17)
--- NOTE | 2021-09-09 18:02 | NUR ---
Problems reprioritized. Patient report given, questions answered & plan of care reviewed with Giuseppe Easley.
[2021-09-09 19:00] VITALS: BP 110/70
[2021-09-09] MEDS: atorvastatin 10mg tablet PO SCH (20:22)
[2021-09-09] MEDS: lisinopril 2.5mg tablet PO SCH (20:22)
[2021-09-09] MEDS: insulin glargine (Lantus) pen - multi-dose SQ SCH (22:05)
[2021-09-10] VITALS: BP 110/76
[2021-09-10] MEDS: piperacillin/tazo 3.375gm/50ml 50 ML IV SCH ×3 (00:32→16:50)
--- NOTE | 2021-09-10 06:30 | NUR ---
Problems reprioritized. Patient report given, questions answered & plan of care reviewed with MIK. Addendum: 09/10/21 at 0630 by Rbo Holman RN Amended: Links added.
[2021-09-10 06:44] LABS: BASOPHILS % (AUTO) 0.1 % (0-1); EOSINOPHILS # (AUTO) 0.1 X10'3 (0-0.9); EOSINOPHILS % (AUTO) 0.6 % (0-6); HEMOGLOBIN 9.5 g/dl (14.0-17.9); LYMPHOCYTES # (AUTO) 1.2 X10'3 (1.1-4.8); LYMPHOCYTES % (AUTO) 12.2 % (21-51); MEAN CORPUSCULAR HGB CONC 34.1 g/dL (33.0-36.5); MEAN CORPUSCULAR VOLUME 82.1 FL (78-98); MEAN PLATELET VOLUME 7.2 FL (7.4-10.4); MONOCYTES # (AUTO) 0.6 X10'3 (0-0.9); MONOCYTES % (AUTO) 6.1 % (2-12); NEUTROPHILS # (AUTO) 8.2 X10'3 (1.8-7.7); PLATELET COUNT 198 X10'3 (140-440); RED BLOOD COUNT 3.41 X10'6 (4.70-6.10); RED CELL DISTRIBUTION WIDTH 19.1 % (11.5-14.5); WHITE BLOOD COUNT 10.1 X10'3 (4.5-11.0)
--- NOTE | 2021-09-10 06:46 | NUR ---
Patient in room [facility] 344. I have received report from CHRISTINE NGUYỄN and had the opportunity to ask questions and assume patient care.
[2021-09-10 07:27] LABS: ANION GAP 10 (8-16); BLOOD UREA NITROGEN 38 MG/DL (7-18); CHLORIDE 97 MMOL/L (99-107); CREATININE 1.24 MG/DL (0.60-1.10); GLUCOSE 80 MG/DL (70-104); POTASSIUM 4.3 MMOL/L (3.5-5.1); SODIUM 134 MMOL/L (135-145); TOTAL CARBON DIOXIDE 27.2 MMOL/L (24-32)
[2021-09-10 07:28] LABS: ALBUMIN 2.1 G/DL (3.4-5.0); BUN/CREATININE RATIO 30.6 (5.4-32.0); CALCIUM 7.7 MG/DL (8.5-10.1); eGFR 56 ML/MIN
[2021-09-10] MEDS: dexamethasone 1mg tablet PO SCH ×2 (07:36→19:29)
[2021-09-10] MEDS: docusate sod 100mg capsule PO SCH ×2 (07:36→19:29)
[2021-09-10] MEDS: aspirin 81mg, enteric-coated 1 TAB TABLET.DR PO SCH (07:36)
[2021-09-10] MEDS: cholecalciferol (vitamin D3) 1,000 unit (25mcg) tablet PO SCH (07:37)
[2021-09-10] MEDS: furosemide 40mg tablet PO SCH ×2 (07:37→19:29)
[2021-09-10] MEDS: duloxetine 30mg CAPSULE.DR PO SCH (07:37)
[2021-09-10] MEDS: carVEDilol 3.125mg tablet PO SCH ×2 (07:37→19:29)
[2021-09-10] MEDS: pantoprazole 40mg Tablet.DR PO SCH (07:37)
[2021-09-10] MEDS: NUT.TX.GLUC.INTOLER,LAC-FR,SOY (GLUCERNA) 237 ML PO SCH ×2 (08:12→17:30)
[2021-09-10] MEDS: insulin Lispro (HumaLOG) vial - multi-dose SQ SCH ×3 (09:08→19:15)
[2021-09-10 10:37] LABS: ANISOCYTOSIS 2+; BURR CELLS FEW; ELLIPTOCYTES FEW; MICROCYTOSIS FEW; PLATELET ESTIMATE NORMAL
[2021-09-10 10:38] LABS: SCHISTOCYTES 1+
[2021-09-10 11:37] VITALS: BP 115/75
[2021-09-10] MEDS: normal saline 1000ml 1,000 ML IV SCH (14:30)
--- NOTE | 2021-09-10 15:17 | NUR ---
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 Pt continues PO mostly ~100% avg carb controlled meals w/ 100% Glucerna BID meeting estimated needs. Now on chopped all diet per EMR likely for ease of PO. Noted Glu 47-131mg/dl since last night per EMR; may benefit from liberalizing to regular diet given age if MD agreeable. LBM 09/08 receiving routine colace. Will monitor for further nutrition intervention needs. Recommendations: 1. Continue CHO controlled/chopped diet per MD; consider liberalizing to regular diet in view of geriatric age and BG range 47-131mg/dL 2. Glucerna ONS BID 3. routine bowel care 4. Weekly scaled weights Addendum: 09/10/21 at [address] Amended: Links added.
--- NOTE | 2021-09-10 18:10 | NUR ---
Problems prioritized. Patient report given, questions answered & plan of care reviewed with CHRISTINE
[2021-09-10 19:00] VITALS: BP 109/67
[2021-09-10] MEDS: rivaroxaban 15mg tablet PO SCH (19:28)
[2021-09-10] MEDS: atorvastatin 10mg tablet PO SCH (21:14)
[2021-09-10] MEDS: lisinopril 2.5mg tablet PO SCH (21:14)
[2021-09-10] MEDS: insulin glargine (Lantus) pen - multi-dose SQ SCH (21:21)
[2021-09-11] VITALS: BP 110/67
[2021-09-11] MEDS: piperacillin/tazo 3.375gm/50ml 50 ML IV SCH ×4 (00:03→23:23)
[2021-09-11] MEDS: normal saline 1000ml 1,000 ML IV SCH ×2 (00:38→17:10)
--- NOTE | 2021-09-11 06:23 | NUR ---
Problems reprioritized. Patient report given, questions answered & plan of care reviewed with MIK. Addendum: 09/11/21 at 0624 by Rob Holman RN Amended: Links added.
--- NOTE | 2021-09-11 06:37 | NUR ---
Patient in room [facility] 344A. I have received report from CHRISTINE NGUYỄN and had the opportunity to ask questions and assume patient care.
[2021-09-11] MEDS: carVEDilol 3.125mg tablet PO SCH ×2 (07:18→20:43)
[2021-09-11] MEDS: docusate sod 100mg capsule PO SCH ×2 (07:18→20:41)
[2021-09-11] MEDS: aspirin 81mg, enteric-coated 1 TAB TABLET.DR PO SCH (07:18)
[2021-09-11] MEDS: cholecalciferol (vitamin D3) 1,000 unit (25mcg) tablet PO SCH (07:18)
[2021-09-11] MEDS: pantoprazole 40mg Tablet.DR PO SCH (07:19)
[2021-09-11] MEDS: duloxetine 30mg CAPSULE.DR PO SCH (07:19)
[2021-09-11] MEDS: dexamethasone 1mg tablet PO SCH ×2 (07:19→20:43)
[2021-09-11] MEDS: furosemide 40mg tablet PO SCH ×2 (07:19→20:43)
[2021-09-11] MEDS: NUT.TX.GLUC.INTOLER,LAC-FR,SOY (GLUCERNA) 237 ML PO SCH ×2 (07:30→17:30)
[2021-09-11 08:34] VITALS: BP 110/77
[2021-09-11] MEDS: insulin Lispro (HumaLOG) vial - multi-dose SQ SCH ×2 (09:01→14:17)
[2021-09-11 11:41] VITALS: BP 111/73
--- NOTE | 2021-09-11 18:22 | NUR ---
Problems reprioritized. Patient report given, questions answered & plan of care reviewed with DELMA ROBLEDO
[2021-09-11 19:00] VITALS: BP 117/74
[2021-09-11] MEDS: rivaroxaban 15mg tablet PO SCH (20:41)
[2021-09-11] MEDS: lisinopril 2.5mg tablet PO SCH (20:42)
[2021-09-11] MEDS: atorvastatin 10mg tablet PO SCH (20:43)
[2021-09-11] MEDS: insulin glargine (Lantus) pen - multi-dose SQ SCH (20:55)
[2021-09-12] VITALS: BP 108/65
[2021-09-12] MEDS: normal saline 1000ml 1,000 ML IV SCH ×2 (01:27→14:24)
--- NOTE | 2021-09-12 06:34 | NUR ---
Patient in room [facility] 344. I have received report from DELMA HOPPER and had the opportunity to ask questions and assume patient care.
[2021-09-12 07:32] VITALS: BP 110/69
[2021-09-12 08:21] LABS: BASOPHILS % (AUTO) 0.4 % (0-1); EOSINOPHILS # (AUTO) 0.1 X10'3 (0-0.9); EOSINOPHILS % (AUTO) 0.6 % (0-6); HEMATOCRIT 30.8 % (42.0-52.0); HEMOGLOBIN 10.2 g/dl (14.0-17.9); LYMPHOCYTES # (AUTO) 1.3 X10'3 (1.1-4.8); LYMPHOCYTES % (AUTO) 12.4 % (21-51); MEAN CORPUSCULAR HEMOGLOBIN 27.7 PG (27.0-31.0); MEAN CORPUSCULAR HGB CONC 33.2 g/dL (33.0-36.5); MEAN CORPUSCULAR VOLUME 83.3 FL (78-98); MONOCYTES # (AUTO) 0.6 X10'3 (0-0.9); MONOCYTES % (AUTO) 5.9 % (2-12); NEUTROPHILS # (AUTO) 8.1 X10'3 (1.8-7.7); NEUTROPHILS % (AUTO) 80.7 % (42-75); PLATELET COUNT 219 X10'3 (140-440); RED CELL DISTRIBUTION WIDTH 19.3 % (11.5-14.5); WHITE BLOOD COUNT 10.1 X10'3 (4.5-11.0)
[2021-09-12 08:41] LABS: ANISOCYTOSIS 2+; GIANT PLATELET FEW; PLATELET ESTIMATE NORMAL
[2021-09-12 08:42] LABS: ELLIPTOCYTES FEW
[2021-09-12 09:15] LABS: ALANINE AMINOTRANSFERASE 38 U/L (12-78); ALBUMIN 2.3 G/DL (3.4-5.0); ALBUMIN/GLOBULIN RATIO 0.6 (1.1-1.5); ALKALINE PHOSPHATASE 204 IU/L (46-116); ANION GAP 8 (8-16); ASPARTATE AMINO TRANSFERASE 24 U/L (10-37); BILIRUBIN,TOTAL 0.6 MG/DL (0.1-1.0); BLOOD UREA NITROGEN 42 MG/DL (7-18); BUN/CREATININE RATIO 31.3 (5.4-32.0); CALCIUM 8.1 MG/DL (8.5-10.1); CHLORIDE 94 MMOL/L (99-107); CREATININE 1.34 MG/DL (0.60-1.10); GLUCOSE 148 MG/DL (70-104); SODIUM 131 MMOL/L (135-145); TOTAL CARBON DIOXIDE 29.3 MMOL/L (24-32); TOTAL PROTEIN 6.1 G/DL (6.4-8.2); eGFR 51 ML/MIN
[2021-09-12] MEDS: docusate sod 100mg capsule PO SCH ×2 (09:57→19:27)
[2021-09-12] MEDS: dexamethasone 1mg tablet PO SCH (09:57)
[2021-09-12] MEDS: aspirin 81mg, enteric-coated 1 TAB TABLET.DR PO SCH (09:57)
[2021-09-12] MEDS: carVEDilol 3.125mg tablet PO SCH ×2 (09:58→19:27)
[2021-09-12] MEDS: cholecalciferol (vitamin D3) 1,000 unit (25mcg) tablet PO SCH (09:58)
[2021-09-12] MEDS: furosemide 40mg tablet PO SCH ×2 (09:58→19:27)
[2021-09-12] MEDS: duloxetine 30mg CAPSULE.DR PO SCH (09:58)
[2021-09-12] MEDS: pantoprazole 40mg Tablet.DR PO SCH (09:58)
[2021-09-12] MEDS: piperacillin/tazo 3.375gm/50ml 50 ML IV SCH ×2 (09:59→15:58)
[2021-09-12] MEDS: NUT.TX.GLUC.INTOLER,LAC-FR,SOY (GLUCERNA) 237 ML PO SCH ×2 (09:59→18:22)
[2021-09-12] MEDS: insulin Lispro (HumaLOG) vial - multi-dose SQ SCH ×3 (10:06→22:00)
[2021-09-12 12:34] VITALS: BP 94/63
--- NOTE | 2021-09-12 13:12 | NUR ---
Patient in room [facility] 344. I have received report from JOSÉ MANUEL, STUDENT NURSE and had the opportunity to ask questions and assume patient care.
--- NOTE | 2021-09-12 18:16 | NUR ---
Problems reprioritized. Patient report given, questions answered & plan of care reviewed with DELMA Cornell.
[2021-09-12] MEDS: rivaroxaban 15mg tablet PO SCH (18:19)
[2021-09-12 19:00] VITALS: BP 146/89
[2021-09-12] MEDS: atorvastatin 10mg tablet PO SCH (20:41)
[2021-09-12] MEDS: lisinopril 2.5mg tablet PO SCH (20:41)
[2021-09-12] MEDS: insulin glargine (Lantus) pen - multi-dose SQ SCH (21:00)
[2021-09-13] VITALS: BP 139/88
--- NOTE | 2021-09-13 06:16 | NUR ---
Patient remains in stable condition, with condom catheter in place draining clear mak urine. Report given to day shift nurse, all questions answered for continuation of care.
[2021-09-13 07:00] VITALS: BP 107/70
[2021-09-13] MEDS: NUT.TX.GLUC.INTOLER,LAC-FR,SOY (GLUCERNA) 237 ML PO SCH ×2 (07:30→17:30)
[2021-09-13] MEDS: normal saline 1000ml 1,000 ML IV SCH ×2 (07:38→22:30)
[2021-09-13] MEDS: aspirin 81mg, enteric-coated 1 TAB TABLET.DR PO SCH (08:00)
[2021-09-13] MEDS: piperacillin/tazo 3.375gm/50ml 50 ML IV SCH ×4 (09:25→23:26)
[2021-09-13] MEDS: duloxetine 30mg CAPSULE.DR PO SCH (09:25)
[2021-09-13] MEDS: cholecalciferol (vitamin D3) 1,000 unit (25mcg) tablet PO SCH (09:26)
[2021-09-13] MEDS: furosemide 40mg tablet PO SCH ×2 (09:26→20:00)
[2021-09-13] MEDS: pantoprazole 40mg Tablet.DR PO SCH (09:27)
[2021-09-13] MEDS: docusate sod 100mg capsule PO SCH ×2 (09:27→20:33)
[2021-09-13] MEDS: carVEDilol 3.125mg tablet PO SCH ×2 (09:27→20:00)
[2021-09-13 11:04] LABS: BASOPHILS % (AUTO) 0.3 % (0-1); EOSINOPHILS # (AUTO) 0.1 X10'3 (0-0.9); EOSINOPHILS % (AUTO) 1.3 % (0-6); HEMATOCRIT 32.7 % (42.0-52.0); HEMOGLOBIN 10.7 g/dl (14.0-17.9); LYMPHOCYTES # (AUTO) 1.3 X10'3 (1.1-4.8); LYMPHOCYTES % (AUTO) 13.3 % (21-51); MEAN CORPUSCULAR HEMOGLOBIN 27.6 PG (27.0-31.0); MEAN CORPUSCULAR HGB CONC 32.9 g/dL (33.0-36.5); MEAN CORPUSCULAR VOLUME 83.9 FL (78-98); MEAN PLATELET VOLUME 6.8 FL (7.4-10.4); MONOCYTES # (AUTO) 0.6 X10'3 (0-0.9); MONOCYTES % (AUTO) 6.3 % (2-12); NEUTROPHILS # (AUTO) 7.9 X10'3 (1.8-7.7); NEUTROPHILS % (AUTO) 78.8 % (42-75); PLATELET COUNT 223 X10'3 (140-440); RED BLOOD COUNT 3.89 X10'6 (4.70-6.10); RED CELL DISTRIBUTION WIDTH 19.1 % (11.5-14.5)
[2021-09-13 11:21] LABS: ALANINE AMINOTRANSFERASE 39 U/L (12-78); ALBUMIN 2.3 G/DL (3.4-5.0); ALBUMIN/GLOBULIN RATIO 0.5 (1.1-1.5); ALKALINE PHOSPHATASE 198 IU/L (46-116); ANION GAP 7 (8-16); ASPARTATE AMINO TRANSFERASE 34 U/L (10-37); BILIRUBIN,TOTAL 0.7 MG/DL (0.1-1.0); BLOOD UREA NITROGEN 46 MG/DL (7-18); BUN/CREATININE RATIO 36.8 (5.4-32.0); CALCIUM 8.2 MG/DL (8.5-10.1); CHLORIDE 95 MMOL/L (99-107); CREATININE 1.25 MG/DL (0.60-1.10); GLUCOSE 102 MG/DL (70-104); POTASSIUM 3.2 MMOL/L (3.5-5.1); SODIUM 132 MMOL/L (135-145); TOTAL CARBON DIOXIDE 30.5 MMOL/L (24-32); TOTAL PROTEIN 6.8 G/DL (6.4-8.2); eGFR 55 ML/MIN
[2021-09-13 12:00] VITALS: BP 102/65
[2021-09-13 12:05] LABS: ANISOCYTOSIS 2+; ELLIPTOCYTES FEW; PLATELET ESTIMATE NORMAL; SCHISTOCYTES FEW
[2021-09-13 12:06] LABS: ACANTHOCYTES FEW
--- NOTE | 2021-09-13 17:27 | NUR ---
Patient refused accucheck at this time
[2021-09-13 18:00] VITALS: BP 90/57
[2021-09-13] MEDS: rivaroxaban 15mg tablet PO SCH (18:00)
[2021-09-13] MEDS: atorvastatin 10mg tablet PO SCH (20:33)
[2021-09-13] MEDS: lisinopril 2.5mg tablet PO SCH (20:43)
[2021-09-13] MEDS: insulin glargine (Lantus) pen - multi-dose SQ SCH (21:00)
[2021-09-14] VITALS: BP 94/59
[2021-09-14] MEDS: temazepam 15mg capsule PO PRN (00:50)
--- NOTE | 2021-09-14 06:31 | NUR ---
Resident remains in stable condition, resting comfortably. Report given to day shift nurse for continuation of care.
[2021-09-14 07:20] VITALS: BP 103/70
[2021-09-14] MEDS: NUT.TX.GLUC.INTOLER,LAC-FR,SOY (GLUCERNA) 237 ML PO SCH ×2 (07:30→17:28)
[2021-09-14] MEDS: carVEDilol 3.125mg tablet PO SCH ×2 (08:00→20:00)
[2021-09-14] MEDS: furosemide 40mg tablet PO SCH ×2 (08:00→20:00)
[2021-09-14] MEDS: duloxetine 30mg CAPSULE.DR PO SCH (08:04)
[2021-09-14] MEDS: docusate sod 100mg capsule PO SCH ×2 (08:04→20:00)
[2021-09-14] MEDS: cholecalciferol (vitamin D3) 1,000 unit (25mcg) tablet PO SCH (08:04)
[2021-09-14] MEDS: pantoprazole 40mg Tablet.DR PO SCH (08:05)
[2021-09-14] MEDS: aspirin 81mg, enteric-coated 1 TAB TABLET.DR PO SCH (08:05)
[2021-09-14] MEDS: piperacillin/tazo 3.375gm/50ml 50 ML IV SCH ×3 (08:08→23:09)
[2021-09-14] MEDS: normal saline 1000ml 1,000 ML IV SCH ×2 (08:08→21:44)
[2021-09-14] MEDS: insulin Lispro (HumaLOG) vial - multi-dose SQ SCH ×2 (10:01→14:15)
[2021-09-14 10:08] VITALS: BP 92/60
[2021-09-14 11:52] VITALS: BP 103/68
[2021-09-14] MEDS: rivaroxaban 15mg tablet PO SCH (15:53)
--- NOTE | 2021-09-14 18:09 | NUR ---
Problems reprioritized. Patient report given, questions answered & plan of care reviewed with DELMA Cornell.
[2021-09-14 20:00] VITALS: BP 92/51
[2021-09-14] MEDS: lisinopril 2.5mg tablet PO SCH (20:23)
[2021-09-14] MEDS: atorvastatin 10mg tablet PO SCH (20:24)
[2021-09-14] MEDS: insulin glargine (Lantus) pen - multi-dose SQ SCH (22:46)
--- NOTE | 2021-09-14 22:46 | NUR ---
A blood sugar of 191 at 2100, resident had not got Insulin for the last 2 days,Dr. Ortez made aware and ordered to administer 5 Units os Insulin Lantus.
[2021-09-15] VITALS: BP 116/41
--- NOTE | 2021-09-15 06:20 | NUR ---
Patient in room [facility] 344. I have received report from DELMA Cornell and had the opportunity to ask questions and assume patient care.
[2021-09-15 06:30] VITALS: BP 97/62
[2021-09-15] MEDS: NUT.TX.GLUC.INTOLER,LAC-FR,SOY (GLUCERNA) 237 ML PO SCH ×2 (08:16→17:31)
[2021-09-15] MEDS: carVEDilol 3.125mg tablet PO SCH ×2 (09:41→19:50)
[2021-09-15] MEDS: furosemide 40mg tablet PO SCH ×2 (09:42→19:50)
[2021-09-15] MEDS: docusate sod 100mg capsule PO SCH ×2 (09:48→19:47)
[2021-09-15] MEDS: pantoprazole 40mg Tablet.DR PO SCH (09:48)
[2021-09-15] MEDS: cholecalciferol (vitamin D3) 1,000 unit (25mcg) tablet PO SCH (09:48)
[2021-09-15] MEDS: aspirin 81mg, enteric-coated 1 TAB TABLET.DR PO SCH (09:49)
[2021-09-15] MEDS: duloxetine 30mg CAPSULE.DR PO SCH (09:49)
[2021-09-15] MEDS: piperacillin/tazo 3.375gm/50ml 50 ML IV SCH ×3 (09:50→23:55)
[2021-09-15] MEDS: insulin Lispro (HumaLOG) vial - multi-dose SQ SCH ×3 (09:54→18:49)
[2021-09-15 09:59] LABS: BASOPHILS % (AUTO) 0.5 % (0-1); EOSINOPHILS # (AUTO) 0.1 X10'3 (0-0.9); EOSINOPHILS % (AUTO) 1.3 % (0-6); HEMATOCRIT 28.3 % (42.0-52.0); HEMOGLOBIN 9.3 g/dl (14.0-17.9); MEAN CORPUSCULAR HEMOGLOBIN 27.6 PG (27.0-31.0); MEAN CORPUSCULAR HGB CONC 33.1 g/dL (33.0-36.5); MEAN CORPUSCULAR VOLUME 83.4 FL (78-98); MEAN PLATELET VOLUME 6.6 FL (7.4-10.4); MONOCYTES # (AUTO) 0.5 X10'3 (0-0.9); MONOCYTES % (AUTO) 7.3 % (2-12); NEUTROPHILS # (AUTO) 5.2 X10'3 (1.8-7.7); NEUTROPHILS % (AUTO) 75.9 % (42-75); PLATELET COUNT 195 X10'3 (140-440); RED BLOOD COUNT 3.39 X10'6 (4.70-6.10); RED CELL DISTRIBUTION WIDTH 19.6 % (11.5-14.5); WHITE BLOOD COUNT 6.8 X10'3 (4.5-11.0)
[2021-09-15 10:07] LABS: ANION GAP 5 (8-16); BLOOD UREA NITROGEN 39 MG/DL (7-18); CALCIUM 8.1 MG/DL (8.5-10.1); CHLORIDE 95 MMOL/L (99-107); CREATININE 1.26 MG/DL (0.60-1.10); GLUCOSE 183 MG/DL (70-104); POTASSIUM 3.8 MMOL/L (3.5-5.1); SODIUM 128 MMOL/L (135-145); TOTAL CARBON DIOXIDE 28.5 MMOL/L (24-32); eGFR 55 ML/MIN
[2021-09-15 11:00] VITALS: BP 112/69
[2021-09-15] MEDS: normal saline 1000ml 1,000 ML IV SCH (12:58)
[2021-09-15] MEDS: rivaroxaban 15mg tablet PO SCH (17:10)
--- NOTE | 2021-09-15 18:50 | NUR ---
Problems reprioritized. Patient report given, questions answered & plan of care reviewed with DELMA Cornell.
[2021-09-15 19:00] VITALS: BP 93/58
[2021-09-15] MEDS: atorvastatin 10mg tablet PO SCH (19:47)
[2021-09-15] MEDS: lisinopril 2.5mg tablet PO SCH (20:06)
[2021-09-15] MEDS: insulin glargine (Lantus) pen - multi-dose SQ SCH (21:08)
[2021-09-16] VITALS: BP 117/73
[2021-09-16] MEDS: normal saline 1000ml 1,000 ML IV SCH ×2 (02:15→15:33)
[2021-09-16 06:30] VITALS: BP 118/73
--- NOTE | 2021-09-16 06:30 | NUR ---
Patient in room [facility] 344. I have received report from DELMA Cornell and had the opportunity to ask questions and assume patient care. Addendum: 09/16/21 at 0722 by Tiki Valle RN Time is 0610, NOT 0630
[2021-09-16] MEDS: NUT.TX.GLUC.INTOLER,LAC-FR,SOY (GLUCERNA) 237 ML PO SCH ×2 (07:36→17:32)
[2021-09-16] MEDS: cholecalciferol (vitamin D3) 1,000 unit (25mcg) tablet PO SCH (08:56)
[2021-09-16] MEDS: furosemide 40mg tablet PO SCH ×2 (08:56→19:52)
[2021-09-16] MEDS: duloxetine 30mg CAPSULE.DR PO SCH (08:56)
[2021-09-16] MEDS: docusate sod 100mg capsule PO SCH ×2 (08:56→19:52)
[2021-09-16] MEDS: carVEDilol 3.125mg tablet PO SCH ×2 (08:56→19:51)
[2021-09-16] MEDS: aspirin 81mg, enteric-coated 1 TAB TABLET.DR PO SCH (08:56)
[2021-09-16] MEDS: pantoprazole 40mg Tablet.DR PO SCH (08:56)
[2021-09-16] MEDS: piperacillin/tazo 3.375gm/50ml 50 ML IV SCH ×2 (08:57→15:36)
[2021-09-16] MEDS: insulin Lispro (HumaLOG) vial - multi-dose SQ SCH ×3 (09:04→19:03)
[2021-09-16 11:00] VITALS: BP 102/65
[2021-09-16] MEDS: rivaroxaban 15mg tablet PO SCH (18:11)
--- NOTE | 2021-09-16 18:30 | NUR ---
Problems reprioritized. Patient report given, questions answered & plan of care reviewed with DELMA Durant.
--- NOTE | 2021-09-16 18:51 | NUR ---
REPORT RECEIVED FROM DONTRELL NGUYỄN.
[2021-09-16 19:25] VITALS: BP 105/69
[2021-09-16] MEDS: lisinopril 2.5mg tablet PO SCH (20:59)
[2021-09-16] MEDS: atorvastatin 10mg tablet PO SCH (21:00)
[2021-09-16] MEDS: insulin glargine (Lantus) pen - multi-dose SQ SCH (22:08)
[2021-09-17] VITALS (22 sets, daily range): BP systolic 81–108; BP diastolic 52–70
[2021-09-17] MEDS: normal saline 1000ml 1,000 ML IV SCH ×2 (06:30→20:15)
[2021-09-17 07:00] LABS: BASOPHILS # (AUTO) 0.1 X10'3 (0-0.2); EOSINOPHILS # (AUTO) 0.2 X10'3 (0-0.9); EOSINOPHILS % (AUTO) 2.8 % (0-6); LYMPHOCYTES # (AUTO) 1.2 X10'3 (1.1-4.8); LYMPHOCYTES % (AUTO) 18.6 % (21-51); MEAN CORPUSCULAR HEMOGLOBIN 27.9 PG (27.0-31.0); MEAN CORPUSCULAR HGB CONC 33.3 g/dL (33.0-36.5); MEAN CORPUSCULAR VOLUME 83.8 FL (78-98); MEAN PLATELET VOLUME 7.1 FL (7.4-10.4); MONOCYTES # (AUTO) 0.6 X10'3 (0-0.9); NEUTROPHILS # (AUTO) 4.2 X10'3 (1.8-7.7); NEUTROPHILS % (AUTO) 67.6 % (42-75); PLATELET COUNT 198 X10'3 (140-440); RED BLOOD COUNT 3.23 X10'6 (4.70-6.10); RED CELL DISTRIBUTION WIDTH 19.9 % (11.5-14.5); WHITE BLOOD COUNT 6.3 X10'3 (4.5-11.0)
[2021-09-17 07:24] LABS: ANION GAP 6 (8-16); BLOOD UREA NITROGEN 30 MG/DL (7-18); BUN/CREATININE RATIO 26.3 (5.4-32.0); CALCIUM 8.4 MG/DL (8.5-10.1); CHLORIDE 99 MMOL/L (99-107); CREATININE 1.14 MG/DL (0.60-1.10); GLUCOSE 97 MG/DL (70-104); POTASSIUM 4.1 MMOL/L (3.5-5.1); SODIUM 131 MMOL/L (135-145); TOTAL CARBON DIOXIDE 25.8 MMOL/L (24-32); eGFR 62 ML/MIN
[2021-09-17] MEDS: NUT.TX.GLUC.INTOLER,LAC-FR,SOY (GLUCERNA) 237 ML PO SCH ×2 (07:30→17:30)
--- NOTE | 2021-09-17 07:47 | NUR ---
Dr Emma Hernandez is aware patient is on Xerelto and was given a dose last night. No need to hold medication patient is to receive next dose tonight.
[2021-09-17] MEDS: furosemide 40mg tablet PO SCH ×2 (08:00→20:00)
[2021-09-17] MEDS: carVEDilol 3.125mg tablet PO SCH ×2 (08:00→20:00)
[2021-09-17] MEDS: aspirin 81mg, enteric-coated 1 TAB TABLET.DR PO SCH (08:00)
[2021-09-17] MEDS: docusate sod 100mg capsule PO SCH ×2 (08:03→20:09)
[2021-09-17] MEDS: pantoprazole 40mg Tablet.DR PO SCH (08:03)
[2021-09-17] MEDS: duloxetine 30mg CAPSULE.DR PO SCH (08:03)
[2021-09-17] MEDS: cholecalciferol (vitamin D3) 1,000 unit (25mcg) tablet PO SCH (08:04)
--- NOTE | 2021-09-17 08:10 | NUR ---
Medication administration supervised by Clinical Supervisor [facility]
[2021-09-17] MEDS: piperacillin/tazo 3.375gm/50ml 50 ML IV SCH ×3 (08:48→16:00)
--- NOTE | 2021-09-17 14:26 | NUR ---
F/u 09/17: Pt PO fluctuating overall declined past 3.5 days ~49% meals and 75-100% Glucerna ONS BID from prior 100% now partially meeting needs. Pt currently NPO today for OR for R great toe amputation per RN/EMR. LBM 09/16 receiving routine colace. Will continue to monitor for further PO trends and nutrition intervention needs post-op. Recommendations: 1. Continue CHO controlled/chopped diet per MD; consider liberalizing to regular diet in view of geriatric age and BG range 47-131mg/dL 2. Glucerna ONS BID; consider TIDWM vs Ronnie pending PO acceptance post-op 3. routine bowel care 4. Weekly scaled weights Addendum: 09/17/21 at [address] Amended: Links added.
--- NOTE | 2021-09-17 15:40 | NUR ---
Problems reprioritized. Patient report given, questions answered & plan of care reviewed with DELMA HASSAN FROM [facility].
[2021-09-17] MEDS ORDERED: MIDAZolam 1 MG/ML 5ML VIAL ONE (16:00)
[2021-09-17] MEDS ORDERED: FENTANYL CITRATE/PF 50 MCG/1 ML VIAL ONE (16:00)
--- NOTE | 2021-09-17 16:35 | NUR ---
Charting by Rosa M JASMINE and Lyn JASMINE reviewewd by Antonio Tomlinson RN
[2021-09-17] MEDS ORDERED: bacitracin 15gm ointment TP ONE (16:43)
[2021-09-17] MEDS ORDERED: LIDOcaine 2% (20mg/ml) 5ml vial ONE (16:44)
[2021-09-17] MEDS ORDERED: BUPIVAcaine/PF 7.5mg/ml (0.75%) 10ml vial ONE (16:44)
--- NOTE | 2021-09-17 16:53 | NUR ---
Received from OR via BED, accompanied by Anesthesiologist DR GIRON and report given by Anesthesiologist. PT AWAKE, DENIES PAIN. RIGHT FOOT W/MANJINDER WRAP COVERING INCISION/DRSG FROM TOES TO ABOVE ANKLE. Addendum: 09/17/21 at 1711 by Nicole Travis RN Amended: Links added.
--- NOTE | 2021-09-17 17:49 | NUR ---
Patient in room [facility] 344A. I have received report from DELMA HASSAN FROM [facility] and had the opportunity to ask questions and assume patient care.
--- NOTE | 2021-09-17 17:53 | NUR ---
Report called to receiving nurse. Transferred via BED, NO Belongings. PT REMAINS COMFORTABLE W/O COMPLAINTS, DECLINED WATER OR ICE. NURSES AID AT BEDSIDE TO RECIEVE PT, BLL, CALL LIGHT GIVEN, SIDE RAILS UP X 2. RECEIVNG RN AWARE OF PTS ARRIVAL. Special Issues communicated to receiving nurse. YES. Addendum: 09/17/21 at 1806 by Nicole Travis RN Amended: Links added.
--- NOTE | 2021-09-17 18:35 | NUR ---
Patient in room [facility] 344. I have received report from Doris and had the opportunity to ask questions and assume patient care.
--- NOTE | 2021-09-17 18:39 | NUR ---
Problems reprioritized. Patient report given, questions answered & plan of care reviewed with DELMA PADRON.
[2021-09-17] MEDS: insulin Lispro (HumaLOG) vial - multi-dose SQ SCH (19:10)
[2021-09-17] MEDS: atorvastatin 10mg tablet PO SCH (20:18)
[2021-09-17] MEDS: lisinopril 2.5mg tablet PO SCH (20:18)
[2021-09-17] MEDS: insulin glargine (Lantus) pen - multi-dose SQ SCH (21:38)
[2021-09-17] MEDS: rivaroxaban 15mg tablet PO SCH (21:49)
[2021-09-18] MEDS: piperacillin/tazo 3.375gm/50ml 50 ML IV SCH ×4 (00:24→23:27)
--- NOTE | 2021-09-18 06:22 | NUR ---
Patient in room [facility] 344A. I have received report from DELMA PADRON and had the opportunity to ask questions and assume patient care.
--- NOTE | 2021-09-18 06:36 | NUR ---
Problems reprioritized. Patient report given, questions answered & plan of care reviewed with juan.
[2021-09-18 07:00] VITALS: BP 107/62
[2021-09-18] MEDS: NUT.TX.GLUC.INTOLER,LAC-FR,SOY (GLUCERNA) 237 ML PO SCH ×2 (08:05→08:46)
[2021-09-18] MEDS: normal saline 1000ml 1,000 ML IV SCH ×2 (08:39→16:31)
[2021-09-18] MEDS: insulin Lispro (HumaLOG) vial - multi-dose SQ SCH ×3 (08:44→20:00)
[2021-09-18] MEDS: cholecalciferol (vitamin D3) 1,000 unit (25mcg) tablet PO SCH (09:11)
[2021-09-18] MEDS: duloxetine 30mg CAPSULE.DR PO SCH (09:13)
[2021-09-18] MEDS: docusate sod 100mg capsule PO SCH ×2 (09:14→20:00)
[2021-09-18] MEDS: carVEDilol 3.125mg tablet PO SCH ×2 (09:16→20:00)
[2021-09-18] MEDS: furosemide 40mg tablet PO SCH ×2 (09:18→20:00)
[2021-09-18] MEDS: aspirin 81mg, enteric-coated 1 TAB TABLET.DR PO SCH (09:18)
[2021-09-18] MEDS: pantoprazole 40mg Tablet.DR PO SCH (09:19)
[2021-09-18 11:00] VITALS: BP 93/63
--- NOTE | 2021-09-18 12:18 | NUR ---
Student Medication Administration:For this medication-pass time frame 0224-2039, all medication were reviewed,administered and documented per hospital policy by Ebony Valerio. Student documentation:I have reviewed and agree with all interventions, assessments performed and documented by Ebony Valerio.
[2021-09-18 13:30] VITALS: BP 89/55
--- NOTE | 2021-09-18 17:34 | NUR ---
Student Medication Administration: For this medication-pass time frame, all medication were reviewed, dispensed, administered and documented per hospital policy by Devin director of emergency nursing.
--- NOTE | 2021-09-18 17:34 | NUR ---
Student documentation: I have reviewed and agree with all interventions, assessments performed and documented by Devin, student financial services counselor.
[2021-09-18] MEDS: rivaroxaban 15mg tablet PO SCH (17:46)
--- NOTE | 2021-09-18 18:41 | NUR ---
Patient in room [facility] 344. I have received report from Doris NGUYỄN and had the opportunity to ask questions and assume patient care.
--- NOTE | 2021-09-18 18:43 | NUR ---
Problems reprioritized. Patient report given, questions answered & plan of care reviewed with DELMA PADRON.
[2021-09-18 20:00] VITALS: BP 84/55
[2021-09-18] MEDS: mirtazapine 15mg tablet PO SCH (20:21)
[2021-09-18] MEDS: atorvastatin 10mg tablet PO SCH (20:22)
[2021-09-18] MEDS: lisinopril 2.5mg tablet PO SCH (20:27)
[2021-09-18] MEDS: insulin glargine (Lantus) pen - multi-dose SQ SCH (22:10)
[2021-09-19] VITALS: BP 92/61
--- NOTE | 2021-09-19 06:30 | NUR ---
Problems reprioritized. Patient report given to Anisha NGUYỄN, questions answered & plan of care reviewed.
[2021-09-19] MEDS: NUT.TX.GLUC.INTOLER,LAC-FR,SOY (GLUCERNA) 237 ML PO SCH ×2 (07:30→17:02)
[2021-09-19 07:45] VITALS: BP 125/74
[2021-09-19] MEDS: docusate sod 100mg capsule PO SCH ×2 (07:53→20:00)
[2021-09-19] MEDS: aspirin 81mg, enteric-coated 1 TAB TABLET.DR PO SCH (08:35)
[2021-09-19] MEDS: pantoprazole 40mg Tablet.DR PO SCH (08:35)
[2021-09-19] MEDS: duloxetine 30mg CAPSULE.DR PO SCH (08:35)
[2021-09-19] MEDS: carVEDilol 3.125mg tablet PO SCH ×2 (08:35→20:30)
[2021-09-19] MEDS: furosemide 40mg tablet PO SCH ×2 (08:35→20:30)
[2021-09-19] MEDS: piperacillin/tazo 3.375gm/50ml 50 ML IV SCH ×3 (08:36→23:43)
[2021-09-19] MEDS: cholecalciferol (vitamin D3) 1,000 unit (25mcg) tablet PO SCH (09:39)
[2021-09-19] MEDS: insulin Lispro (HumaLOG) vial - multi-dose SQ SCH ×3 (09:41→19:17)
[2021-09-19] MEDS: normal saline 1000ml 1,000 ML IV SCH ×2 (11:50→21:39)
[2021-09-19] MEDS: HYDROcodone/acetaminophen 5mg/325mg tablet PO PRN (12:03)
[2021-09-19 12:20] VITALS: BP 90/55
[2021-09-19] MEDS ORDERED: PERFLUTREN PROTEIN-A MICROSPHR (Optison) 0.22 MG/ML 3ML VIAL IV ONE (13:20)
--- NOTE | 2021-09-19 15:21 | NUR ---
Linked Med note: Optison given during procedure, Echocardiogram.
[2021-09-19] MEDS: rivaroxaban 15mg tablet PO SCH (17:37)
[2021-09-19 18:00] VITALS: BP 108/62
--- NOTE | 2021-09-19 18:31 | NUR ---
Problems reprioritized. Patient report given, questions answered & plan of care reviewed with DELMA Cornell.
[2021-09-19] MEDS: lisinopril 2.5mg tablet PO SCH (20:41)
[2021-09-19] MEDS: atorvastatin 10mg tablet PO SCH (20:44)
[2021-09-19] MEDS: mirtazapine 15mg tablet PO SCH (20:45)
[2021-09-19] MEDS: insulin glargine (Lantus) pen - multi-dose SQ SCH (21:36)
[2021-09-20] VITALS: BP 101/67
--- NOTE | 2021-09-20 06:39 | NUR ---
Problems reprioritized. Patient report given, questions answered & plan of care reviewed with DELMA Stanton for continuation of care..
[2021-09-20 07:00] VITALS: BP 102/71
[2021-09-20] MEDS: NUT.TX.GLUC.INTOLER,LAC-FR,SOY (GLUCERNA) 237 ML PO SCH ×2 (07:30→18:05)
[2021-09-20] MEDS: duloxetine 30mg CAPSULE.DR PO SCH (07:53)
[2021-09-20] MEDS: pantoprazole 40mg Tablet.DR PO SCH (07:53)
[2021-09-20] MEDS: aspirin 81mg, enteric-coated 1 TAB TABLET.DR PO SCH (07:53)
[2021-09-20] MEDS: cholecalciferol (vitamin D3) 1,000 unit (25mcg) tablet PO SCH (07:54)
[2021-09-20] MEDS: docusate sod 100mg capsule PO SCH ×2 (07:54→20:08)
[2021-09-20] MEDS: piperacillin/tazo 3.375gm/50ml 50 ML IV SCH (07:59)
[2021-09-20] MEDS: carVEDilol 3.125mg tablet PO SCH ×2 (08:00→20:08)
[2021-09-20] MEDS: furosemide 40mg tablet PO SCH (08:00)
[2021-09-20] MEDS: insulin Lispro (HumaLOG) vial - multi-dose SQ SCH ×3 (09:48→19:26)
[2021-09-20 11:37] VITALS: BP 101/64
--- NOTE | 2021-09-20 11:58 | NUR ---
Spoke with Dr. Joy on telephone call. He said that would be fine for wound care to evaluate and do dressing changes on the wound. service desk associate notified. Addendum: 09/20/21 at 1201 by Romy Hutchinson RN Amended: Links added.
[2021-09-20] MEDS: normal saline 1000ml 1,000 ML IV SCH (13:55)
[2021-09-20] MEDS: ampicillin inj 2 GM in normal saline 100ml IV soln 100 ML IV SCH ×3 (16:26→23:58)
--- NOTE | 2021-09-20 16:29 | NUR ---
Charting by Khloe JASMINE reviewed by Antonio Tomlinson RN
[2021-09-20] MEDS: rivaroxaban 15mg tablet PO SCH (17:06)
[2021-09-20 18:00] VITALS: BP 111/70
--- NOTE | 2021-09-20 18:10 | NUR ---
Problems reprioritized. Patient report given, questions answered & plan of care reviewed with DELMA Cornell.
[2021-09-20] MEDS: CefTRIAXone 2gm/D5W 50ml BAG 50 ML IV SCH (20:03)
[2021-09-20] MEDS: furosemide 20MG tablet PO SCH (20:08)
[2021-09-20] MEDS: insulin glargine (Lantus) pen - multi-dose SQ SCH (21:00)
[2021-09-20] MEDS: atorvastatin 10mg tablet PO SCH (21:00)
[2021-09-20] MEDS: lisinopril 2.5mg tablet PO SCH (21:00)
[2021-09-20] MEDS: mirtazapine 15mg tablet PO SCH (21:00)
[2021-09-21] VITALS: BP 102/66
[2021-09-21 00:01] VITALS: BP 102/62
[2021-09-21] MEDS: normal saline 1000ml 1,000 ML IV SCH ×2 (03:53→17:10)
[2021-09-21] MEDS: ampicillin inj 2 GM in normal saline 100ml IV soln 100 ML IV SCH ×5 (03:58→21:14)
--- NOTE | 2021-09-21 06:45 | NUR ---
Problems reprioritized. Patient report given, questions answered & plan of care reviewed with DELMA Chavez, for continuation of care.
[2021-09-21 07:00] VITALS: BP 107/73
[2021-09-21] MEDS: NUT.TX.GLUC.INTOLER,LAC-FR,SOY (GLUCERNA) 237 ML PO SCH ×2 (07:30→17:30)
[2021-09-21] MEDS: aspirin 81mg, enteric-coated 1 TAB TABLET.DR PO SCH (10:41)
[2021-09-21] MEDS: duloxetine 30mg CAPSULE.DR PO SCH (10:41)
[2021-09-21] MEDS: cholecalciferol (vitamin D3) 1,000 unit (25mcg) tablet PO SCH (10:41)
[2021-09-21] MEDS: docusate sod 100mg capsule PO SCH ×2 (10:44→20:25)
[2021-09-21] MEDS: pantoprazole 40mg Tablet.DR PO SCH (10:44)
--- NOTE | 2021-09-21 10:57 | NUR ---
I called pharmacy to report that the morning dose of Ampicillin IV was given late as I got too busy this am. I was requesting them to retime the schedule of Ampicillin but did not want to do it, instead I was advised to just catch up with the next schedule.
[2021-09-21 11:00] VITALS: BP 110/75
[2021-09-21] MEDS: carVEDilol 3.125mg tablet PO SCH ×2 (11:50→20:00)
[2021-09-21] MEDS: CefTRIAXone 2gm/D5W 50ml BAG 50 ML IV SCH ×2 (11:50→20:36)
[2021-09-21] MEDS: furosemide 20MG tablet PO SCH ×2 (11:50→20:00)
--- NOTE | 2021-09-21 12:31 | NUR ---
F/u 09/21: Pt PO improved from brief decline 09/13-09/16 currently ~75-100% avg carb controlled diet and Glucerna BID meeting needs s/p R great toe amputation. LBM 09/20 per EMR. No nutrition intervention at this time. Will continue to monitor. Recommendations: 1. Continue CHO controlled/chopped diet per MD; consider liberalizing to regular diet in view of geriatric age and BG range 47-131mg/dL 2. Glucerna ONS BID 3. routine bowel care 4. Weekly scaled weights Addendum: 09/21/21 at [address] Amended: Links added.
--- NOTE | 2021-09-21 13:20 | NUR ---
Blood sugar before lunch was 194 m/dl, patient refused insulin coverage
--- NOTE | 2021-09-21 14:00 | NUR ---
WOUND INFECTION EDUCATION PROVIDED BY WOUND CARE 1. Patient instructed to call their primary doctor, or go the ED immediately if any of the following symptoms occur: * Increased pain in wound * Increase in drainage from the wound * Redness in the skin surrounding the wound * Warmth in the skin surrounding the wound * Bleeding from the wound * Temperature of 101 or greater 2. If any of these occur while in the hospital tell a nurse immediately. Addendum: 09/21/21 at 1401 by Addie Palacio RN Amended: Links added.
[2021-09-21] MEDS: acetaminophen 325mg tablet PO PRN (16:36)
[2021-09-21] MEDS: rivaroxaban 15mg tablet PO SCH (18:19)
[2021-09-21] MEDS: insulin Lispro (HumaLOG) vial - multi-dose SQ SCH ×2 (19:14→21:30)
[2021-09-21] MEDS: atorvastatin 10mg tablet PO SCH (20:25)
[2021-09-21] MEDS: mirtazapine 15mg tablet PO SCH (20:25)
[2021-09-21] MEDS: lisinopril 2.5mg tablet PO SCH (20:38)
[2021-09-21] MEDS: insulin glargine (Lantus) pen - multi-dose SQ SCH (21:32)
[2021-09-22] VITALS: BP 103/71
[2021-09-22] MEDS: ampicillin inj 2 GM in normal saline 100ml IV soln 100 ML IV SCH ×7 (00:07→23:40)
[2021-09-22 06:02] LABS: BASOPHILS % (AUTO) 0.7 % (0-1); EOSINOPHILS # (AUTO) 0.2 X10'3 (0-0.9); EOSINOPHILS % (AUTO) 3.5 % (0-6); HEMATOCRIT 25.8 % (42.0-52.0); HEMOGLOBIN 8.5 g/dl (14.0-17.9); LYMPHOCYTES # (AUTO) 1.3 X10'3 (1.1-4.8); LYMPHOCYTES % (AUTO) 18.9 % (21-51); MEAN CORPUSCULAR HEMOGLOBIN 28.4 PG (27.0-31.0); MEAN CORPUSCULAR HGB CONC 33.1 g/dL (33.0-36.5); MEAN CORPUSCULAR VOLUME 85.8 FL (78-98); MEAN PLATELET VOLUME 7.5 FL (7.4-10.4); MONOCYTES # (AUTO) 0.7 X10'3 (0-0.9); MONOCYTES % (AUTO) 10.2 % (2-12); NEUTROPHILS # (AUTO) 4.5 X10'3 (1.8-7.7); NEUTROPHILS % (AUTO) 66.7 % (42-75); PLATELET COUNT 226 X10'3 (140-440); RED BLOOD COUNT 3.01 X10'6 (4.70-6.10); RED CELL DISTRIBUTION WIDTH 20.2 % (11.5-14.5); WHITE BLOOD COUNT 6.8 X10'3 (4.5-11.0)
[2021-09-22 06:21] LABS: ALBUMIN 1.7 G/DL (3.4-5.0); ANION GAP 10 (8-16); BLOOD UREA NITROGEN 25 MG/DL (7-18); BUN/CREATININE RATIO 21.9 (5.4-32.0); CALCIUM 7.9 MG/DL (8.5-10.1); CHLORIDE 104 MMOL/L (99-107); CREATININE 1.14 MG/DL (0.60-1.10); GLUCOSE 94 MG/DL (70-104); SODIUM 138 MMOL/L (135-145); TOTAL CARBON DIOXIDE 24.2 MMOL/L (24-32); eGFR 62 ML/MIN
[2021-09-22] MEDS: normal saline 1000ml 1,000 ML IV SCH ×2 (06:30→08:39)
--- NOTE | 2021-09-22 06:43 | NUR ---
Problems reprioritized. Patient report given, questions answered & plan of care reviewed with DELMA Dominguez, for continuation of care.
[2021-09-22 07:08] LABS: PLATELET ESTIMATE NORMAL; TOTAL CELLS COUNTED 100
[2021-09-22 07:09] LABS: ANISOCYTOSIS 3+; ELLIPTOCYTES 1+; MICROCYTOSIS 1+; POIKILOCYTOSIS FEW
[2021-09-22 07:34] VITALS: BP 129/80
[2021-09-22] MEDS: NUT.TX.GLUC.INTOLER,LAC-FR,SOY (GLUCERNA) 237 ML PO SCH ×2 (07:39→17:27)
[2021-09-22] MEDS: CefTRIAXone 2gm/D5W 50ml BAG 50 ML IV SCH ×2 (08:05→20:00)
[2021-09-22] MEDS: carVEDilol 3.125mg tablet PO SCH ×2 (08:06→20:04)
[2021-09-22] MEDS: pantoprazole 40mg Tablet.DR PO SCH (08:06)
[2021-09-22] MEDS: docusate sod 100mg capsule PO SCH ×2 (08:06→20:04)
[2021-09-22] MEDS: cholecalciferol (vitamin D3) 1,000 unit (25mcg) tablet PO SCH (08:06)
[2021-09-22] MEDS: aspirin 81mg, enteric-coated 1 TAB TABLET.DR PO SCH (08:06)
[2021-09-22] MEDS: furosemide 20MG tablet PO SCH ×2 (08:06→20:04)
[2021-09-22] MEDS: duloxetine 30mg CAPSULE.DR PO SCH (08:06)
[2021-09-22] MEDS: insulin Lispro (HumaLOG) vial - multi-dose SQ SCH ×3 (09:27→19:55)
[2021-09-22 11:00] VITALS: BP 112/75
[2021-09-22] MEDS: rivaroxaban 15mg tablet PO SCH (17:28)
--- NOTE | 2021-09-22 18:39 | NUR ---
Report given to Kraig Easley, all questions answered. Pt eating dinner. Baseline confusion evident today.
[2021-09-22 19:00] VITALS: BP 107/74
[2021-09-22] MEDS: atorvastatin 10mg tablet PO SCH (20:04)
[2021-09-22] MEDS: mirtazapine 15mg tablet PO SCH (20:04)
[2021-09-22] MEDS: lisinopril 2.5mg tablet PO SCH (20:07)
[2021-09-22] MEDS: insulin glargine (Lantus) pen - multi-dose SQ SCH (21:14)
[2021-09-23] VITALS: BP 105/71
[2021-09-23] MEDS: ampicillin inj 2 GM in normal saline 100ml IV soln 100 ML IV SCH ×5 (03:35→19:49)
--- NOTE | 2021-09-23 06:41 | NUR ---
Problems reprioritized. Patient was screaming during care with inappropriate words. Patient report given, questions answered & plan of care reviewed with Nga NGUYỄN.
[2021-09-23 07:00] VITALS: BP 119/82
[2021-09-23] MEDS: pantoprazole 40mg Tablet.DR PO SCH (07:42)
[2021-09-23] MEDS: cholecalciferol (vitamin D3) 1,000 unit (25mcg) tablet PO SCH (07:42)
[2021-09-23] MEDS: docusate sod 100mg capsule PO SCH ×2 (07:42→19:30)
[2021-09-23] MEDS: NUT.TX.GLUC.INTOLER,LAC-FR,SOY (GLUCERNA) 237 ML PO SCH ×2 (07:43→17:39)
[2021-09-23] MEDS: carVEDilol 3.125mg tablet PO SCH ×2 (07:43→19:31)
[2021-09-23] MEDS: aspirin 81mg, enteric-coated 1 TAB TABLET.DR PO SCH (07:43)
[2021-09-23] MEDS: furosemide 20MG tablet PO SCH ×2 (07:43→19:30)
[2021-09-23] MEDS: duloxetine 30mg CAPSULE.DR PO SCH (07:43)
[2021-09-23] MEDS: CefTRIAXone 2gm/D5W 50ml BAG 50 ML IV SCH ×2 (08:59→19:49)
[2021-09-23] MEDS: insulin Lispro (HumaLOG) vial - multi-dose SQ SCH ×3 (09:09→19:45)
[2021-09-23 11:00] VITALS: BP 125/77
[2021-09-23] MEDS: normal saline 1000ml 1,000 ML IV SCH (11:51)
[2021-09-23] MEDS: rivaroxaban 15mg tablet PO SCH (17:36)
--- NOTE | 2021-09-23 18:31 | NUR ---
Report given to Kraig NGUYỄN. Patient eating dinner in bed. No current concerns or changes.
[2021-09-23 19:00] VITALS: BP 124/83
[2021-09-23] MEDS: atorvastatin 10mg tablet PO SCH (21:00)
[2021-09-23] MEDS: mirtazapine 15mg tablet PO SCH (21:00)
[2021-09-23] MEDS: lisinopril 2.5mg tablet PO SCH (21:00)
[2021-09-23] MEDS: insulin glargine (Lantus) pen - multi-dose SQ SCH (21:43)
[2021-09-24] VITALS: BP 115/81
[2021-09-24] MEDS: ampicillin inj 2 GM in normal saline 100ml IV soln 100 ML IV SCH ×6 (00:01→19:56)
--- NOTE | 2021-09-24 06:40 | NUR ---
Patient in room [facility] 344. I have received report from HILLARY Cornell and had the opportunity to ask questions and assume patient care.
--- NOTE | 2021-09-24 06:41 | NUR ---
Report given to DELMA Vincent, for continuation of care. Patient remains in stable condition at this time.
--- NOTE | 2021-09-24 06:43 | NUR ---
Report given to DELMA Vincent, for continuation of care. All questions answered to the day shift nurse Patient remains in stable condition at this time.
[2021-09-24 07:00] VITALS: BP 104/79
[2021-09-24] MEDS: dextrose 50%-water 50ml dispensing syringe IV PRN (07:15)
[2021-09-24] MEDS: furosemide 20MG tablet PO SCH ×2 (07:37→19:56)
[2021-09-24] MEDS: pantoprazole 40mg Tablet.DR PO SCH (07:37)
[2021-09-24] MEDS: cholecalciferol (vitamin D3) 1,000 unit (25mcg) tablet PO SCH (07:37)
[2021-09-24] MEDS: docusate sod 100mg capsule PO SCH ×2 (07:37→19:56)
[2021-09-24] MEDS: aspirin 81mg, enteric-coated 1 TAB TABLET.DR PO SCH (07:37)
[2021-09-24] MEDS: CefTRIAXone 2gm/D5W 50ml BAG 50 ML IV SCH ×2 (07:37→21:45)
[2021-09-24] MEDS: carVEDilol 3.125mg tablet PO SCH ×2 (07:38→19:56)
[2021-09-24] MEDS: duloxetine 30mg CAPSULE.DR PO SCH (07:38)
[2021-09-24] MEDS: NUT.TX.GLUC.INTOLER,LAC-FR,SOY (GLUCERNA) 237 ML PO SCH ×2 (07:50→17:41)
[2021-09-24 11:00] VITALS: BP 105/72
[2021-09-24] MEDS: normal saline 1000ml 1,000 ML IV SCH (13:26)
[2021-09-24] MEDS: insulin Lispro (HumaLOG) vial - multi-dose SQ SCH (13:59)
--- NOTE | 2021-09-24 18:19 | NUR ---
Problems reprioritized. Patient report given, questions answered & plan of care reviewed with DELMA Alamo.
--- NOTE | 2021-09-24 18:34 | NUR ---
Patient in room [facility] 344. I have received report from Johanna NGUYỄN and had the opportunity to ask questions and assume patient care.
[2021-09-24] MEDS: rivaroxaban 15mg tablet PO SCH (19:55)
[2021-09-24] MEDS: atorvastatin 10mg tablet PO SCH (19:56)
[2021-09-24] MEDS: mirtazapine 15mg tablet PO SCH (19:56)
[2021-09-24] MEDS: lisinopril 2.5mg tablet PO SCH (19:58)
[2021-09-24 20:08] VITALS: BP 114/70
[2021-09-24] MEDS: insulin glargine (Lantus) pen - multi-dose SQ SCH (21:48)
[2021-09-24 23:45] VITALS: BP 106/70
[2021-09-25] MEDS: ampicillin inj 2 GM in normal saline 100ml IV soln 100 ML IV SCH ×6 (00:57→19:00)
--- NOTE | 2021-09-25 06:12 | NUR ---
Problems reprioritized. Patient report given, questions answered & plan of care reviewed with Romy NGUYỄN.
[2021-09-25 07:02] VITALS: BP 115/68
[2021-09-25] MEDS: NUT.TX.GLUC.INTOLER,LAC-FR,SOY (GLUCERNA) 237 ML PO SCH ×2 (07:48→17:58)
[2021-09-25] MEDS: carVEDilol 3.125mg tablet PO SCH ×2 (08:44→19:00)
[2021-09-25] MEDS: aspirin 81mg, enteric-coated 1 TAB TABLET.DR PO SCH (08:44)
[2021-09-25] MEDS: cholecalciferol (vitamin D3) 1,000 unit (25mcg) tablet PO SCH (08:44)
[2021-09-25] MEDS: docusate sod 100mg capsule PO SCH ×2 (08:44→19:00)
[2021-09-25] MEDS: furosemide 20MG tablet PO SCH ×2 (08:44→19:00)
[2021-09-25] MEDS: duloxetine 30mg CAPSULE.DR PO SCH (08:44)
[2021-09-25] MEDS: pantoprazole 40mg Tablet.DR PO SCH (08:44)
[2021-09-25] MEDS: insulin Lispro (HumaLOG) vial - multi-dose SQ SCH ×3 (08:57→19:09)
[2021-09-25] MEDS: CefTRIAXone 2gm/D5W 50ml BAG 50 ML IV SCH ×2 (09:53→20:28)
[2021-09-25 11:43] VITALS: BP 100/76
[2021-09-25] MEDS: normal saline 1000ml 1,000 ML IV SCH (12:09)
--- NOTE | 2021-09-25 13:01 | NUR ---
WOUND INFECTION EDUCATION PROVIDED BY WOUND CARE 1. Patient instructed to call their primary doctor, or go the ED immediately if any of the following symptoms occur: * Increased pain in wound * Increase in drainage from the wound * Redness in the skin surrounding the wound * Warmth in the skin surrounding the wound * Bleeding from the wound * Temperature of 101 or greater 2. If any of these occur while in the hospital tell a nurse immediately. Addendum: 09/25/21 at 1301 by Addie Palacio RN Amended: Links added.
[2021-09-25 16:21] VITALS: BP 112/76
[2021-09-25] MEDS: rivaroxaban 15mg tablet PO SCH (17:35)
--- NOTE | 2021-09-25 18:07 | NUR ---
Problems reprioritized. Patient report given, questions answered & plan of care reviewed with DELMA Alamo.
--- NOTE | 2021-09-25 18:44 | NUR ---
Patient in room [facility] 344. I have received report from Romy NGUYỄN and had the opportunity to ask questions and assume patient care.
[2021-09-25 20:18] VITALS: BP 113/81
[2021-09-25] MEDS: mirtazapine 15mg tablet PO SCH (20:26)
[2021-09-25] MEDS: lisinopril 2.5mg tablet PO SCH (20:26)
[2021-09-25] MEDS: atorvastatin 10mg tablet PO SCH (20:26)
[2021-09-25] MEDS: insulin glargine (Lantus) pen - multi-dose SQ SCH (21:48)
[2021-09-26] VITALS: BP 108/67
[2021-09-26] MEDS: ampicillin inj 2 GM in normal saline 100ml IV soln 100 ML IV SCH ×7 (00:26→19:52)
[2021-09-26] MEDS: normal saline 1000ml 1,000 ML IV SCH ×2 (03:50→23:52)
--- NOTE | 2021-09-26 06:14 | NUR ---
Problems reprioritized. Patient report given, questions answered & plan of care reviewed with Romy NGUYỄN.
[2021-09-26 07:09] VITALS: BP 121/71
[2021-09-26] MEDS: aspirin 81mg, enteric-coated 1 TAB TABLET.DR PO SCH (08:16)
[2021-09-26] MEDS: duloxetine 30mg CAPSULE.DR PO SCH (08:16)
[2021-09-26] MEDS: cholecalciferol (vitamin D3) 1,000 unit (25mcg) tablet PO SCH (08:16)
[2021-09-26] MEDS: pantoprazole 40mg Tablet.DR PO SCH (08:16)
[2021-09-26] MEDS: docusate sod 100mg capsule PO SCH ×2 (08:17→19:50)
[2021-09-26] MEDS: NUT.TX.GLUC.INTOLER,LAC-FR,SOY (GLUCERNA) 237 ML PO SCH ×2 (08:17→17:35)
[2021-09-26] MEDS: furosemide 20MG tablet PO SCH ×2 (08:17→19:50)
[2021-09-26] MEDS: carVEDilol 3.125mg tablet PO SCH ×2 (09:03→19:50)
[2021-09-26] MEDS: CefTRIAXone 2gm/D5W 50ml BAG 50 ML IV SCH ×2 (09:09→19:52)
[2021-09-26] MEDS: insulin Lispro (HumaLOG) vial - multi-dose SQ SCH ×3 (10:36→19:43)
[2021-09-26 12:37] VITALS: BP 114/77
[2021-09-26 13:29] VITALS: BP 112/68
[2021-09-26] MEDS: rivaroxaban 15mg tablet PO SCH (17:07)
--- NOTE | 2021-09-26 18:17 | NUR ---
Problems reprioritized. Patient report given, questions answered & plan of care reviewed with DELMA Osorio.
[2021-09-26] MEDS: lisinopril 2.5mg tablet PO SCH (19:49)
[2021-09-26] MEDS: mirtazapine 15mg tablet PO SCH (19:50)
[2021-09-26] MEDS: atorvastatin 10mg tablet PO SCH (19:51)
[2021-09-26] MEDS: insulin glargine (Lantus) pen - multi-dose SQ SCH (21:00)
[2021-09-26 22:00] VITALS: BP 117/74
[2021-09-27] VITALS: BP 110/72
[2021-09-27] MEDS: ampicillin inj 2 GM in normal saline 100ml IV soln 100 ML IV SCH ×6 (00:28→20:25)
[2021-09-27] MEDS: NUT.TX.GLUC.INTOLER,LAC-FR,SOY (GLUCERNA) 237 ML PO SCH ×3 (07:30→18:39)
[2021-09-27 08:06] VITALS: BP 122/70
[2021-09-27] MEDS: aspirin 81mg, enteric-coated 1 TAB TABLET.DR PO SCH (08:28)
[2021-09-27] MEDS: duloxetine 30mg CAPSULE.DR PO SCH (08:28)
[2021-09-27] MEDS: carVEDilol 3.125mg tablet PO SCH ×2 (08:28→20:26)
[2021-09-27] MEDS: docusate sod 100mg capsule PO SCH ×2 (08:28→20:26)
[2021-09-27] MEDS: cholecalciferol (vitamin D3) 1,000 unit (25mcg) tablet PO SCH (08:29)
[2021-09-27] MEDS: furosemide 20MG tablet PO SCH ×2 (08:29→20:26)
[2021-09-27] MEDS: pantoprazole 40mg Tablet.DR PO SCH (08:29)
[2021-09-27] MEDS: insulin Lispro (HumaLOG) vial - multi-dose SQ SCH ×3 (09:23→19:35)
[2021-09-27] MEDS: CefTRIAXone 2gm/NS 100ml IVPB 100 ML IV SCH ×2 (11:06→20:31)
[2021-09-27 12:59] VITALS: BP 114/72
--- NOTE | 2021-09-27 14:15 | NUR ---
WOUND INFECTION EDUCATION PROVIDED BY WOUND CARE 1. Patient instructed to call their primary doctor, or go the ED immediately if any of the following symptoms occur: * Increased pain in wound * Increase in drainage from the wound * Redness in the skin surrounding the wound * Warmth in the skin surrounding the wound * Bleeding from the wound * Temperature of 101 or greater 2. If any of these occur while in the hospital tell a nurse immediately. Addendum: 09/27/21 at 1416 by Addie Palacio RN Amended: Links added.
--- NOTE | 2021-09-27 15:36 | NUR ---
Charting by Tatyana JASMINE reviewed by Antonio Tomlinson RN
[2021-09-27] MEDS: rivaroxaban 15mg tablet PO SCH (17:29)
--- NOTE | 2021-09-27 18:08 | NUR ---
Problems reprioritized. Patient report given, questions answered & plan of care reviewed with DELMA Durant.
--- NOTE | 2021-09-27 18:20 | NUR ---
Patient in room [facility]. I have received report from ANNABELLE NGUYỄN and had the opportunity to ask questions and assume patient care.
[2021-09-27 20:00] VITALS: BP 146/89
[2021-09-27] MEDS: normal saline 1000ml 1,000 ML IV SCH (20:25)
[2021-09-27] MEDS: atorvastatin 10mg tablet PO SCH (20:26)
[2021-09-27] MEDS: mirtazapine 15mg tablet PO SCH (20:26)
[2021-09-27] MEDS: lisinopril 2.5mg tablet PO SCH (20:28)
[2021-09-27] MEDS: insulin glargine (Lantus) pen - multi-dose SQ SCH (21:00)
[2021-09-28] VITALS: BP 130/71
[2021-09-28] MEDS: ampicillin inj 2 GM in normal saline 100ml IV soln 100 ML IV SCH ×6 (01:06→20:41)
--- NOTE | 2021-09-28 06:31 | NUR ---
Problems reprioritized. Patient report given, questions answered & plan of care reviewed with ANNABELLE NGUYỄN.
--- NOTE | 2021-09-28 06:40 | NUR ---
Patient in room [facility]. I have received report from DELMA Vincent and had the opportunity to ask questions and assume patient care.
[2021-09-28 07:00] VITALS: BP_SYST 115; BP_SYST 122; BP_DIAS 83; BP_DIAS 87
[2021-09-28] MEDS: CefTRIAXone 2gm/NS 100ml IVPB 100 ML IV SCH ×2 (09:35→20:48)
[2021-09-28] MEDS: cholecalciferol (vitamin D3) 1,000 unit (25mcg) tablet PO SCH (09:36)
[2021-09-28] MEDS: furosemide 20MG tablet PO SCH (09:36)
[2021-09-28] MEDS: docusate sod 100mg capsule PO SCH ×2 (09:36→20:42)
[2021-09-28] MEDS: pantoprazole 40mg Tablet.DR PO SCH (09:36)
[2021-09-28] MEDS: duloxetine 30mg CAPSULE.DR PO SCH (09:36)
[2021-09-28] MEDS: aspirin 81mg, enteric-coated 1 TAB TABLET.DR PO SCH (09:36)
[2021-09-28] MEDS: carVEDilol 3.125mg tablet PO SCH ×2 (09:36→20:42)
[2021-09-28] MEDS: normal saline 1000ml 1,000 ML IV SCH (09:37)
[2021-09-28 11:00] VITALS: BP 112/77
[2021-09-28] MEDS: HYDROcodone/acetaminophen 5mg/325mg tablet PO PRN (15:15)
[2021-09-28] MEDS: furosemide 40mg/4ml inj IV SCH (15:37)
[2021-09-28 16:43] LABS: BASOPHILS % (AUTO) 0.7 % (0-1); EOSINOPHILS # (AUTO) 0.2 X10'3 (0-0.9); EOSINOPHILS % (AUTO) 2.8 % (0-6); HEMATOCRIT 27.6 % (42.0-52.0); HEMOGLOBIN 9.1 g/dl (14.0-17.9); LYMPHOCYTES # (AUTO) 1.3 X10'3 (1.1-4.8); MEAN CORPUSCULAR HEMOGLOBIN 28.7 PG (27.0-31.0); MEAN PLATELET VOLUME 7.3 FL (7.4-10.4); MONOCYTES # (AUTO) 0.5 X10'3 (0-0.9); MONOCYTES % (AUTO) 8.5 % (2-12); NEUTROPHILS # (AUTO) 4.2 X10'3 (1.8-7.7); PLATELET COUNT 276 X10'3 (140-440); RED BLOOD COUNT 3.17 X10'6 (4.70-6.10); RED CELL DISTRIBUTION WIDTH 22.1 % (11.5-14.5); WHITE BLOOD COUNT 6.2 X10'3 (4.5-11.0)
--- NOTE | 2021-09-28 17:00 | NUR ---
previous dose late due to needs on unit. too soon for this dose.
[2021-09-28 17:06] LABS: ALANINE AMINOTRANSFERASE 13 U/L (12-78); ALBUMIN 1.9 G/DL (3.4-5.0); ALBUMIN/GLOBULIN RATIO 0.4 (1.1-1.5); ALKALINE PHOSPHATASE 176 IU/L (46-116); ANION GAP 12 (8-16); ASPARTATE AMINO TRANSFERASE 21 U/L (10-37); BILIRUBIN,TOTAL 0.3 MG/DL (0.1-1.0); BLOOD UREA NITROGEN 25 MG/DL (7-18); BUN/CREATININE RATIO 19.8 (5.4-32.0); CALCIUM 8.4 MG/DL (8.5-10.1); CHLORIDE 106 MMOL/L (99-107); CREATININE 1.26 MG/DL (0.60-1.10); GLUCOSE 256 MG/DL (70-104); POTASSIUM 4.8 MMOL/L (3.5-5.1); SODIUM 142 MMOL/L (135-145); TOTAL CARBON DIOXIDE 24.3 MMOL/L (24-32); TOTAL PROTEIN 6.7 G/DL (6.4-8.2); eGFR 55 ML/MIN
[2021-09-28] MEDS: NUT.TX.GLUC.INTOLER,LAC-FR,SOY (GLUCERNA) 237 ML PO SCH (17:30)
[2021-09-28 17:54] LABS: ANISOCYTOSIS 3+; ELLIPTOCYTES 1+; PLATELET ESTIMATE NORMAL
[2021-09-28 17:55] LABS: SCHISTOCYTES FEW
[2021-09-28 18:00] VITALS: BP_SYST 108; BP_SYST 131; BP_DIAS 71; BP_DIAS 74
--- NOTE | 2021-09-28 18:07 | NUR ---
Problems reprioritized. Patient report given, questions answered & plan of care reviewed with DELMA Chaudhry.
--- NOTE | 2021-09-28 18:40 | NUR ---
I have received report from Johanna NGUYỄN ,and had the opportunity to ask questions and assume patient care.
[2021-09-28] MEDS: rivaroxaban 15mg tablet PO SCH (19:20)
--- NOTE | 2021-09-28 19:20 | NUR ---
I have received report from DELMA Spencer and had the opportunity to ask questions and assume patient care.
[2021-09-28] MEDS: buPROPion SR 100mg tab PO SCH (20:42)
[2021-09-28] MEDS: atorvastatin 10mg tablet PO SCH (20:48)
[2021-09-28] MEDS: mirtazapine 15mg tablet PO SCH (20:51)
[2021-09-28] MEDS: lisinopril 2.5mg tablet PO SCH (20:51)
[2021-09-28] MEDS: insulin glargine (Lantus) pen - multi-dose SQ SCH (21:16)
[2021-09-29] VITALS: BP 134/78
[2021-09-29] MEDS: ampicillin inj 2 GM in normal saline 100ml IV soln 100 ML IV SCH ×6 (00:27→19:08)
--- NOTE | 2021-09-29 06:10 | NUR ---
Patient in room [facility]. I have received report from DELMA Chaudhry and had the opportunity to ask questions and assume patient care.
--- NOTE | 2021-09-29 06:35 | NUR ---
Patient report given, questions answered & plan of care reviewed with Tiki NGUYỄN.
--- NOTE | 2021-09-29 06:38 | NUR ---
I agree with Jumana MADDOX students documentation, assessments and report given to on coming nurse
[2021-09-29] MEDS: NUT.TX.GLUC.INTOLER,LAC-FR,SOY (GLUCERNA) 237 ML PO SCH ×3 (07:35→18:37)
[2021-09-29 08:00] VITALS: BP 128/72
[2021-09-29] MEDS: pantoprazole 40mg Tablet.DR PO SCH (09:54)
[2021-09-29] MEDS: carVEDilol 3.125mg tablet PO SCH ×2 (09:54→19:06)
[2021-09-29] MEDS: furosemide 40mg/4ml inj IV SCH ×2 (09:54→19:07)
[2021-09-29] MEDS: cholecalciferol (vitamin D3) 1,000 unit (25mcg) tablet PO SCH (09:54)
[2021-09-29] MEDS: docusate sod 100mg capsule PO SCH ×2 (09:54→19:06)
[2021-09-29] MEDS: buPROPion SR 100mg tab PO SCH ×2 (09:55→19:07)
[2021-09-29] MEDS: aspirin 81mg, enteric-coated 1 TAB TABLET.DR PO SCH (09:55)
[2021-09-29] MEDS: duloxetine 30mg CAPSULE.DR PO SCH (09:55)
[2021-09-29] MEDS: CefTRIAXone 2gm/NS 100ml IVPB 100 ML IV SCH ×2 (09:55→19:07)
[2021-09-29] MEDS: insulin Lispro (HumaLOG) vial - multi-dose SQ SCH ×2 (10:16→19:22)
[2021-09-29 10:21] LABS: BASOPHILS % (AUTO) 0.7 % (0-1); EOSINOPHILS # (AUTO) 0.3 X10'3 (0-0.9); EOSINOPHILS % (AUTO) 4.7 % (0-6); HEMATOCRIT 29.7 % (42.0-52.0); HEMOGLOBIN 9.7 g/dl (14.0-17.9); LYMPHOCYTES # (AUTO) 1.6 X10'3 (1.1-4.8); LYMPHOCYTES % (AUTO) 24.5 % (21-51); MEAN CORPUSCULAR HEMOGLOBIN 28.3 PG (27.0-31.0); MEAN CORPUSCULAR HGB CONC 32.5 g/dL (33.0-36.5); MEAN PLATELET VOLUME 7.1 FL (7.4-10.4); MONOCYTES # (AUTO) 0.8 X10'3 (0-0.9); MONOCYTES % (AUTO) 11.7 % (2-12); NEUTROPHILS # (AUTO) 3.9 X10'3 (1.8-7.7); NEUTROPHILS % (AUTO) 58.4 % (42-75); PLATELET COUNT 303 X10'3 (140-440); RED BLOOD COUNT 3.41 X10'6 (4.70-6.10); RED CELL DISTRIBUTION WIDTH 22.8 % (11.5-14.5); WHITE BLOOD COUNT 6.7 X10'3 (4.5-11.0)
[2021-09-29 10:41] LABS: ALANINE AMINOTRANSFERASE 20 U/L (12-78); ALBUMIN/GLOBULIN RATIO 0.4 (1.1-1.5); ALKALINE PHOSPHATASE 180 IU/L (46-116); ANION GAP 11 (8-16); ASPARTATE AMINO TRANSFERASE 18 U/L (10-37); BILIRUBIN,TOTAL 0.3 MG/DL (0.1-1.0); BLOOD UREA NITROGEN 25 MG/DL (7-18); CALCIUM 8.4 MG/DL (8.5-10.1); CHLORIDE 105 MMOL/L (99-107); CREATININE 1.25 MG/DL (0.60-1.10); GLUCOSE 121 MG/DL (70-104); POTASSIUM 3.9 MMOL/L (3.5-5.1); SODIUM 143 MMOL/L (135-145); TOTAL CARBON DIOXIDE 26.6 MMOL/L (24-32); eGFR 55 ML/MIN
[2021-09-29 11:00] VITALS: BP 129/63
[2021-09-29 12:31] LABS: TOTAL CELLS COUNTED 100
[2021-09-29 12:35] LABS: PLATELET ESTIMATE NORMAL
[2021-09-29 12:36] LABS: ANISOCYTOSIS 3+; ELLIPTOCYTES FEW; POLYCHROMASIA FEW; SCHISTOCYTES FEW; STOMATOCYTES FEW; TEAR DROP CELLS 1+
[2021-09-29] MEDS: rivaroxaban 15mg tablet PO SCH (17:53)
[2021-09-29 18:00] VITALS: BP 115/77
--- NOTE | 2021-09-29 18:10 | NUR ---
Problems reprioritized. Patient report given, questions answered & plan of care reviewed with DELMA Herrera.
--- NOTE | 2021-09-29 18:28 | NUR ---
Patient in room [facility]. I have received report from DONTRELL NGUYỄN and had the opportunity to ask questions and assume patient care.
[2021-09-29] MEDS: mirtazapine 15mg tablet PO SCH (21:17)
[2021-09-29] MEDS: atorvastatin 10mg tablet PO SCH (21:20)
[2021-09-29] MEDS: lisinopril 2.5mg tablet PO SCH (21:20)
[2021-09-29] MEDS: insulin glargine (Lantus) pen - multi-dose SQ SCH (21:24)
[2021-09-30] VITALS: BP 120/84
[2021-09-30] MEDS: ampicillin inj 2 GM in normal saline 100ml IV soln 100 ML IV SCH ×6 (00:08→19:30)
--- NOTE | 2021-09-30 06:00 | NUR ---
Student documentation: I have reviewed and agree with all interventions, assessments performed and documented by ABENA SCHRADER.
--- NOTE | 2021-09-30 06:00 | NUR ---
Student Medication Administration: For this medication-pass time frame, all medication were reviewed, dispensed, administered and documented per hospital policy by ABENA NGUYỄN. Addendum: 09/30/21 at 0603 by Sharon Mata RN ABENA SCHRADER
--- NOTE | 2021-09-30 06:01 | NUR ---
Problems reprioritized. Patient report given, questions answered & plan of care reviewed with Tiki RN.
--- NOTE | 2021-09-30 06:10 | NUR ---
Patient in room [facility]. I have received report from EDLMA Herrera and had the opportunity to ask questions and assume patient care.
--- NOTE | 2021-09-30 06:21 | NUR ---
Problems reprioritized. Patient report given, questions answered & plan of care reviewed with DONTRELL RN.
[2021-09-30 06:30] VITALS: BP 110/73
[2021-09-30 06:59] LABS: BASOPHILS # (AUTO) 0.1 X10'3 (0-0.2); BASOPHILS % (AUTO) 0.8 % (0-1); EOSINOPHILS # (AUTO) 0.3 X10'3 (0-0.9); EOSINOPHILS % (AUTO) 3.3 % (0-6); HEMATOCRIT 29.2 % (42.0-52.0); HEMOGLOBIN 9.6 g/dl (14.0-17.9); LYMPHOCYTES # (AUTO) 2.3 X10'3 (1.1-4.8); LYMPHOCYTES % (AUTO) 25.8 % (21-51); MEAN CORPUSCULAR HGB CONC 32.9 g/dL (33.0-36.5); MEAN CORPUSCULAR VOLUME 88.1 FL (78-98); MEAN PLATELET VOLUME 6.9 FL (7.4-10.4); NEUTROPHILS # (AUTO) 5.2 X10'3 (1.8-7.7); NEUTROPHILS % (AUTO) 59.1 % (42-75); PLATELET COUNT 281 X10'3 (140-440); RED BLOOD COUNT 3.31 X10'6 (4.70-6.10); RED CELL DISTRIBUTION WIDTH 21.5 % (11.5-14.5); WHITE BLOOD COUNT 8.8 X10'3 (4.5-11.0)
[2021-09-30] MEDS: CefTRIAXone 2gm/NS 100ml IVPB 100 ML IV SCH ×2 (07:21→20:26)
[2021-09-30] MEDS: buPROPion SR 100mg tab PO SCH ×2 (07:22→19:32)
[2021-09-30] MEDS: duloxetine 30mg CAPSULE.DR PO SCH (07:22)
[2021-09-30] MEDS: aspirin 81mg, enteric-coated 1 TAB TABLET.DR PO SCH (07:22)
[2021-09-30] MEDS: carVEDilol 3.125mg tablet PO SCH ×2 (07:22→19:32)
[2021-09-30] MEDS: cholecalciferol (vitamin D3) 1,000 unit (25mcg) tablet PO SCH (07:22)
[2021-09-30] MEDS: docusate sod 100mg capsule PO SCH ×2 (07:22→19:32)
[2021-09-30] MEDS: levoTHYROXINE 25mcg tablet PO SCH (07:22)
[2021-09-30] MEDS: furosemide 40mg/4ml inj IV SCH ×2 (07:22→19:30)
[2021-09-30] MEDS: pantoprazole 40mg Tablet.DR PO SCH (07:22)
[2021-09-30 07:33] LABS: ALANINE AMINOTRANSFERASE 14 U/L (12-78); ALBUMIN 1.9 G/DL (3.4-5.0); ALBUMIN/GLOBULIN RATIO 0.4 (1.1-1.5); ALKALINE PHOSPHATASE 167 IU/L (46-116); ANION GAP 14 (8-16); ASPARTATE AMINO TRANSFERASE 18 U/L (10-37); BILIRUBIN,TOTAL 0.3 MG/DL (0.1-1.0); BLOOD UREA NITROGEN 28 MG/DL (7-18); BUN/CREATININE RATIO 20.3 (5.4-32.0); CALCIUM 8.5 MG/DL (8.5-10.1); CHLORIDE 104 MMOL/L (99-107); CREATININE 1.38 MG/DL (0.60-1.10); GLUCOSE 162 MG/DL (70-104); POTASSIUM 4.1 MMOL/L (3.5-5.1); SODIUM 143 MMOL/L (135-145); TOTAL CARBON DIOXIDE 25.5 MMOL/L (24-32); TOTAL PROTEIN 6.7 G/DL (6.4-8.2); eGFR 49 ML/MIN
[2021-09-30 07:39] LABS: ANISOCYTOSIS 3+; PLATELET ESTIMATE NORMAL; POIKILOCYTOSIS 1+; POLYCHROMASIA 1+
[2021-09-30] MEDS: insulin Lispro (HumaLOG) vial - multi-dose SQ SCH ×3 (08:28→19:28)
--- NOTE | 2021-09-30 08:54 | NUR ---
Reassessment: Pt continues on SB6 diet w/ variable PO intake, avg 48% x 11 meals and 75% x 9 ONS partially meeting est nutrient needs. Consider increasing frequency of ONS from BID to TID if PO does not improve. Per documentation pt is mostly A&O x 1-2 which may affect PO intake. LB 09/29 receiving routine colace. Will continue to monitor. Recommendations: 1. Continue Mechanical soft/chopped diet as tolerated 2. Glucerna ONS BID; consider TID if PO intake does not improve 3. routine bowel care 4. Weekly scaled weights Addendum: 09/30/21 at [address] Amended: Links added.
[2021-09-30 11:00] VITALS: BP 112/67
[2021-09-30] MEDS: NUT.TX.GLUC.INTOLER,LAC-FR,SOY (GLUCERNA) 237 ML PO SCH (17:30)
[2021-09-30] MEDS: rivaroxaban 15mg tablet PO SCH (17:40)
--- NOTE | 2021-09-30 18:15 | NUR ---
Patient in room [facility]. I have received report from Tiki NGUYỄN and had the opportunity to ask questions and assume patient care.
--- NOTE | 2021-09-30 18:15 | NUR ---
Problems reprioritized. Patient report given, questions answered & plan of care reviewed with DELMA Vogel.
[2021-09-30 20:00] VITALS: BP 116/80
[2021-09-30] MEDS: atorvastatin 10mg tablet PO SCH (20:29)
[2021-09-30] MEDS: lisinopril 2.5mg tablet PO SCH (20:30)
[2021-09-30] MEDS: mirtazapine 15mg tablet PO SCH (20:30)
[2021-09-30] MEDS: insulin glargine (Lantus) pen - multi-dose SQ SCH (22:13)
[2021-09-30 23:21] VITALS: BP 116/70
[2021-10-01] MEDS: ampicillin inj 2 GM in normal saline 100ml IV soln 100 ML IV SCH ×5 (00:05→20:29)
[2021-10-01 06:04] LABS: ALANINE AMINOTRANSFERASE 14 U/L (12-78); ALBUMIN 1.9 G/DL (3.4-5.0); ALBUMIN/GLOBULIN RATIO 0.4 (1.1-1.5); ALKALINE PHOSPHATASE 166 IU/L (46-116); ANION GAP 11 (8-16); ASPARTATE AMINO TRANSFERASE 28 U/L (10-37); BILIRUBIN,TOTAL 0.4 MG/DL (0.1-1.0); BLOOD UREA NITROGEN 25 MG/DL (7-18); BUN/CREATININE RATIO 20.5 (5.4-32.0); CALCIUM 8.6 MG/DL (8.5-10.1); CHLORIDE 104 MMOL/L (99-107); CREATININE 1.22 MG/DL (0.60-1.10); GLUCOSE 82 MG/DL (70-104); POTASSIUM 3.9 MMOL/L (3.5-5.1); SODIUM 143 MMOL/L (135-145); TOTAL PROTEIN 6.8 G/DL (6.4-8.2); eGFR 57 ML/MIN
[2021-10-01 06:27] LABS: BASOPHILS # (AUTO) 0.1 X10'3 (0-0.2); BASOPHILS % (AUTO) 0.7 % (0-1); EOSINOPHILS # (AUTO) 0.3 X10'3 (0-0.9); HEMATOCRIT 31.3 % (42.0-52.0); HEMOGLOBIN 10.3 g/dl (14.0-17.9); LYMPHOCYTES # (AUTO) 1.7 X10'3 (1.1-4.8); MEAN CORPUSCULAR HEMOGLOBIN 28.6 PG (27.0-31.0); MEAN CORPUSCULAR HGB CONC 32.9 g/dL (33.0-36.5); MEAN PLATELET VOLUME 6.9 FL (7.4-10.4); MONOCYTES # (AUTO) 0.8 X10'3 (0-0.9); NEUTROPHILS # (AUTO) 4.7 X10'3 (1.8-7.7); NEUTROPHILS % (AUTO) 62.3 % (42-75); PLATELET COUNT 255 X10'3 (140-440); RED CELL DISTRIBUTION WIDTH 23.1 % (11.5-14.5); WHITE BLOOD COUNT 7.5 X10'3 (4.5-11.0)
[2021-10-01 07:00] VITALS: BP 128/73
--- NOTE | 2021-10-01 07:03 | NUR ---
I have received report from Lela NGUYỄN Traveler and had the opportunity to ask questions and assume patient care
[2021-10-01] MEDS: CefTRIAXone 2gm/NS 100ml IVPB 100 ML IV SCH ×2 (07:21→20:08)
[2021-10-01] MEDS: furosemide 40mg/4ml inj IV SCH ×2 (07:22→20:18)
[2021-10-01] MEDS: duloxetine 30mg CAPSULE.DR PO SCH (07:22)
[2021-10-01] MEDS: docusate sod 100mg capsule PO SCH ×2 (07:22→20:23)
[2021-10-01] MEDS: carVEDilol 3.125mg tablet PO SCH ×2 (07:23→20:24)
[2021-10-01] MEDS: cholecalciferol (vitamin D3) 1,000 unit (25mcg) tablet PO SCH (07:23)
[2021-10-01] MEDS: buPROPion SR 100mg tab PO SCH ×2 (07:23→20:23)
[2021-10-01] MEDS: pantoprazole 40mg Tablet.DR PO SCH (07:23)
[2021-10-01] MEDS: levoTHYROXINE 25mcg tablet PO SCH (07:23)
[2021-10-01] MEDS: aspirin 81mg, enteric-coated 1 TAB TABLET.DR PO SCH (07:24)
[2021-10-01] MEDS: HYDROcodone/acetaminophen 5mg/325mg tablet PO PRN ×2 (07:24→22:47)
[2021-10-01] MEDS: NUT.TX.GLUC.INTOLER,LAC-FR,SOY (GLUCERNA) 237 ML PO SCH ×2 (07:30→18:21)
[2021-10-01] MEDS: insulin Lispro (HumaLOG) vial - multi-dose SQ SCH ×3 (09:34→20:17)
[2021-10-01 10:20] LABS: ANISOCYTOSIS 3+; PLATELET ESTIMATE NORMAL
[2021-10-01 11:20] VITALS: BP 100/61
[2021-10-01] MEDS: rivaroxaban 15mg tablet PO SCH (18:24)
--- NOTE | 2021-10-01 19:03 | NUR ---
Problems reprioritized. Patient report given, questions answered & plan of care reviewed with TUAN NGUYỄN.
[2021-10-01 20:00] VITALS: BP 109/67
[2021-10-01] MEDS: mirtazapine 15mg tablet PO SCH (20:23)
[2021-10-01] MEDS: lisinopril 2.5mg tablet PO SCH (20:26)
[2021-10-01] MEDS: atorvastatin 10mg tablet PO SCH (20:26)
[2021-10-01] MEDS: insulin glargine (Lantus) pen - multi-dose SQ SCH (21:38)
[2021-10-01 23:23] VITALS: BP 109/74
--- NOTE | 2021-10-02 00:45 | NUR ---
Received pt from DELMA Vogel. Report given, questions answered.
[2021-10-02] MEDS: ampicillin inj 2 GM in normal saline 100ml IV soln 100 ML IV SCH ×4 (01:57→19:56)
--- NOTE | 2021-10-02 02:01 | NUR ---
Had to use admin button to give 0200 dose of ampicillin. The barcode did not match because the frequency was changed by MD, but med was still the same.
[2021-10-02 05:58] LABS: BASOPHILS # (AUTO) 0.1 X10'3 (0-0.2); BASOPHILS % (AUTO) 0.9 % (0-1); EOSINOPHILS # (AUTO) 0.2 X10'3 (0-0.9); EOSINOPHILS % (AUTO) 2.6 % (0-6); HEMATOCRIT 28.2 % (42.0-52.0); HEMOGLOBIN 9.3 g/dl (14.0-17.9); LYMPHOCYTES # (AUTO) 1.4 X10'3 (1.1-4.8); MEAN CORPUSCULAR HEMOGLOBIN 28.9 PG (27.0-31.0); MEAN CORPUSCULAR VOLUME 87.8 FL (78-98); MONOCYTES # (AUTO) 0.7 X10'3 (0-0.9); MONOCYTES % (AUTO) 10.9 % (2-12); NEUTROPHILS # (AUTO) 4.3 X10'3 (1.8-7.7); NEUTROPHILS % (AUTO) 64.6 % (42-75); PLATELET COUNT 276 X10'3 (140-440); RED BLOOD COUNT 3.21 X10'6 (4.70-6.10); WHITE BLOOD COUNT 6.7 X10'3 (4.5-11.0)
--- NOTE | 2021-10-02 06:11 | NUR ---
Patient in room [facility]. I have received report from scarlet schwab and had the opportunity to ask questions and assume patient care.
[2021-10-02 06:13] LABS: ALANINE AMINOTRANSFERASE 11 U/L (12-78); ALBUMIN 1.9 G/DL (3.4-5.0); ALBUMIN/GLOBULIN RATIO 0.4 (1.1-1.5); ALKALINE PHOSPHATASE 160 IU/L (46-116); ANION GAP 11 (8-16); ASPARTATE AMINO TRANSFERASE 17 U/L (10-37); BILIRUBIN,TOTAL 0.3 MG/DL (0.1-1.0); BLOOD UREA NITROGEN 28 MG/DL (7-18); BUN/CREATININE RATIO 16.3 (5.4-32.0); CALCIUM 8.2 MG/DL (8.5-10.1); CHLORIDE 103 MMOL/L (99-107); CREATININE 1.72 MG/DL (0.60-1.10); GLUCOSE 253 MG/DL (70-104); POTASSIUM 4.1 MMOL/L (3.5-5.1); SODIUM 142 MMOL/L (135-145); TOTAL CARBON DIOXIDE 27.8 MMOL/L (24-32); TOTAL PROTEIN 6.5 G/DL (6.4-8.2); eGFR 38 ML/MIN
[2021-10-02 07:30] VITALS: BP 104/69
[2021-10-02] MEDS: furosemide 40mg/4ml inj IV SCH ×2 (07:52→20:03)
[2021-10-02] MEDS: buPROPion SR 100mg tab PO SCH ×2 (07:52→20:05)
[2021-10-02] MEDS: aspirin 81mg, enteric-coated 1 TAB TABLET.DR PO SCH (07:52)
[2021-10-02] MEDS: cholecalciferol (vitamin D3) 1,000 unit (25mcg) tablet PO SCH (07:52)
[2021-10-02] MEDS: duloxetine 30mg CAPSULE.DR PO SCH (07:52)
[2021-10-02] MEDS: carVEDilol 3.125mg tablet PO SCH (07:52)
[2021-10-02] MEDS: levoTHYROXINE 25mcg tablet PO SCH (07:52)
[2021-10-02] MEDS: docusate sod 100mg capsule PO SCH ×2 (07:52→20:05)
[2021-10-02] MEDS: pantoprazole 40mg Tablet.DR PO SCH (07:52)
[2021-10-02] MEDS: NUT.TX.GLUC.INTOLER,LAC-FR,SOY (GLUCERNA) 237 ML PO SCH ×2 (08:02→17:46)
[2021-10-02] MEDS: insulin Lispro (HumaLOG) vial - multi-dose SQ SCH ×2 (08:54→19:00)
[2021-10-02] MEDS: CefTRIAXone 2gm/NS 100ml IVPB 100 ML IV SCH ×2 (09:17→20:03)
--- NOTE | 2021-10-02 11:48 | NUR ---
NOTIFIED DR HODGES RE NEW ONSET SOB. CXR ORDERED.
[2021-10-02] MEDS: LORazepam 2 mg/ml vial IV PRN (12:02)
[2021-10-02] MEDS ORDERED: LORazepam 2 mg/ml vial IV PRN (12:25)
[2021-10-02 13:36] VITALS: BP 110/74
[2021-10-02] MEDS ORDERED: ipratropium/albuterol 3ml nebule NEB PRN (16:35)
[2021-10-02] MEDS ORDERED: furosemide 20 MG/2 ML vial IV ONE (16:35)
[2021-10-02 17:00] VITALS: BP 120/88
[2021-10-02] MEDS: rivaroxaban 15mg tablet PO SCH (17:59)
--- NOTE | 2021-10-02 18:30 | NUR ---
Patient in room [facility]. I have received report from Khushboo NGUYỄN and had the opportunity to ask questions and assume patient care.
--- NOTE | 2021-10-02 18:32 | NUR ---
Problems reprioritized. Patient report given, questions answered & plan of care reviewed with TUAN NGUYỄN.
[2021-10-02 20:00] VITALS: BP 113/78
[2021-10-02] MEDS ORDERED: carVEDilol 3.125mg tablet PO SCH (20:00)
[2021-10-02] MEDS: mirtazapine 15mg tablet PO SCH (20:11)
[2021-10-02] MEDS: lisinopril 2.5mg tablet PO SCH (20:11)
[2021-10-02] MEDS: atorvastatin 10mg tablet PO SCH (20:11)
[2021-10-02] MEDS: insulin glargine (Lantus) pen - multi-dose SQ SCH (23:14)
[2021-10-03] VITALS: BP 119/84
[2021-10-03] MEDS: HYDROcodone/acetaminophen 5mg/325mg tablet PO PRN ×2 (01:56→20:18)
[2021-10-03] MEDS: ampicillin inj 2 GM in normal saline 100ml IV soln 100 ML IV SCH ×4 (02:07→20:06)
[2021-10-03 05:49] LABS: BASOPHILS # (AUTO) 0.1 X10'3 (0-0.2); BASOPHILS % (AUTO) 0.7 % (0-1); EOSINOPHILS # (AUTO) 0.2 X10'3 (0-0.9); HEMATOCRIT 29.5 % (42.0-52.0); HEMOGLOBIN 9.6 g/dl (14.0-17.9); LYMPHOCYTES # (AUTO) 1.7 X10'3 (1.1-4.8); LYMPHOCYTES % (AUTO) 22.1 % (21-51); MEAN CORPUSCULAR HEMOGLOBIN 28.3 PG (27.0-31.0); MEAN CORPUSCULAR HGB CONC 32.5 g/dL (33.0-36.5); MEAN CORPUSCULAR VOLUME 87.2 FL (78-98); MONOCYTES # (AUTO) 0.8 X10'3 (0-0.9); MONOCYTES % (AUTO) 10.7 % (2-12); NEUTROPHILS # (AUTO) 4.8 X10'3 (1.8-7.7); NEUTROPHILS % (AUTO) 63.5 % (42-75); PLATELET COUNT 295 X10'3 (140-440); RED BLOOD COUNT 3.39 X10'6 (4.70-6.10); WHITE BLOOD COUNT 7.6 X10'3 (4.5-11.0)
[2021-10-03 06:00] LABS: ALANINE AMINOTRANSFERASE 12 U/L (12-78); ALBUMIN 1.9 G/DL (3.4-5.0); ALBUMIN/GLOBULIN RATIO 0.4 (1.1-1.5); ALKALINE PHOSPHATASE 153 IU/L (46-116); ANION GAP 12 (8-16); ASPARTATE AMINO TRANSFERASE 19 U/L (10-37); BILIRUBIN,TOTAL 0.4 MG/DL (0.1-1.0); BLOOD UREA NITROGEN 29 MG/DL (7-18); BUN/CREATININE RATIO 18.5 (5.4-32.0); CALCIUM 8.8 MG/DL (8.5-10.1); CHLORIDE 102 MMOL/L (99-107); CREATININE 1.57 MG/DL (0.60-1.10); GLUCOSE 137 MG/DL (70-104); POTASSIUM 3.8 MMOL/L (3.5-5.1); SODIUM 142 MMOL/L (135-145); TOTAL CARBON DIOXIDE 27.8 MMOL/L (24-32); TOTAL PROTEIN 6.7 G/DL (6.4-8.2); eGFR 43 ML/MIN
--- NOTE | 2021-10-03 06:45 | NUR ---
Patient in room [facility]. I have received report from DELMA Vogel and had the opportunity to ask questions and assume patient care.
[2021-10-03 07:10] VITALS: BP 108/68
[2021-10-03] MEDS: buPROPion SR 100mg tab PO SCH ×2 (07:23→20:17)
[2021-10-03] MEDS: aspirin 81mg, enteric-coated 1 TAB TABLET.DR PO SCH (07:23)
[2021-10-03] MEDS: furosemide 40mg/4ml inj IV SCH ×2 (07:23→20:07)
[2021-10-03] MEDS: pantoprazole 40mg Tablet.DR PO SCH (07:23)
[2021-10-03] MEDS: docusate sod 100mg capsule PO SCH ×2 (07:23→20:19)
[2021-10-03] MEDS: levoTHYROXINE 25mcg tablet PO SCH (07:23)
[2021-10-03] MEDS: cholecalciferol (vitamin D3) 1,000 unit (25mcg) tablet PO SCH (07:23)
[2021-10-03] MEDS: duloxetine 30mg CAPSULE.DR PO SCH (07:23)
[2021-10-03] MEDS: NUT.TX.GLUC.INTOLER,LAC-FR,SOY (GLUCERNA) 237 ML PO SCH ×2 (07:30→17:59)
[2021-10-03] MEDS: CefTRIAXone 2gm/NS 100ml IVPB 100 ML IV SCH ×2 (09:09→20:06)
[2021-10-03] MEDS: insulin Lispro (HumaLOG) vial - multi-dose SQ SCH ×2 (09:11→14:15)
[2021-10-03] MEDS: carVEDilol 3.125mg tablet PO SCH ×2 (09:12→20:19)
[2021-10-03 11:21] VITALS: BP 103/63
[2021-10-03] MEDS: LORazepam 2 mg/ml vial IV PRN (13:13)
--- NOTE | 2021-10-03 13:20 | NUR ---
Patient down to MRI
--- NOTE | 2021-10-03 14:08 | NUR ---
Reassessment: Pt is currently on dry tray/1.5L fluid restriction diet and has had improvement in PO now eating 83% meals and 80% ONS since last nutrition assessment 09/30 meeting estimated nutrient needs. LBM 10/01, receiving routine colace per EMR. No nutrition intervention implemented at this time. Will continue to follow. Recommendations: 1. Continue dry tray/fluid restriction diet as tolerated 2. Glucerna ONS BID; consider TID if PO intake declines 3. Routine bowel care 4. Weekly scaled weights Addendum: 10/03/21 at [address] Amended: Links added. Addendum: 10/03/21 at [address] I have reviewed assessment by international nurse
--- NOTE | 2021-10-03 14:16 | NUR ---
Patient back to room.
[2021-10-03] MEDS ORDERED: iohexol 350MG/ML 100ml bottle IV ONE (16:08)
--- NOTE | 2021-10-03 17:43 | NUR ---
Patient down to CT.
[2021-10-03] MEDS: rivaroxaban 15mg tablet PO SCH (17:59)
--- NOTE | 2021-10-03 18:29 | NUR ---
Problems reprioritized. Patient report given, questions answered & plan of care reviewed with DELMA Vogel.
[2021-10-03 20:00] VITALS: BP 107/73
[2021-10-03] MEDS: atorvastatin 10mg tablet PO SCH (20:19)
[2021-10-03] MEDS: mirtazapine 15mg tablet PO SCH (20:19)
[2021-10-03] MEDS: lisinopril 2.5mg tablet PO SCH (20:21)
[2021-10-03] MEDS: insulin glargine (Lantus) pen - multi-dose SQ SCH (21:19)
[2021-10-04] VITALS: BP 105/82
[2021-10-04] MEDS: ampicillin inj 2 GM in normal saline 100ml IV soln 100 ML IV SCH ×4 (02:46→19:28)
--- NOTE | 2021-10-04 06:29 | NUR ---
Received report from DELMA Vogel
[2021-10-04 06:34] LABS: BASOPHILS # (AUTO) 0.1 X10'3 (0-0.2); BASOPHILS % (AUTO) 1.2 % (0-1); EOSINOPHILS # (AUTO) 0.1 X10'3 (0-0.9); EOSINOPHILS % (AUTO) 1.8 % (0-6); HEMATOCRIT 29.9 % (42.0-52.0); HEMOGLOBIN 9.8 g/dl (14.0-17.9); LYMPHOCYTES # (AUTO) 1.6 X10'3 (1.1-4.8); LYMPHOCYTES % (AUTO) 22.4 % (21-51); MEAN CORPUSCULAR HEMOGLOBIN 28.5 PG (27.0-31.0); MEAN CORPUSCULAR HGB CONC 32.8 g/dL (33.0-36.5); MEAN PLATELET VOLUME 7.3 FL (7.4-10.4); MONOCYTES % (AUTO) 14.2 % (2-12); NEUTROPHILS # (AUTO) 4.4 X10'3 (1.8-7.7); NEUTROPHILS % (AUTO) 60.4 % (42-75); PLATELET COUNT 305 X10'3 (140-440); RED BLOOD COUNT 3.43 X10'6 (4.70-6.10); RED CELL DISTRIBUTION WIDTH 23.1 % (11.5-14.5); WHITE BLOOD COUNT 7.3 X10'3 (4.5-11.0)
[2021-10-04 06:58] LABS: ALANINE AMINOTRANSFERASE 11 U/L (12-78); ALBUMIN/GLOBULIN RATIO 0.4 (1.1-1.5); ALKALINE PHOSPHATASE 161 IU/L (46-116); ANION GAP 11 (8-16); ASPARTATE AMINO TRANSFERASE 21 U/L (10-37); BILIRUBIN,TOTAL 0.3 MG/DL (0.1-1.0); BLOOD UREA NITROGEN 31 MG/DL (7-18); BUN/CREATININE RATIO 20.1 (5.4-32.0); CALCIUM 8.7 MG/DL (8.5-10.1); CHLORIDE 100 MMOL/L (99-107); CHOL/HDL RATIO 3.6 (0.00-4.99); CHOLESTEROL 120 MG/DL (0-200); CREATININE 1.54 MG/DL (0.60-1.10); GLUCOSE 177 MG/DL (70-104); HDL CHOLESTEROL 33 MG/DL (35-60); LDL CHOLESTEROL 70 MG/DL (50-100); POTASSIUM 4.2 MMOL/L (3.5-5.1); SODIUM 140 MMOL/L (135-145); TOTAL CARBON DIOXIDE 29.2 MMOL/L (24-32); TOTAL PROTEIN 6.9 G/DL (6.4-8.2); TRIGLYCERIDES 95 MG/DL (20-135); eGFR 44 ML/MIN
--- NOTE | 2021-10-04 07:25 | NUR ---
Problems reprioritized. Patient report given, questions answered & plan of care reviewed with Andrea NGUYỄN.
[2021-10-04] MEDS: NUT.TX.GLUC.INTOLER,LAC-FR,SOY (GLUCERNA) 237 ML PO SCH ×2 (07:30→17:30)
[2021-10-04 07:35] LABS: ANISOCYTOSIS 3+; PLATELET ESTIMATE NORMAL
[2021-10-04 07:36] LABS: ELLIPTOCYTES FEW; POLYCHROMASIA FEW
[2021-10-04 07:58] VITALS: BP 126/85
[2021-10-04] MEDS: carVEDilol 3.125mg tablet PO SCH ×2 (08:00→19:34)
[2021-10-04] MEDS: furosemide 40mg/4ml inj IV SCH ×2 (08:00→19:28)
[2021-10-04] MEDS: pantoprazole 40mg Tablet.DR PO SCH (08:50)
[2021-10-04] MEDS: docusate sod 100mg capsule PO SCH ×2 (08:50→19:33)
[2021-10-04] MEDS: buPROPion SR 100mg tab PO SCH ×2 (08:50→19:34)
[2021-10-04] MEDS: aspirin 81mg, enteric-coated 1 TAB TABLET.DR PO SCH (08:50)
[2021-10-04] MEDS: cholecalciferol (vitamin D3) 1,000 unit (25mcg) tablet PO SCH (08:50)
[2021-10-04] MEDS: duloxetine 30mg CAPSULE.DR PO SCH (08:50)
[2021-10-04] MEDS: levoTHYROXINE 25mcg tablet PO SCH (08:50)
[2021-10-04] MEDS: CefTRIAXone 2gm/NS 100ml IVPB 100 ML IV SCH ×2 (08:51→20:22)
[2021-10-04] MEDS: insulin Lispro (HumaLOG) vial - multi-dose SQ SCH ×2 (09:07→13:29)
--- NOTE | 2021-10-04 10:55 | NUR ---
02 on 2 liters was 100%, removed nasal cannula.
[2021-10-04 11:00] VITALS: BP 110/82
--- NOTE | 2021-10-04 11:02 | NUR ---
spoke with ex and provided update
[2021-10-04 12:02] VITALS: BP 119/75
--- NOTE | 2021-10-04 12:09 | NUR ---
Went in to check on patient, patient was altered and asking for a doctor stating that this isn't the real world. Attempted to reorient patient, checked vital signs all vital signs stable. Cleaned patient up as he had soiled himself and provided with a warm blanket for comfort.
--- NOTE | 2021-10-04 13:03 | NUR ---
Went in to help patient eat lunch, patient is more alert at this time and is wanting to try to feed himself.
--- NOTE | 2021-10-04 17:00 | NUR ---
blood glucose was 84; juice given will decrease to level 4
[2021-10-04 18:00] VITALS: BP 125/66
[2021-10-04] MEDS: rivaroxaban 15mg tablet PO SCH (18:00)
--- NOTE | 2021-10-04 18:32 | NUR ---
REPORT GIVEN TO DELMA DICKERSON
[2021-10-04] MEDS: atorvastatin 10mg tablet PO SCH (20:23)
[2021-10-04] MEDS: lisinopril 2.5mg tablet PO SCH (20:23)
[2021-10-04] MEDS: mirtazapine 15mg tablet PO SCH (20:23)
[2021-10-04] MEDS: insulin glargine (Lantus) pen - multi-dose SQ SCH (21:00)
[2021-10-05] VITALS: BP 130/63
[2021-10-05] MEDS: ampicillin inj 2 GM in normal saline 100ml IV soln 100 ML IV SCH ×4 (02:58→20:46)
--- NOTE | 2021-10-05 06:31 | NUR ---
Problems reprioritized. Patient report given, questions answered & plan of care reviewed with Laura NGUYỄN.
--- NOTE | 2021-10-05 06:44 | NUR ---
Patient in room [facility]. I have received report from DELMA Vogel and had the opportunity to ask questions and assume patient care.
[2021-10-05] MEDS: furosemide 40mg/4ml inj IV SCH ×2 (07:51→20:46)
[2021-10-05] MEDS: carVEDilol 3.125mg tablet PO SCH ×2 (07:51→20:45)
[2021-10-05] MEDS: duloxetine 30mg CAPSULE.DR PO SCH (07:51)
[2021-10-05] MEDS: buPROPion SR 100mg tab PO SCH ×2 (07:52→20:46)
[2021-10-05] MEDS: pantoprazole 40mg Tablet.DR PO SCH (07:52)
[2021-10-05] MEDS: HYDROcodone/acetaminophen 5mg/325mg tablet PO PRN (07:52)
[2021-10-05] MEDS: aspirin 81mg, enteric-coated 1 TAB TABLET.DR PO SCH (07:53)
[2021-10-05] MEDS: docusate sod 100mg capsule PO SCH ×2 (07:53→20:46)
[2021-10-05] MEDS: levoTHYROXINE 25mcg tablet PO SCH (07:53)
[2021-10-05] MEDS: cholecalciferol (vitamin D3) 1,000 unit (25mcg) tablet PO SCH (07:53)
[2021-10-05 08:00] VITALS: BP 110/72
[2021-10-05] MEDS: CefTRIAXone 2gm/NS 100ml IVPB 100 ML IV SCH ×2 (09:07→20:46)
[2021-10-05] MEDS: NUT.TX.GLUC.INTOLER,LAC-FR,SOY (GLUCERNA) 237 ML PO SCH ×2 (09:07→17:30)
[2021-10-05] MEDS: insulin Lispro (HumaLOG) vial - multi-dose SQ SCH ×3 (09:19→19:23)
[2021-10-05 11:00] VITALS: BP 125/85
[2021-10-05] MEDS: rivaroxaban 15mg tablet PO SCH (17:48)
--- NOTE | 2021-10-05 18:27 | NUR ---
Problems reprioritized. Patient report given, questions answered & plan of care reviewed with DELMA Dinh.
[2021-10-05 20:00] VITALS: BP 121/80
[2021-10-05] MEDS: atorvastatin 10mg tablet PO SCH (20:45)
[2021-10-05] MEDS: lisinopril 2.5mg tablet PO SCH (20:45)
[2021-10-05] MEDS: mirtazapine 15mg tablet PO SCH (20:46)
[2021-10-05] MEDS: insulin glargine (Lantus) pen - multi-dose SQ SCH (21:03)
[2021-10-06] VITALS: BP 145/89
[2021-10-06] MEDS: ampicillin inj 2 GM in normal saline 100ml IV soln 100 ML IV SCH ×4 (02:38→21:41)
--- NOTE | 2021-10-06 06:15 | NUR ---
Patient in room [facility]. I have received report from DELMA Dinh and had the opportunity to ask questions and assume patient care.
[2021-10-06 06:51] LABS: BASOPHILS # (AUTO) 0.1 X10'3 (0-0.2); BASOPHILS % (AUTO) 1.3 % (0-1); EOSINOPHILS # (AUTO) 0.1 X10'3 (0-0.9); EOSINOPHILS % (AUTO) 1.6 % (0-6); HEMATOCRIT 30.9 % (42.0-52.0); HEMOGLOBIN 10.3 g/dl (14.0-17.9); LYMPHOCYTES # (AUTO) 1.6 X10'3 (1.1-4.8); MEAN CORPUSCULAR HEMOGLOBIN 29.1 PG (27.0-31.0); MEAN CORPUSCULAR HGB CONC 33.2 g/dL (33.0-36.5); MEAN CORPUSCULAR VOLUME 87.6 FL (78-98); MEAN PLATELET VOLUME 7.1 FL (7.4-10.4); MONOCYTES # (AUTO) 0.8 X10'3 (0-0.9); MONOCYTES % (AUTO) 10.2 % (2-12); NEUTROPHILS # (AUTO) 5.2 X10'3 (1.8-7.7); NEUTROPHILS % (AUTO) 65.9 % (42-75); PLATELET COUNT 282 X10'3 (140-440); RED BLOOD COUNT 3.53 X10'6 (4.70-6.10); RED CELL DISTRIBUTION WIDTH 22.9 % (11.5-14.5); WHITE BLOOD COUNT 7.9 X10'3 (4.5-11.0)
[2021-10-06 07:00] VITALS: BP 114/75
[2021-10-06 07:07] LABS: ALANINE AMINOTRANSFERASE 11 U/L (12-78); ALBUMIN 2.1 G/DL (3.4-5.0); ALBUMIN/GLOBULIN RATIO 0.4 (1.1-1.5); ALKALINE PHOSPHATASE 157 IU/L (46-116); ANION GAP 8 (8-16); ASPARTATE AMINO TRANSFERASE 25 U/L (10-37); BILIRUBIN,TOTAL 0.4 MG/DL (0.1-1.0); BLOOD UREA NITROGEN 32 MG/DL (7-18); BUN/CREATININE RATIO 20.5 (5.4-32.0); CALCIUM 8.7 MG/DL (8.5-10.1); CHLORIDE 103 MMOL/L (99-107); CREATININE 1.56 MG/DL (0.60-1.10); GLUCOSE 90 MG/DL (70-104); SODIUM 141 MMOL/L (135-145); TOTAL CARBON DIOXIDE 30.1 MMOL/L (24-32); TOTAL PROTEIN 7.2 G/DL (6.4-8.2); eGFR 43 ML/MIN
[2021-10-06 07:50] LABS: ANISOCYTOSIS 3+; ELLIPTOCYTES 1+; PLATELET ESTIMATE NORMAL; POLYCHROMASIA 1+; SCHISTOCYTES FEW
[2021-10-06] MEDS: furosemide 40mg/4ml inj IV SCH ×2 (07:51→20:00)
[2021-10-06] MEDS: cholecalciferol (vitamin D3) 1,000 unit (25mcg) tablet PO SCH (07:51)
[2021-10-06] MEDS: docusate sod 100mg capsule PO SCH ×2 (07:51→20:37)
[2021-10-06] MEDS: aspirin 81mg, enteric-coated 1 TAB TABLET.DR PO SCH (07:51)
[2021-10-06] MEDS: pantoprazole 40mg Tablet.DR PO SCH (07:52)
[2021-10-06] MEDS: carVEDilol 3.125mg tablet PO SCH ×2 (07:52→20:00)
[2021-10-06] MEDS: duloxetine 30mg CAPSULE.DR PO SCH (07:52)
[2021-10-06] MEDS: levoTHYROXINE 25mcg tablet PO SCH (07:52)
[2021-10-06] MEDS: buPROPion SR 100mg tab PO SCH ×2 (07:52→20:37)
[2021-10-06] MEDS: NUT.TX.GLUC.INTOLER,LAC-FR,SOY (GLUCERNA) 237 ML PO SCH ×2 (08:03→17:30)
[2021-10-06] MEDS: CefTRIAXone 2gm/NS 100ml IVPB 100 ML IV SCH ×2 (09:01→20:30)
[2021-10-06] MEDS: insulin Lispro (HumaLOG) vial - multi-dose SQ SCH ×3 (09:05→19:33)
--- NOTE | 2021-10-06 11:20 | NUR ---
Dressing to right toe changed per written orders. Pt tolerated well. Will continue to monitor.
[2021-10-06] MEDS: magnesium hydroxide 30ml (MOM) UD suspension PO PRN (11:21)
[2021-10-06 11:30] VITALS: BP 103/66
[2021-10-06] MEDS: rivaroxaban 15mg tablet PO SCH (17:37)
[2021-10-06 18:00] VITALS: BP 105/65
--- NOTE | 2021-10-06 18:33 | NUR ---
Problems reprioritized. Patient report given, questions answered & plan of care reviewed with DELMA Kingston.
--- NOTE | 2021-10-06 19:30 | NUR ---
Patient in room [facility]. I have received report from Vashti NGUYỄN and had the opportunity to ask questions and assume patient care.
[2021-10-06] MEDS: mirtazapine 15mg tablet PO SCH (20:37)
[2021-10-06] MEDS: atorvastatin 10mg tablet PO SCH (20:37)
[2021-10-06] MEDS: lisinopril 2.5mg tablet PO SCH (20:44)
[2021-10-06] MEDS: insulin glargine (Lantus) pen - multi-dose SQ SCH (21:47)
[2021-10-07] VITALS: BP 107/72
[2021-10-07] MEDS: ampicillin inj 2 GM in normal saline 100ml IV soln 100 ML IV SCH ×4 (01:47→20:24)
--- NOTE | 2021-10-07 06:33 | NUR ---
Problems reprioritized. Patient report given, questions answered & plan of care reviewed with Shin NGUYỄN.
--- NOTE | 2021-10-07 06:39 | NUR ---
received report, assumed care. Pt in bed awake. no reports of needs. Call light in reach, bed low and 3 rails up.
[2021-10-07 07:00] VITALS: BP 110/78
[2021-10-07 07:04] LABS: BASOPHILS # (AUTO) 0.1 X10'3 (0-0.2); BASOPHILS % (AUTO) 1.3 % (0-1); EOSINOPHILS # (AUTO) 0.1 X10'3 (0-0.9); EOSINOPHILS % (AUTO) 1.9 % (0-6); HEMATOCRIT 30.1 % (42.0-52.0); HEMOGLOBIN 9.9 g/dl (14.0-17.9); LYMPHOCYTES # (AUTO) 1.8 X10'3 (1.1-4.8); LYMPHOCYTES % (AUTO) 26.2 % (21-51); MEAN CORPUSCULAR HEMOGLOBIN 28.7 PG (27.0-31.0); MEAN PLATELET VOLUME 7.3 FL (7.4-10.4); MONOCYTES # (AUTO) 0.9 X10'3 (0-0.9); MONOCYTES % (AUTO) 13.8 % (2-12); NEUTROPHILS # (AUTO) 3.9 X10'3 (1.8-7.7); NEUTROPHILS % (AUTO) 56.8 % (42-75); PLATELET COUNT 279 X10'3 (140-440); RED BLOOD COUNT 3.46 X10'6 (4.70-6.10); RED CELL DISTRIBUTION WIDTH 22.5 % (11.5-14.5); WHITE BLOOD COUNT 6.8 X10'3 (4.5-11.0)
[2021-10-07 07:18] LABS: ALANINE AMINOTRANSFERASE 14 U/L (12-78); ALBUMIN/GLOBULIN RATIO 0.4 (1.1-1.5); ALKALINE PHOSPHATASE 171 IU/L (46-116); ANION GAP 11 (8-16); ASPARTATE AMINO TRANSFERASE 25 U/L (10-37); BILIRUBIN,TOTAL 0.4 MG/DL (0.1-1.0); BLOOD UREA NITROGEN 34 MG/DL (7-18); CALCIUM 8.9 MG/DL (8.5-10.1); CHLORIDE 101 MMOL/L (99-107); GLUCOSE 114 MG/DL (70-104); POTASSIUM 3.9 MMOL/L (3.5-5.1); SODIUM 143 MMOL/L (135-145); TOTAL CARBON DIOXIDE 30.9 MMOL/L (24-32); TOTAL PROTEIN 6.6 G/DL (6.4-8.2); eGFR 39 ML/MIN
[2021-10-07] MEDS: cholecalciferol (vitamin D3) 1,000 unit (25mcg) tablet PO SCH (08:11)
[2021-10-07] MEDS: duloxetine 30mg CAPSULE.DR PO SCH (08:11)
[2021-10-07] MEDS: levoTHYROXINE 25mcg tablet PO SCH (08:12)
[2021-10-07] MEDS: NUT.TX.GLUC.INTOLER,LAC-FR,SOY (GLUCERNA) 237 ML PO SCH ×2 (08:12→17:52)
[2021-10-07] MEDS: buPROPion SR 100mg tab PO SCH ×2 (08:12→20:17)
[2021-10-07] MEDS: aspirin 81mg, enteric-coated 1 TAB TABLET.DR PO SCH (08:12)
[2021-10-07] MEDS: furosemide 40mg/4ml inj IV SCH ×2 (08:12→20:16)
[2021-10-07] MEDS: carVEDilol 3.125mg tablet PO SCH ×2 (08:12→20:17)
[2021-10-07] MEDS: pantoprazole 40mg Tablet.DR PO SCH (08:12)
[2021-10-07] MEDS: docusate sod 100mg capsule PO SCH ×2 (08:12→20:16)
[2021-10-07] MEDS: CefTRIAXone 2gm/NS 100ml IVPB 100 ML IV SCH ×2 (09:45→20:24)
[2021-10-07] MEDS: insulin Lispro (HumaLOG) vial - multi-dose SQ SCH ×3 (10:39→19:54)
--- NOTE | 2021-10-07 11:36 | NUR ---
Problems reprioritized. Patient report given, questions answered & plan of care reviewed with Teresita NGUYỄN.
--- NOTE | 2021-10-07 13:51 | NUR ---
Patient in room [facility]. I have received report from Leroy NGUYỄN and had the opportunity to ask questions and assume patient care.
[2021-10-07] MEDS: rivaroxaban 15mg tablet PO SCH (17:59)
--- NOTE | 2021-10-07 18:32 | NUR ---
patient had small BM . optifoam changed on bottom and picture taken. BS 191,129. . Report given to Bhargav NGUYỄN
[2021-10-07 18:41] VITALS: BP 112/52
[2021-10-07 20:00] VITALS: BP 119/63
[2021-10-07] MEDS: mirtazapine 15mg tablet PO SCH (20:17)
[2021-10-07] MEDS: atorvastatin 10mg tablet PO SCH (20:17)
[2021-10-07] MEDS: lisinopril 2.5mg tablet PO SCH (20:18)
[2021-10-07] MEDS: insulin glargine (Lantus) pen - multi-dose SQ SCH (21:46)
[2021-10-07 23:38] VITALS: BP 127/79
[2021-10-08] MEDS: ampicillin inj 2 GM in normal saline 100ml IV soln 100 ML IV SCH ×4 (01:20→19:24)
[2021-10-08 06:02] LABS: BASOPHILS # (AUTO) 0.1 X10'3 (0-0.2); BASOPHILS % (AUTO) 1.1 % (0-1); EOSINOPHILS # (AUTO) 0.1 X10'3 (0-0.9); EOSINOPHILS % (AUTO) 1.7 % (0-6); HEMATOCRIT 32.2 % (42.0-52.0); HEMOGLOBIN 10.3 g/dl (14.0-17.9); LYMPHOCYTES # (AUTO) 1.8 X10'3 (1.1-4.8); LYMPHOCYTES % (AUTO) 23.7 % (21-51); MEAN CORPUSCULAR HEMOGLOBIN 29.2 PG (27.0-31.0); MEAN CORPUSCULAR HGB CONC 32.1 g/dL (33.0-36.5); MEAN CORPUSCULAR VOLUME 90.9 FL (78-98); MEAN PLATELET VOLUME 7.2 FL (7.4-10.4); MONOCYTES # (AUTO) 0.9 X10'3 (0-0.9); MONOCYTES % (AUTO) 12.5 % (2-12); NEUTROPHILS # (AUTO) 4.6 X10'3 (1.8-7.7); PLATELET COUNT 284 X10'3 (140-440); RED BLOOD COUNT 3.54 X10'6 (4.70-6.10); RED CELL DISTRIBUTION WIDTH 23.8 % (11.5-14.5); WHITE BLOOD COUNT 7.5 X10'3 (4.5-11.0)
--- NOTE | 2021-10-08 06:35 | NUR ---
Problems reprioritized. Patient report given, questions answered & plan of care reviewed with COSME NGUYỄN.
[2021-10-08 06:52] LABS: ALANINE AMINOTRANSFERASE 13 U/L (12-78); ALBUMIN 2.2 G/DL (3.4-5.0); ALBUMIN/GLOBULIN RATIO 0.4 (1.1-1.5); ALKALINE PHOSPHATASE 179 IU/L (46-116); ANION GAP 12 (8-16); ASPARTATE AMINO TRANSFERASE 31 U/L (10-37); BILIRUBIN,TOTAL 0.3 MG/DL (0.1-1.0); BLOOD UREA NITROGEN 33 MG/DL (7-18); BUN/CREATININE RATIO 20.1 (5.4-32.0); CHLORIDE 101 MMOL/L (99-107); CREATININE 1.64 MG/DL (0.60-1.10); GLUCOSE 91 MG/DL (70-104); SODIUM 141 MMOL/L (135-145); TOTAL CARBON DIOXIDE 28.2 MMOL/L (24-32); TOTAL PROTEIN 7.2 G/DL (6.4-8.2); eGFR 41 ML/MIN
[2021-10-08 07:00] VITALS: BP 120/77
[2021-10-08] MEDS: HYDROcodone/acetaminophen 5mg/325mg tablet PO PRN (07:07)
[2021-10-08] MEDS: cholecalciferol (vitamin D3) 1,000 unit (25mcg) tablet PO SCH (07:07)
[2021-10-08] MEDS: diphenhydrAMINE 25mg capsule PO PRN (07:07)
[2021-10-08] MEDS: levoTHYROXINE 25mcg tablet PO SCH (07:07)
[2021-10-08] MEDS: buPROPion SR 100mg tab PO SCH ×2 (07:09→19:26)
[2021-10-08] MEDS: furosemide 40mg/4ml inj IV SCH ×2 (07:09→19:24)
[2021-10-08] MEDS: CefTRIAXone 2gm/NS 100ml IVPB 100 ML IV SCH ×2 (07:09→19:25)
[2021-10-08] MEDS: duloxetine 30mg CAPSULE.DR PO SCH (07:09)
[2021-10-08] MEDS: carVEDilol 3.125mg tablet PO SCH ×2 (07:09→19:25)
[2021-10-08] MEDS: aspirin 81mg, enteric-coated 1 TAB TABLET.DR PO SCH (07:09)
[2021-10-08] MEDS: pantoprazole 40mg Tablet.DR PO SCH (07:09)
[2021-10-08] MEDS: docusate sod 100mg capsule PO SCH ×2 (07:19→19:25)
[2021-10-08] MEDS: NUT.TX.GLUC.INTOLER,LAC-FR,SOY (GLUCERNA) 237 ML PO SCH ×2 (08:17→17:30)
[2021-10-08] MEDS: insulin Lispro (HumaLOG) vial - multi-dose SQ SCH ×2 (08:55→14:38)
--- NOTE | 2021-10-08 09:07 | NUR ---
Reassessment: Pt is currently on dry tray/1.5L fluid restriction diet and has had some decline in PO now eating avg 65% meals and 65% ONS since last nutrition assessment partially meeting estimated nutrient needs. Recommend increasing frequency of ONS to TID. LBM 10/01, receiving routine and PRN bowel care. Will continue to monitor and make recommendations as appropriate. Recommendations: 1. Continue dry tray/fluid restriction diet as tolerated 2. Glucerna ONS BID; recommend increase to TID 3. Routine bowel care 4. Weekly scaled weights Addendum: 10/08/21 at [address] Amended: Links added.
[2021-10-08 11:00] VITALS: BP 105/60
--- NOTE | 2021-10-08 18:30 | NUR ---
Patient in room [facility]. I have received report from COSME NGUYỄN and had the opportunity to ask questions and assume patient care.
[2021-10-08] MEDS: rivaroxaban 15mg tablet PO SCH (19:24)
[2021-10-08 20:00] VITALS: BP 142/82
[2021-10-08] MEDS: atorvastatin 10mg tablet PO SCH (20:28)
[2021-10-08] MEDS: lisinopril 2.5mg tablet PO SCH (20:28)
[2021-10-08] MEDS: mirtazapine 15mg tablet PO SCH (20:28)
[2021-10-08] MEDS: insulin glargine (Lantus) pen - multi-dose SQ SCH (22:11)
[2021-10-09] VITALS: BP 120/72
[2021-10-09] MEDS: HYDROcodone/acetaminophen 5mg/325mg tablet PO PRN ×3 (01:32→08:57)
[2021-10-09] MEDS: ampicillin inj 2 GM in normal saline 100ml IV soln 100 ML IV SCH ×4 (01:35→19:17)
--- NOTE | 2021-10-09 06:25 | NUR ---
Problems reprioritized. Patient report given, questions answered & plan of care reviewed with INDY NGUYỄN.
[2021-10-09 07:01] LABS: BASOPHILS # (AUTO) 0.1 X10'3 (0-0.2); BASOPHILS % (AUTO) 1.1 % (0-1); EOSINOPHILS # (AUTO) 0.1 X10'3 (0-0.9); EOSINOPHILS % (AUTO) 1.3 % (0-6); HEMATOCRIT 30.6 % (42.0-52.0); HEMOGLOBIN 9.8 g/dl (14.0-17.9); LYMPHOCYTES # (AUTO) 1.7 X10'3 (1.1-4.8); LYMPHOCYTES % (AUTO) 23.3 % (21-51); MEAN CORPUSCULAR HEMOGLOBIN 28.6 PG (27.0-31.0); MEAN CORPUSCULAR HGB CONC 31.9 g/dL (33.0-36.5); MEAN CORPUSCULAR VOLUME 89.5 FL (78-98); MEAN PLATELET VOLUME 7.5 FL (7.4-10.4); MONOCYTES # (AUTO) 0.9 X10'3 (0-0.9); MONOCYTES % (AUTO) 12.9 % (2-12); NEUTROPHILS # (AUTO) 4.5 X10'3 (1.8-7.7); NEUTROPHILS % (AUTO) 61.4 % (42-75); PLATELET COUNT 283 X10'3 (140-440); RED BLOOD COUNT 3.42 X10'6 (4.70-6.10); RED CELL DISTRIBUTION WIDTH 22.7 % (11.5-14.5); WHITE BLOOD COUNT 7.4 X10'3 (4.5-11.0)
[2021-10-09] MEDS: carVEDilol 3.125mg tablet PO SCH ×2 (07:08→19:18)
[2021-10-09] MEDS: furosemide 40mg/4ml inj IV SCH ×2 (07:08→19:17)
[2021-10-09] MEDS: CefTRIAXone 2gm/NS 100ml IVPB 100 ML IV SCH ×2 (07:08→19:17)
[2021-10-09] MEDS: aspirin 81mg, enteric-coated 1 TAB TABLET.DR PO SCH (07:09)
[2021-10-09] MEDS: pantoprazole 40mg Tablet.DR PO SCH (07:09)
[2021-10-09] MEDS: cholecalciferol (vitamin D3) 1,000 unit (25mcg) tablet PO SCH (07:09)
[2021-10-09] MEDS: duloxetine 30mg CAPSULE.DR PO SCH (07:09)
[2021-10-09] MEDS: docusate sod 100mg capsule PO SCH ×2 (07:09→19:18)
[2021-10-09] MEDS: buPROPion SR 100mg tab PO SCH ×3 (07:09→20:25)
[2021-10-09] MEDS: levoTHYROXINE 25mcg tablet PO SCH (07:10)
[2021-10-09 07:14] LABS: ALANINE AMINOTRANSFERASE 13 U/L (12-78); ALBUMIN 2.3 G/DL (3.4-5.0); ALBUMIN/GLOBULIN RATIO 0.5 (1.1-1.5); ALKALINE PHOSPHATASE 180 IU/L (46-116); ANION GAP 9 (8-16); ASPARTATE AMINO TRANSFERASE 25 U/L (10-37); BILIRUBIN,TOTAL 0.4 MG/DL (0.1-1.0); BLOOD UREA NITROGEN 32 MG/DL (7-18); BUN/CREATININE RATIO 18.2 (5.4-32.0); CALCIUM 9.1 MG/DL (8.5-10.1); CHLORIDE 100 MMOL/L (99-107); CREATININE 1.76 MG/DL (0.60-1.10); GLUCOSE 141 MG/DL (70-104); POTASSIUM 4.1 MMOL/L (3.5-5.1); SODIUM 138 MMOL/L (135-145); TOTAL CARBON DIOXIDE 29.2 MMOL/L (24-32); TOTAL PROTEIN 7.3 G/DL (6.4-8.2); eGFR 37 ML/MIN
[2021-10-09] MEDS: NUT.TX.GLUC.INTOLER,LAC-FR,SOY (GLUCERNA) 237 ML PO SCH ×2 (07:30→18:17)
[2021-10-09 08:30] VITALS: BP 103/73
[2021-10-09] MEDS: insulin Lispro (HumaLOG) vial - multi-dose SQ SCH ×3 (09:47→19:20)
[2021-10-09 11:54] VITALS: BP 97/68
[2021-10-09] MEDS: LORazepam 2 mg/ml vial IV PRN (13:08)
[2021-10-09] MEDS: acetaminophen 325mg tablet PO PRN (13:08)
[2021-10-09] MEDS: rivaroxaban 15mg tablet PO SCH (17:47)
--- NOTE | 2021-10-09 18:05 | NUR ---
Patient in room [facility]. I have received report from COSME NGUYỄN and had the opportunity to ask questions and assume patient care.
--- NOTE | 2021-10-09 18:17 | NUR ---
Problems reprioritized. Patient report given, questions answered & plan of care reviewed with VITO NGUYỄN.
--- NOTE | 2021-10-09 18:20 | NUR ---
Patient in room [facility]. I have received report from LAURA NGUYỄN. and had the opportunity to ask questions and assume patient care.
[2021-10-09 20:00] VITALS: BP 102/64
[2021-10-09] MEDS: atorvastatin 10mg tablet PO SCH (20:27)
[2021-10-09] MEDS: mirtazapine 15mg tablet PO SCH (20:27)
[2021-10-09] MEDS: lisinopril 2.5mg tablet PO SCH (20:27)
[2021-10-09] MEDS: insulin glargine (Lantus) pen - multi-dose SQ SCH (21:00)
[2021-10-09] MEDS: dextrose 50%-water 50ml dispensing syringe IV PRN (21:08)
--- NOTE | 2021-10-09 21:15 | NUR ---
PT BLOOD GLUCOSE IS 61. APPLE JUICE AND D50 IV ADMINISTERED BY [facility] NURSE.
--- NOTE | 2021-10-09 21:55 | NUR ---
BLOOD GLUCOSE IS NOW 113. PT RESTING. No apparent distress noted.
[2021-10-09 23:15] VITALS: BP 91/57
--- NOTE | 2021-10-09 23:20 | NUR ---
Blood glucose down to 76. lantus put on hold for tonight. Pt level changed from level 5 to level 4.
[2021-10-10] MEDS: ampicillin inj 2 GM in normal saline 100ml IV soln 100 ML IV SCH ×4 (01:09→21:04)
[2021-10-10 06:12] LABS: ALANINE AMINOTRANSFERASE 9 U/L (12-78); ALBUMIN 2.1 G/DL (3.4-5.0); ALBUMIN/GLOBULIN RATIO 0.4 (1.1-1.5); ALKALINE PHOSPHATASE 156 IU/L (46-116); ANION GAP 9 (8-16); ASPARTATE AMINO TRANSFERASE 25 U/L (10-37); BILIRUBIN,TOTAL 0.4 MG/DL (0.1-1.0); BLOOD UREA NITROGEN 33 MG/DL (7-18); BUN/CREATININE RATIO 19.4 (5.4-32.0); CALCIUM 8.2 MG/DL (8.5-10.1); CHLORIDE 104 MMOL/L (99-107); GLUCOSE 59 MG/DL (70-104); POTASSIUM 3.9 MMOL/L (3.5-5.1); SODIUM 142 MMOL/L (135-145); TOTAL CARBON DIOXIDE 28.6 MMOL/L (24-32); TOTAL PROTEIN 6.9 G/DL (6.4-8.2); eGFR 39 ML/MIN
[2021-10-10 06:18] LABS: BASOPHILS % (AUTO) 0.8 % (0-1); EOSINOPHILS # (AUTO) 0.1 X10'3 (0-0.9); EOSINOPHILS % (AUTO) 1.9 % (0-6); HEMATOCRIT 30.2 % (42.0-52.0); HEMOGLOBIN 9.6 g/dl (14.0-17.9); LYMPHOCYTES # (AUTO) 1.1 X10'3 (1.1-4.8); LYMPHOCYTES % (AUTO) 20.5 % (21-51); MEAN CORPUSCULAR HEMOGLOBIN 28.8 PG (27.0-31.0); MEAN CORPUSCULAR HGB CONC 31.7 g/dL (33.0-36.5); MEAN CORPUSCULAR VOLUME 90.8 FL (78-98); MEAN PLATELET VOLUME 7.4 FL (7.4-10.4); MONOCYTES # (AUTO) 0.6 X10'3 (0-0.9); MONOCYTES % (AUTO) 11.4 % (2-12); NEUTROPHILS # (AUTO) 3.7 X10'3 (1.8-7.7); NEUTROPHILS % (AUTO) 65.4 % (42-75); PLATELET COUNT 212 X10'3 (140-440); RED BLOOD COUNT 3.33 X10'6 (4.70-6.10); RED CELL DISTRIBUTION WIDTH 23.5 % (11.5-14.5); WHITE BLOOD COUNT 5.6 X10'3 (4.5-11.0)
[2021-10-10] MEDS: dextrose 50%-water 50ml dispensing syringe IV PRN (06:27)
--- NOTE | 2021-10-10 06:36 | NUR ---
Problems reprioritized. Patient report given, questions answered & plan of care reviewed with SYEDA NGUYỄN.
[2021-10-10] MEDS: levoTHYROXINE 25mcg tablet PO SCH (07:00)
[2021-10-10 07:28] VITALS: BP 110/73
[2021-10-10] MEDS: cholecalciferol (vitamin D3) 1,000 unit (25mcg) tablet PO SCH (07:58)
[2021-10-10] MEDS: duloxetine 30mg CAPSULE.DR PO SCH (07:59)
[2021-10-10] MEDS: carVEDilol 3.125mg tablet PO SCH ×2 (07:59→22:05)
[2021-10-10] MEDS: aspirin 81mg, enteric-coated 1 TAB TABLET.DR PO SCH (07:59)
[2021-10-10] MEDS: pantoprazole 40mg Tablet.DR PO SCH (07:59)
[2021-10-10] MEDS: docusate sod 100mg capsule PO SCH ×2 (08:00→22:07)
[2021-10-10] MEDS: furosemide 40mg/4ml inj IV SCH ×2 (08:00→12:05)
[2021-10-10] MEDS: NUT.TX.GLUC.INTOLER,LAC-FR,SOY (GLUCERNA) 237 ML PO SCH ×2 (08:14→18:01)
[2021-10-10] MEDS: CefTRIAXone 2gm/NS 100ml IVPB 100 ML IV SCH ×2 (10:14→22:08)
[2021-10-10 11:30] VITALS: BP 98/78
[2021-10-10 13:05] VITALS: BP 89/65
[2021-10-10] MEDS: insulin Lispro (HumaLOG) vial - multi-dose SQ SCH (14:23)
[2021-10-10 17:00] VITALS: BP 110/70
[2021-10-10] MEDS: rivaroxaban 15mg tablet PO SCH (17:59)
--- NOTE | 2021-10-10 18:39 | NUR ---
Problems reprioritized. Patient report given, questions answered & plan of care reviewed with TIANNA NGUYỄN.
[2021-10-10 20:00] VITALS: BP 109/80
--- NOTE | 2021-10-10 20:14 | NUR ---
Pt was not finished with tray by 1999. Will get nighttime blood glucose to decide how to proceed.
[2021-10-10] MEDS: insulin glargine (Lantus) pen - multi-dose SQ SCH (21:18)
--- NOTE | 2021-10-10 22:02 | NUR ---
notified miko nursing supervisor pit and auxiliaries that pt has orders to transer to telemetry . charge4 nurse ronal also aware
[2021-10-10 22:05] VITALS: BP 104/72
[2021-10-10] MEDS: lisinopril 2.5mg tablet PO SCH (22:05)
[2021-10-10] MEDS: mirtazapine 15mg tablet PO SCH (22:06)
[2021-10-10] MEDS: atorvastatin 10mg tablet PO SCH (22:07)
[2021-10-10] MEDS: buPROPion SR 100mg tab PO SCH (22:09)
[2021-10-11] VITALS: BP 110/85
--- NOTE | 2021-10-11 00:13 | NUR ---
2345 temporarily receiving patient from DELMA Gipson and gave report to DELMA Cee at 0005.
[2021-10-11] MEDS: ampicillin inj 2 GM in normal saline 100ml IV soln 100 ML IV SCH ×4 (02:28→20:14)
--- NOTE | 2021-10-11 06:50 | NUR ---
Patient in room [facility]. I have received report from DELMA Cee and had the opportunity to ask questions and assume patient care.
[2021-10-11 07:00] VITALS: BP 107/66
[2021-10-11] MEDS: NUT.TX.GLUC.INTOLER,LAC-FR,SOY (GLUCERNA) 237 ML PO SCH ×2 (07:30→18:05)
[2021-10-11] MEDS: insulin Lispro (HumaLOG) vial - multi-dose SQ SCH (09:04)
[2021-10-11] MEDS: furosemide 40mg/4ml inj IV SCH (09:09)
[2021-10-11] MEDS: cholecalciferol (vitamin D3) 1,000 unit (25mcg) tablet PO SCH (09:09)
[2021-10-11] MEDS: docusate sod 100mg capsule PO SCH ×2 (09:09→20:04)
[2021-10-11] MEDS: buPROPion SR 100mg tab PO SCH ×2 (09:10→20:06)
[2021-10-11] MEDS: duloxetine 30mg CAPSULE.DR PO SCH (09:10)
[2021-10-11] MEDS: levoTHYROXINE 25mcg tablet PO SCH (09:10)
[2021-10-11] MEDS: pantoprazole 40mg Tablet.DR PO SCH (09:10)
[2021-10-11] MEDS: aspirin 81mg, enteric-coated 1 TAB TABLET.DR PO SCH (09:10)
[2021-10-11] MEDS: carVEDilol 3.125mg tablet PO SCH ×2 (09:11→20:05)
[2021-10-11] MEDS: CefTRIAXone 2gm/NS 100ml IVPB 100 ML IV SCH ×2 (10:28→21:33)
[2021-10-11 13:18] VITALS: BP 102/68
--- NOTE | 2021-10-11 17:44 | NUR ---
PAGER ID: [phone] MESSAGE: [facility] Room 347B Patient on 1500 ml fluid restriction but Intake 300 ml/output 500 ml, last urines 09/03/21, Na is 142. Please let us know if we should continue with the fluid restriction. Thank you. Rose Mary [phone]
--- NOTE | 2021-10-11 18:31 | NUR ---
Problems reprioritized. Patient report given, questions answered & plan of care reviewed with DELMA Gipson.
[2021-10-11 20:00] VITALS: BP 99/63
[2021-10-11] MEDS: rivaroxaban 15mg tablet PO SCH (20:00)
[2021-10-11] MEDS: mirtazapine 15mg tablet PO SCH (20:07)
[2021-10-11] MEDS: atorvastatin 10mg tablet PO SCH (20:07)
[2021-10-11] MEDS: lisinopril 2.5mg tablet PO SCH (21:40)
[2021-10-11] MEDS: insulin glargine (Lantus) pen - multi-dose SQ SCH (23:19)
[2021-10-12] VITALS: BP 103/71
[2021-10-12] MEDS: LORazepam 2 mg/ml vial IV PRN (02:12)
[2021-10-12] MEDS: ampicillin inj 2 GM in normal saline 100ml IV soln 100 ML IV SCH ×4 (02:21→19:45)
--- NOTE | 2021-10-12 05:22 | NUR ---
pt confused during the night. pt became agitated when he could not climb oob . reoriented pt and explained fall precautions. ativan was given. pt calmer after ativan
--- NOTE | 2021-10-12 06:27 | NUR ---
Patient in room [facility]. I have received report from DELMA Gipson and had the opportunity to ask questions and assume patient care.
[2021-10-12] MEDS: NUT.TX.GLUC.INTOLER,LAC-FR,SOY (GLUCERNA) 237 ML PO SCH ×2 (07:30→18:11)
[2021-10-12] MEDS: duloxetine 30mg CAPSULE.DR PO SCH (07:43)
[2021-10-12] MEDS: pantoprazole 40mg Tablet.DR PO SCH (07:43)
[2021-10-12] MEDS: levoTHYROXINE 25mcg tablet PO SCH (07:43)
[2021-10-12] MEDS: buPROPion SR 100mg tab PO SCH ×2 (07:43→19:44)
[2021-10-12] MEDS: cholecalciferol (vitamin D3) 1,000 unit (25mcg) tablet PO SCH (07:44)
[2021-10-12] MEDS: docusate sod 100mg capsule PO SCH ×2 (07:44→19:44)
[2021-10-12] MEDS: furosemide 40mg/4ml inj IV SCH (07:45)
[2021-10-12] MEDS: aspirin 81mg, enteric-coated 1 TAB TABLET.DR PO SCH (07:45)
[2021-10-12] MEDS: carVEDilol 3.125mg tablet PO SCH ×2 (07:50→19:45)
[2021-10-12 08:00] VITALS: BP 111/72
[2021-10-12] MEDS: CefTRIAXone 2gm/NS 100ml IVPB 100 ML IV SCH ×2 (10:00→20:59)
[2021-10-12 11:00] VITALS: BP 109/70
[2021-10-12] MEDS: insulin Lispro (HumaLOG) vial - multi-dose SQ SCH (14:17)
--- NOTE | 2021-10-12 18:59 | NUR ---
Problems reprioritized. Patient report given, questions answered & plan of care reviewed with DELMA ADAMS.
[2021-10-12 19:00] VITALS: BP 137/86
[2021-10-12] MEDS: rivaroxaban 15mg tablet PO SCH (19:48)
[2021-10-12] MEDS: atorvastatin 10mg tablet PO SCH (21:01)
[2021-10-12] MEDS: mirtazapine 15mg tablet PO SCH (21:01)
[2021-10-12] MEDS: lisinopril 2.5mg tablet PO SCH (21:05)
[2021-10-12] MEDS: insulin glargine (Lantus) pen - multi-dose SQ SCH (21:08)
[2021-10-13] MEDS: ampicillin inj 2 GM in normal saline 100ml IV soln 100 ML IV SCH ×4 (02:55→19:36)
[2021-10-13 07:00] VITALS: BP 104/74
[2021-10-13] MEDS: furosemide 40mg/4ml inj IV SCH (08:06)
[2021-10-13] MEDS: levoTHYROXINE 25mcg tablet PO SCH (08:07)
[2021-10-13] MEDS: carVEDilol 3.125mg tablet PO SCH ×2 (08:08→19:32)
[2021-10-13] MEDS: aspirin 81mg, enteric-coated 1 TAB TABLET.DR PO SCH (08:08)
[2021-10-13] MEDS: docusate sod 100mg capsule PO SCH ×2 (08:08→19:36)
[2021-10-13] MEDS: duloxetine 30mg CAPSULE.DR PO SCH (08:09)
[2021-10-13] MEDS: cholecalciferol (vitamin D3) 1,000 unit (25mcg) tablet PO SCH (08:09)
[2021-10-13] MEDS: buPROPion SR 100mg tab PO SCH ×2 (08:09→19:36)
[2021-10-13] MEDS: pantoprazole 40mg Tablet.DR PO SCH (08:10)
[2021-10-13] MEDS: NUT.TX.GLUC.INTOLER,LAC-FR,SOY (GLUCERNA) 237 ML PO SCH ×2 (08:10→17:43)
[2021-10-13] MEDS: CefTRIAXone 2gm/NS 100ml IVPB 100 ML IV SCH ×2 (08:11→20:33)
--- NOTE | 2021-10-13 10:41 | NUR ---
Reassessment: PO intake fluctuates, previously with mostly 75% PO intake however down to 25-50% PO intake 10/12. Pending documentation of PO intake for today. Pt continues with Glucerna BID with average 63% PO intake of ONS since last RD assessment 10/08. Pt would benefit from ONS change to Ensure Enlive if PO intake of meals does not improve. LBM 10/12. Will continue to follow and make recommendations as appropriate pending additional trends in PO intake. Recommendations: 1. Continue SB6 diet with 1.5 L fluid restriction per MD 2. Glucerna ONS BID; consider ONS change to Ensure Enlive 3. Routine bowel care 4. Weekly scaled weights Addendum: 10/13/21 at [address] Amended: Links added.
[2021-10-13 11:00] VITALS: BP 136/109
[2021-10-13 11:40] VITALS: BP 114/79
[2021-10-13] MEDS: rivaroxaban 15mg tablet PO SCH (17:58)
--- NOTE | 2021-10-13 18:47 | NUR ---
Report given to Nga NGUYỄN. all questions answered. She is familiar with this patient. Patient did not feel well part of the day for lunch and was somewhat confused with strange dreams/hallucinations for short time which is not abnormal for him. Patient slept well from lunch to prior to dinner and woke up feeling much better.
[2021-10-13 20:00] VITALS: BP 107/75
[2021-10-13] MEDS: mirtazapine 15mg tablet PO SCH (20:33)
[2021-10-13] MEDS: lisinopril 2.5mg tablet PO SCH (20:39)
[2021-10-13] MEDS: atorvastatin 10mg tablet PO SCH (20:39)
[2021-10-13] MEDS: insulin glargine (Lantus) pen - multi-dose SQ SCH (22:26)
[2021-10-14] MEDS: ampicillin inj 2 GM in normal saline 100ml IV soln 100 ML IV SCH ×4 (02:17→21:30)
--- NOTE | 2021-10-14 06:22 | NUR ---
Problems reprioritized. Patient report given, questions answered & plan of care reviewed with Lashawn NGUYỄN. Addendum: 10/14/21 at 0622 by Nga Kay RN Amended: Links added.
[2021-10-14] MEDS: cholecalciferol (vitamin D3) 1,000 unit (25mcg) tablet PO SCH (07:48)
[2021-10-14] MEDS: duloxetine 30mg CAPSULE.DR PO SCH (07:48)
[2021-10-14] MEDS: levoTHYROXINE 25mcg tablet PO SCH (07:48)
[2021-10-14] MEDS: aspirin 81mg, enteric-coated 1 TAB TABLET.DR PO SCH (07:49)
[2021-10-14] MEDS: pantoprazole 40mg Tablet.DR PO SCH (07:49)
[2021-10-14] MEDS: docusate sod 100mg capsule PO SCH ×2 (07:49→19:34)
[2021-10-14] MEDS: furosemide 40mg/4ml inj IV SCH (07:50)
[2021-10-14] MEDS: buPROPion SR 100mg tab PO SCH ×2 (07:51→19:33)
[2021-10-14] MEDS: carVEDilol 3.125mg tablet PO SCH ×2 (07:54→19:34)
[2021-10-14] MEDS: NUT.TX.GLUC.INTOLER,LAC-FR,SOY (GLUCERNA) 237 ML PO SCH ×2 (07:59→17:55)
[2021-10-14 08:00] VITALS: BP 110/78
[2021-10-14] MEDS: CefTRIAXone 2gm/NS 100ml IVPB 100 ML IV SCH ×2 (09:00→21:30)
[2021-10-14] MEDS: insulin Lispro (HumaLOG) vial - multi-dose SQ SCH ×2 (09:33→19:37)
--- NOTE | 2021-10-14 10:52 | NUR ---
PAGER ID: [phone] MESSAGE: Storm in 347B ripped out his IV and is not allowing another one to be started, he is refusing all care at this time. Lashawn [phone] Addendum: 10/14/21 at 1052 by Lashawn Yip RN Dr. Renetta blakely
[2021-10-14 11:00] VITALS: BP 120/82
--- NOTE | 2021-10-14 11:57 | NUR ---
PAGER ID: [phone] MESSAGE: [phone] Storm, can I order him a hamburger? He's on a CC diet. Lashawn [phone] Addendum: 10/14/21 at 1200 by Lashawn Yip RN Patient can have a regular diet if he is agreeable to a PIV placement. Patient has agreed to an IV and diet will be changed.
[2021-10-14] MEDS: HYDROcodone/acetaminophen 5mg/325mg tablet PO PRN ×2 (13:22→19:34)
--- NOTE | 2021-10-14 13:32 | NUR ---
Patient complaining of pain in his back but will not take medication, states we are trying to poison him.
--- NOTE | 2021-10-14 13:59 | NUR ---
PAGER ID: [phone] MESSAGE: IGLESIA PULLED OUT HIS IV AGAIN. THREW HIS LUNCH TRAY ACROSS THE ROOM. Lashawn [phone]
--- NOTE | 2021-10-14 14:50 | NUR ---
Patient pulled out his IV again, refusing another one. Dr. Jackson notified.
[2021-10-14] MEDS: ziprasidone IM 20mg inj **IM only IM PRN (15:21)
[2021-10-14 18:00] VITALS: BP 118/65
--- NOTE | 2021-10-14 18:12 | NUR ---
Patient in room SURG 347B. I have received report from DELMA Hardin and had the opportunity to ask questions and assume patient care.
--- NOTE | 2021-10-14 18:23 | NUR ---
Problems reprioritized. Patient report given, questions answered & plan of care reviewed with Richa NGUYỄN.
[2021-10-14] MEDS: rivaroxaban 15mg tablet PO SCH (19:33)
[2021-10-14] MEDS: atorvastatin 10mg tablet PO SCH (21:24)
[2021-10-14] MEDS: mirtazapine 15mg tablet PO SCH (21:24)
[2021-10-14] MEDS: insulin glargine (Lantus) pen - multi-dose SQ SCH (21:27)
[2021-10-14] MEDS: lisinopril 2.5mg tablet PO SCH (21:28)
--- NOTE | 2021-10-14 22:45 | NUR ---
Bladder scan showed 430 cc of urine. Notified Nighttime Hospitalist; orders received to straight cath.
[2021-10-14 23:04] LABS: CLARITY,URINE SLIGHTLY CLOUDY (Clear); COLOR,URINE YELLOW (Yellow); GLUCOSE, URINE NEGATIVE (Neg); KETONES,URINE TRACE mg/dl (Neg); LEUKOCYTE ESTERASE ,URINE NEGATIVE (Neg); NITRITES, URINE NEGATIVE (Neg); OCCULT BLOOD,URINE TRACE-INTACT (Neg); PH,URINE 5.5 (4.8-8.0); PROTEIN,URINE 30 mg/dl (Neg); UROBILINOGEN,URINE 0.2 E.U/dL (0.2-1.0)
[2021-10-14 23:10] LABS: UA COLLECTION TYPE STRAIGHT CATH
[2021-10-14 23:11] LABS: AMORPHOUS URATES 1+; BACTERIA,URINE FEW /HPF (Neg); COARSE GRANULAR CAST 0-3 /LPF (NEGATIVE); HYALINE CASTS 0-3 /LPF (NEGATIVE); MUCUS STRANDS FEW /LPF (Neg); RBC,URINE 0-2 /HPF (0-2); SQUAMOUS EPITHELIAL CELL,UR FEW /LPF (FEW); WBC,URINE NONE SEEN /HPF (0-4)
[2021-10-15] VITALS: BP 120/87
[2021-10-15] MEDS: ampicillin inj 2 GM in normal saline 100ml IV soln 100 ML IV SCH ×4 (02:32→19:29)
--- NOTE | 2021-10-15 04:53 | NUR ---
Bladder scan showed 73 cc of urine; Will continue to monitor.
--- NOTE | 2021-10-15 06:13 | NUR ---
Problems reprioritized. Patient report given, questions answered & plan of care reviewed with DELMA Hardin.
[2021-10-15 06:17] LABS: BASOPHILS # (AUTO) 0.1 X10'3 (0-0.2); BASOPHILS % (AUTO) 0.9 % (0-1); EOSINOPHILS # (AUTO) 0.1 X10'3 (0-0.9); EOSINOPHILS % (AUTO) 1.2 % (0-6); HEMATOCRIT 32.9 % (42.0-52.0); HEMOGLOBIN 10.7 g/dl (14.0-17.9); LYMPHOCYTES # (AUTO) 1.4 X10'3 (1.1-4.8); LYMPHOCYTES % (AUTO) 21.5 % (21-51); MEAN CORPUSCULAR HEMOGLOBIN 29.6 PG (27.0-31.0); MEAN CORPUSCULAR HGB CONC 32.6 g/dL (33.0-36.5); MEAN PLATELET VOLUME 8.1 FL (7.4-10.4); MONOCYTES # (AUTO) 0.9 X10'3 (0-0.9); NEUTROPHILS # (AUTO) 4.2 X10'3 (1.8-7.7); NEUTROPHILS % (AUTO) 63.4 % (42-75); PLATELET COUNT 239 X10'3 (140-440); RED BLOOD COUNT 3.61 X10'6 (4.70-6.10); RED CELL DISTRIBUTION WIDTH 23.2 % (11.5-14.5); WHITE BLOOD COUNT 6.6 X10'3 (4.5-11.0)
--- NOTE | 2021-10-15 06:30 | NUR ---
Patient in room [facility]. I have received report from Richa NGUYỄN and had the opportunity to ask questions and assume patient care.
[2021-10-15 06:33] LABS: ALANINE AMINOTRANSFERASE 14 U/L (12-78); ALBUMIN 2.5 G/DL (3.4-5.0); ALBUMIN/GLOBULIN RATIO 0.5 (1.1-1.5); ALKALINE PHOSPHATASE 188 IU/L (46-116); ANION GAP 8 (8-16); ASPARTATE AMINO TRANSFERASE 29 U/L (10-37); BILIRUBIN,TOTAL 0.5 MG/DL (0.1-1.0); BLOOD UREA NITROGEN 36 MG/DL (7-18); CHLORIDE 102 MMOL/L (99-107); CREATININE 2.12 MG/DL (0.60-1.10); GLUCOSE 95 MG/DL (70-104); POTASSIUM 3.5 MMOL/L (3.5-5.1); SODIUM 135 MMOL/L (135-145); TOTAL CARBON DIOXIDE 24.7 MMOL/L (24-32); TOTAL PROTEIN 7.5 G/DL (6.4-8.2); eGFR 30 ML/MIN
[2021-10-15 07:35] VITALS: BP 114/76
[2021-10-15] MEDS: aspirin 81mg, enteric-coated 1 TAB TABLET.DR PO SCH (08:31)
[2021-10-15] MEDS: cholecalciferol (vitamin D3) 1,000 unit (25mcg) tablet PO SCH (08:31)
[2021-10-15] MEDS: buPROPion SR 100mg tab PO SCH (08:31)
[2021-10-15] MEDS: carVEDilol 3.125mg tablet PO SCH ×2 (08:31→19:28)
[2021-10-15] MEDS: duloxetine 30mg CAPSULE.DR PO SCH (08:31)
[2021-10-15] MEDS: docusate sod 100mg capsule PO SCH ×2 (08:31→19:28)
[2021-10-15] MEDS: NUT.TX.GLUC.INTOLER,LAC-FR,SOY (GLUCERNA) 237 ML PO SCH ×2 (08:32→18:20)
[2021-10-15] MEDS: pantoprazole 40mg Tablet.DR PO SCH (08:32)
[2021-10-15] MEDS: furosemide 40mg/4ml inj IV SCH (08:32)
[2021-10-15] MEDS: levoTHYROXINE 25mcg tablet PO SCH (08:32)
[2021-10-15] MEDS: CefTRIAXone 2gm/NS 100ml IVPB 100 ML IV SCH ×2 (10:31→19:29)
--- NOTE | 2021-10-15 11:59 | NUR ---
Notified Dr. Andrew concerning patients BUN/Creatinine trending up. Bladder scanned patient, 251 CC result.
[2021-10-15] MEDS: normal saline 1000ml 1,000 ML IV SCH (12:39)
[2021-10-15 12:52] VITALS: BP 107/74
--- NOTE | 2021-10-15 14:00 | NUR ---
Patient apologetic for his behavior these past few days.
--- NOTE | 2021-10-15 15:02 | NUR ---
Patient has a small amount of urine in CC toth approx 100CC currently.
--- NOTE | 2021-10-15 16:18 | NUR ---
IV Y-site broke in half, replaced. Patient was bleeding out the site, pressure applied and redressed. Patient tolerated well.
[2021-10-15] MEDS: rivaroxaban 15mg tablet PO SCH (18:00)
--- NOTE | 2021-10-15 18:06 | NUR ---
Patient in room SURG 347B. I have received report from DELMA Hardin and had the opportunity to ask questions and assume patient care.
--- NOTE | 2021-10-15 18:12 | NUR ---
Problems reprioritized. Patient report given, questions answered & plan of care reviewed with Richa NGUYỄN.
[2021-10-15 19:00] VITALS: BP 109/70
[2021-10-15] MEDS: buPROPion SR 150mg tablet PO SCH (19:28)
[2021-10-15] MEDS: insulin glargine (Lantus) pen - multi-dose SQ SCH (21:00)
[2021-10-15] MEDS: atorvastatin 10mg tablet PO SCH (21:53)
[2021-10-15] MEDS: mirtazapine 15mg tablet PO SCH (21:53)
[2021-10-15] MEDS: lisinopril 2.5mg tablet PO SCH (21:54)
[2021-10-16] VITALS: BP 101/71
[2021-10-16] MEDS: ampicillin inj 2 GM in normal saline 100ml IV soln 100 ML IV SCH ×4 (01:03→19:41)
[2021-10-16] MEDS: HYDROcodone/acetaminophen 5mg/325mg tablet PO PRN (01:04)
[2021-10-16] MEDS: normal saline 1000ml 1,000 ML IV SCH ×2 (01:09→14:48)
--- NOTE | 2021-10-16 05:40 | NUR ---
Bladder scan only showed 250 cc of urine. Will continue to monitor.
--- NOTE | 2021-10-16 06:36 | NUR ---
Problems reprioritized. Patient report given, questions answered & plan of care reviewed with DELMA Mederos.
--- NOTE | 2021-10-16 06:57 | NUR ---
Patient in room [facility]. I have received report from Richa NGUYỄN and had the opportunity to ask questions and assume patient care.
[2021-10-16 07:00] VITALS: BP 107/91
[2021-10-16] MEDS: NUT.TX.GLUC.INTOLER,LAC-FR,SOY (GLUCERNA) 237 ML PO SCH ×2 (07:30→17:30)
[2021-10-16] MEDS: levoTHYROXINE 25mcg tablet PO SCH (07:30)
[2021-10-16] MEDS: carVEDilol 3.125mg tablet PO SCH ×2 (07:31→19:44)
[2021-10-16] MEDS: buPROPion SR 150mg tablet PO SCH ×2 (07:31→19:42)
[2021-10-16] MEDS: cholecalciferol (vitamin D3) 1,000 unit (25mcg) tablet PO SCH (07:32)
[2021-10-16] MEDS: aspirin 81mg, enteric-coated 1 TAB TABLET.DR PO SCH (07:32)
[2021-10-16] MEDS: duloxetine 30mg CAPSULE.DR PO SCH (07:32)
[2021-10-16] MEDS: pantoprazole 40mg Tablet.DR PO SCH (07:32)
[2021-10-16] MEDS: docusate sod 100mg capsule PO SCH ×2 (07:32→19:42)
--- NOTE | 2021-10-16 10:05 | NUR ---
Reassessment: Pt now on Regular diet though continues w/ poor PO intake, avg 25% x 10 meals and 60% of ONS not meeting needs. Pt has been noted to be aggressive at times and throwing meal trays. Attempted to obtain food preferences from pt but he declined to discuss at that time. He was apologetic but states he was not in a good mood and did not want to talk. TC to RN to recommend changing Glucerna to Ensure Enlive as it has more calories and protein. LBM 4/4 receiving routine colace. Will continue to monitor. Recommendations: 1. Continue Regular diet as tolerated; chop meats 2. Glucerna ONS BID; Change to Ensure Enlive 3. Routine bowel care 4. Weekly scaled weights Addendum: 10/16/21 at [address] Amended: Links added.
[2021-10-16] MEDS: CefTRIAXone 2gm/NS 100ml IVPB 100 ML IV SCH ×2 (10:12→19:41)
[2021-10-16 11:00] VITALS: BP 107/39
--- NOTE | 2021-10-16 11:10 | NUR ---
WOUND INFECTION EDUCATION PROVIDED BY WOUND CARE 1. Patient instructed to call their primary doctor, or go the ED immediately if any of the following symptoms occur: * Increased pain in wound * Increase in drainage from the wound * Redness in the skin surrounding the wound * Warmth in the skin surrounding the wound * Bleeding from the wound * Temperature of 101 or greater 2. If any of these occur while in the hospital tell a nurse immediately. Addendum: 10/16/21 at 1112 by Addie Palacio RN Amended: Links added.
[2021-10-16 12:04] LABS: BASOPHILS % (AUTO) 0.6 % (0-1); EOSINOPHILS # (AUTO) 0.1 X10'3 (0-0.9); EOSINOPHILS % (AUTO) 0.8 % (0-6); LYMPHOCYTES # (AUTO) 1.2 X10'3 (1.1-4.8); LYMPHOCYTES % (AUTO) 16.9 % (21-51); MEAN CORPUSCULAR HEMOGLOBIN 29.6 PG (27.0-31.0); MEAN CORPUSCULAR HGB CONC 30.5 g/dL (33.0-36.5); MEAN PLATELET VOLUME 8.2 FL (7.4-10.4); MONOCYTES # (AUTO) 0.9 X10'3 (0-0.9); MONOCYTES % (AUTO) 13.2 % (2-12); NEUTROPHILS # (AUTO) 4.8 X10'3 (1.8-7.7); NEUTROPHILS % (AUTO) 68.5 % (42-75); PLATELET COUNT 196 X10'3 (140-440); RED BLOOD COUNT 3.38 X10'6 (4.70-6.10); RED CELL DISTRIBUTION WIDTH 24.4 % (11.5-14.5)
[2021-10-16 12:24] LABS: ALANINE AMINOTRANSFERASE 53 U/L (12-78); ALBUMIN 2.1 G/DL (3.4-5.0); ALBUMIN/GLOBULIN RATIO 0.5 (1.1-1.5); ALKALINE PHOSPHATASE 246 IU/L (46-116); ANION GAP 19 (8-16); ASPARTATE AMINO TRANSFERASE 111 U/L (10-37); BILIRUBIN,TOTAL 0.6 MG/DL (0.1-1.0); BLOOD UREA NITROGEN 43 MG/DL (7-18); BUN/CREATININE RATIO 16.9 (5.4-32.0); CALCIUM 8.1 MG/DL (8.5-10.1); CHLORIDE 107 MMOL/L (99-107); CREATININE 2.55 MG/DL (0.60-1.10); GLUCOSE 149 MG/DL (70-104); POTASSIUM 4.6 MMOL/L (3.5-5.1); SODIUM 144 MMOL/L (135-145); TOTAL CARBON DIOXIDE 17.7 MMOL/L (24-32); TOTAL PROTEIN 6.5 G/DL (6.4-8.2); eGFR 24 ML/MIN
[2021-10-16 12:27] LABS: HEMATOCRIT 29.4 % (42.0-52.0); HEMOGLOBIN 9.7 g/dl (14.0-17.9); MEAN CORPUSCULAR VOLUME 91.5 FL (78-98)
--- NOTE | 2021-10-16 12:36 | NUR ---
Bladder scanned showed 246ml's in bladder 175ml's in condom cath toth. Will continue to monitor
--- NOTE | 2021-10-16 17:27 | NUR ---
Bladder scanned patient for 313 ml's in bladder. Will continue to monitor and straight cath as needed.
[2021-10-16] MEDS: rivaroxaban 15mg tablet PO SCH (18:35)
--- NOTE | 2021-10-16 18:39 | NUR ---
Problems reprioritized. Patient report given, questions answered & plan of care reviewed with Richa NGUYỄN.
[2021-10-16 20:00] VITALS: BP 97/70
[2021-10-16] MEDS: insulin glargine (Lantus) pen - multi-dose SQ SCH (21:00)
[2021-10-16] MEDS: lisinopril 2.5mg tablet PO SCH (21:00)
[2021-10-16] MEDS: mirtazapine 15mg tablet PO SCH (21:46)
[2021-10-16] MEDS: atorvastatin 10mg tablet PO SCH (21:48)
[2021-10-17] VITALS: BP 93/68
--- NOTE | 2021-10-17 02:30 | NUR ---
Bladder scan only showed 258 cc of urine. Will continue to monitor.
[2021-10-17] MEDS: diphenhydrAMINE 25mg capsule PO PRN (03:55)
[2021-10-17] MEDS: normal saline 1000ml 1,000 ML IV SCH (04:12)
[2021-10-17 06:00] VITALS: BP 121/92
--- NOTE | 2021-10-17 06:11 | NUR ---
Problems reprioritized. Patient report given, questions answered & plan of care reviewed with DELMA Stanton.
[2021-10-17 06:26] LABS: BASOPHILS % (AUTO) 0.7 % (0-1); EOSINOPHILS # (AUTO) 0.1 X10'3 (0-0.9); EOSINOPHILS % (AUTO) 0.9 % (0-6); HEMATOCRIT 32.1 % (42.0-52.0); HEMOGLOBIN 9.9 g/dl (14.0-17.9); LYMPHOCYTES # (AUTO) 1.1 X10'3 (1.1-4.8); LYMPHOCYTES % (AUTO) 16.8 % (21-51); MEAN CORPUSCULAR HGB CONC 30.8 g/dL (33.0-36.5); MEAN CORPUSCULAR VOLUME 94.1 FL (78-98); MEAN PLATELET VOLUME 8.5 FL (7.4-10.4); MONOCYTES # (AUTO) 0.8 X10'3 (0-0.9); MONOCYTES % (AUTO) 12.2 % (2-12); NEUTROPHILS # (AUTO) 4.4 X10'3 (1.8-7.7); NEUTROPHILS % (AUTO) 69.4 % (42-75); PLATELET COUNT 196 X10'3 (140-440); RED BLOOD COUNT 3.41 X10'6 (4.70-6.10); RED CELL DISTRIBUTION WIDTH 25.2 % (11.5-14.5); WHITE BLOOD COUNT 6.4 X10'3 (4.5-11.0)
[2021-10-17 06:37] LABS: ALANINE AMINOTRANSFERASE 101 U/L (12-78); ALBUMIN 2.1 G/DL (3.4-5.0); ALBUMIN/GLOBULIN RATIO 0.4 (1.1-1.5); ALKALINE PHOSPHATASE 273 IU/L (46-116); ANION GAP 18 (8-16); ASPARTATE AMINO TRANSFERASE 186 U/L (10-37); BILIRUBIN,TOTAL 0.7 MG/DL (0.1-1.0); BLOOD UREA NITROGEN 45 MG/DL (7-18); BUN/CREATININE RATIO 16.5 (5.4-32.0); C-REACTIVE PROTEIN 4.76 MG/DL (0.0-0.5); CALCIUM 8.4 MG/DL (8.5-10.1); CHLORIDE 105 MMOL/L (99-107); CREATININE 2.72 MG/DL (0.60-1.10); GLUCOSE 144 MG/DL (70-104); SODIUM 143 MMOL/L (135-145); TOTAL CARBON DIOXIDE 19.8 MMOL/L (24-32); TOTAL PROTEIN 6.9 G/DL (6.4-8.2); eGFR 23 ML/MIN
[2021-10-17 06:39] LABS: POTASSIUM 4.5 MMOL/L (3.5-5.1)
[2021-10-17] MEDS: levoTHYROXINE 25mcg tablet PO SCH (07:51)
[2021-10-17] MEDS: pantoprazole 40mg Tablet.DR PO SCH (07:56)
[2021-10-17] MEDS: docusate sod 100mg capsule PO SCH ×2 (07:57→20:32)
[2021-10-17] MEDS: duloxetine 30mg CAPSULE.DR PO SCH (07:57)
[2021-10-17] MEDS: aspirin 81mg, enteric-coated 1 TAB TABLET.DR PO SCH (07:57)
[2021-10-17] MEDS: cholecalciferol (vitamin D3) 1,000 unit (25mcg) tablet PO SCH (07:58)
[2021-10-17] MEDS: buPROPion SR 150mg tablet PO SCH ×2 (07:58→20:32)
[2021-10-17] MEDS: carVEDilol 3.125mg tablet PO SCH ×2 (08:00→20:33)
[2021-10-17] MEDS: NUT.TX.GLUC.INTOLER,LAC-FR,SOY (GLUCERNA) 237 ML PO SCH ×2 (08:20→17:44)
[2021-10-17] MEDS: sodium bicarbonate (8.4%) inj. 100 MEQ in sodium chloride 0.45% 1,000 ML IV SCH ×2 (09:54→20:29)
[2021-10-17 11:00] VITALS: BP 116/62
--- NOTE | 2021-10-17 13:30 | NUR ---
MD aware of decreased urine output.
[2021-10-17] MEDS: HYDROcodone/acetaminophen 5mg/325mg tablet PO PRN (14:41)
--- NOTE | 2021-10-17 14:48 | NUR ---
pt voided 50mL. post void bladder scan shows 352mL. Will continue to monitor.
[2021-10-17] MEDS: rivaroxaban 15mg tablet PO SCH (17:13)
--- NOTE | 2021-10-17 17:29 | NUR ---
Bladder scan shows 382mL. will continue to monitor
[2021-10-17] MEDS ORDERED: LIDOcaine 2% 10ml TOPICAL JELLY (Urojet) TP ONE (17:35)
--- NOTE | 2021-10-17 18:13 | NUR ---
16 spanish Lindsey catheter inserted w/o difficulty 10cc to balloon. 2 mL Lidocaine to meatus prior to procedure.
--- NOTE | 2021-10-17 18:14 | NUR ---
Problems reprioritized. Patient report given, questions answered & plan of care reviewed with DELMA De Jesus.
--- NOTE | 2021-10-17 18:16 | NUR ---
Lindsey Catheter insertion performed under supervision of Clinical Industrial Maintenance Manager. Sterile techniqjue maintained.
--- NOTE | 2021-10-17 18:37 | NUR ---
Patient in room [facility]. I have received report from Romy NGUYỄN and had the opportunity to ask questions and assume patient care.
[2021-10-17 19:00] VITALS: BP 106/71
[2021-10-17 20:00] VITALS: BP 106/71
[2021-10-17] MEDS: mirtazapine 15mg tablet PO SCH (20:32)
[2021-10-17] MEDS: atorvastatin 10mg tablet PO SCH (20:32)
[2021-10-17 20:37] VITALS: BP 106/69
[2021-10-17] MEDS: insulin glargine (Lantus) pen - multi-dose SQ SCH (21:00)
--- NOTE | 2021-10-17 23:08 | NUR ---
Patient in room [facility]. I have received report from Neal NGUYỄN and had the opportunity to ask questions and assume patient care.
--- NOTE | 2021-10-18 06:20 | NUR ---
Problems reprioritized. Patient report given, questions answered & plan of care reviewed with Romy NGUYỄN.
[2021-10-18 07:00] VITALS: BP 107/64
[2021-10-18] MEDS: sodium bicarbonate (8.4%) inj. 100 MEQ in sodium chloride 0.45% 1,000 ML IV SCH (07:47)
[2021-10-18] MEDS: carVEDilol 3.125mg tablet PO SCH ×2 (07:50→20:29)
[2021-10-18] MEDS: pantoprazole 40mg Tablet.DR PO SCH (07:50)
[2021-10-18] MEDS: cholecalciferol (vitamin D3) 1,000 unit (25mcg) tablet PO SCH (07:50)
[2021-10-18] MEDS: levoTHYROXINE 25mcg tablet PO SCH (07:51)
[2021-10-18] MEDS: duloxetine 30mg CAPSULE.DR PO SCH (07:51)
[2021-10-18] MEDS: docusate sod 100mg capsule PO SCH ×2 (07:51→20:30)
[2021-10-18] MEDS: buPROPion SR 150mg tablet PO SCH ×2 (07:51→20:30)
[2021-10-18] MEDS: aspirin 81mg, enteric-coated 1 TAB TABLET.DR PO SCH (07:51)
[2021-10-18] MEDS: NUT.TX.GLUC.INTOLER,LAC-FR,SOY (GLUCERNA) 237 ML PO SCH ×2 (08:04→17:40)
[2021-10-18 11:35] LABS: BASOPHILS % (AUTO) 0.3 % (0-1); EOSINOPHILS % (AUTO) 0.4 % (0-6); HEMOGLOBIN 10.1 g/dl (14.0-17.9); LYMPHOCYTES # (AUTO) 1.1 X10'3 (1.1-4.8); MEAN CORPUSCULAR HEMOGLOBIN 29.9 PG (27.0-31.0); MEAN CORPUSCULAR HGB CONC 31.4 g/dL (33.0-36.5); MEAN CORPUSCULAR VOLUME 95.1 FL (78-98); MEAN PLATELET VOLUME 8.2 FL (7.4-10.4); MONOCYTES # (AUTO) 0.8 X10'3 (0-0.9); MONOCYTES % (AUTO) 9.9 % (2-12); NEUTROPHILS # (AUTO) 5.8 X10'3 (1.8-7.7); NEUTROPHILS % (AUTO) 75.4 % (42-75); PLATELET COUNT 164 X10'3 (140-440); RED BLOOD COUNT 3.37 X10'6 (4.70-6.10); RED CELL DISTRIBUTION WIDTH 23.7 % (11.5-14.5); WHITE BLOOD COUNT 7.8 X10'3 (4.5-11.0)
[2021-10-18 11:39] VITALS: BP 142/65
[2021-10-18 11:57] LABS: ALANINE AMINOTRANSFERASE 277 U/L (12-78); ALBUMIN/GLOBULIN RATIO 0.5 (1.1-1.5); ALKALINE PHOSPHATASE 313 IU/L (46-116); ANION GAP 17 (8-16); ASPARTATE AMINO TRANSFERASE 462 U/L (10-37); BILIRUBIN,TOTAL 0.9 MG/DL (0.1-1.0); BLOOD UREA NITROGEN 50 MG/DL (7-18); BUN/CREATININE RATIO 17.7 (5.4-32.0); CHLORIDE 107 MMOL/L (99-107); CREATININE 2.83 MG/DL (0.60-1.10); GLUCOSE 103 MG/DL (70-104); POTASSIUM 4.2 MMOL/L (3.5-5.1); SODIUM 144 MMOL/L (135-145); TOTAL CARBON DIOXIDE 20.4 MMOL/L (24-32); TOTAL PROTEIN 6.1 G/DL (6.4-8.2); eGFR 22 ML/MIN
[2021-10-18] MEDS ORDERED: sodium bicarbonate (8.4%) inj. 150 MEQ in sodium chloride 0.45% 850 ML IV SCH (15:10)
[2021-10-18] MEDS: rivaroxaban 15mg tablet PO SCH (17:41)
--- NOTE | 2021-10-18 18:15 | NUR ---
Problems reprioritized. Patient report given, questions answered & plan of care reviewed with DELMA De Jesus.
--- NOTE | 2021-10-18 18:45 | NUR ---
Patient in room [facility]. I have received report from Romy NGUYỄN and had the opportunity to ask questions and assume patient care.
[2021-10-18 19:00] VITALS: BP 103/63
[2021-10-18] MEDS: mirtazapine 15mg tablet PO SCH (20:30)
[2021-10-18] MEDS: atorvastatin 10mg tablet PO SCH (20:30)
[2021-10-18] MEDS: insulin glargine (Lantus) pen - multi-dose SQ SCH (21:00)
[2021-10-19] VITALS (10 sets, daily range): BP systolic 85–135; BP diastolic 55–77
[2021-10-19] MEDS: sodium bicarbonate (8.4%) inj. 150 MEQ in sodium chloride 0.45% 1,000 ML IV SCH ×2 (04:34→07:47)
[2021-10-19 06:21] LABS: BASOPHILS % (AUTO) 0.5 % (0-1); EOSINOPHILS % (AUTO) 0.7 % (0-6); HEMATOCRIT 32.4 % (42.0-52.0); HEMOGLOBIN 10.3 g/dl (14.0-17.9); LYMPHOCYTES % (AUTO) 15.3 % (21-51); MEAN CORPUSCULAR HEMOGLOBIN 29.7 PG (27.0-31.0); MEAN CORPUSCULAR HGB CONC 31.8 g/dL (33.0-36.5); MEAN CORPUSCULAR VOLUME 93.4 FL (78-98); MEAN PLATELET VOLUME 8.4 FL (7.4-10.4); MONOCYTES # (AUTO) 0.6 X10'3 (0-0.9); MONOCYTES % (AUTO) 10.1 % (2-12); NEUTROPHILS # (AUTO) 4.7 X10'3 (1.8-7.7); NEUTROPHILS % (AUTO) 73.4 % (42-75); PLATELET COUNT 170 X10'3 (140-440); RED BLOOD COUNT 3.47 X10'6 (4.70-6.10); RED CELL DISTRIBUTION WIDTH 24.3 % (11.5-14.5); WHITE BLOOD COUNT 6.4 X10'3 (4.5-11.0)
[2021-10-19 06:33] LABS: ALANINE AMINOTRANSFERASE 394 U/L (12-78); ALBUMIN 2.1 G/DL (3.4-5.0); ALBUMIN/GLOBULIN RATIO 0.5 (1.1-1.5); ALKALINE PHOSPHATASE 365 IU/L (46-116); ANION GAP 17 (8-16); ASPARTATE AMINO TRANSFERASE 654 U/L (10-37); BILIRUBIN,TOTAL 1.2 MG/DL (0.1-1.0); BLOOD UREA NITROGEN 56 MG/DL (7-18); BUN/CREATININE RATIO 17.9 (5.4-32.0); CALCIUM 8.1 MG/DL (8.5-10.1); CHLORIDE 104 MMOL/L (99-107); CREATININE 3.12 MG/DL (0.60-1.10); GLUCOSE 103 MG/DL (70-104); POTASSIUM 3.6 MMOL/L (3.5-5.1); SODIUM 146 MMOL/L (135-145); TOTAL PROTEIN 6.1 G/DL (6.4-8.2); eGFR 19 ML/MIN
[2021-10-19 06:41] LABS: PLATELET ESTIMATE NORMAL
[2021-10-19 06:42] LABS: ANISOCYTOSIS 3+; POLYCHROMASIA 2+
[2021-10-19 06:43] LABS: BURR CELLS 1+; ELLIPTOCYTES 1+
--- NOTE | 2021-10-19 07:16 | NUR ---
PAGER ID: [phone] MESSAGE: [id number] Dheeraj Salmon: CO2 25 now. would you like different IVF? thanks, cesario [phone]
[2021-10-19] MEDS: pantoprazole 40mg Tablet.DR PO SCH (07:38)
[2021-10-19] MEDS: aspirin 81mg, enteric-coated 1 TAB TABLET.DR PO SCH (07:38)
[2021-10-19] MEDS: duloxetine 30mg CAPSULE.DR PO SCH (07:38)
[2021-10-19] MEDS: docusate sod 100mg capsule PO SCH ×2 (07:39→20:07)
[2021-10-19] MEDS: levoTHYROXINE 25mcg tablet PO SCH (07:39)
[2021-10-19] MEDS: buPROPion SR 150mg tablet PO SCH ×2 (07:39→20:08)
[2021-10-19] MEDS: cholecalciferol (vitamin D3) 1,000 unit (25mcg) tablet PO SCH (07:39)
[2021-10-19] MEDS: NUT.TX.GLUC.INTOLER,LAC-FR,SOY (GLUCERNA) 237 ML PO SCH ×2 (07:45→17:47)
[2021-10-19] MEDS: carVEDilol 3.125mg tablet PO SCH (07:46)
[2021-10-19] MEDS ORDERED: dextrose 5%-water 1,000 ML IV SCH (09:30)
--- NOTE | 2021-10-19 11:11 | NUR ---
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 Sutures remain intact, the incision does not appear to be approximated at the first met head and the surrounding tissue is black and spongy in texture. The incision at medial aspect of foot is approximated. Pulses are doppler + both dorsalis and posterior tibial, foot is warm and dry. Wound cleansed with normal saline then painted with betadine covered with gauze and secured with kerlix and tape. Notified Akosua Painter who will speak with Dr Joy. Per her she will plan to remove sutures on Friday. Orders to paint with betadine BID over the weekend. Report to primary nurse provided. Addendum: 10/19/21 at 1129 by Cass Fu RN Amended: Links added.
[2021-10-19] MEDS ORDERED: albumin (human) 25% 100 ML IV solution IV ONE (12:45)
--- NOTE | 2021-10-19 14:59 | NUR ---
PAGER ID: [phone] MESSAGE: [phone] Dheeraj Salmon: just read your note and it mentioned IVF being NS.. the order was D5W. just wanted to clarify. thank you! :) cesario [phone]
--- NOTE | 2021-10-19 15:30 | NUR ---
PAGER ID: [phone] MESSAGE: [id number] Dheeraj Salmon : photoengraving printer suggesting ensure enlive TID because patient is eating so poorly, cesario feng [phone]
--- NOTE | 2021-10-19 15:50 | NUR ---
F/u 10/19: Pt PO remains poor mostly 0-25% vs refusing meals past ~8 days w/ ~33% avg Glucernas BID not meeting needs. Noted delirium/confusion present and pt has cycles of delirium vs normalcy per MD note; currently confused though mentation slowly improving per EMR. Pt receiving D5 at 100ml/hr per EMR providing 408 kcals/day. KAELYN paged MD and d/w RN recommends changing Glucerna BID to Ensure Enlive TIDWM if MD agreeable given poor PO trends. Noted pt documented as independent w/ meals despite confusion; RD d/w RN who reports pt requires mild assistance at times though can feed self. Last scaled wt 3/5 per EMR; RD notified MD recommend weekly wt. If poor PO meals/ONS persists pt would benefit from supplemental vs total EN to meet nutrition needs IF within POC. Given severe weakness, bilateral arm +4 edemas, and poor PO trends ~8 days pt meets severe malnutrition criteria. MD notified. LBM 10/19 receiving routine colace. Will monitor for further nutrition intervention needs. Recommendations: 1. Continue Regular diet as tolerated; chop meats 2. Glucerna ONS BID; Change to Ensure Enlive TIDWM to optimize kcal/protein intake 3. Encourage meals/ONS intake; assist w/ meals 4. Consider supplemental EN vs total EN to meet nutrition needs given poor PO trends past ~8 days IF within POC. IF TF; Vital AF at 80ml/hr goal. 5. Routine bowel care 6. Weekly scaled weights Addendum: 10/19/21 at [address] Amended: Links added.
[2021-10-19] MEDS ORDERED: furosemide 20 MG/2 ML vial IV SCH (16:00)
[2021-10-19] MEDS ORDERED: DOBUTamine-DoBUTrex 500mg/D5W 250 ML IV SCH (16:00)
--- NOTE | 2021-10-19 16:10 | NUR ---
per nursing supervisor silvering department, transfer to PCU and gtt will not be completed until after shift change.
[2021-10-19] MEDS: rivaroxaban 15mg tablet PO SCH (17:26)
--- NOTE | 2021-10-19 18:14 | NUR ---
Problems reprioritized. Patient report given, questions answered & plan of care reviewed with DELMA Bean.
--- NOTE | 2021-10-19 18:23 | NUR ---
Patient in room [facility]. I have received report from Romy NGUYỄN and had the opportunity to ask questions and assume patient care.
[2021-10-19] MEDS: furosemide 20 MG/2 ML vial IV SCH (20:00)
[2021-10-19] MEDS: atorvastatin 10mg tablet PO SCH (20:07)
[2021-10-19] MEDS: mirtazapine 15mg tablet PO SCH (20:08)
[2021-10-19] MEDS: insulin glargine (Lantus) pen - multi-dose SQ SCH (21:00)
--- NOTE | 2021-10-19 21:00 | NUR ---
Patient in room PCU 3021. I have received report from Geneva NGUYỄN and had the opportunity to ask questions and assume patient care.
--- NOTE | 2021-10-19 21:25 | NUR ---
Pt arrived fr/Surgical unit via bed to room 3021 in no acute distress. Heart monitor applied w/BP component. On arrival BP: 100/67, HR: 90/min, O2 Sat: 94%. Pt is sleepy but responds approp to simple questions. Interm slurred speech noted. 2229: IV Dobutamine drip started as ord. Pt. positioned f/comfort w/complaints of R foot pain. Foot elevated and Pt. medicated f/relief of discomfort.
--- NOTE | 2021-10-19 21:30 | NUR ---
Problems reprioritized. Patient report given, questions answered & plan of care reviewed with Marisol NGUYỄN.
[2021-10-19] MEDS: HYDROcodone/acetaminophen 5mg/325mg tablet PO PRN (22:15)
[2021-10-19] MEDS: DOBUTamine-DoBUTrex 500mg/D5W 250 ML IV SCH (22:16)
[2021-10-20] VITALS (9 sets, daily range): BP systolic 92–141; BP diastolic 54–107
[2021-10-20] MEDS: LORazepam 2 mg/ml vial IV PRN ×3 (01:16→18:02)
--- NOTE | 2021-10-20 07:06 | NUR ---
Problems reprioritized. Patient report given, questions answered & plan of care reviewed with Beau NGUYỄN.
[2021-10-20] MEDS: NUT.TX.GLUC.INTOLER,LAC-FR,SOY (GLUCERNA) 237 ML PO SCH ×2 (07:30→17:30)
[2021-10-20] MEDS: pantoprazole 40mg Tablet.DR PO SCH (07:48)
[2021-10-20] MEDS: duloxetine 30mg CAPSULE.DR PO SCH (07:48)
[2021-10-20] MEDS: docusate sod 100mg capsule PO SCH ×2 (07:48→20:00)
[2021-10-20] MEDS: cholecalciferol (vitamin D3) 1,000 unit (25mcg) tablet PO SCH (07:48)
[2021-10-20] MEDS: levoTHYROXINE 25mcg tablet PO SCH (07:48)
[2021-10-20] MEDS: aspirin 81mg, enteric-coated 1 TAB TABLET.DR PO SCH (07:49)
[2021-10-20] MEDS: furosemide 20 MG/2 ML vial IV SCH ×2 (08:00→20:00)
--- NOTE | 2021-10-20 08:05 | NUR ---
Dobutamine drip increased to 5MCG/KG/Min per Dr. Herrera.
[2021-10-20] MEDS: buPROPion SR 150mg tablet PO SCH ×2 (08:30→21:22)
--- NOTE | 2021-10-20 12:00 | NUR ---
Pt refused blood sugar check
--- NOTE | 2021-10-20 14:57 | NUR ---
Pt combative and refusing care. Pt tried to pull out Iv and Lindsey. He has two skin tears on both arms in Ac area. Areas have been cleaned and dressing applied. Did a wound consult. Pt refusing all food.
[2021-10-20] MEDS: rivaroxaban 15mg tablet PO SCH (18:00)
[2021-10-20] MEDS: insulin glargine (Lantus) pen - multi-dose SQ SCH (21:00)
[2021-10-20] MEDS: mirtazapine 15mg tablet PO SCH (21:22)
[2021-10-20] MEDS: atorvastatin 10mg tablet PO SCH (21:22)
[2021-10-20] MEDS: HYDROcodone/acetaminophen 5mg/325mg tablet PO PRN (21:23)
[2021-10-20] MEDS: ziprasidone IM 20mg inj **IM only IM PRN (21:47)
[2021-10-20] MEDS: DOBUTamine-DoBUTrex 500mg/D5W 250 ML IV SCH (22:43)
[2021-10-21] VITALS (14 sets, daily range): BP systolic 77–146; BP diastolic 20–104
[2021-10-21] MEDS: LORazepam 2 mg/ml vial IV PRN ×3 (03:18→22:30)
[2021-10-21] MEDS: ziprasidone IM 20mg inj **IM only IM PRN ×3 (04:31→20:09)
--- NOTE | 2021-10-21 06:20 | NUR ---
Problems reprioritized. Patient report given, questions answered & plan of care reviewed with Lizette NGUYỄN.
--- NOTE | 2021-10-21 06:53 | NUR ---
Patient in room PCU 3021. I have received report from DELMA PONCE, and had the opportunity to ask questions and assume patient care.
[2021-10-21 07:21] LABS: BASOPHILS % (AUTO) 0.3 % (0-1); EOSINOPHILS # (AUTO) 0.1 X10'3 (0-0.9); EOSINOPHILS % (AUTO) 1.8 % (0-6); HEMATOCRIT 26.5 % (42.0-52.0); HEMOGLOBIN 8.5 g/dl (14.0-17.9); LYMPHOCYTES # (AUTO) 0.6 X10'3 (1.1-4.8); LYMPHOCYTES % (AUTO) 15.3 % (21-51); MEAN CORPUSCULAR HEMOGLOBIN 29.8 PG (27.0-31.0); MEAN CORPUSCULAR HGB CONC 32.1 g/dL (33.0-36.5); MEAN CORPUSCULAR VOLUME 92.6 FL (78-98); MEAN PLATELET VOLUME 8.1 FL (7.4-10.4); MONOCYTES # (AUTO) 0.4 X10'3 (0-0.9); MONOCYTES % (AUTO) 8.9 % (2-12); NEUTROPHILS # (AUTO) 3.1 X10'3 (1.8-7.7); NEUTROPHILS % (AUTO) 73.7 % (42-75); PLATELET COUNT 99 X10'3 (140-440); RED BLOOD COUNT 2.86 X10'6 (4.70-6.10); RED CELL DISTRIBUTION WIDTH 24.7 % (11.5-14.5); WHITE BLOOD COUNT 4.2 X10'3 (4.5-11.0)
[2021-10-21] MEDS: NUT.TX.GLUC.INTOLER,LAC-FR,SOY (GLUCERNA) 237 ML PO SCH ×2 (07:30→17:30)
[2021-10-21 07:45] LABS: ALANINE AMINOTRANSFERASE 312 U/L (12-78); ALBUMIN 2.4 G/DL (3.4-5.0); ALBUMIN/GLOBULIN RATIO 0.8 (1.1-1.5); ALKALINE PHOSPHATASE 299 IU/L (46-116); ANION GAP 15 (8-16); ASPARTATE AMINO TRANSFERASE 373 U/L (10-37); BLOOD UREA NITROGEN 64 MG/DL (7-18); BUN/CREATININE RATIO 16.8 (5.4-32.0); CHLORIDE 107 MMOL/L (99-107); CREATININE 3.82 MG/DL (0.60-1.10); GLUCOSE 92 MG/DL (70-104); POTASSIUM 3.1 MMOL/L (3.5-5.1); SODIUM 149 MMOL/L (135-145); TOTAL CARBON DIOXIDE 27.3 MMOL/L (24-32); TOTAL PROTEIN 5.6 G/DL (6.4-8.2); eGFR 15 ML/MIN
--- NOTE | 2021-10-21 07:49 | NUR ---
LIFE VEST IS NOT ON PT, NOR IS IT IN THE PT'S ROOM.
--- NOTE | 2021-10-21 08:28 | NUR ---
PAGE SENT PAGER ID: [phone] MESSAGE: 3021, JONATHAN PAREKH, K-3.1, PT DOESN'T HAVE ELECTROLYTE REPLACEMENT ORDERS. THANK YOU, NEIL [id number]
[2021-10-21] MEDS: docusate sod 100mg capsule PO SCH ×2 (08:39→20:00)
[2021-10-21] MEDS: levoTHYROXINE 25mcg tablet PO SCH (08:39)
[2021-10-21] MEDS: buPROPion SR 150mg tablet PO SCH ×2 (08:39→20:08)
[2021-10-21] MEDS: duloxetine 30mg CAPSULE.DR PO SCH (08:39)
[2021-10-21] MEDS: aspirin 81mg, enteric-coated 1 TAB TABLET.DR PO SCH (08:39)
[2021-10-21] MEDS: cholecalciferol (vitamin D3) 1,000 unit (25mcg) tablet PO SCH (08:39)
[2021-10-21] MEDS: furosemide 20 MG/2 ML vial IV SCH ×2 (08:40→20:08)
[2021-10-21] MEDS: pantoprazole 40mg Tablet.DR PO SCH (08:40)
[2021-10-21] MEDS ORDERED: magnesium Cl slow-release 64mg tablet PO PRN (08:45)
[2021-10-21] MEDS ORDERED: magnesium 2GM in 50ml NS 50 ML IV PRN (08:45)
[2021-10-21] MEDS ORDERED: potassium Cl 20 mEq SR tablet PO PRN ×2 (08:45)
[2021-10-21] MEDS ORDERED: magnesium 4gm in 100ml NS 100 ML IV PRN (08:45)
[2021-10-21 09:06] LABS: MAGNESIUM 2.3 MG/DL (1.5-2.4)
[2021-10-21] MEDS: potassium CL 10mEq/100ml bag 100 ML IV PRN ×4 (09:44→13:32)
[2021-10-21 16:50] LABS: MAGNESIUM 2.2 MG/DL (1.5-2.4); POTASSIUM 4.1 MMOL/L (3.5-5.1)
[2021-10-21] MEDS: dextrose 50%-water 50ml dispensing syringe IV PRN (17:12)
[2021-10-21] MEDS: rivaroxaban 15mg tablet PO SCH (17:12)
--- NOTE | 2021-10-21 17:20 | NUR ---
PAGE SENT PAGER ID: [phone] MESSAGE: 3020, JONATHAN PAREKH, BG 69, 25ML DEXTROSE GIVEN. WILL CHECK BG AGAIN AT 1730. THANK YOU. NEIL [id number]
--- NOTE | 2021-10-21 17:54 | NUR ---
PT WAS RESTLESS TODAY, MOANING AND MUMBLING. PT APPEARED UNCOMFORTABLE, MEDICATIONS GIVEN WITH LITTLE EFFECT. SPEECH WAS GARBLED. PUPILS WERE PERRL. PT UNABLE TO FOLLOW COMMANDS. PT CLENCHED JAWS WHEN STAFF ATTEMPTED TO FEED HIM. PT WOULD TAKE SIPS OF WATER AND JUICE. FAMILY VISITED AND TRIED TO ENCOURAGE PT TO DRINK WITHOUT SUCCESS. 1700 BG WAS 69, DEXTROSE GIVEN NOTED AND IN 15 MINUTES BG WAS 96.
--- NOTE | 2021-10-21 18:43 | NUR ---
Problems reprioritized. Patient report given, questions answered & plan of care reviewed with DELMA PONCE.
[2021-10-21] MEDS: K and/or MAG REPLACEMENT MC SCH (20:00)
[2021-10-21] MEDS: atorvastatin 10mg tablet PO SCH (20:08)
[2021-10-21] MEDS: acetaminophen 325mg tablet PO PRN (20:09)
[2021-10-21] MEDS: mirtazapine 15mg tablet PO SCH (20:09)
[2021-10-21] MEDS: insulin glargine (Lantus) pen - multi-dose SQ SCH (21:00)
[2021-10-22] VITALS (16 sets, daily range): BP systolic 33–168; BP diastolic 17–105
[2021-10-22] MEDS: DOBUTamine-DoBUTrex 500mg/D5W 250 ML IV SCH (02:49)
[2021-10-22] MEDS: ziprasidone IM 20mg inj **IM only IM PRN (02:58)
[2021-10-22 06:30] LABS: BASOPHILS % (AUTO) 0.5 % (0-1); EOSINOPHILS % (AUTO) 0.4 % (0-6); HEMOGLOBIN 8.6 g/dl (14.0-17.9); LYMPHOCYTES # (AUTO) 0.8 X10'3 (1.1-4.8); LYMPHOCYTES % (AUTO) 14.3 % (21-51); MEAN CORPUSCULAR HGB CONC 31.9 g/dL (33.0-36.5); MEAN PLATELET VOLUME 8.5 FL (7.4-10.4); MONOCYTES # (AUTO) 0.5 X10'3 (0-0.9); MONOCYTES % (AUTO) 9.5 % (2-12); NEUTROPHILS # (AUTO) 4.2 X10'3 (1.8-7.7); NEUTROPHILS % (AUTO) 75.3 % (42-75); PLATELET COUNT 112 X10'3 (140-440); RED BLOOD COUNT 2.87 X10'6 (4.70-6.10); RED CELL DISTRIBUTION WIDTH 24.9 % (11.5-14.5); WHITE BLOOD COUNT 5.5 X10'3 (4.5-11.0)
--- NOTE | 2021-10-22 06:45 | NUR ---
BP 42/13 BEGINNING OF SHIFT, RAPID CALLED. MANUAL BP 90/50. BOLUS WAS STARTED, BUT STOPPED PT'S BP IMPROVED TO 128/105. DR. CASTELLON PHONED AND NOTIFIED THAT A RAPID WAS CALLED. NO NEW ORDERS.
--- NOTE | 2021-10-22 06:48 | NUR ---
Patient in room PCU 3021. I have received report from DELMA PONCE, and had the opportunity to ask questions and assume patient care.
[2021-10-22 06:56] LABS: ALANINE AMINOTRANSFERASE 270 U/L (12-78); ALBUMIN 2.6 G/DL (3.4-5.0); ALBUMIN/GLOBULIN RATIO 0.8 (1.1-1.5); ALKALINE PHOSPHATASE 311 IU/L (46-116); ANION GAP 17 (8-16); ASPARTATE AMINO TRANSFERASE 296 U/L (10-37); BILIRUBIN,TOTAL 1.3 MG/DL (0.1-1.0); BLOOD UREA NITROGEN 67 MG/DL (7-18); BUN/CREATININE RATIO 14.6 (5.4-32.0); CALCIUM 8.3 MG/DL (8.5-10.1); CHLORIDE 106 MMOL/L (99-107); CREATININE 4.59 MG/DL (0.60-1.10); GLUCOSE 52 MG/DL (70-104); MAGNESIUM 2.2 MG/DL (1.5-2.4); POTASSIUM 4.8 MMOL/L (3.5-5.1); SODIUM 146 MMOL/L (135-145); TOTAL CARBON DIOXIDE 22.7 MMOL/L (24-32); eGFR 12 ML/MIN
[2021-10-22] MEDS: NUT.TX.GLUC.INTOLER,LAC-FR,SOY (GLUCERNA) 237 ML PO SCH ×2 (07:30→17:56)
--- NOTE | 2021-10-22 07:51 | NUR ---
PAGE SENT PAGER ID: [phone] MESSAGE: 3020, JONATHAN PAREKH, BG 29, DEXTROSE GIVEN, LATEST BG 110. THANK YOU, NEIL [id number]
[2021-10-22] MEDS: K and/or MAG REPLACEMENT MC SCH ×2 (08:00→20:00)
[2021-10-22] MEDS: furosemide 20 MG/2 ML vial IV SCH (08:00)
[2021-10-22] MEDS: buPROPion SR 150mg tablet PO SCH ×2 (09:12→20:00)
[2021-10-22] MEDS: levoTHYROXINE 25mcg tablet PO SCH (09:12)
[2021-10-22] MEDS: aspirin 81mg, enteric-coated 1 TAB TABLET.DR PO SCH (09:12)
[2021-10-22] MEDS: duloxetine 30mg CAPSULE.DR PO SCH (09:23)
[2021-10-22] MEDS: pantoprazole 40mg Tablet.DR PO SCH (09:23)
[2021-10-22] MEDS: docusate sod 100mg capsule PO SCH ×2 (09:23→20:00)
[2021-10-22] MEDS: cholecalciferol (vitamin D3) 1,000 unit (25mcg) tablet PO SCH (09:24)
--- NOTE | 2021-10-22 10:15 | NUR ---
PAGE SENT PAGER ID: [phone] MESSAGE: [id number], JONATHAN PAREKH, DIETARY ASKING ABOUT TUBE FEEDING, NG ORDER? IS PT ABLE TO ANSWER FOR HIMSELF OR CONTACT FAMILY? MAGALYS BENOIT. THANK YOU NEIL Layne [phone]
[2021-10-22] MEDS: LORazepam 2 mg/ml vial IV PRN (10:46)
[2021-10-22] MEDS: dextrose 5%-1/4 normal saline 1,000 ML IV SCH ×2 (11:13→18:28)
--- NOTE | 2021-10-22 11:44 | NUR ---
TF consult: Pt PO remains poor mostly refusing meals for the past week, and ~25% avg Glucerna BID not meeting needs. Noted delirium/confusion present and pt has cycles of delirium vs normalcy per MD note; currently confused though mentation slowly improving per EMR. KAELYN paged MD and d/w RN regarding TF, and have received TF consult from MD, see recs below. Per documentation pt also had a rapid last night. LBM 10/21. Will continue to monitor. Recommendations: 1) Continuous TF per MD using Vital AF at 80ml/hr goal to provide 1920ml volume, 2304kcals, 144g protein, 1557ml free water 2) Additional water flush 100ml Q4h; monitor serum Na and PO intake 3) PALB Q / 4) Continue Regular diet as tolerated; chop meats; consider NPO if pt mentation does not improve and refusing meals 5) Glucerna ONS BID; discontinue as nutrition support initiated 6) Routine bowel care 7) Weekly scaled weights Addendum: 10/22/21 at [address] Amended: Links added.
[2021-10-22] MEDS ORDERED: DOPamine 400mg/D5W 250ml 250 ML IV SCH (12:20)
--- NOTE | 2021-10-22 13:07 | NUR ---
PAGE SENT PAGER ID: [phone] MESSAGE: 3022, JONATHAN PAREKH HAS A PIV, IS IT OK TO RUN DOPAMINE? WOULD YOU LIKE A CENTRAL LINE? THANK YOU, NEIL [phone].
--- NOTE | 2021-10-22 13:16 | NUR ---
PAGE SENT PAGER ID: [phone] MESSAGE: [id number], JONATHAN PAREKH, HOLDING DOPAMINE UNTIL I HEAR FROM YOU CONCERNING USING PIV. THANK YOU, NEIL Layne [phone]
--- NOTE | 2021-10-22 13:17 | NUR ---
ORDERS TO DISCONTINUE DOPAMINE AND DOBUTAMINE RECEIVED FROM DR. PALACIO.
[2021-10-22 15:47] LABS: PREALBUMIN 9.5 MG/DL (19-36)
--- NOTE | 2021-10-22 17:12 | NUR ---
CORPAK PLACED TO THE 75 MISTY. CORPAK TAPED TO NOSE. KUB ORDERED.
--- NOTE | 2021-10-22 17:24 | NUR ---
PAGE SENT PAGER ID: [phone] MESSAGE: 3021, JONATHAN IGLESIA, BP IS TRENDING LOW, 1700 BP 80/20, HR 82. THANK YOU, NEIL [id number]
[2021-10-22] MEDS: rivaroxaban 15mg tablet PO SCH (17:45)
--- NOTE | 2021-10-22 18:09 | NUR ---
Problems reprioritized. Patient report given, questions answered & plan of care reviewed with DELMA PONCE.
[2021-10-22] MEDS: insulin glargine (Lantus) pen - multi-dose SQ SCH (21:00)
[2021-10-22] MEDS: atorvastatin 10mg tablet PO SCH (21:00)
[2021-10-22] MEDS: mirtazapine 15mg tablet PO SCH (21:00)
[2021-10-23] MEDS: ziprasidone IM 20mg inj **IM only IM PRN (00:10)
[2021-10-23 02:00] VITALS: BP 97/46
[2021-10-23] MEDS: dextrose 5%-1/4 normal saline 1,000 ML IV SCH (02:28)
[2021-10-23 06:00] VITALS: BP 111/87
--- NOTE | 2021-10-23 06:28 | NUR ---
Problems reprioritized. Patient report given, questions answered & plan of care reviewed with Lizette NGUYỄN.
[2021-10-23] MEDS: levoTHYROXINE 25mcg tablet PO SCH (07:00)
[2021-10-23 07:06] LABS: BASOPHILS % (AUTO) 0.2 % (0-1); EOSINOPHILS % (AUTO) 0.1 % (0-6); HEMATOCRIT 28.6 % (42.0-52.0); LYMPHOCYTES # (AUTO) 0.7 X10'3 (1.1-4.8); LYMPHOCYTES % (AUTO) 10.2 % (21-51); MEAN CORPUSCULAR HEMOGLOBIN 30.1 PG (27.0-31.0); MEAN CORPUSCULAR HGB CONC 31.4 g/dL (33.0-36.5); MEAN CORPUSCULAR VOLUME 95.9 FL (78-98); MEAN PLATELET VOLUME 8.8 FL (7.4-10.4); MONOCYTES # (AUTO) 0.7 X10'3 (0-0.9); MONOCYTES % (AUTO) 10.3 % (2-12); NEUTROPHILS # (AUTO) 5.7 X10'3 (1.8-7.7); NEUTROPHILS % (AUTO) 79.2 % (42-75); PLATELET COUNT 97 X10'3 (140-440); RED BLOOD COUNT 2.98 X10'6 (4.70-6.10); RED CELL DISTRIBUTION WIDTH 25.8 % (11.5-14.5); WHITE BLOOD COUNT 7.2 X10'3 (4.5-11.0)
--- NOTE | 2021-10-23 07:29 | NUR ---
Patient in room PCU 3021. I have received report from DELMA PONCE, and had the opportunity to ask questions and assume patient care.
[2021-10-23] MEDS: NUT.TX.GLUC.INTOLER,LAC-FR,SOY (GLUCERNA) 237 ML PO SCH (07:30)
[2021-10-23 07:35] LABS: ALANINE AMINOTRANSFERASE 276 U/L (12-78); ALBUMIN 2.5 G/DL (3.4-5.0); ALBUMIN/GLOBULIN RATIO 0.7 (1.1-1.5); ALKALINE PHOSPHATASE 339 IU/L (46-116); ANION GAP 25 (8-16); ASPARTATE AMINO TRANSFERASE 348 U/L (10-37); BILIRUBIN,TOTAL 2.1 MG/DL (0.1-1.0); BLOOD UREA NITROGEN 70 MG/DL (7-18); BUN/CREATININE RATIO 13.4 (5.4-32.0); CALCIUM 7.9 MG/DL (8.5-10.1); CHLORIDE 102 MMOL/L (99-107); CREATININE 5.23 MG/DL (0.60-1.10); GLUCOSE 95 MG/DL (70-104); MAGNESIUM 2.1 MG/DL (1.5-2.4); POTASSIUM 4.8 MMOL/L (3.5-5.1); SODIUM 144 MMOL/L (135-145); TOTAL CARBON DIOXIDE 17.1 MMOL/L (24-32); TOTAL PROTEIN 6.1 G/DL (6.4-8.2); eGFR 11 ML/MIN
--- NOTE | 2021-10-23 07:56 | NUR ---
CORPAK ADVANCE TO 85 MISTY. ORDER FOR KUB PLACED.
[2021-10-23] MEDS: pantoprazole 40mg Tablet.DR PO SCH (08:00)
[2021-10-23] MEDS: duloxetine 30mg CAPSULE.DR PO SCH (08:00)
[2021-10-23] MEDS: docusate sod 100mg capsule PO SCH (08:00)
[2021-10-23] MEDS: cholecalciferol (vitamin D3) 1,000 unit (25mcg) tablet PO SCH (08:00)
[2021-10-23] MEDS: aspirin 81mg, enteric-coated 1 TAB TABLET.DR PO SCH (08:00)
[2021-10-23] MEDS: K and/or MAG REPLACEMENT MC SCH (08:00)
[2021-10-23] MEDS: buPROPion SR 150mg tablet PO SCH (08:00)
[2021-10-23] MEDS ORDERED: sodium bicarbonate (8.4%) inj. 150 MEQ in dextrose 5%-water 1,000 ML IV SCH (09:10)
[2021-10-23 11:00] VITALS: BP_SYST 129; BP_SYST 91; BP_DIAS 44; BP_DIAS 99
--- NOTE | 2021-10-23 11:20 | NUR ---
WRONG VITAL SIGNS ENTERED BY FUAD 10/23/21 , 11:00.
--- NOTE | 2021-10-23 11:24 | NUR ---
PAGE SENT PAGER ID: [phone] MESSAGE: Mone4JONATHAN IGLESIA, PBNP 30,000. THANK YOU, NEIL [phone]
--- NOTE | 2021-10-23 13:30 | NUR ---
SODIUM BICARB D5 INCREASED TO 150 ML/HR
--- NOTE | 2021-10-23 14:07 | NUR ---
Message: 1621, JONATHAN PAREKH , NUCLEAR MEDICINE HASN'T RECEIVED ANY REPORTS. THANK YOU, NEIL [phone]
[2021-10-23 15:00] VITALS: BP 98/76
--- NOTE | 2021-10-23 17:11 | NUR ---
PAGER ID: [phone] MESSAGE: 3021, STORM, STILL NO KUB REPORT. 1600 BP 84/63, INCREASING EDEMA, NO URINE. THANK YOU, NEIL [id number]
[2021-10-23] MEDS ORDERED: DOBUTamine-DoBUTrex 500mg/D5W 250 ML IV SCH (17:25)
[2021-10-23] MEDS ORDERED: furosemide inj 100 MG in normal saline 100ml IV soln 90 ML IV SCH (17:30)
--- NOTE | 2021-10-23 17:30 | NUR ---
Family presents to bedside to visit pt. Paged Dr. Andrew to alert him to families presence, Awaiting MD to speak with family
--- NOTE | 2021-10-23 18:16 | NUR ---
Problems reprioritized. Patient report given, questions answered & plan of care reviewed with DELMA PONCE. DOBUTAMINE WAS HANDED OFF TO ROSARIO.
[2021-10-23 18:30] VITALS: BP 56/30
[2021-10-23] MEDS: morphine 10mg/ml inj. IV PRN (19:51)
--- NOTE | 2021-10-24 06:39 | NUR ---
Problems reprioritized. Patient report given, questions answered & plan of care reviewed with Mercedes NGUYỄN.
[2021-10-24] MEDS: LORazepam 2 mg/ml vial IV PRN (10:22)
[2021-10-24 11:14] VITALS: BP 115/89
--- NOTE | 2021-10-24 12:30 | NUR ---
Per ex- Tameka - once patient expires, they have decided on using [facility] [phone]. Pt is NOT an Organ donor. Gave update on patient.
--- NOTE | 2021-10-24 14:07 | NUR ---
No S/S of distress noted. Normal breathing, no accessory muscles used. Will continue to monitor.
[2021-10-24] MEDS: morphine 10mg/ml inj. IV PRN (16:24)
--- NOTE | 2021-10-24 17:46 | NUR ---
Pt has been repositioned Q2H and PRN. Towards the end of the shift the patient started moaning and withdrew in pain while being moved. Administered morphine PRN. WC was not performed on foot. Existing dressing is CDI and no strikethrough. Since patient is on comfort care I will miss this WC change and reevaluate later. Will continue to monitor
--- NOTE | 2021-10-24 17:57 | NUR ---
[place]rientee documentation: I have reviewed and agree with all interventions, assessments performed and documented by STEVIE Norris II.
[2021-10-24 18:00] VITALS: BP 85/35
--- NOTE | 2021-10-24 18:30 | NUR ---
report recieved from Cally schwab. all questions answered, i have assumed care of patient. Patient is resting in bed no signs of distress.
[2021-10-25 06:00] VITALS: BP 77/23
[2021-10-25] MEDS: morphine 10mg/0.5ml (conc. morphine) oral syringe PO PRN (12:37)
--- NOTE | 2021-10-25 18:38 | NUR ---
[place]rientee documentation: I have reviewed and agree with all interventions, assessments performed and documented by STEVIE Norris II.
--- NOTE | 2021-10-25 18:41 | NUR ---
Problems reprioritized. Patient report given, questions answered & plan of care reviewed with DELMA Joyce.
[2021-10-26] MEDS: morphine 10mg/ml inj. IV PRN (00:15)
[2021-10-26 06:00] VITALS: BP 101/26
--- NOTE | 2021-10-26 06:21 | NUR ---
Problems reprioritized. Patient report given, questions answered & plan of care reviewed with Ori. patient on HFNC at 50L, Fi02 80 Addendum: 10/26/21 at 0630 by Maria Del Carmen Madrigal RN note written in error. report was given to EDLMA Capps. Patient is on 3L NC with respirations 6-8.
[2021-10-26 18:00] VITALS: BP 89/50
[2021-10-26] MEDS: morphine 10mg/0.5ml (conc. morphine) oral syringe PO PRN (19:17)
[2021-10-26] MEDS: LORazepam 2 mg/ml vial IV PRN (19:25)
[2021-10-27] MEDS: LORazepam 2 mg/ml vial IV PRN (02:31)
[2021-10-27] MEDS: morphine 10mg/0.5ml (conc. morphine) oral syringe PO PRN ×3 (02:31→22:29)
[2021-10-27 07:28] VITALS: BP 95/36
[2021-10-27 18:00] VITALS: BP 72/39
--- NOTE | 2021-10-27 18:15 | NUR ---
Patient in room PCU 3021. I have received report from Mike NGUYỄN and had the opportunity to ask questions and assume patient care.
[2021-10-28] MEDS: morphine 10mg/0.5ml (conc. morphine) oral syringe PO PRN (05:03)
--- NOTE | 2021-10-28 06:47 | NUR ---
Problems reprioritized. Patient report given, questions answered & plan of care reviewed with Addie NGUYỄN.
[2021-10-28 12:55] VITALS: BP 121/52
--- NOTE | 2021-10-28 17:25 | NUR ---
Pt resting comfortably thru shift, no signs or symptoms of pain or agitaion. Mouth care provided. Skin care provided. Addendum: 10/28/21 at 1727 by dAdie Madrigal RN Pt turned q 2 hrs.
[2021-10-28 18:00] VITALS: BP 60/15
[2021-10-29 06:00] VITALS: BP 77/15
--- NOTE | 2021-10-29 06:46 | NUR ---
Patient in room PCU 3021. I have received report from NOC RN and had the opportunity to ask questions and assume patient care.
--- NOTE | 2021-10-29 11:18 | NUR ---
Report called to receiving nurse. Transferred via bed Belongings . Special Issues communicated to receiving nurse Sol RN
[2021-10-29 11:43] VITALS: BP 63/13
--- NOTE | 2021-10-29 12:01 | NUR ---
Received patient into 4010B, patient incoherent on comfort care, two RN skin check done, RR 10, 02 saturation 92 on 3L, BP 63/12. Patients extremities elevated on pillows.
--- NOTE | 2021-10-29 16:31 | NUR ---
SPOKE WITH LULI AND GAVE HER AN UPDATE ON PATIENT, TRIED TO CALL SON, KAYCEE PAREKH AT [phone] TO FIND OUT WHEN THE PATIENT PASSES WHERE THEY WOULD LIKE HIM TO GO. THE NUMBER HAS BEEN BUSY AFTER MULTIPLE TIMES.
[2021-10-29] MEDS: morphine 10mg/0.5ml (conc. morphine) oral syringe PO PRN (17:17)
[2021-10-29 18:00] VITALS: BP 66/20
--- NOTE | 2021-10-29 18:16 | NUR ---
Problems reprioritized. Patient report given, questions answered & plan of care reviewed with OBEY NGUYỄN.
--- NOTE | 2021-10-29 18:33 | NUR ---
Patient in room ORTHO 4010. I have received report from Sol NGUYỄN and had the opportunity to ask questions and assume patient care.
[2021-10-29 22:00] VITALS: BP 78/57
[2021-10-30] MEDS: morphine 10mg/0.5ml (conc. morphine) oral syringe PO PRN ×3 (04:38→12:51)
--- NOTE | 2021-10-30 06:30 | NUR ---
Patient in room ORTHO 4018. I have received report from DELMA Alamo and had the opportunity to ask questions and assume patient care.
--- NOTE | 2021-10-30 06:32 | NUR ---
Problems reprioritized. Patient report given, questions answered & plan of care reviewed with Johanna NGUYỄN.
[2021-10-30] MEDS: LORazepam 2 mg/ml vial IV PRN ×2 (07:20→12:51)
[2021-10-30 10:00] VITALS: BP 144/67
[2021-10-30] MEDS: morphine 10mg/ml inj. IV PRN (14:57)
--- NOTE | 2021-10-30 16:17 | NUR ---
Phoned Pts sohail Nichols but phone no longer in service. Called Tameka Sons mother and Pt's ex- to notify of expiration and obtain mortuary choice. Tameka indicated [place] and son Simone could be heard as well agreeing to same. Notified Dr Morris and had tele strip run. Body to be prepared for fruit or nut picker.
--- NOTE | 2021-10-30 18:05 | NUR ---
Gideon here to take pt all personal belongings sent, clothing only no valuables
== END 2021-10-30 18:05 | DRG 239 ==
LOC: ER 17:52 → ED HOLD 21:23 → SUR 3N 08-19 00:17 → MED 3N 08-28 16:56 → SUR 3N 09-02 17:07 → PCU 3S 10-19 21:21 → ORTHO 4S 10-29 11:25
PROVIDERS: ADMIT Family Medicine; ATTEND Family Medicine
PROC: 3E0T3BZ Introduction of Anesthetic Agent into Peripheral Nerves and Plexi, Percutaneous Approach (ICD-10-PCS; 2021-09-17)
PROC: 0Y6M0Z9 Detachment at Right Foot, Partial 1st Ray, Open Approach (ICD-10-PCS; principal; 2021-09-17 16:02)
PROC: B3251ZZ Computerized Tomography (CT Scan) of Bilateral Common Carotid Arteries using Low Osmolar Contrast (ICD-10-PCS; 2021-10-03)
PROC: B32G1ZZ Computerized Tomography (CT Scan) of Bilateral Vertebral Arteries using Low Osmolar Contrast (ICD-10-PCS; 2021-10-03)
PROC: B32R1ZZ Computerized Tomography (CT Scan) of Intracranial Arteries using Low Osmolar Contrast (ICD-10-PCS; 2021-10-03)
PROC: B3281ZZ Computerized Tomography (CT Scan) of Bilateral Internal Carotid Arteries using Low Osmolar Contrast (ICD-10-PCS; 2021-10-03)
PROC: 4A10X4Z Monitoring of Central Nervous Electrical Activity, External Approach (ICD-10-PCS; 2021-10-03)
DX: E11.52 Type 2 diabetes mellitus with diabetic peripheral angiopathy with gangrene (principal); A41.81 Sepsis due to Enterococcus; I50.23 Acute on chronic systolic (congestive) heart failure; E43 Unspecified severe protein-calorie malnutrition; G93.41 Metabolic encephalopathy; I33.0 Acute and subacute infective endocarditis; I13.0 Hypertensive heart and chronic kidney disease with heart failure and stage 1 through stage 4 chronic kidney disease, or unspecified chronic kidney disease; M86.8X7 Other osteomyelitis, ankle and foot; E87.2 Acidosis; J96.11 Chronic respiratory failure with hypoxia; L03.115 Cellulitis of right lower limb; N17.9 Acute kidney failure, unspecified; I42.9 Cardiomyopathy, unspecified; E11.69 Type 2 diabetes mellitus with other specified complication; I48.0 Paroxysmal atrial fibrillation; I25.10 Atherosclerotic heart disease of native coronary artery without angina pectoris; I65.23 Occlusion and stenosis of bilateral carotid arteries; F32.A Depression, unspecified; G47.33 Obstructive sleep apnea (adult) (pediatric); I77.6 Arteritis, unspecified; K73.9 Chronic hepatitis, unspecified; K76.0 Fatty (change of) liver, not elsewhere classified; D69.6 Thrombocytopenia, unspecified; E11.22 Type 2 diabetes mellitus with diabetic chronic kidney disease; E11.65 Type 2 diabetes mellitus with hyperglycemia; K57.90 Diverticulosis of intestine, part unspecified, without perforation or abscess without bleeding; N18.9 Chronic kidney disease, unspecified; R29.6 Repeated falls; E78.5 Hyperlipidemia, unspecified; Z20.822 Contact with and (suspected) exposure to COVID-19; W06.XXXA Fall from bed, initial encounter; E03.9 Hypothyroidism, unspecified; Z66 Do not resuscitate; R62.7 Adult failure to thrive; R26.9 Unspecified abnormalities of gait and mobility; R44.1 Visual hallucinations; Z74.01 Bed confinement status; Z79.01 Long term (current) use of anticoagulants; Z79.82 Long term (current) use of aspirin; Z95.1 Presence of aortocoronary bypass graft; Z51.5 Encounter for palliative care; Z68.30 Body mass index [BMI] 30.0-30.9, adult; Z95.2 Presence of prosthetic heart valve; Z95.810 Presence of automatic (implantable) cardiac defibrillator; Z68.32 Body mass index [BMI] 32.0-32.9, adult; Y93.89 Activity, other specified; Y92.098 Other place in other non-institutional residence as the place of occurrence of the external cause; Y99.8 Other external cause status; Z91.030 Bee allergy status; Z99.81 Dependence on supplemental oxygen; Z79.899 Other long term (current) drug therapy; E88.09 Other disorders of plasma-protein metabolism, not elsewhere classified; I34.8 Other nonrheumatic mitral valve disorders; B95.2 Enterococcus as the cause of diseases classified elsewhere
CPT/HCPCS: 36415; 70450; 70496; 70498; 70551; 71045; 73718; 74018; 76700; 80048; 80053; 80061; 81001; 82140; 82948; 83036; 83605; 83690; 83735; 83880; 84100; 84132; 84134; 84443; 85007; 85008; 85025; 85610; 85651; 85730; 86140; 87040; 87070; 87075; 87077; 87081; 87186; 87635; 88305; 88311; 93005; 93308; 94760; 95816; 97110; 97162; 97164; 97530; 97535; 99285; A4618; A6253; A6449; A7000; G0378; J0290; J0696; J1250; J1265; J1815; J1940; J2060; J2250; J2274; J2543; J3010; J3480; J3486; J3490; J7030; J7040; J7042; J7060; J7070; J7120; J8540; P9047; Q0163; Q9967